=== PATIENT | male | born 1955 | race Caucasian/White ===

== ENCOUNTER → 2020-07-05 11:58 | Outpatient (BNVA) | payer MEDICARE, MEDICAID, SELFPAY | PROVIDERS: PCP Family Medicine; Visit Provider Internal Medicine | DX: I25.10 Atherosclerotic heart disease of native coronary artery without angina pectoris (principal); I10 Essential (primary) hypertension; E11.9 Type 2 diabetes mellitus without complications; E78.5 Hyperlipidemia, unspecified; Z79.899 Other long term (current) drug therapy | CPT/HCPCS: 93005; 99212 ==

== ENCOUNTER → 2020-07-22 08:45 | Outpatient (BNVA) | payer MEDICAID, SELFPAY | PROVIDERS: PCP Family Medicine; Referring Provider Family Medicine; Visit Provider Physician Assistant | DX: Z76.89 Persons encountering health services in other specified circumstances (principal) ==

== ENCOUNTER 2021-03-17 13:31 | Outpatient (RCR) | payer MEDICARE, MEDICAID, SELFPAY ==
--- NOTE | ~2021-03-17 | XR_ITS ---
EXAMINATION: XR FOOT, LEFT CLINICAL INFORMATION: Nonhealing foot wound. Evaluate for osteomyelitis. COMPARISON: None TECHNIQUE: AP, lateral, and bilateral oblique views of the left foot. FINDINGS: No acute fracture or dislocation. Mild joint space narrowing or marginal osteophytes scattered throughout the interphalangeal joints. Partially visualized orthopedic hardware within the distal tibia and fibula related to remote fractures. No evidence of hardware complication. Soft tissue ulceration and overlying bandage lateral to the 5th metatarsophalangeal joint. No radiopaque foreign body or adjacent periosteal reaction/osseous erosion. XR/XR foot LT min 3V IMPRESSION: Soft tissue wound lateral to the 5th metatarsophalangeal joint without evidence of osteomyelitis. Osteomyelitis may be occult on plain radiographs and if there is persistent clinical concern, nuclear medicine bone scan or MRI without and with contrast could be considered to help further evaluate.
[2021-05-18 09:04] LABS: MANUAL DIFF FLAG NO
[2021-05-18 09:26] LABS: Basophils Absolute Auto 0.1 X10*3/uL (0.0-0.2); Basophils Percent Auto 0.7 % (0-2); Eosinophils Absolute Auto 0.2 X10*3/uL (0.0-0.4); Eosinophils Percent Auto 2.1 % (0-4); Hematocrit 34.2 % (42-52); Hemoglobin 11.1 g/dl (14.0-18.0); Imm Gran Abs Auto 0.02 X10*3/uL (0.00-0.03); Imm Gran Pct Auto 0.3 % (0.0-0.4); Lymphocytes Absolute Auto 1.4 X10*3/uL (1.2-4.9); Lymphocytes Percent Auto 19.1 % (20-40); Mean Corpuscular HGB Conc 32.5 g/dl (31.0-36.0); Mean Corpuscular Hemoglobin 28.8 pg (27.0-33.0); Mean Corpuscular Volume 88.6 fL (80-98); Mean Platelet Volume 10.3 fL (9.4-12.4); Monocytes Absolute Auto 0.6 X10*3/uL (0.1-1.2); Monocytes Percent Auto 8.5 % (2-11); Neutrophils Absolute Auto 4.9 X10*3/uL (2.0-8.3); Neutrophils Percent Auto 69.3 % (45-73); Platelet Count 326 X10*3/uL (160-400); Red Blood Count 3.86 X10*6/uL (4.60-5.80); Red Cell Distribution Width 12.7 % (11.0-16.0); White Blood Count 7.1 X10*3/uL (4.8-10.8)
[2021-05-18 09:42] LABS: Estimated Average Glucose 117 mg/dL; Hemoglobin A1c % 5.7 %
[2021-05-18 09:55] LABS: Anion Gap 12 (12-20); Blood Urea Nitrogen 17 mg/dL (9-16); C Reactive Protein 0.46 mg/dL (< or = 0.50); Calcium 9.7 mg/dL (8.4-10.2); Carbon Dioxide 30 mmol/L (22-29); Chloride 102 mmol/L (96-108); Estimated Glomerular Filt Rate 60; Glucose Random 97 mg/dL (60-115); Potassium 4.9 mmol/L (3.3-5.1); Sodium 139 mmol/L (135-145)
[2021-05-18 10:08] LABS: Erythrocyte Sedimentation Rate 33 MM/HR (0-15)
== END 2021-10-13 09:10 | disposition home or self-care (01) ==
LOC: HO.WCC 13:31
PROVIDERS: Absent Provider Physician Assistant; PCP Family Medicine; Visit Provider Surgery
DX: E11.621 Type 2 diabetes mellitus with foot ulcer (principal); L97.522 Non-pressure chronic ulcer of other part of left foot with fat layer exposed; E11.51 Type 2 diabetes mellitus with diabetic peripheral angiopathy without gangrene; F11.90 Opioid use, unspecified, uncomplicated; Z79.84 Long term (current) use of oral hypoglycemic drugs; Z79.82 Long term (current) use of aspirin; Z79.2 Long term (current) use of antibiotics; Z79.899 Other long term (current) drug therapy
CPT/HCPCS: 11042; 15271; 15275; 36415; 73630; 80048; 83036; 84134; 85025; 85652; 86140; 93923; 93926; 99212; 99213; Q4187

== ENCOUNTER 2021-05-30 14:29 | Outpatient (REF) | payer MEDICARE, MEDICAID, SELFPAY ==
--- NOTE | ~2021-05-30 | MR_ITS ---
EXAMINATION: MRI FOOT WITHOUT AND WITH CONTRAST, LEFT CLINICAL INFORMATION: Nonhealing diabetic foot ulcer. Evaluate for osteoarthritis. COMPARISON: Left foot radiographs dated 04/29/2020. TECHNIQUE: Multisequence MR imaging of the left foot was obtained without contrast on a high-field strength scanner. Patient declined intravenous contrast. FINDINGS: Evaluation limited secondary to patient motion. Soft tissue ulceration at the lateral aspect of the 5th metatarsal head with subcutaneous soft tissue edema, consistent with cellulitis. No organized fluid collection/abscess formation. Small 5th metatarsophalangeal joint effusion with mild marrow edema in the 5th metatarsal head and 5th proximal phalanx. No associated decreased T1 marrow signal. First metatarsophalangeal and hallux sesamoid articular cartilage thinning with mild subchondral cystic change and small marginal osteophytes. No additional abnormal marrow signal. No stress reaction or fracture. Edema within the intrinsic musculature of the foot, which can be seen in diabetic patients. The visualized flexor and extensor tendons are intact. The Lisfranc ligament is intact. MR/MR foot LT wo/w con IMPRESSION: 1. Soft tissue ulceration at the lateral aspect of the 5th metatarsal head with associated cellulitis. Small 5th metatarsophalangeal joint effusion and adjacent marrow edema, which could represent early septic arthritis. No osseous erosion. 2. Edema within the intrinsic musculature of the foot, which can be seen in diabetic patients. 3. 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
== END 2021-05-30 14:30 | disposition home or self-care (01) ==
LOC: HO.MRI 14:29
PROVIDERS: Visit Provider Physician Assistant
DX: E11.621 Type 2 diabetes mellitus with foot ulcer (principal); L97.422 Non-pressure chronic ulcer of left heel and midfoot with fat layer exposed
CPT/HCPCS: 73720

== ENCOUNTER → 2021-06-17 10:28 | Outpatient (BNVA) | payer MEDICARE, MEDICAID, SELFPAY | PROVIDERS: PCP Family Medicine; Visit Provider Internal Medicine | DX: S99.921A Unspecified injury of right foot, initial encounter (principal) | CPT/HCPCS: 99202 ==

== ENCOUNTER 2021-09-20 13:20 | Outpatient (REF) | payer MEDICARE, MEDICAID, SELFPAY ==
--- NOTE | ~2021-09-20 | US_ITS ---
EXAMINATION: US NONINVASIVE ASSESSMENT OF THE ARTERIES OF BOTH LOWER EXTREMITIES WITH ANKLE PRESSURE MEASUREMENTS, ANKLE BRACHIAL INDICES, PVR MEASUREMENTS AND LEFT LOWER EXTREMITY DUPLEX CLINICAL INFORMATION: Peripheral vascular disease. TECHNIQUE: Ankle pressure measurements, ankle brachial indices and PVR tracings were obtained of the lower extremity arterial system bilaterally. In addition, duplex Doppler techniques with wave form analysis and measurement of velocities in the common femoral, profunda femoral, superficial femoral, popliteal and tibial arteries was performed on the left. The study was performed only at rest. COMPARISON: None. FINDINGS: NONINVASIVE ASSESSMENT OF THE ARTERIES OF BOTH LOWER EXTREMITIES WITH ABIs: RIGHT LEG: Right ankle-brachial index: Not calculated as distal Doppler was inaudible. PVR (ankle): Dampened. LEFT LEG: Ankle-brachial index: 1.61, though likely artificially elevated due to vessel noncompressibility. Ankle PT pressure exceeds 200 mmHg. PVR (ankle): Dampened. BILATERAL LOWER EXTREMITY DUPLEX ULTRASOUND: LEFT LEG: Common femoral artery: 92 cm/s, Diastolic flow reversal: Yes Profunda femoris artery: 64 cm/s, Diastolic flow reversal: Yes Superficial femoral artery (proximal): 86 cm/s, Diastolic flow reversal: Yes Superficial femoral artery (mid): 95 cm/s, Diastolic flow reversal: Yes Superficial femoral artery (distal): 61 cm/s, Diastolic flow reversal: Yes Popliteal artery: 57 cm/s, Diastolic flow reversal: Yes Posterior tibial artery: 87 cm/s, Diastolic flow reversal: Yes US/US arterial duplex LE IMPRESSION: RIGHT LEG: MOSES unable to be calculated. Right ankle PVR dampened. LEFT LEG: MOSES 1.61, though likely artificially elevated given high right ankle pressures. No hemodynamically significant lesions identified on left lower extremity duplex. MOSES Reference: - >0.97-1.25 = normal - no significant arterial disease - 0.75-0.96 = mild peripheral arterial disease - 0.5-0.74 = moderate peripheral arterial disease - <0.50 = severe peripheral arterial disease
--- NOTE | ~2021-09-20 | US_ITS ---
EXAMINATION: US NONINVASIVE ASSESSMENT OF THE ARTERIES OF BOTH LOWER EXTREMITIES WITH ANKLE PRESSURE MEASUREMENTS, ANKLE BRACHIAL INDICES, PVR MEASUREMENTS AND LEFT LOWER EXTREMITY DUPLEX CLINICAL INFORMATION: Peripheral vascular disease. TECHNIQUE: Ankle pressure measurements, ankle brachial indices and PVR tracings were obtained of the lower extremity arterial system bilaterally. In addition, duplex Doppler techniques with wave form analysis and measurement of velocities in the common femoral, profunda femoral, superficial femoral, popliteal and tibial arteries was performed on the left. The study was performed only at rest. COMPARISON: None. FINDINGS: NONINVASIVE ASSESSMENT OF THE ARTERIES OF BOTH LOWER EXTREMITIES WITH ABIs: RIGHT LEG: Right ankle-brachial index: Not calculated as distal Doppler was inaudible. PVR (ankle): Dampened. LEFT LEG: Ankle-brachial index: 1.61, though likely artificially elevated due to vessel noncompressibility. Ankle PT pressure exceeds 200 mmHg. PVR (ankle): Dampened. BILATERAL LOWER EXTREMITY DUPLEX ULTRASOUND: LEFT LEG: Common femoral artery: 92 cm/s, Diastolic flow reversal: Yes Profunda femoris artery: 64 cm/s, Diastolic flow reversal: Yes Superficial femoral artery (proximal): 86 cm/s, Diastolic flow reversal: Yes Superficial femoral artery (mid): 95 cm/s, Diastolic flow reversal: Yes Superficial femoral artery (distal): 61 cm/s, Diastolic flow reversal: Yes Popliteal artery: 57 cm/s, Diastolic flow reversal: Yes Posterior tibial artery: 87 cm/s, Diastolic flow reversal: Yes US/US MOSES complete IMPRESSION: RIGHT LEG: MOSES unable to be calculated. Right ankle PVR dampened. LEFT LEG: MOSES 1.61, though likely artificially elevated given high right ankle pressures. No hemodynamically significant lesions identified on left lower extremity duplex. MOSES Reference: - >0.97-1.25 = normal - no significant arterial disease - 0.75-0.96 = mild peripheral arterial disease - 0.5-0.74 = moderate peripheral arterial disease - <0.50 = severe peripheral arterial disease
== END 2021-09-20 13:21 | disposition home or self-care (01) ==
LOC: HO.US 13:20
PROVIDERS: PCP Family Medicine; Visit Provider Surgery
DX: Z13.89 Encounter for screening for other disorder (principal)
CPT/HCPCS: 15275; 93923; 93926; Q4187

== ENCOUNTER → 2021-10-24 14:20 | Outpatient (BNVA) | payer MEDICARE, MEDICAID, SELFPAY | PROVIDERS: PCP Family Medicine; Referring Provider Family Medicine; Visit Provider Internal Medicine | DX: I25.10 Atherosclerotic heart disease of native coronary artery without angina pectoris (principal); I10 Essential (primary) hypertension; E11.9 Type 2 diabetes mellitus without complications; E78.5 Hyperlipidemia, unspecified; Z79.899 Other long term (current) drug therapy | CPT/HCPCS: 93005; 99212 ==

== ENCOUNTER 2022-02-17 08:12 | Emergency (ER) | payer MEDICARE, MEDICAID, SELFPAY ==
--- NOTE | ~2022-02-17 | XR_ITS ---
EXAMINATION: XR KNEE, RIGHT CLINICAL INFORMATION: Right knee pain status post fall. COMPARISON: 06/19/2012 right leg radiographs. TECHNIQUE: Four views of the right knee. FINDINGS: The patient is status post right femoral ORIF showing good anatomic alignment without hardware abnormality. Moderate to severe tricompartmental degenerative joint changes are seen. There is no joint effusion. The proximal tibia and fibula are intact without acute fracture. There is mild soft tissue swelling. XR/XR knee RT 4V IMPRESSION: Right knee degenerative joint changes without acute fracture or hardware abnormality. The overall appearance is similar to the previous study.
--- NOTE | ~2022-02-17 | XR_ITS ---
EXAMINATION: CR X-RAY FOOT AND ANKLE RIGHT CLINICAL INFORMATION: Right foot and ankle pain status post fall. COMPARISON: Right tibia and fibular radiographs dated 06/19/2012. TECHNIQUE: 3 views each of the right foot and ankle were obtained. FINDINGS: Old healed fractures of the diaphyses of the tibia and fibula are partially visualized. The ankle joint and mortise are intact. The tarsal bones are normally aligned. The metatarsals and phalanges are unremarkable. Mild interphalangeal degenerative joint changes are seen. The tarsal bone hardware is intact with good anatomic alignment. Moderate soft tissue swelling is seen most pronounced dorsally in the mid to distal foot. Moderate to severe atherosclerosis. XR/XR ankle RT 2V IMPRESSION: Old fractures, degenerative changes and soft tissue swelling is detailed above without overt acute fracture or hardware abnormality.
--- NOTE | ~2022-02-17 | XR_ITS ---
EXAMINATION: CR X-RAY FOOT AND ANKLE RIGHT CLINICAL INFORMATION: Right foot and ankle pain status post fall. COMPARISON: Right tibia and fibular radiographs dated 06/19/2012. TECHNIQUE: 3 views each of the right foot and ankle were obtained. FINDINGS: Old healed fractures of the diaphyses of the tibia and fibula are partially visualized. The ankle joint and mortise are intact. The tarsal bones are normally aligned. The metatarsals and phalanges are unremarkable. Mild interphalangeal degenerative joint changes are seen. The tarsal bone hardware is intact with good anatomic alignment. Moderate soft tissue swelling is seen most pronounced dorsally in the mid to distal foot. Moderate to severe atherosclerosis. XR/XR foot RT min 3V IMPRESSION: Old fractures, degenerative changes and soft tissue swelling is detailed above without overt acute fracture or hardware abnormality.
[2022-02-17 08:28] VITALS: BP 136/72; PULSE 115; RESP 18; TEMP 37.1; O2SAT 94; BMI 31.7
--- NOTE | 2022-02-17 08:43 | ED.GENADULT ---
HPI - General Adult General Chief complaint: Extremity Injury, Lower Stated complaint: Fall T-3/Swollen R ankle Time Seen by Provider: 02/17/22 08:43 Source: patient Mode of arrival: ambulatory Limitations: no limitations History of Present Illness HPI narrative: Patient is a 66 year old male presenting to the emergency department today with right foot pain and right knee pain after a fall. Patient states that he fell out of his wheelchair onto his right foot and knee which he has chronic problems with anyway. Patient states that he did not hit his head or have any loss of consciousness. Patient denies any dizziness, lightheadedness, abdominal pain, nausea, vomiting, fever, chills, blurry vision, double vision, loss of vision, chest pain, difficulty breathing, shortness of breath, back pain, night sweats, pain with urination, increased urinary frequency, increased urinary urgency, blood in his urine or stool, syncope or a near syncopal episode, bowel incontinence, bladder incontinence, bowel retention, bladder retention, or any other complaints at this time. Onset (ago): day(s) (3) Location: right and lower extremity Radiation: non-radiation Severity: mild Severity scale (1-10): 3 Quality: dull Pain Consistency: constant Relieving factors: none Exacerbating factors: none Associated symptoms: denies other symptoms Treatments prior to arrival: none Related Data Home Medications Medication Instructions Recorded Confirmed metformin 500 mg tablet 500 mg PO DAILY 07/05/20 12/30/21 methadone 10 mg tablet See Rx Instructions PO DAILY 07/05/20 12/30/21 quetiapine 400 mg tablet 400 mg PO BEDTIME 07/05/20 12/30/21 tamsulosin 0.4 mg capsule 0.4 mg PO DAILY 07/05/20 12/30/21 calcium carbonate 600 mg-vitamin 1 tab PO BEDTIME 10/24/21 12/30/21 D3 5 mcg (200 unit) tablet Previous Rx's Medication Instructions Recorded aspirin 81 mg tablet,delayed 81 mg PO DAILY #90 tabs 10/24/21 release (Enteric Coated Aspirin) atorvastatin 20 mg tablet 20 mg PO BEDTIME #90 tabs 10/24/21 lisinopril 20 mg tablet 20 mg PO QAM #90 tabs 10/24/21 metoprolol succinate 25 mg 25 mg PO DAILY 90 days #90 tabs 10/24/21 tablet,extended release 24 hr Allergies Allergy/AdvReac Type Severity Reaction Status Date / Time aspirin [ASPIRIN] AdvReac Mild BLEEDING Verified 12/30/21 08:25 Review of Systems Constitutional: Constitutional: Reports no additional constitutional complaints, Denies chills, Denies fever(s) and Denies night sweats Eyes: Eyes: Reports no additional eye complaints, Denies blurry vision, Denies change in vision, Denies diplopia, Denies eye discharge, Denies loss of vision and Denies eye pain ENT: Denies dizziness Cardiovascular: Cardiovascular: Reports no additional cardiovascular complaints, Denies chest pain, Denies lightheadedness, Denies Loss of Consciousness and Denies dyspnea Respiratory: Respiratory: Reports no additional respiratory complaints and Denies dyspnea Gastrointestinal: Gastrointestinal: Reports no additional gastrointestinal complaints, Denies abdominal pain, Denies melena, Denies hematochezia, Denies change in bowel habits and Denies change in stool character Genitourinary: Genitourinary: Reports no additional male genitourinary complaints, Denies hematuria, Denies oliguria, Denies difficulty urinating, Denies dysuria, Denies urinary frequency, Denies urinary hesitancy, Denies urinary incontinence and Denies urinary urgency Musculoskeletal: Musculoskeletal: Reports no additional musculoskeletal complaints, Denies numbness and Denies tingling Comments: right knee pain, right ankle pain, right foot pain Neurologic: Denies dizziness, Denies loss of vision, Denies numbness and Denies tingling Psychiatric: Psychiatric: Reports no additional psychiatric complaints Endocrine: Endocrine: Reports no additional endocrine complaints Hematologic/Lymphatic: Hematologic/Lymphatic: Reports no additional hematologic/lymphatic complaints Allergic/Immunologic: Allergic/Immunologic: Reports no additional allergic/immunologic complaints [facility] Past Medical History Attestation statement: The following information was validated with the patient. Source: old records reviewed Medical History Atherosclerotic cardiovascular disease Chronic constipation Essential hypertension Foot injury Other and unspecified hyperlipidemia Type 2 diabetes mellitus with unspecified complications Surgical History History of colonoscopy History of surgery on lower extremity No pertinent past surgical history Family History Family History Father No problems noted. Mother No problems noted. 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) Alcohol intake: former Patient Tobacco Use Status: Never used Tobacco Advance Directives: Yes Advance Directives Information Provided: Yes Advance Directives on File: No Current occupational status: disabled Physical Exam ED Vital Signs: Vital Signs - 24 hr 02/17/22 08:28 Temperature 98.7 F Pulse Rate 115 H Respiratory Rate 18 Blood Pressure 136/72 Pulse Oximetry 94 Oxygen Delivery Method Room Air BMI result Body Mass Index 31.7 Const General: cooperative, no acute distress, alert and awake Nutritional Appearance: well nourished Orientation/consciousness: patient oriented x3 Limitations: no limitations HENMT Head: Yes normal to inspection and Yes atraumatic Ears: hearing grossly normal bilaterally and external ears normal General nose exam: Normal external nose present, no nasal discharge noted and no epistaxis Face and sinus: Yes normal facial exam, No abrasion and No laceration Mouth: Normal oral and palatal mucosa present, no drooling and no muffled voice Eyes General: appearance normal, both eyes and all related structures Periorbital: periorbital findings normal Eyelids: Yes eyelids normal Conjunctivae: conjunctivae normal Pupils: Equal, round and reactive pupils present EOM: EOMs intact bilaterally Neck Neck: Yes normal visual inspection, Yes full ROM and Yes no lymphadenopathy Chest Chest palpation & inspection: normal inspection of the chest Resp Effort & Inspection: normal respiratory effort and able to speak in complete sentences Auscultation: clear to auscultation bilaterally Cardio Rate: regular rate Rhythm: regular rhythm GI Inspection: Yes normal to inspection Neuro General: patient oriented x3 and moves all extremities Cranial nerves: Yes Equal, round and reactive pupils present Cognition (Neuro): normal cognition Motor exam (neuro): 5/5 motor strength present throughout Sensory Exam: Normal double simultaneous stimulation for sensation Coordination: [id number] test normal Extrem Other: right foot swelling, right foot pain, right knee pain General: Yes full ROM and Yes capillary refill normal Psych Appearance: grossly normal Mental Status: mental status grossly normal Affect: normal affect Attitude: cooperative Thought process: Normal thought process present Thought content: Normal thought content present Insight: Good insight present (Psych) Medical Decision Making MDM Narrative Medical decision making narrative: Patient is a 66 year old male presenting to the emergency department today with right foot and right knee pain. Patient's physical exam showed minimal right foot swelling and right knee pain. However, this is chronic for the patient. I did not appreciate any bruising on the patient's examination. Patient's right foot, right knee, and right ankle x-rays showed no acute process. I explained my physical exam findings as well as all test results to the patient. I answered all questions asked by the patient. I stressed the importance of the patient taking his medication as prescribed. I stressed the importance of the patient following up with his primary care provider and an orthopedist. I stressed the importance of the patient returning to the emergency department immediately if his symptoms were to worsen or if he were to develop any dizziness, shortness of breath, difficulty breathing, chest pain, blurry vision, loss of vision, nausea, vomiting, abdominal pain, fever, chills, back pain, or any other complaints. Patient verbalized agreement and understanding with this treatment plan and discharge. Differential Diagnosis Differential Diagnosis: Right foot pain, right knee pain Medical Records Medical records reviewed: Yes I reviewed the patient's medical records. Imaging Data Right knee x-ray: Attestation: I personally reviewed and interpreted this imaging study as follows: My impression: No acute process. Radiologist's impression: EXAMINATION: XR KNEE, RIGHT? CLINICAL INFORMATION: Right knee pain status post fall.? COMPARISON: 06/19/2012 right leg radiographs.? TECHNIQUE: Four views of the right knee. FINDINGS: The patient is status post right femoral ORIF showing good anatomic alignment without hardware abnormality. Moderate to severe tricompartmental degenerative joint changes are seen. There is no joint effusion. The proximal tibia and fibula are intact without acute fracture. There is mild soft tissue swelling. XR/XR knee RT 4V IMPRESSION: Right knee degenerative joint changes without acute fracture or hardware abnormality. The overall appearance is similar to the previous study. ? Dictated By: Darius Elias MD Signed By: Electronically signed by Darius Elias MD 02/17/22 1048 Right foot and right ankle x-ray: Attestation: I personally reviewed and interpreted this imaging study as follows: My impression: No acute fracture. Radiologist's impression: EXAMINATION: CR X-RAY FOOT AND ANKLE RIGHT CLINICAL INFORMATION: Right foot and ankle pain status post fall. COMPARISON: Right tibia and fibular radiographs dated 06/19/2012.? ? TECHNIQUE: 3 views each of the right foot and ankle were obtained.? FINDINGS: Old healed fractures of the diaphyses of the tibia and fibula are partially visualized. The ankle joint and mortise are intact. The tarsal bones are normally aligned. The metatarsals and phalanges are unremarkable. Mild interphalangeal degenerative joint changes are seen. The tarsal bone hardware is intact with good anatomic alignment. Moderate soft tissue swelling is seen most pronounced dorsally in the mid to distal foot. Moderate to severe atherosclerosis. XR/XR foot RT min 3V IMPRESSION: Old fractures, degenerative changes and soft tissue swelling is detailed above without overt acute fracture or hardware abnormality. Dictated By: Darius Elias MD Signed By: Electronically signed by Darius Elias MD 02/17/22 1047 Discharge Plan Discharge Clinical Impression: Acute knee pain, Acute ankle pain Patient Disposition: Home, Self-Care Instructions: Knee Pain (ED) Additional Instructions: Follow up with your primary care provider and an orthopedic provider. Return to the emergency department immediately if your symptoms worsen or if you develop any dizziness, shortness of breath, difficulty breathing, chest pain, blurry vision, loss of vision, nausea, vomiting, abdominal pain, fever, chills, back pain, or any other complaints. Prescriptions: No Action metformin 500 mg tablet 500 mg PO DAILY quetiapine 400 mg tablet 400 mg PO BEDTIME tamsulosin 0.4 mg capsule 0.4 mg PO DAILY methadone 10 mg tablet See Rx Instructions PO DAILY Rx Instructions: 150MG daily PO daily; calcium carbonate-vitamin D3 600 mg-5 mcg (200 unit) tablet 1 tab PO BEDTIME metoprolol succinate 25 mg tablet extended release 24 hr 25 mg PO DAILY 90 Days Qty: 90 3RF aspirin [Enteric Coated Aspirin] 81 mg tablet,delayed release (DR/EC) 81 mg PO DAILY Qty: 90 3RF atorvastatin 20 mg tablet 20 mg PO BEDTIME Qty: 90 3RF lisinopril 20 mg tablet 20 mg PO QAM Qty: 90 3RF Referrals: [facility] [Provider Group] Katarzyna Sahu MD [Primary Care Provider] - Interventions: ED Discharge Assessment Last Done: 02/17/22 11:00 Discharge Date/Time: 02/17/22 10:45 Print Language: Cypriot
== END 2022-02-17 10:45 | disposition home or self-care (01) ==
PROVIDERS: Emergency Provider Emergency Medicine; PCP Family Medicine
DX: M25.561 Pain in right knee (principal); M25.571 Pain in right ankle and joints of right foot; E11.9 Type 2 diabetes mellitus without complications; I10 Essential (primary) hypertension
CPT/HCPCS: 73564; 73600; 73630; 99283

== ENCOUNTER 2022-02-23 09:00 | Emergency (ER) | payer MEDICARE, MEDICAID, SELFPAY ==
--- NOTE | ~2022-02-23 | CT_ITS ---
EXAMINATION: CT HEAD WITHOUT CONTRAST CLINICAL INFORMATION: Altered mental status. COMPARISON: None TECHNIQUE: Contiguous axial imaging was performed from the skull base to vertex without intravenous administration of contrast. This CT examination was performed using dose optimization techniques as appropriate, variously including the following: *Automated exposure control *Adjustment of mA and/or kV according to patient size (this includes techniques or standardized protocols for targeted exams where dose is matched to indication/reason for exam; i.e. extremities or head) *Use of iterative reconstruction technique DLP: 739 mGy-cm FINDINGS: Limited by obliquity within the scanner. There is no evidence of acute intracranial hemorrhage or territorial infarction. Attenuation of brain parenchyma appears unremarkable. No abnormal mass effect or midline shift is seen. Bowser to white matter differentiation is well preserved. Ventricles appear unremarkable in size. No extra-axial fluid collections are identified. Mild hyperostosis frontalis interna. 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 Mild mucosal thickening involving the right frontal sinus infundibulum and left anterior ethmoid air cells. The mastoid air cells and visualized portions of the paranasal sinuses are well aerated. CT/CT head/brain wo con IMPRESSION: No acute intracranial finding.
--- NOTE | ~2022-02-23 | XR_ITS ---
EXAMINATION: XR CHEST CLINICAL INFORMATION: Altered mental status. COMPARISON: April 03, 2016. TECHNIQUE: Portable AP view of the chest was obtained. XR/XR chest 1V FINDINGS/IMPRESSION: The study is somewhat limited by portable technique, low lung volumes, and scoliosis. Linear densities at the left base probably represent fibrotic streaks and/atelectasis. No acute infiltrate, effusion, pneumothorax is seen. The cardiac silhouette is poorly evaluated. There are degenerative changes of the spine, with thoracic dextroscoliosis.
[2022-02-23 09:14] VITALS: BP 140/80; BP 147/92; PULSE 102; PULSE 92; RESP 18; TEMP 37; O2SAT 95; O2SAT 98; BMI 43.0
--- NOTE | 2022-02-23 09:16 | ECG_ITS ---
Test Reason : ams Blood Pressure : / mmHG Vent. Rate : 089 BPM Atrial Rate : 089 BPM P-R Int : 168 ms QRS Dur : 084 ms QT Int : 364 ms P-R-T Axes : 061 -23 017 degrees QTc Int : 442 ms Normal sinus rhythm Normal ECG When compared with ECG of 03-APR-2016 19:23, No significant change was found Referred By: Citlali Díaz Electronically Signed By:JOSH ESTEVEZ MD
--- NOTE | 2022-02-23 09:18 | ED_ITS ---
HPI - Altered Mental Status General Chief Complaint: Extremity Problem Stated Complaint: DISORIENTED PER EMS Time Seen by Provider: 02/23/22 09:09 Source: patient and old records reviewed Mode of arrival: EMS Limitations: altered mental status History of Present Illness HPI narrative: 66 yo male with hx of anemia, HLD, DM, HTN, CAD, chronic foot wounds, on home dose methadone thinks he took it yesterday - though I do not see one today. 911 called by neighbor for patient with diff breathing when EMS arrived patient did not appear labored but patient with disorientation and states that he does not feel well. Very vague. Overall no localizing complaints and he cannot tell us much. No signs of trauma. EMS found him sitting in his WC. MD complaint: altered mental status Onset (ago): unknown Timing confirmed by: other (neighbor called 911) Severity: moderate Consistency of symptoms: unknown Context: drug abuse and diabetes Associated symptoms: other ( I don't feel well. ) Related Data Home Medications Medication Instructions Recorded Confirmed methadone 10 mg tablet 150 mg PO DAILY 07/05/20 02/23/22 quetiapine 400 mg tablet 400 mg PO BEDTIME 07/05/20 02/23/22 tamsulosin 0.4 mg capsule 0.4 mg PO DAILY 07/05/20 02/23/22 calcium carbonate 600 mg-vitamin 1 tab PO BEDTIME 10/24/21 02/23/22 D3 5 mcg (200 unit) tablet metformin 500 mg tablet,extended 1 tab PO QPM 02/23/22 02/23/22 release 24 hr Previous Rx's Medication Instructions Recorded aspirin 81 mg tablet,delayed 81 mg PO DAILY #90 tabs 10/24/21 release (Enteric Coated Aspirin) atorvastatin 20 mg tablet 20 mg PO BEDTIME #90 tabs 10/24/21 lisinopril 20 mg tablet 20 mg PO QAM #90 tabs 10/24/21 metoprolol succinate 25 mg 25 mg PO DAILY 90 days #90 tabs 10/24/21 tablet,extended release 24 hr Allergies Allergy/AdvReac Type Severity Reaction Status Date / Time aspirin [ASPIRIN] AdvReac Mild BLEEDING Verified 12/30/21 08:25 Review of Systems Review of Systems: ROS unable to be obtained due to altered mental status PMFSH Past Medical History Medical History Atherosclerotic cardiovascular disease Chronic constipation Essential hypertension Foot injury Other and unspecified hyperlipidemia Type 2 diabetes mellitus with unspecified complications Surgical History History of colonoscopy History of surgery on lower extremity No pertinent past surgical history Family History Family History Father No problems noted. Mother No problems noted. 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) Alcohol intake: former Patient Tobacco Use Status: Never used Tobacco Advance Directives: No Advance Directives Information Provided: Yes Current occupational status: disabled Physical Exam ED Vital Signs: Vital Signs - 24 hr 02/23/22 09:14 02/23/22 10:45 02/23/22 14:05 Temperature 98.6 F 98.5 F Pulse Rate 102 H 92 70 Respiratory Rate 18 16 16 Blood Pressure 147/92 H 158/94 H 160/97 H Pulse Oximetry 98 97 97 Oxygen Delivery Method Room Air Room Air Room Air 02/23/22 16:01 Temperature Pulse Rate 91 Respiratory Rate 16 Blood Pressure 150/91 H Pulse Oximetry 97 Oxygen Delivery Method Room Air BMI result Body Mass Index 43.0 Appearance: Alert. Oriented X2 (does not know time). Mild acute distress. Eyes: Pupils equal, round and reactive to light. ENT: Pharynx normal. Atraumatic Neck: Normal inspection. Neck supple. CVS: Normal heart rate and rhythm. Pulses normal. Respiratory: No respiratory distress. Breath sounds normal. Abdomen: Soft and nontender. Skin: Skin warm and diaphoretic. Pale skin color. Normal skin turgor. Extremities: 1+ pitting lower extremity edema. R foot prior amputation no obvious foot wounds at this time Neuro: Oriented X 2. No motor deficit. No sensory deficit. Course Course Course Narrative: next of kin not answering phone and voicemail box full [place] cath ordered afebrile no WBC count lactic acidosis likely due to metformin use and not infection or severe sepsis, ESR lower than baseline, procalcitonin negative, CRP at baseline. 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 not notified that patient did not have a line so delay in meds and repeat lactic acid still no source of infection at this time, now oriented. negative UTI patietn has no abdominal pain now states that he takes ambien at night and it helps him but he gets confused ?reaction to ambien as he has improved throughout the day and cleared repeat lactic acid pending after fluids - has no abdominal pain on exam, no complaints, suspect due to metformin, will keep until repeat done put in obs for safe DC, patient aware, remains alert and oriented at this time, suspect due to ambien abuse. Patient placed in physician observation at 417pm.. The indication for observation is that the patient needs more time to see if their lactic acid improves or they will need to be admitted. At this time the patient is well developed well nourished, lungs clear, CV RRR, abd nontender, neuro is intact. improving while here. MDM - Altered Mental Status MDM Narrative Medical decision making narrative: 66 yo male with hx of anemia, HLD, DM, HTN, CAD, chronic foot wounds, on home dose methadone here with AMS - uknown last well and overall just states he doesn't feel well at this time will obtain tox, metabolic and infectious workup. CT head for ICH, CXR, UA ordered. Calling his methadone clinic as well to see if he is in withdrawal. Lab Data Result diagrams: 02/23/22 10:25 02/23/22 10:23 Labs: Lab Results 02/23/22 02/23/22 02/23/22 Range/Units 10:10 10:10 10:10 WBC (4.8-10.8) X10*3/uL RBC (4.60-5.80) X10*6/uL Hgb (14.0-18.0) g/dl Hct (42.0-52.0) % MCV (80.0-98.0) fL MCH (27.0-33.0) pg MCHC (31.0-36.0) g/dl RDW (11.0-16.0) % Plt Count (160-400) X10*3/uL MPV (9.4-12.4) fL Immature Gran % (Auto) (0.0-0.4) % Neut % (Auto) (45-73) % Lymph % (Auto) (20-40) % [place] % (Auto) (2-11) % Eos % (Auto) (0-4) % Baso % (Auto) (0-2) % Lymph # (Auto) (1.2-4.9) X10*3/uL [place] # (Auto) (0.1-1.2) X10*3/uL Eos # (Auto) (0.0-0.4) X10*3/uL Baso # (Auto) (0.0-0.2) X10*3/uL Abs Immat Gran (auto) (0.00-0.03) X10*3/uL Absolute Neuts (auto) (2.0-8.3) x10*3/uL Absolute Nucleated RBC (0.0-0.012) X10*3/uL Nucleated RBC % (auto) (0.0-0.2) /100WBC ESR 28 H (0-15) MM/HR PT 12.4 (10.0-13.1) SEC INR 1.1 (0.9-1.1) VBG pH (7.32-7.43) VBG pCO2 mmHg VBG pO2 mmHg VBG HCO3 (22-26) mmol/L VBG O2 Saturation % VBG Base Excess mmol/L Sodium (135-145) mmol/L Potassium (3.3-5.1) mmol/L Chloride (96-108) mmol/L Carbon Dioxide (22-29) mmol/L Anion Gap (12-20) BUN (9-16) mg/dL Creatinine (0.5-1.4) mg/dL Estim Creat Clear Calc Estimated GFR Random Glucose (60-115) mg/dL Lactic Acid (0.5-2.0) mmol/L Calcium (8.4-10.2) mg/dL Magnesium (1.6-2.6) mg/dL Total Bilirubin (0.0-1.0) mg/dL Direct Bilirubin (0.0-0.5) mg/dL AST (5-37) U/L ALT (0-40) U/L Alkaline Phosphatase (39-117) U/L Ammonia (13-55) umol/L Total Creatine Kinase (38-174) U/L Troponin I High Sens (<3.5-35.0) ng/L C-Reactive Protein (< or = 0.50) mg/dL B-Natriuretic Peptide (<100) pg/mL Total Protein (6.5-8.0) g/dL Albumin (3.5-5.0) g/dL Lipase (8-78) U/L Procalcitonin ng/mL TSH 1.52 (0.32-4.0) uIU/mL Urine Color Urine Appearance Urine pH (5.0-8.0) Ur Specific [place] (1.005-1.025) Urine Protein (NEG-TRACE) MG/DL Urine Glucose (UA) (NEG) MG/DL Urine Ketones (NEG) MG/DL Urine Blood (NEG) Urine Nitrite (NEG) Ur Leukocyte Esterase (NEG) Urine RBC (0) /HPF Urine WBC (0-4) /HPF Ur Squamous Epith Cells /LPF Urine Bacteria /LPF Granular Casts /LPF Ur Oval Fat Bodies (NONE) Salicylates (15-30) mg/dL Urine Opiates Screen (Not Detect) Urine Fentanyl Screen (Not Detect) Acetaminophen (<30) mcg/mL Ur Barbiturates Screen (Not Detect) Ur Phencyclidine Scrn (Not Detect) Ur Amphetamines Screen (Not Detect) U Benzodiazepines Scrn (Not Detect) Urine Cocaine Screen (Not Detect) U Marijuana (THC) Screen (Not Detect) Ethyl Alcohol mg/dL Acetone, Qual Negative (Negative) COVID-19 (JEIMY) (Negative) COVID-19 Clin Com 02/23/22 02/23/22 02/23/22 Range/Units 10:10 10:11 10:23 WBC (4.8-10.8) X10*3/uL RBC (4.60-5.80) X10*6/uL Hgb (14.0-18.0) g/dl Hct (42.0-52.0) % MCV (80.0-98.0) fL MCH (27.0-33.0) pg MCHC (31.0-36.0) g/dl RDW (11.0-16.0) % Plt Count (160-400) X10*3/uL MPV (9.4-12.4) fL Immature Gran % (Auto) (0.0-0.4) % Neut % (Auto) (45-73) % Lymph % (Auto) (20-40) % [place] % (Auto) (2-11) % Eos % (Auto) (0-4) % Baso % (Auto) (0-2) % Lymph # (Auto) (1.2-4.9) X10*3/uL [place] # (Auto) (0.1-1.2) X10*3/uL Eos # (Auto) (0.0-0.4) X10*3/uL Baso # (Auto) (0.0-0.2) X10*3/uL Abs Immat Gran (auto) (0.00-0.03) X10*3/uL Absolute Neuts (auto) (2.0-8.3) x10*3/uL Absolute Nucleated RBC (0.0-0.012) X10*3/uL Nucleated RBC % (auto) (0.0-0.2) /100WBC ESR (0-15) MM/HR PT (10.0-13.1) SEC INR (0.9-1.1) VBG pH (7.32-7.43) VBG pCO2 mmHg VBG pO2 mmHg VBG HCO3 (22-26) mmol/L VBG O2 Saturation % VBG Base Excess mmol/L Sodium 140 (135-145) mmol/L Potassium 4.2 (3.3-5.1) mmol/L Chloride 102 (96-108) mmol/L Carbon Dioxide 27 (22-29) mmol/L Anion Gap 15 (12-20) BUN 12 (9-16) mg/dL Creatinine 1.22 (0.5-1.4) mg/dL Estim Creat Clear Calc 75.4 Estimated GFR 59 Random Glucose 163 H D (60-115) mg/dL Lactic Acid (0.5-2.0) mmol/L Calcium 10.4 H D (8.4-10.2) mg/dL Magnesium 1.6 (1.6-2.6) mg/dL Total Bilirubin 0.6 (0.0-1.0) mg/dL Direct Bilirubin 0.4 (0.0-0.5) mg/dL AST 18 (5-37) U/L ALT 13 (0-40) U/L Alkaline Phosphatase 145 H D (39-117) U/L Ammonia (13-55) umol/L Total Creatine Kinase 122 (38-174) U/L Troponin I High Sens (<3.5-35.0) ng/L C-Reactive Protein 1.04 H (< or = 0.50) mg/dL B-Natriuretic Peptide (<100) pg/mL Total Protein 8.1 H (6.5-8.0) g/dL Albumin 4.5 (3.5-5.0) g/dL Lipase < 4 L (8-78) U/L Procalcitonin < 0.02 ng/mL TSH (0.32-4.0) uIU/mL Urine Color Urine Appearance Urine pH (5.0-8.0) Ur Specific [place] (1.005-1.025) Urine Protein (NEG-TRACE) MG/DL Urine Glucose (UA) (NEG) MG/DL Urine Ketones (NEG) MG/DL Urine Blood (NEG) Urine Nitrite (NEG) Ur Leukocyte Esterase (NEG) Urine RBC (0) /HPF Urine WBC (0-4) /HPF Ur Squamous Epith Cells /LPF Urine Bacteria /LPF Granular Casts /LPF Ur Oval Fat Bodies (NONE) Salicylates < 5.0 L (15-30) mg/dL Urine Opiates Screen (Not Detect) Urine Fentanyl Screen (Not Detect) Acetaminophen < 1 (<30) mcg/mL Ur Barbiturates Screen (Not Detect) Ur Phencyclidine Scrn (Not Detect) Ur Amphetamines Screen (Not Detect) U Benzodiazepines Scrn (Not Detect) Urine Cocaine Screen (Not Detect) U Marijuana (THC) Screen (Not Detect) Ethyl Alcohol < 10 mg/dL Acetone, Qual (Negative) COVID-19 (JEIMY) Negative (Negative) COVID-19 Clin Com See Note 02/23/22 02/23/22 02/23/22 Range/Units 10:23 10:24 10:25 WBC 8.8 (4.8-10.8) X10*3/uL RBC 4.44 L (4.60-5.80) X10*6/uL Hgb 12.7 L (14.0-18.0) g/dl Hct 38.3 L (42.0-52.0) % MCV 86.3 (80.0-98.0) fL MCH 28.6 (27.0-33.0) pg MCHC 33.2 (31.0-36.0) g/dl RDW 12.5 (11.0-16.0) % Plt Count 383 D (160-400) X10*3/uL MPV 10.5 (9.4-12.4) fL Immature Gran % (Auto) 0.5 H (0.0-0.4) % Neut % (Auto) 86.0 H (45-73) % Lymph % (Auto) 8.8 L (20-40) % [place] % (Auto) 4.3 (2-11) % Eos % (Auto) 0.1 (0-4) % Baso % (Auto) 0.3 (0-2) % Lymph # (Auto) 0.8 L (1.2-4.9) X10*3/uL [place] # (Auto) 0.4 (0.1-1.2) X10*3/uL Eos # (Auto) 0.0 (0.0-0.4) X10*3/uL Baso # (Auto) 0.0 (0.0-0.2) X10*3/uL Abs Immat Gran (auto) 0.04 H (0.00-0.03) X10*3/uL Absolute Neuts (auto) 7.6 (2.0-8.3) x10*3/uL Absolute Nucleated RBC 0.000 (0.0-0.012) X10*3/uL Nucleated RBC % (auto) 0.0 (0.0-0.2) /100WBC ESR (0-15) MM/HR PT (10.0-13.1) SEC INR (0.9-1.1) VBG pH (7.32-7.43) VBG pCO2 mmHg VBG pO2 mmHg VBG HCO3 (22-26) mmol/L VBG O2 Saturation % VBG Base Excess mmol/L Sodium (135-145) mmol/L Potassium (3.3-5.1) mmol/L Chloride (96-108) mmol/L Carbon Dioxide (22-29) mmol/L Anion Gap (12-20) BUN (9-16) mg/dL Creatinine (0.5-1.4) mg/dL Estim Creat Clear Calc Estimated GFR Random Glucose (60-115) mg/dL Lactic Acid (0.5-2.0) mmol/L Calcium (8.4-10.2) mg/dL Magnesium (1.6-2.6) mg/dL Total Bilirubin (0.0-1.0) mg/dL Direct Bilirubin (0.0-0.5) mg/dL AST (5-37) U/L ALT (0-40) U/L Alkaline Phosphatase (39-117) U/L Ammonia 22 (13-55) umol/L Total Creatine Kinase (38-174) U/L Troponin I High Sens (<3.5-35.0) ng/L C-Reactive Protein (< or = 0.50) mg/dL B-Natriuretic Peptide 66 (<100) pg/mL Total Protein (6.5-8.0) g/dL Albumin (3.5-5.0) g/dL Lipase (8-78) U/L Procalcitonin ng/mL TSH (0.32-4.0) uIU/mL Urine Color Urine Appearance Urine pH (5.0-8.0) Ur Specific [place] (1.005-1.025) Urine Protein (NEG-TRACE) MG/DL Urine Glucose (UA) (NEG) MG/DL Urine Ketones (NEG) MG/DL Urine Blood (NEG) Urine Nitrite (NEG) Ur Leukocyte Esterase (NEG) Urine RBC (0) /HPF Urine WBC (0-4) /HPF Ur Squamous Epith Cells /LPF Urine Bacteria /LPF Granular Casts /LPF Ur Oval Fat Bodies (NONE) Salicylates (15-30) mg/dL Urine Opiates Screen (Not Detect) Urine Fentanyl Screen (Not Detect) Acetaminophen (<30) mcg/mL Ur Barbiturates Screen (Not Detect) Ur Phencyclidine Scrn (Not Detect) Ur Amphetamines Screen (Not Detect) U Benzodiazepines Scrn (Not Detect) Urine Cocaine Screen (Not Detect) U Marijuana (THC) Screen (Not Detect) Ethyl Alcohol mg/dL Acetone, Qual (Negative) COVID-19 (JEIMY) (Negative) COVID-19 Clin Com 02/23/22 02/23/22 02/23/22 Range/Units 10:25 10:25 10:25 WBC (4.8-10.8) X10*3/uL RBC (4.60-5.80) X10*6/uL Hgb (14.0-18.0) g/dl Hct (42.0-52.0) % MCV (80.0-98.0) fL MCH (27.0-33.0) pg MCHC (31.0-36.0) g/dl RDW (11.0-16.0) % Plt Count (160-400) X10*3/uL MPV (9.4-12.4) fL Immature Gran % (Auto) (0.0-0.4) % Neut % (Auto) (45-73) % Lymph % (Auto) (20-40) % [place] % (Auto) (2-11) % Eos % (Auto) (0-4) % Baso % (Auto) (0-2) % Lymph # (Auto) (1.2-4.9) X10*3/uL [place] # (Auto) (0.1-1.2) X10*3/uL Eos # (Auto) (0.0-0.4) X10*3/uL Baso # (Auto) (0.0-0.2) X10*3/uL Abs Immat Gran (auto) (0.00-0.03) X10*3/uL Absolute Neuts (auto) (2.0-8.3) x10*3/uL Absolute Nucleated RBC (0.0-0.012) X10*3/uL Nucleated RBC % (auto) (0.0-0.2) /100WBC ESR (0-15) MM/HR PT (10.0-13.1) SEC INR (0.9-1.1) VBG pH 7.42 (7.32-7.43) VBG pCO2 41 mmHg VBG pO2 34 mmHg VBG HCO3 27 H (22-26) mmol/L VBG O2 Saturation 52.0 % VBG Base Excess 3.1 mmol/L Sodium (135-145) mmol/L Potassium (3.3-5.1) mmol/L Chloride (96-108) mmol/L Carbon Dioxide (22-29) mmol/L Anion Gap (12-20) BUN (9-16) mg/dL Creatinine (0.5-1.4) mg/dL Estim Creat Clear Calc Estimated GFR Random Glucose (60-115) mg/dL Lactic Acid 3.0 H* (0.5-2.0) mmol/L Calcium (8.4-10.2) mg/dL Magnesium (1.6-2.6) mg/dL Total Bilirubin (0.0-1.0) mg/dL Direct Bilirubin (0.0-0.5) mg/dL AST (5-37) U/L ALT (0-40) U/L Alkaline Phosphatase (39-117) U/L Ammonia (13-55) umol/L Total Creatine Kinase (38-174) U/L Troponin I High Sens 13.5 (<3.5-35.0) ng/L C-Reactive Protein (< or = 0.50) mg/dL B-Natriuretic Peptide (<100) pg/mL Total Protein (6.5-8.0) g/dL Albumin (3.5-5.0) g/dL Lipase (8-78) U/L Procalcitonin ng/mL TSH (0.32-4.0) uIU/mL Urine Color Urine Appearance Urine pH (5.0-8.0) Ur Specific [place] (1.005-1.025) Urine Protein (NEG-TRACE) MG/DL Urine Glucose (UA) (NEG) MG/DL Urine Ketones (NEG) MG/DL Urine Blood (NEG) Urine Nitrite (NEG) Ur Leukocyte Esterase (NEG) Urine RBC (0) /HPF Urine WBC (0-4) /HPF Ur Squamous Epith Cells /LPF Urine Bacteria /LPF Granular Casts /LPF Ur Oval Fat Bodies (NONE) Salicylates (15-30) mg/dL Urine Opiates Screen (Not Detect) Urine Fentanyl Screen (Not Detect) Acetaminophen (<30) mcg/mL Ur Barbiturates Screen (Not Detect) Ur Phencyclidine Scrn (Not Detect) Ur Amphetamines Screen (Not Detect) U Benzodiazepines Scrn (Not Detect) Urine Cocaine Screen (Not Detect) U Marijuana (THC) Screen (Not Detect) Ethyl Alcohol mg/dL Acetone, Qual (Negative) COVID-19 (JEIMY) (Negative) COVID-19 Clin Com 02/23/22 02/23/22 Range/Units 11:43 11:43 WBC (4.8-10.8) X10*3/uL RBC (4.60-5.80) X10*6/uL Hgb (14.0-18.0) g/dl Hct (42.0-52.0) % MCV (80.0-98.0) fL MCH (27.0-33.0) pg MCHC (31.0-36.0) g/dl RDW (11.0-16.0) % Plt Count (160-400) X10*3/uL MPV (9.4-12.4) fL Immature Gran % (Auto) (0.0-0.4) % Neut % (Auto) (45-73) % Lymph % (Auto) (20-40) % [place] % (Auto) (2-11) % Eos % (Auto) (0-4) % Baso % (Auto) (0-2) % Lymph # (Auto) (1.2-4.9) X10*3/uL [place] # (Auto) (0.1-1.2) X10*3/uL Eos # (Auto) (0.0-0.4) X10*3/uL Baso # (Auto) (0.0-0.2) X10*3/uL Abs Immat Gran (auto) (0.00-0.03) X10*3/uL Absolute Neuts (auto) (2.0-8.3) x10*3/uL Absolute Nucleated RBC (0.0-0.012) X10*3/uL Nucleated RBC % (auto) (0.0-0.2) /100WBC ESR (0-15) MM/HR PT (10.0-13.1) SEC INR (0.9-1.1) VBG pH (7.32-7.43) VBG pCO2 mmHg VBG pO2 mmHg VBG HCO3 (22-26) mmol/L VBG O2 Saturation % VBG Base Excess mmol/L Sodium (135-145) mmol/L Potassium (3.3-5.1) mmol/L Chloride (96-108) mmol/L Carbon Dioxide (22-29) mmol/L Anion Gap (12-20) BUN (9-16) mg/dL Creatinine (0.5-1.4) mg/dL Estim Creat Clear Calc Estimated GFR Random Glucose (60-115) mg/dL Lactic Acid (0.5-2.0) mmol/L Calcium (8.4-10.2) mg/dL Magnesium (1.6-2.6) mg/dL Total Bilirubin (0.0-1.0) mg/dL Direct Bilirubin (0.0-0.5) mg/dL AST (5-37) U/L ALT (0-40) U/L Alkaline Phosphatase (39-117) U/L Ammonia (13-55) umol/L Total Creatine Kinase (38-174) U/L Troponin I High Sens (<3.5-35.0) ng/L C-Reactive Protein (< or = 0.50) mg/dL B-Natriuretic Peptide (<100) pg/mL Total Protein (6.5-8.0) g/dL Albumin (3.5-5.0) g/dL Lipase (8-78) U/L Procalcitonin ng/mL TSH (0.32-4.0) uIU/mL Urine Color YELLOW Urine Appearance CLEAR Urine pH 6.5 (5.0-8.0) Ur Specific [place] 1.025 (1.005-1.025) Urine Protein TRACE (NEG-TRACE) MG/DL Urine Glucose (UA) NEG (NEG) MG/DL Urine Ketones 5 (NEG) MG/DL Urine Blood 2+ H (NEG) Urine Nitrite NEG (NEG) Ur Leukocyte Esterase NEG (NEG) Urine RBC 30-49 H (0) /HPF Urine WBC 0 (0-4) /HPF Ur Squamous Epith Cells 1+ /LPF Urine Bacteria NONE /LPF Granular Casts 0-2 /LPF Ur Oval Fat Bodies NOTED (NONE) Salicylates (15-30) mg/dL Urine Opiates Screen Not Detected (Not Detect) Urine Fentanyl Screen Not Detected (Not Detect) Acetaminophen (<30) mcg/mL Ur Barbiturates Screen Not Detected (Not Detect) Ur Phencyclidine Scrn Not Detected (Not Detect) Ur Amphetamines Screen Not Detected (Not Detect) U Benzodiazepines Scrn Not Detected (Not Detect) Urine Cocaine Screen Not Detected (Not Detect) U Marijuana (THC) Screen Not Detected (Not Detect) Ethyl Alcohol mg/dL Acetone, Qual (Negative) COVID-19 (JEIMY) (Negative) COVID-19 Clin Com ECG Data ECG #1: Attestation: I personally reviewed and interpreted this ECG as follows: ECG interpretation date: 02/23/22 ECG interpretation time: 09:56 Interpretation: Rate: 89 Rhythm: NSR [place]: left Normal P waves. Normal BARTOLO. Normal QRS complex. ST T wave : normal no JOHN qTC: normal prior studies: no acute ischemia The study has been interpreted contemporaneously by me. . Discharge Plan Discharge Clinical Impression: Acute confusion, Acidosis, lactic, Ambien accidental overdose Patient Disposition: Still a Patient Prescriptions: No Action metformin 500 mg tablet extended release 24 hr 1 tab PO QPM quetiapine 400 mg tablet 400 mg PO BEDTIME tamsulosin 0.4 mg capsule 0.4 mg PO DAILY methadone 10 mg tablet 150 mg PO DAILY calcium carbonate-vitamin D3 600 mg-5 mcg (200 unit) tablet 1 tab PO BEDTIME metoprolol succinate 25 mg tablet extended release 24 hr 25 mg PO DAILY 90 Days Qty: 90 3RF aspirin [Enteric Coated Aspirin] 81 mg tablet,delayed release (DR/EC) 81 mg PO DAILY Qty: 90 3RF atorvastatin 20 mg tablet 20 mg PO BEDTIME Qty: 90 3RF lisinopril 20 mg tablet 20 mg PO QAM Qty: 90 3RF
[2022-02-23 10:26] LABS: INTERNATIONAL NORM RATIO 1.1 (0.9-1.1); Prothrombin Time 12.4 SEC (10.0-13.1)
[2022-02-23 10:32] LABS: MANUAL DIFF FLAG NO
[2022-02-23 10:36] LABS: Basophils Percent Auto 0.3 % (0-2); Eosinophils Percent Auto 0.1 % (0-4); Hematocrit 38.3 % (42.0-52.0); Hemoglobin 12.7 g/dl (14.0-18.0); Imm Gran Abs Auto 0.04 X10*3/uL (0.00-0.03); Imm Gran Pct Auto 0.5 % (0.0-0.4); Lymphocytes Absolute Auto 0.8 X10*3/uL (1.2-4.9); Lymphocytes Percent Auto 8.8 % (20-40); Mean Corpuscular HGB Conc 33.2 g/dl (31.0-36.0); Mean Corpuscular Hemoglobin 28.6 pg (27.0-33.0); Mean Corpuscular Volume 86.3 fL (80.0-98.0); Mean Platelet Volume 10.5 fL (9.4-12.4); Monocytes Absolute Auto 0.4 X10*3/uL (0.1-1.2); Monocytes Percent Auto 4.3 % (2-11); Neutrophils Absolute Auto 7.6 x10*3/uL (2.0-8.3); Platelet Count 383 X10*3/uL (160-400); Red Blood Count 4.44 X10*6/uL (4.60-5.80); Red Cell Distribution Width 12.5 % (11.0-16.0); White Blood Count 8.8 X10*3/uL (4.8-10.8)
[2022-02-23 10:37] LABS: Acetone, serum QL Negative (Negative)
[2022-02-23 10:40] LABS: Ammonia 22 umol/L (13-55)
[2022-02-23 10:40] LABS: COVID-19 Test Negative (Negative); IDNOW Serial# 55D5AD1C
[2022-02-23 10:45] VITALS: BP 158/94; PULSE 92; RESP 16; O2SAT 97
[2022-02-23 10:50] LABS: VBG pCO2 41 mmHg; VBG pH 7.42 (7.32-7.43)
[2022-02-23 10:51] LABS: VBG Base Excess 3.1 mmol/L; VBG HCO3 27 mmol/L (22-26); VBG pO2 34 mmHg
[2022-02-23 10:53] LABS: B Type Natriuretic Peptide 66 pg/mL (<100)
[2022-02-23 10:53] LABS: Troponin-I High Sensitivity 13.5 ng/L (<3.5-35.0)
[2022-02-23 10:58] LABS: Alanine Aminotransferase 13 U/L (0-40); Albumin Level 4.5 g/dL (3.5-5.0); Alkaline Phosphatase 145 U/L (39-117); Anion Gap 15 (12-20); Aspartate Amino Transferase 18 U/L (5-37); Bilirubin Direct 0.4 mg/dL (0.0-0.5); Bilirubin Total 0.6 mg/dL (0.0-1.0); Blood Urea Nitrogen 12 mg/dL (9-16); C Reactive Protein 1.04 mg/dL (< or = 0.50); Calcium 10.4 mg/dL (8.4-10.2); Carbon Dioxide 27 mmol/L (22-29); Chloride 102 mmol/L (96-108); Creatinine Clr Calc Pharmacy 75.4; Estimated Glomerular Filt Rate 59; Ethanol < 10 mg/dL; Glucose Random 163 mg/dL (60-115); Lipase < 4 U/L (8-78); Magnesium 1.6 mg/dL (1.6-2.6); Potassium 4.2 mmol/L (3.3-5.1); Sodium 140 mmol/L (135-145); Total Protein 8.1 g/dL (6.5-8.0)
[2022-02-23 11:01] LABS: TSH reflex Free T4 1.52 uIU/mL (0.32-4.0)
[2022-02-23 11:10] LABS: Acetaminophen LAB < 1 mcg/mL (<30); Salicylate < 5.0 mg/dL (15-30)
[2022-02-23 11:12] LABS: Procalcitonin < 0.02 ng/mL
[2022-02-23 11:24] LABS: Erythrocyte Sedimentation Rate 28 MM/HR (0-15)
[2022-02-23 11:33] LABS: Venous Blood Gas Refer to POC result
--- NOTE | 2022-02-23 11:55 | HE.PHANOTE ---
Methadone Verification form received 02/23/22; Maryse Belcher sent 13 take home bottles on 02/13 for 150mg daily dose
[2022-02-23 12:30] LABS: Reflex Lactate? Lactic Acid Added
--- NOTE | 2022-02-23 12:52 | PHA.MEDREC ---
Pharmacy Consult ? Medication Reconciliation Pharmacy has completed the medication reconciliation. Based med rec off of claim history/ hand written list. Patient unaware of NEUROLOGY TECH name/phone number. Unsure if still taking metoprolol, not on hand written list will let provider know.
[2022-02-23] MEDS: 0.9 % Sodium Chloride 500 ML IV ×2 (13:39→17:22)
[2022-02-23] MEDS: Lidocaine HCl 2 % Urojet 10 ML JEL.PF.APP TOPICAL (13:40)
[2022-02-23 13:50] LABS: Appearance Urine CLEAR; Color Urine YELLOW; Glucose Urine UA NEG (NEG); Leukocyte Esterase Urine NEG (NEG); Nitrite Urine NEG (NEG); PH 6.5 (5.0-8.0); Specific Gravity - Urine 1.025 (1.005-1.025); UACC Culture Trigger NO; Urine Blood 2+ (NEG); Urine Ketones 5 MG/DL (NEG); Urine Protein TRACE MG/DL (NEG-TRACE)
[2022-02-23 13:58] LABS: Squamous Epithelial Cell Urine 1+ /LPF
[2022-02-23 13:59] LABS: RBC Urine 30-49 /HPF (0)
[2022-02-23 14:00] LABS: Granular Casts Urine 0-2 /LPF
[2022-02-23 14:01] LABS: Oval Fat Bodies Urine NOTED; WBC Urine 0 /HPF (0-4)
[2022-02-23 14:05] VITALS: BP 160/97; PULSE 70; RESP 16; TEMP 36.9; O2SAT 97
[2022-02-23 14:06] LABS: Amphetamine Screen Urine Not Detected (Not Detect); Barbiturates, Urine Not Detected (Not Detect); Benzodiazepines Screen Urine Not Detected (Not Detect); Cannabinoid Screen Urine Not Detected (Not Detect); Cocaine Screen Urine Not Detected (Not Detect); Fentanyl, urine Not Detected (Not Detect); Opiate Screen Urine Not Detected (Not Detect); Phencyclidine Screen Urine Not Detected (Not Detect)
[2022-02-23] MEDS: methADONE HCl 20 MG/2 ML ORAL.CONC 150 MG PO (14:07)
[2022-02-23] MEDS: ondansetron HCL 4 MG/2 ML VIAL IVPUSH ×2 (15:19→18:48)
[2022-02-23 16:01] VITALS: BP 150/91; PULSE 91; RESP 16; O2SAT 97
[2022-02-23 16:52] LABS: Lactic Acid 2.1 mmol/L (0.5-2.0)
[2022-02-23 18:25] LABS: Reflex Lactate? Lactic Acid Added
[2022-02-23 18:35] VITALS: BP 159/96; PULSE 88; RESP 16; O2SAT 95
[2022-02-23 20:43] LABS: ~Lactic Acid-LAB USE ONLY 1.4 mmol/L (0.5-2.0)
[2022-02-23 21:18] VITALS: BP 155/87; PULSE 80; RESP 16; TEMP 37.3; O2SAT 93
[2022-02-24] MEDS: Zolpidem Tartrate 5 MG TABLET 10 MG PO (02:39)
[2022-02-24 07:11] VITALS: BP 163/96; PULSE 84; RESP 12; O2SAT 97
--- NOTE | 2022-02-24 07:26 | PC.NURSE ---
Assumed care of this pt. at 0700 - report from Chon Gage RN
[2022-02-24 08:13] LABS: VBG Base Excess 3.1 mmol/L; VBG HCO3 27 mmol/L (22-26); VBG pCO2 41 mmHg; VBG pH 7.42 (7.32-7.43); VBG pO2 34 mmHg
--- NOTE | 2022-02-24 08:16 | MHC.CM.ED ---
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 Matty can be reached via telephone at [phone]. Patient lives alone and is active with [facility] for [facility]one. Patient receives take home Methadone doses. Patient is completely alert and oriented at this time. Patient and Matty feel patient can safely return home. Patient will be given Methadone today. Last dose letter will be provided. Patient aware he will need to bring 2 of the unopened take home doses back to [facility] when he returns on 02/27. Patient, Matty, Charlene OLEA and Maureen FOSS aware. Continue to monitor for d/c needs.
[2022-02-24 10:27] VITALS: PULSE 93; O2SAT 96
[2022-02-24] MEDS: Aspirin Enteric Coated 81 MG TABLET.DR PO (10:28)
[2022-02-24] MEDS: lisinopriL 20 MG TABLET PO (10:28)
[2022-02-24] MEDS: Tamsulosin HCL 0.4 MG CAPSULE PO (10:28)
[2022-02-24] MEDS: methADONE HCl 20 MG/2 ML ORAL.CONC 150 MG PO (10:29)
--- NOTE | 2022-02-24 10:37 | PC.NURSE ---
removed barksdale catheter for d/c
== END 2022-02-24 10:56 | disposition home or self-care (01) ==
PROVIDERS: Emergency Provider Emergency Medicine; PCP Family Medicine
DX: R41.82 Altered mental status, unspecified (principal); E11.9 Type 2 diabetes mellitus without complications; I10 Essential (primary) hypertension; R06.02 Shortness of breath; T42.6X1A Poisoning by other antiepileptic and sedative-hypnotic drugs, accidental (unintentional), initial encounter; Y92.9 Unspecified place or not applicable; E87.2 Acidosis; Z20.822 Contact with and (suspected) exposure to COVID-19; Z79.899 Other long term (current) drug therapy
CPT/HCPCS: 36415; 70450; 71045; 80048; 80076; 80143; 80179; 80307; 81001; 82009; 82077; 82140; 82550; 82803; 83605; 83690; 83735; 83880; 84145; 84443; 84484; 85025; 85610; 85652; 86140; 87040; 87635; 93005; 96361; 96374; 96376; 99285; J2405

== ENCOUNTER → 2022-04-03 13:15 | Outpatient (BNVA) | payer MEDICARE, MEDICAID, SELFPAY | PROVIDERS: PCP Family Medicine; Visit Provider Physician Assistant | DX: S90.01XD Contusion of right ankle, subsequent encounter (principal); W19.XXXD Unspecified fall, subsequent encounter; Z99.3 Dependence on wheelchair | CPT/HCPCS: 99212 ==

== ENCOUNTER 2022-06-27 09:41 | Emergency (ER) | payer OTHER, SELFPAY ==
--- NOTE | ~2022-06-27 | XR_ITS ---
EXAMINATION: BILATERAL HIPS AND AP PELVIS BILATERAL ANKLE, RIGHT FOOT AND LEFT SHOULDER. LEFT HAND AND WRIST AND CHEST X-RAY.. CLINICAL INFORMATION: Status post fall with pain. Unable to ambulate. COMPARISON: None TECHNIQUE: AP pelvis and bilateral hips 5 views. Left shoulder 3 views. Right foot one view. Bilateral ankle 3 views each left hand and wrist 4 views and chest one view FINDINGS: AP pelvis and bilateral hips.: There is a no visible fracture or dislocation seen involving the pelvis. This SI joints are symmetrical. There are 2 pins traversing the right femur with no visible fracture involving the hip joint or the proximal femur. The soft tissues are normal. Left shoulder: No visible acute fracture, dislocation or subluxation. The glenohumeral joint space and AC joint space is normal. The soft tissues are normal. Right foot: There is a diffuse osteopenia with moderate dorsal right foot soft tissue swelling. Right ankle: There is diffuse osteopenia involving the entire right distal tibia and fibula, right ankle and right foot. There are phil seen along the tarsal bones for fusion. There is no visible fracture seen except for moderate ankle and dorsal foot soft tissue swelling. Left ankle: There is a lateral fibular plate and screws. An oblique healing mild aligned distal fibular fracture. There is intramedullary tibial lewis with 2 stabilizing screws and a single medial malleolar screw for an old healed distal tibial fracture. The ankle mortise and subtalar joints are normal. XR/XR shoulder LT min 2V IMPRESSION: 1. No acute fracture or dislocation left shoulder, AP pelvis and bilateral hips. There are 2 pins traversing the right femur with no visible fracture. 2. There is diffuse osteopenia involving the entire right distal tibia and fibula, right ankle and right foot. There is moderate dorsal right foot soft tissue swelling. 3. There is a healing oblique fracture distal left fibula with a lateral plate and screws and a single medial malleolar screw for an old healed distal tibial fracture. The ankle mortise and subtalar joints are normal.
--- NOTE | ~2022-06-27 | CT_ITS ---
EXAMINATION: CT BRAIN, CT CERVICAL SPINE AND CT FACIAL BONES WITHOUT CONTRAST. CLINICAL INFORMATION: Status post fall. Head, facial and neck injury. COMPARISON: None TECHNIQUE: 5 mm thin axial and reformatted 2 mm thin sagittal and coronal images of brain were obtained. Subsequently axial 3 mm thin and reformatted 2 mm thin sagittal and coronal images of cervical spine were performed. Lastly axial 3 mm thin and reformatted 1.5 mm thin sagittal and coronal images of facial bones were obtained. DLP [id number]. FINDINGS: Brain: There is no acute intra-axial, extra-axial bleed, masses or midline shift. There is no acute infarction evolution. There is no edema. The lateral ventricles are symmetrical in size and mildly enlarged in size. Bone windows reveal no calvarial abnormality. There is no scalp soft tissue abnormality. Bilateral paranasal sinuses and mastoid air cells are well-aerated. Cervical spine: There is maintained cervical lordosis. The vertebral and heights and alignment is normal. Mild loss of C4-C5 C5-C6 and C6-C7 disc heights is noted. The craniovertebral junction and the C1-C2 alignment is normal. There is moderate left and mild right facet joint arthropathy C2-C3, C3-C4, C4-C5 and C5-C6 disc levels. No aggressive lytic or sclerotic process seen. No acute fracture or dislocation seen. The lung apices are clear. The central trachea and bronchi are widely patent. Facial bones: The paranasal sinuses are well-aerated. The bony sinus laird are intact without any visible fracture or dislocation. Bilateral TM joints, mandible and the maxillary bones are intact. The soft tissues are normal. There is left upper incisor periapical cyst on axial image 17/9. CT/CT cervical spine wo IV con IMPRESSION: No acute intracranial process seen. There is no visible acute fracture, dislocation subluxation cervical spine. Mild degenerative disc changes and spondylosis. Facet joint arthropathy as described above. There is no acute fracture or dislocation maxillofacial bones. There is a left upper lateral incisor periapical cyst
--- NOTE | ~2022-06-27 | XR_ITS ---
EXAMINATION: XR CHEST AND LEFT HAND AND WRIST CLINICAL INFORMATION: Fall with chest and hand pain COMPARISON: Chest radiograph earlier today and left hand and wrist radiographs earlier today. Left hand and wrist 04/09/2019 TECHNIQUE: Frontal view of the chest was obtained. 4 views left wrist and hand FINDINGS: No significant abnormality is noted involving the heart, lungs, mediastinum, bony thorax or soft tissues. Biconvex thoracolumbar scoliosis is present. There has been no interval change when compared to the radiograph performed this afternoon. Again seen are mild osteoarthritic changes at the first ASSISTED joint. Tiny bony density seen on dorsum of wrist has been present since 2019 and does not represent an acute fracture. No significant soft tissue swelling, fractures or dislocations are present involving the left wrist and hand. XR/XR hand wrist LT IMPRESSION: 1. No acute intrathoracic disease. 2. No evidence of traumatic injury to the left hand or wrist.
--- NOTE | ~2022-06-27 | XR_ITS ---
EXAMINATION: BILATERAL HIPS AND AP PELVIS BILATERAL ANKLE, RIGHT FOOT AND LEFT SHOULDER. LEFT HAND AND WRIST AND CHEST X-RAY.. CLINICAL INFORMATION: Status post fall with pain. Unable to ambulate. COMPARISON: None TECHNIQUE: AP pelvis and bilateral hips 5 views. Left shoulder 3 views. Right foot one view. Bilateral ankle 3 views each left hand and wrist 4 views and chest one view FINDINGS: AP pelvis and bilateral hips.: There is a no visible fracture or dislocation seen involving the pelvis. This SI joints are symmetrical. There are 2 pins traversing the right femur with no visible fracture involving the hip joint or the proximal femur. The soft tissues are normal. Left shoulder: No visible acute fracture, dislocation or subluxation. The glenohumeral joint space and AC joint space is normal. The soft tissues are normal. Right foot: There is a diffuse osteopenia with moderate dorsal right foot soft tissue swelling. Right ankle: There is diffuse osteopenia involving the entire right distal tibia and fibula, right ankle and right foot. There are phil seen along the tarsal bones for fusion. There is no visible fracture seen except for moderate ankle and dorsal foot soft tissue swelling. Left ankle: There is a lateral fibular plate and screws. An oblique healing mild aligned distal fibular fracture. There is intramedullary tibial lewis with 2 stabilizing screws and a single medial malleolar screw for an old healed distal tibial fracture. The ankle mortise and subtalar joints are normal. XR/XR ankle LT min 3V IMPRESSION: 1. No acute fracture or dislocation left shoulder, AP pelvis and bilateral hips. There are 2 pins traversing the right femur with no visible fracture. 2. There is diffuse osteopenia involving the entire right distal tibia and fibula, right ankle and right foot. There is moderate dorsal right foot soft tissue swelling. 3. There is a healing oblique fracture distal left fibula with a lateral plate and screws and a single medial malleolar screw for an old healed distal tibial fracture. The ankle mortise and subtalar joints are normal.
--- NOTE | ~2022-06-27 | XR_ITS ---
EXAMINATION: BILATERAL HIPS AND AP PELVIS BILATERAL ANKLE, RIGHT FOOT AND LEFT SHOULDER. LEFT HAND AND WRIST AND CHEST X-RAY.. CLINICAL INFORMATION: Status post fall with pain. Unable to ambulate. COMPARISON: None TECHNIQUE: AP pelvis and bilateral hips 5 views. Left shoulder 3 views. Right foot one view. Bilateral ankle 3 views each left hand and wrist 4 views and chest one view FINDINGS: AP pelvis and bilateral hips.: There is a no visible fracture or dislocation seen involving the pelvis. This SI joints are symmetrical. There are 2 pins traversing the right femur with no visible fracture involving the hip joint or the proximal femur. The soft tissues are normal. Left shoulder: No visible acute fracture, dislocation or subluxation. The glenohumeral joint space and AC joint space is normal. The soft tissues are normal. Right foot: There is a diffuse osteopenia with moderate dorsal right foot soft tissue swelling. Right ankle: There is diffuse osteopenia involving the entire right distal tibia and fibula, right ankle and right foot. There are phil seen along the tarsal bones for fusion. There is no visible fracture seen except for moderate ankle and dorsal foot soft tissue swelling. Left ankle: There is a lateral fibular plate and screws. An oblique healing mild aligned distal fibular fracture. There is intramedullary tibial lewis with 2 stabilizing screws and a single medial malleolar screw for an old healed distal tibial fracture. The ankle mortise and subtalar joints are normal. XR/XR hip BI w PEL1V IMPRESSION: 1. No acute fracture or dislocation left shoulder, AP pelvis and bilateral hips. There are 2 pins traversing the right femur with no visible fracture. 2. There is diffuse osteopenia involving the entire right distal tibia and fibula, right ankle and right foot. There is moderate dorsal right foot soft tissue swelling. 3. There is a healing oblique fracture distal left fibula with a lateral plate and screws and a single medial malleolar screw for an old healed distal tibial fracture. The ankle mortise and subtalar joints are normal.
--- NOTE | ~2022-06-27 | XR_ITS ---
EXAMINATION: XR knee LT 2V, XR knee RT 2V CLINICAL INFORMATION: Reason for Exam s/p fall c b/l knee pain COMPARISON: Right knee radiographs 02/27/2022 TECHNIQUE: 2 views bilateral knees FINDINGS: Right knee: Generalized osteopenia. Trace joint effusion. No acute fracture or dislocation. Moderate to severe medial compartment joint space narrowing. Subchondral sclerosis and small tricompartmental osteophytes consistent with osteoarthritis. Intramedullary rods within the visualized distal femur. Healed mid shaft fibular fracture deformity. Chronic appearing cortical thickening of the tibial shaft. Left knee: No acute fracture, dislocation, or knee joint effusion. Moderate to severe lateral compartment joint space narrowing. Subchondral sclerosis and small tricompartmental marginal osteophytes consistent with osteoarthritis. Medial compartment joint space appears fairly well-maintained. Interlocking tibial intramedullary nail noted. Scant vascular calcification. XR/XR knee LT 2V IMPRESSION: 1. No acute fracture or dislocation identified at either knee. 2. Tricompartmental knee joint osteoarthritis bilaterally most advanced at the medial compartment of the right knee and at the lateral compartment of the left knee. 3. Trace right knee joint effusion.
--- NOTE | ~2022-06-27 | XR_ITS ---
EXAMINATION: XR CHEST AND LEFT HAND AND WRIST CLINICAL INFORMATION: Fall with chest and hand pain COMPARISON: Chest radiograph earlier today and left hand and wrist radiographs earlier today. Left hand and wrist 04/09/2019 TECHNIQUE: Frontal view of the chest was obtained. 4 views left wrist and hand FINDINGS: No significant abnormality is noted involving the heart, lungs, mediastinum, bony thorax or soft tissues. Biconvex thoracolumbar scoliosis is present. There has been no interval change when compared to the radiograph performed this afternoon. Again seen are mild osteoarthritic changes at the first [facility] joint. Tiny bony density seen on dorsum of wrist has been present since 2019 and does not represent an acute fracture. No significant soft tissue swelling, fractures or dislocations are present involving the left wrist and hand. XR/XR chest 1V IMPRESSION: 1. No acute intrathoracic disease. 2. No evidence of traumatic injury to the left hand or wrist.
--- NOTE | ~2022-06-27 | XR_ITS ---
EXAMINATION: XR knee LT 2V, XR knee RT 2V CLINICAL INFORMATION: Reason for Exam s/p fall c b/l knee pain COMPARISON: Right knee radiographs 02/27/2022 TECHNIQUE: 2 views bilateral knees FINDINGS: Right knee: Generalized osteopenia. Trace joint effusion. No acute fracture or dislocation. Moderate to severe medial compartment joint space narrowing. Subchondral sclerosis and small tricompartmental osteophytes consistent with osteoarthritis. Intramedullary rods within the visualized distal femur. Healed mid shaft fibular fracture deformity. Chronic appearing cortical thickening of the tibial shaft. Left knee: No acute fracture, dislocation, or knee joint effusion. Moderate to severe lateral compartment joint space narrowing. Subchondral sclerosis and small tricompartmental marginal osteophytes consistent with osteoarthritis. Medial compartment joint space appears fairly well-maintained. Interlocking tibial intramedullary nail noted. Scant vascular calcification. XR/XR knee RT 2V IMPRESSION: 1. No acute fracture or dislocation identified at either knee. 2. Tricompartmental knee joint osteoarthritis bilaterally most advanced at the medial compartment of the right knee and at the lateral compartment of the left knee. 3. Trace right knee joint effusion.
[2022-06-27 09:50] VITALS: BP 162/90; BP 172/96; PULSE 84; PULSE 94; RESP 16; TEMP 37.4; O2SAT 96; O2SAT 98; BMI 27.3
--- NOTE | 2022-06-27 10:14 | ECG_ITS ---
Test Reason : FALL Blood Pressure : / mmHG Vent. Rate : 086 BPM Atrial Rate : 086 BPM P-R Int : 152 ms QRS Dur : 080 ms QT Int : 372 ms P-R-T Axes : 054 -14 008 degrees QTc Int : 445 ms Normal sinus rhythm Normal ECG When compared with ECG of 23-FEB-2022 09:50, No significant change was found Referred By: Calli Abreu Electronically Signed By:EDWARD WAN MD
--- NOTE | 2022-06-27 11:00 | HE.PHANOTE ---
Methadone Verification Patient gets methadone with [facility], confirmed by Merly Sloan 06/27/22 @1028 for dose 150 mg, spoke to Diana at [facility].
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
[2022-06-27] MEDS: methADONE HCl 20 MG/2 ML ORAL.CONC 150 MG PO (11:10)
[2022-06-27] MEDS: Ondansetron ODT 4 MG TAB.RAPDIS TRANSLINGU (11:47)
[2022-06-27] MEDS: Zolpidem Tartrate 5 MG TABLET 10 MG PO ×2 (11:48→18:24)
--- NOTE | 2022-06-27 12:03 | PC.NURSE ---
claribel administered pt then vomited, bia reyes updated,
[2022-06-27] MEDS: Metoclopramide HCl 10 MG/2 ML VIAL IVPUSH (12:24)
[2022-06-27] MEDS: diphenhydrAMINE HCL 50 MG/ML VIAL IVPUSH (12:24)
[2022-06-27 12:25] LABS: MANUAL DIFF FLAG NO
[2022-06-27 12:28] LABS: Basophils Percent Auto 0.2 % (0-2); Hemoglobin 12.5 g/dl (14.0-18.0); Imm Gran Abs Auto 0.03 X10*3/uL (0.00-0.03); Imm Gran Pct Auto 0.2 % (0.0-0.4); Lymphocytes Absolute Auto 0.9 X10*3/uL (1.2-4.9); Lymphocytes Percent Auto 7.2 % (20-40); Mean Corpuscular HGB Conc 32.9 g/dl (31.0-36.0); Mean Corpuscular Hemoglobin 28.5 pg (27.0-33.0); Mean Corpuscular Volume 86.8 fL (80.0-98.0); Mean Platelet Volume 10.5 fL (9.4-12.4); Monocytes Absolute Auto 0.7 X10*3/uL (0.1-1.2); Monocytes Percent Auto 5.2 % (2-11); Neutrophils Percent Auto 87.2 % (45-73); Platelet Count 303 X10*3/uL (160-400); Red Blood Count 4.38 X10*6/uL (4.60-5.80); White Blood Count 12.6 X10*3/uL (4.8-10.8)
[2022-06-27 12:33] LABS: Prothrombin Time 11.5 SEC (10.0-13.1)
[2022-06-27 12:45] LABS: Alanine Aminotransferase 13 U/L (0-40); Albumin Level 4.6 g/dL (3.5-5.0); Alkaline Phosphatase 123 U/L (39-117); Anion Gap 15 (12-20); Aspartate Amino Transferase 30 U/L (5-37); Bilirubin Total 0.5 mg/dL (0.0-1.0); Blood Urea Nitrogen 16 mg/dL (9-16); Carbon Dioxide 29 mmol/L (22-29); Chloride 101 mmol/L (96-108); Creatinine Clr Calc Pharmacy 60.8; Estimated Glomerular Filt Rate > 60; Glucose Random 108 mg/dL (60-115); Magnesium 1.6 mg/dL (1.6-2.6); Sodium 141 mmol/L (135-145); Total Protein 7.9 g/dL (6.5-8.0)
[2022-06-27 12:53] LABS: Troponin-I High Sensitivity 81.6 ng/L (<3.5-35.0)
[2022-06-27] MEDS: 0.9 % Sodium Chloride 1,000 ML 999 ML IVCONT (14:45)
[2022-06-27 16:07] VITALS: BP 173/96; PULSE 71; RESP 18; O2SAT 95
[2022-06-27 18:56] LABS: Troponin-I High Sensitivity 50.5 ng/L (<3.5-35.0)
--- NOTE | 2022-06-27 22:23 | PC.NURSE ---
Pt resting comfortably during shift, encouraged pt to increase PO fluids, offered pt food to which he declined. repeated CPK and troponin which has improved. Pt MANAGER SECONDARY aware we are awaiting final radiology documentation, and we will be in touch when pt is ready for D/C: MANAGER SECONDARY Matty can be reached via phone [phone]. pt alert,oriented, observed conversing on the phone, NAD, call olea within reach.
[2022-06-27 22:46] VITALS: BP 170/90; PULSE 67; RESP 18; O2SAT 97
--- NOTE | 2022-06-27 23:40 | PC.NURSE ---
Pt repositoned in bed and dressed into hospital gown. Pt given warm blankets and call olea placed in reach
--- NOTE | 2022-06-27 23:41 | PC.NURSE ---
Addendum entered by Alina Klein 06/27/22 23:42: Pt made aware that a urine sample is needed . Pt given urinal and instructed to ring the call olea is assistance is needed Original Note: Pt made aware that a urine sample is needed . Pt given urinal and instructed to ring the call olea is assistane is needed
[2022-06-28 00:31] LABS: Appearance Urine Clear; Color Urine Yellow; Glucose Urine UA Negative (Negative); Leukocyte Esterase Urine Trace (Negative); Nitrite Urine Negative (Negative); PH 5.5 (5.0-9.0); UMIC TRIGGER UACC YES; Urine Blood Negative (Negative); Urine Ketones 15 mg/dL (Negative); Urine Protein Negative (Neg-Trace)
[2022-06-28 00:35] LABS: Bacteria Urine None Seen (None Seen); Hyaline Casts Urine 0-2 /LPF (0-2); UACC Culture Trigger YES
[2022-06-28 02:14] VITALS: BP 170/80; PULSE 71; RESP 17; TEMP 37.1; O2SAT 97
[2022-06-28] MEDS: QUEtiapine Fumarate 400 MG TABLET PO (02:21)
[2022-06-28 04:01] VITALS: BP 152/82; PULSE 97; RESP 14; TEMP 36.9; O2SAT 95
[2022-06-28 05:59] VITALS: BP 165/83; PULSE 83; RESP 16; TEMP 36.6; O2SAT 92
== END 2022-06-28 08:06 | disposition home or self-care (01) ==
PROVIDERS: Physician Assistant Medical; Emergency Provider Emergency Medicine Emergency Medical Services
DX: S43.402A Unspecified sprain of left shoulder joint, initial encounter (principal); S83.91XA Sprain of unspecified site of right knee, initial encounter; S63.502A Unspecified sprain of left wrist, initial encounter; S83.92XA Sprain of unspecified site of left knee, initial encounter; S93.601A Unspecified sprain of right foot, initial encounter; T79.6XXA Traumatic ischemia of muscle, initial encounter; I25.10 Atherosclerotic heart disease of native coronary artery without angina pectoris; R51.9 Headache, unspecified; M54.2 Cervicalgia; M25.552 Pain in left hip; M25.551 Pain in right hip; W05.0XXA Fall from non-moving wheelchair, initial encounter; Y93.9 Activity, unspecified; Y92.003 Bedroom of unspecified non-institutional (private) residence as the place of occurrence of the external cause; Y99.9 Unspecified external cause status; Z79.899 Other long term (current) drug therapy
CPT/HCPCS: 29125; 36415; 70450; 70486; 71045; 72125; 73030; 73110; 73130; 73521; 73560; 73610; 73630; 80053; 81001; 82550; 83735; 84484; 85025; 85610; 87040; 87086; 93005; 96361; 96374; 96375; 99285; J1200; J2765

== ENCOUNTER → 2022-11-29 14:06 | Outpatient (BNVA) | payer OTHER, SELFPAY | PROVIDERS: PCP Family Medicine; Visit Provider Internal Medicine | DX: I25.10 Atherosclerotic heart disease of native coronary artery without angina pectoris (principal); I10 Essential (primary) hypertension; E78.5 Hyperlipidemia, unspecified; E11.9 Type 2 diabetes mellitus without complications | CPT/HCPCS: 99212 ==

== ENCOUNTER 2023-09-28 08:56 | Outpatient (REF) | payer OTHER, SELFPAY ==
[2023-09-28 11:11] LABS: MANUAL DIFF FLAG NO
[2023-09-28 12:01] LABS: Folate 8.9 ng/mL (> or = 4.0); Vitamin B12 234 pg/mL (200-900)
[2023-09-28 12:07] LABS: Basophils Absolute Auto 0.1 X10*3/uL (0.0-0.2); Basophils Percent Auto 0.9 % (0-2); Eosinophils Absolute Auto 0.1 X10*3/uL (0.0-0.4); Eosinophils Percent Auto 1.4 % (0-4); Hematocrit 37.3 % (42.0-52.0); Hemoglobin 12.1 g/dl (14.0-18.0); Imm Gran Abs Auto 0.04 X10*3/uL (0.00-0.03); Imm Gran Pct Auto 0.5 % (0.0-0.4); Lymphocytes Absolute Auto 1.8 X10*3/uL (1.2-4.9); Lymphocytes Percent Auto 23.2 % (20-40); Mean Corpuscular HGB Conc 32.4 g/dl (31.0-36.0); Mean Corpuscular Hemoglobin 29.1 pg (27.0-33.0); Mean Corpuscular Volume 89.7 fL (80.0-98.0); Mean Platelet Volume 11.4 fL (9.4-12.4); Monocytes Absolute Auto 0.6 X10*3/uL (0.1-1.2); Monocytes Percent Auto 7.3 % (2-11); Neutrophils Absolute Auto 5.1 x10*3/uL (2.0-8.3); Neutrophils Percent Auto 66.7 % (45-73); Platelet Count 331 X10*3/uL (160-400); Red Blood Count 4.16 X10*6/uL (4.60-5.80); Red Cell Distribution Width 13.4 % (11.0-16.0); White Blood Count 7.6 X10*3/uL (4.8-10.8)
[2023-09-28 12:12] LABS: Alanine Aminotransferase 13 U/L (0-40); Alkaline Phosphatase 114 U/L (39-117); Anion Gap 16 (12-20); Aspartate Amino Transferase 20 U/L (5-37); Bilirubin Total 0.5 mg/dL (0.0-1.0); Blood Urea Nitrogen 15 mg/dL (9-16); Calcium 9.7 mg/dL (8.4-10.2); Carbon Dioxide 27 mmol/L (22-29); Chloride 101 mmol/L (96-108); Cholesterol 155 mg/dL (<200); Estimated Glomerular Filt Rate 57; Ferritin 50 ng/mL (20-250); Glucose Random 128 mg/dL (60-115); HDL Cholesterol 49 mg/dL (>40); Iron 78 mcg/dL (45-160); LDL Cholesterol Calculated 88 mg/dL (<100); Percent Iron Saturation 26 % (15-50); Potassium 4.2 mmol/L (3.3-5.1); Sodium 140 mmol/L (135-145); Total Iron Binding Capacity 300 mcg/dL (228-428); Total Protein 7.7 g/dL (6.5-8.0); Triglycerides 93 mg/dL (<150); Unsaturated Iron Binding 222 ug/dL
[2023-09-28 12:29] LABS: Microalbumin Urine < 5.0 mg/L
[2023-09-28 13:01] LABS: Reflex LDLD? No
== END 2023-09-28 08:57 | disposition home or self-care (01) ==
LOC: HO.HHCL 08:56
PROVIDERS: Visit Provider Family Medicine
DX: I10 Essential (primary) hypertension (principal); E11.9 Type 2 diabetes mellitus without complications; D63.8 Anemia in other chronic diseases classified elsewhere; E78.5 Hyperlipidemia, unspecified; G82.20 Paraplegia, unspecified
CPT/HCPCS: 36415; 80053; 80061; 82043; 82306; 82570; 82607; 82728; 82746; 83540; 85025

== ENCOUNTER 2023-11-27 14:17 | Outpatient (AMB) | payer OTHER, SELFPAY ==
[2023-11-27 14:29] VITALS: BP 120/70; PULSE 68
--- NOTE | 2023-11-27 14:29 | MHC.OFFVIS ---
Intake Vital Signs 11/27/23 14:29 Height 5 ft 7 in BMI Reason not done Patient refused/unable BP 120/70 Blood Pressure Location Lt brachial Position Sitting Pulse 68 Intake Visit Reasons: 1 year follow up Receiving Worker Required: No Accompanied by: Self / Same As Patient Allergies aspirin [ASPIRIN] Adverse Reaction (Mild, Verified 11/29/22 14:27) BLEEDING Medication List - Last Reconciled 11/27/[address] MD aspirin 81 mg PO QAM atorvastatin 20 mg PO BEDTIME calcium carbonate-vitamin D3 600 mg-5 mcg (200 unit) 1 tab PO BEDTIME ibuprofen 800 mg PO Q8H PRN 30 days ketoconazole 2% appl topical QAM lisinopril 20 mg PO QAM metformin ER 1 tab PO QPM methadone 150 mg PO DAILY metoprolol succinate ER 25 mg PO QAM quetiapine 400 mg PO BEDTIME tamsulosin 0.4 mg PO DAILY zolpidem 10 mg PO BEDTIME PRN HPI HPI Comments History of Present Illness Details Ramana returns for follow-up regarding coronary disease. Suspected coronary disease based on a stress test many years ago. He is maintained only on medical therapy. He seems to be doing fine. He does not not have any chest pain or in fact anything cardiac sounding. Comes in a wheelchair. [facility] Medical History Atherosclerotic cardiovascular disease Chronic constipation Essential hypertension Foot injury Other and unspecified hyperlipidemia Type 2 diabetes mellitus with unspecified complications Surgical History History of colonoscopy History of surgery on lower extremity No pertinent past surgical history Family History Father No problems noted. Mother No problems noted. 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 Review of Systems Const Denies chills, Denies fatigue, Denies fever(s), Denies frequent falls, Denies weakness, Denies weight gain and Denies weight loss ENT Denies dizziness Card Denies chest pain, Denies leg edema, Denies lightheadedness, Denies palpitations, Denies dyspnea and Denies dyspnea on exertion Resp Denies cough, Denies dyspnea and Denies dyspnea on exertion GI Denies hematochezia Musc Denies abnormal gait, Denies muscle weakness, Denies numbness, Denies radiating pain into limb and Denies tingling Neuro Denies abnormal gait, Denies dizziness, Denies frequent falls, Denies numbness, Denies tingling and Denies weakness Endo Denies fatigue and Denies palpitations Physical Exam Vital Signs: Last Vital Signs Pulse 68 11/27/23 14:29 BP 120/70 11/27/23 14:29 BMI result Body Mass Index 29.0 Const General: comfortable and no acute distress Orientation/consciousness: patient oriented x3 HEENT Other: Unremarkable Head: Yes normal to inspection Neck Neck: Yes normal visual inspection Chest Chest palpation & inspection: normal inspection of the chest Resp Auscultation: clear to auscultation bilaterally Cardio Palpation: normal PMI Heart sounds: S1 normal heart sound present, S2 normal heart sound present, no gallops, no murmurs and no rubs GI Palpation (GI): Soft to palpation Back/Spine/Pelvis Other: unremarkable Skin General skin exam: no rashes or lesions noted Neuro General: patient oriented x3 Extrem General: Yes normal to inspection Psych Mental Status: mental status grossly normal Office Procedures EKG Details: EKG with sinus rhythm at 68/Min; leftward axis; can not exclude old anterior infarct but more likely from his body habitus; [place]. [id number], Complete Assessment & Plan Assessment & Plan (1) Atherosclerotic cardiovascular disease: Code(s): I25.10 - Atherosclerotic heart disease of [place] coronary artery without angina pectoris (2) Essential hypertension: Code(s): I10 - Essential (primary) hypertension (3) Type 2 diabetes mellitus with unspecified complications: Code(s): E11.8 - Type 2 diabetes mellitus with unspecified complications (4) Other and unspecified hyperlipidemia: Code(s): E78.5 - Hyperlipidemia, unspecified Plan Myocardial perfusion imaging study from 2016 shows a small area of moderate intensity ischemia in the apical lateral wall in a branch vessel distribution. Overall, he has various risk factors but no clinical symptoms of angina or any anginal equivalent. In the past, he had discussed about getting other stress test as it has been several years but patient not keen. Feels the same today. Overall, mainly risk factor modification. Appropriate treatment of diabetes, hypertension and dyslipidemia. If he indeed does get any angina, then we will need to pursue ischemia evaluation. Coding Level of Care Code Est Pt Level 4 (72939) Diagnoses Atherosclerotic cardiovascular disease I25.10 Essential hypertension I10 Type 2 diabetes mellitus with unspecified complications E11.8 Other and unspecified hyperlipidemia E78.5 CPT Codes EKG - CPT: [id number], Complete ([id number])
== END 2023-11-27 15:20 | disposition home or self-care (01) ==
PROVIDERS: Visit Provider Internal Medicine
DX: I25.10 Atherosclerotic heart disease of native coronary artery without angina pectoris (principal); I10 Essential (primary) hypertension; E11.8 Type 2 diabetes mellitus with unspecified complications; E78.5 Hyperlipidemia, unspecified
CPT/HCPCS: 93010; 99214

== ENCOUNTER → 2023-11-27 14:17 | Outpatient (BNVA) | payer OTHER, SELFPAY | PROVIDERS: Visit Provider Internal Medicine | DX: I25.10 Atherosclerotic heart disease of native coronary artery without angina pectoris (principal); I10 Essential (primary) hypertension; E11.8 Type 2 diabetes mellitus with unspecified complications; E78.5 Hyperlipidemia, unspecified | CPT/HCPCS: 93005; 99212 ==

== ENCOUNTER 2023-12-18 13:52 | Outpatient (REF) | payer OTHER, SELFPAY ==
[2023-12-18 16:39] LABS: Basophils Absolute Auto 0.1 X10*3/uL (0.0-0.2); Basophils Percent Auto 0.7 % (0-2); Eosinophils Absolute Auto 0.1 X10*3/uL (0.0-0.4); Eosinophils Percent Auto 0.9 % (0-4); Hematocrit 35.6 % (42.0-52.0); Hemoglobin 11.3 g/dl (14.0-18.0); Imm Gran Abs Auto 0.05 X10*3/uL (0.00-0.03); Imm Gran Pct Auto 0.6 % (0.0-0.4); Lymphocytes Absolute Auto 1.5 X10*3/uL (1.2-4.9); Lymphocytes Percent Auto 16.6 % (20-40); MANUAL DIFF FLAG SCAN; Mean Corpuscular HGB Conc 31.7 g/dl (31.0-36.0); Mean Corpuscular Hemoglobin 28.7 pg (27.0-33.0); Mean Corpuscular Volume 90.4 fL (80.0-98.0); Mean Platelet Volume 12.4 fL (9.4-12.4); Monocytes Absolute Auto 0.6 X10*3/uL (0.1-1.2); Monocytes Percent Auto 6.8 % (2-11); Neutrophils Absolute Auto 6.7 x10*3/uL (2.0-8.3); Neutrophils Percent Auto 74.4 % (45-73); PLT CLUMP 1; Platelet Count 248 X10*3/uL (160-400); Red Blood Count 3.94 X10*6/uL (4.60-5.80); Red Cell Distribution Width 12.8 % (11.0-16.0); SCAN SMEAR FLAG 1
[2023-12-18 16:57] LABS: SLIDE REVIEW VERIFIED
[2023-12-18 17:02] LABS: Iron 41 mcg/dL (45-160); Percent Iron Saturation 14 % (15-50); Total Iron Binding Capacity 298 mcg/dL (228-428); Unsaturated Iron Binding 257 ug/dL
[2023-12-18 17:18] LABS: Ferritin 28 ng/mL (20-250); Vitamin D 25-OH Total 32.4 ng/mL (>30)
[2023-12-18 17:30] LABS: Folate 8.9 ng/mL (> or = 4.0); Vitamin B12 302 pg/mL (200-900)
== END 2023-12-18 13:53 | disposition home or self-care (01) ==
LOC: HO.HHCL 13:52
PROVIDERS: Visit Provider Family Medicine
DX: E55.9 Vitamin D deficiency, unspecified (principal); D63.8 Anemia in other chronic diseases classified elsewhere
CPT/HCPCS: 36415; 82306; 82607; 82728; 82746; 83540; 85025

== ENCOUNTER 2024-04-01 10:39 | Outpatient (REF) | payer OTHER, SELFPAY ==
[2024-04-01 12:15] LABS: Hepatitis A Antibody IgG REACTIVE (Nonreactive)
[2024-04-01 12:17] LABS: Prostate Specific Antigen Scr 0.92 ng/mL (<0.05-4.0)
[2024-04-01 12:24] LABS: ~HepC Num1 12.32 S/CO (0.00-0.79); ~Hepatitis C Antibody Reactive (Nonreactive)
[2024-04-04 10:28] LABS: HCV Log PCR <1.18 NOT DETECTED Log IU/mL (NOT DETECTED); HepC Viral Load <15 NOT DETECTED IU/mL (NOT DETECTED)
== END 2024-04-01 10:40 | disposition home or self-care (01) ==
LOC: HO.HHCL 10:39
PROVIDERS: Visit Provider Family Medicine
DX: Z01.84 Encounter for antibody response examination (principal); Z12.5 Encounter for screening for malignant neoplasm of prostate; R76.8 Other specified abnormal immunological findings in serum; R39.11 Hesitancy of micturition
CPT/HCPCS: 36415; 84153; 86708; 86803; 87522

== ENCOUNTER 2024-05-23 13:08 | Outpatient (REF) | payer OTHER, SELFPAY ==
[2024-05-23 14:49] LABS: Hematocrit 35.7 % (42.0-52.0); Hemoglobin 11.6 g/dl (14.0-18.0); Mean Corpuscular HGB Conc 32.5 g/dl (31.0-36.0); Mean Corpuscular Hemoglobin 28.9 pg (27.0-33.0); Mean Corpuscular Volume 88.8 fL (80.0-98.0); Mean Platelet Volume 11.1 fL (9.4-12.4); Platelet Count 299 X10*3/uL (160-400); Red Blood Count 4.02 X10*6/uL (4.60-5.80); Red Cell Distribution Width 13.8 % (11.0-16.0); White Blood Count 7.1 X10*3/uL (4.8-10.8)
== END 2024-05-23 13:09 | disposition home or self-care (01) ==
LOC: HO.LAB 13:08
PROVIDERS: PCP Family Medicine; Visit Provider Nurse Practitioner Family
DX: D64.9 Anemia, unspecified (principal); K59.09 Other constipation; K21.9 Gastro-esophageal reflux disease without esophagitis
CPT/HCPCS: 36415; 85027; 99202

== ENCOUNTER 2024-05-23 13:08 | Outpatient (AMB) | payer OTHER, SELFPAY ==
[2024-05-23 13:20] VITALS: BP 132/70; PULSE 70; O2SAT 97
--- NOTE | 2024-05-23 13:20 | A.OFFVIS_ITS ---
Vital Signs 05/23/24 13:20 Height 5 ft 7 in BP 132/70 Blood Pressure Location Lt brachial Position Sitting Pulse 70 Pulse Source Pulse Oximeter Pulse Oximetry (%) 97 Oxygen Delivery Method Room Air Comment Pt using wheelchair. No known weight currently. Intake Visit Reasons: Anemia Intake Note: Ramana presents in office today for an initial assessment and colo consult. CC: Pt last seen for colo [place] [address] Islas. Pt is currently being monitored for anemia per his PCP and [facility] cardiology. Pt is also on methadone per his PCP and will require adequate consideration for this condition. Pt does report having frequent constipation. Pt typically has a BM q2-3 days. Living Coach Required: No Accompanied by: Other Relationship Allergies aspirin [ASPIRIN] Adverse Reaction (Mild, Verified 05/23/24 13:21) BLEEDING HPI HPI Anemia: Details: LAST VISIT WITH SEBASTIÁN MOODY 07/22/2020 Pleasant 65-year-old male with history of chronic constipation, now seems to be resolved. He will maintain a high-fiber diet. Again We reviewed his colonoscopy back from October of this year and which prep was in adequate. Will repeat asymptomatic colonoscopy 2022. Encouraged to call with questions or concerns. He may follow up p.r.n.. TODAY'S VISIT 69 year old? male with past medical history of anemia, food injury, chronic constipation, diabetes, hyperlipidemia, hypertension, arteriosclerotic cardiovascular disease is here today for initial consultation. Patient was sent to us for colonoscopy as he has been anemic for quite some time. As mentioned above patient had suboptimal prep on last colonoscopy and was supposed to repeat colonoscopy last year. Patient denies any melena, hematochezia. Patient denies any unintentional weight loss or ribbon like stools.? ? Patient denies any gastrointestinal symptoms in the past or at present.? Denies any personal or family history of gastrointestinal disease or CRC.? However patient does admit that he has been constipated. Patient is living sedentary lifestyle and spent lot of time in the wheelchair as he has significant right foot wound and is unable to bear weight. Patient is here today with his SENIOR ELECTRICAL DESIGN ENGINEER. Patient denies dyspepsia, dysphagia or odynophagia. Patient is on low-dose aspirin and on lisinopril. Patient denies any cardiac or respiratory symptoms at this time. [facility] Medical History Foot injury Chronic constipation Other and unspecified hyperlipidemia Type 2 diabetes mellitus with unspecified complications Essential hypertension Atherosclerotic cardiovascular disease Surgical History History of colonoscopy History of surgery on lower extremity No pertinent past surgical history Family History Father No problems noted. Mother No problems noted. 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 Review of Systems Const Denies weight gain and Denies weight loss ENT Reports no additional complaints, Denies dysphagia and Denies odynophagia Card Reports no additional complaints Resp Reports no additional complaints GI Denies abdominal pain, Denies belching, Denies melena, Denies bloating, Reports constipation, Denies dysphagia, Denies excessive flatus, Denies dyspepsia, Denies heartburn, Denies diarrhea, Denies loose stools, Denies nausea, Denies odynophagia and Denies vomiting Reports no additional complaints Musc Reports no additional complaints Neuro Reports no additional complaints Psych Reports no additional complaints Endo Reports no additional complaints Physical Exam Vital Signs: Last Vital Signs Pulse 70 05/23/24 13:20 BP 132/70 05/23/24 13:20 Pulse Ox 97 05/23/24 13:20 Oxygen Delivery Method Room Air 05/23/24 13:20 Const Other: Patient is sitting in the wheelchair General: healthy appearing and no acute distress Nutritional Appearance: well nourished Orientation/consciousness: patient oriented x3 Resp Effort & Inspection: normal respiratory effort, able to speak in complete sentences, no tracheal deviation and symmetric chest movement Auscultation: clear to auscultation bilaterally Cardio Rate: regular rate GI Inspection: Yes normal to inspection, No distended and Yes obesity Palpation (GI): Soft to palpation, not firm, nontender and No hepatosplenomegaly present Auscultation: normal bowel sounds General: Yes no CVA tenderness Back/Spine/Pelvis Back: no CVA tenderness Skin General skin exam: elasticity normal, turgor normal and dry skin Neuro General: patient oriented x3 Psych Appearance: grossly normal Mental Status: mental status grossly normal Assessment & Plan Assessment & Plan (1) Normochromic normocytic anemia: Code(s): D64.9 - Anemia, unspecified Category: Medical (2) Chronic constipation: Code(s): K59.09 - Other constipation Category: Medical Plan Will repeat CBC. Patient will start taking Dulcolax daily. He will return to the office in 2-3 months to re-evaluate make sure he has better prep. Increase fluid intake. Please call Cardiology to have patient cleared for the procedure. Patient currently is on low-dose aspirin. Message sent to surgical schedulers to book procedure for patient. Both patient and his SENIOR ELECTRICAL DESIGN ENGINEER are agreeable to this plan and verbalizes understanding of instructions. They were given the opportunity to ask questions and all questions answered. Thank you for allowing me to participate in his care Orders: Orders Complete Blood Count no Diff Today K21.9 - Gastro-esophageal reflux disease without esophagitis Medications: New bisacodyl (Dulcolax (bisacodyl)) 10 mg (2 x 5 mg) PO BEDTIME 180 tabs 4RF polyethylene glycol 3350 (Miralax) As directed by gastroenterology department at [facility] 238 grams PO ONCE 238 grams 0RF Z12.11 - Encounter for screening for malignant neoplasm of colon Coding Level of Care Code New Pt Level 3 (67612) Diagnoses Normochromic normocytic anemia D64.9 Chronic constipation K59.09 Time Spent (min) 40 Comment 30 minutes spent with patient and additional 10 minutes spent reviewing his records
== END 2024-05-23 14:06 | disposition home or self-care (01) ==
PROVIDERS: PCP Family Medicine; Visit Provider Nurse Practitioner Family
DX: D64.9 Anemia, unspecified (principal); K59.09 Other constipation
CPT/HCPCS: 99203

== ENCOUNTER 2024-10-14 09:42 | Day surgery (SDC) | payer OTHER, SELFPAY ==
--- OUTSIDE RECORDS SUMMARY | 2024-10-10 12:13 | XMS_ITS | Encounter Summary ---
Author Organization [employer] Address [address] [facility] [address] [place] [address] Care Team Providers Care Wood Boring Machine Operator Name Role Phone Katarzyna Sahu MD Primary Care Provider [phone] Encounter Details Date Type Department Care Team (Latest Contact Info) Description 09/16/2024 Travel Social History Tobacco Use Types Packs/Day Years Used Date Smoking Tobacco: Former Cigarettes Q uit: 10/10/1977 Passive Smoke Exposure: Never Smokeless Tobacco: Never Alcohol Use Standard Drinks/Week Comments Never 0 (1 standard drink = 0.6 oz pur e alcohol) Depression Answer Date Recorded Patient Health Questionnaire-9 Score 0 09/16/2024 Patient Health Questionnaire-9 Score 0 09/16/2024 Last PHQ-9: Questionnaire Data Not on file 0 09/16/2024 Housing Stability Answer Date Recorded What is your housing situation today? I have дмитрий harris 12/18/[address] you li ve. Do you have problems with any of the following? None of the above 12/18/2023 Food Insecurity Answer Date Recorded Within the past 12 months, y ou worried that your food would run out before you got money to buy more: Never True 12/18/2023 Within the past 12 months,th e food you bought just didn't last and you didn't have enough money to get more: Never True 02/2024 Transportation Answer Date Recorded In the past 12 months, has l ack of transportation kept you from medical appts, meetings, work or from getting things needed for daily living? No 12/18/2023 Utilities Answer Date Recorded In the past 12 months, has t he electric, gas, oil or water company threatened to shut off services in your home? No 12/18/2023 Depression Answer Date Recorded Patient Health Questionnaire-2 Score 0 09/16/2024 Sex and Gender Information Value Date Recorded Sex Assigned at Male 06/12/2022 10:14 AM EDT Legal Sex Male 10:14 AM EDT Gender Identity Male 06/12/2022 10:14 AM EDT Sexual Orientation Straight 06/12/2022 10 :14 AM EDT documented as of this encounter Plan of Treatment Upcoming Encounters Date Type Department Care Team (Late st Contact Info) Description 12/16/2024 1:15 PM EDT Office Visit [facility] [address] [place] [address] Katarzyna Sahu MD [address] [place] [id number] documented as of this encounter Visit Diagnoses Not on filedocumented in this encounter Additional Health Concerns Assessment Noted Time PHQ-9 Depression Total Score: 0 09/16/19 25 11:19 AM EST documented as of this encounter Care Teams Wood Boring Machine Operator Relationship Specialty Start Date End Date Katarzyna Sahu MD [address] [place] [id number] PCP - General Family Medicine 06/12/12 [facility] 07/28/22 documented as of this encounter
--- OUTSIDE RECORDS SUMMARY | 2024-10-10 12:13 | XMS_ITS | Encounter Summary ---
Author Organization [employer] Address [address] [facility] [address] [place] [address] Care Team Providers Care Campaign Advisor Name Role Phone Katarzyna Sahu MD Primary Care Provider [phone] Reason for Visit * Reason Onset Date Comments chart prep 09/11/2024 Encounter Details Date Type Department Care Team ([facility] st Contact Info) Description 09/11/2024 Telephone [facility] [address] [place], [place] [phone] Emeli Spencer MA chart prep Social History Tobacco Use Types Packs/Day Years Used Date Smoking Tobacco: Former Cigarettes Q uit: 10/10/1977 Passive Smoke Exposure: Never Smokeless Tobacco: Never Alcohol Use Standard Drinks/Week Comments Not Asked 0 (1 standard drink = 0.6 oz pur e alcohol) Depression Answer Date Recorded Patient Health Questionnaire-9 Score 0 12/18/2023 Patient Health Questionnaire-9 Score 0 12/18/2023 Last PHQ-9: Questionnaire Data Not on file 0 12/18/2023 Housing Stability Answer Date Recorded What is [...] Date Recorded Patient Health Questionnaire-2 Score 0 12/18/2023 Sex and Gender Information Value Date Recorded Sex Assigned at Male 06/12/2022 10:14 AM EDT Legal Sex Male 10:14 AM EDT Gender Identity Male 06/12/2022 10:14 AM EDT Sexual Orientation Straight 06/12/2022 10 :14 AM EDT documented as of this encounter Miscellaneous Notes * Telephone Encounter - Emeli Spencer MA - 09/11/2024 3:57 PM EST .Chart Prep Labs: not applicable Images: not applicable Vaccines due: Covid Due, Tdap Due, Flu Due, RSV in Pharmacy Due, and Shingles in pharmacy Due Referrals: Not Applicable Screenings: Colonoscopy Overdue care gaps: A1C, Glucose, Sbirt, and Oral Health documented in this encounter Plan of Treatment Upcoming Encounters Date Type Department Care Team (Late st Contact Info) Description 12/16/2024 1:15 PM EDT Office Visit [facility] [address] [place] [phone] Katarzyna Sahu MD [address] [place] [phone] documented as of this encounter Visit Diagnoses Not on filedocumented in this encounter Additional Health Concerns Assessment Noted Time PHQ-9 Depression Total Score: 0 12/18/19 24 1:27 PM EDT documented as of this encounter Care Teams Campaign Advisor Relationship Specialty Start Date End Date Katarzyna Sahu MD [address] [place] [phone] PCP - General Family Medicine 06/12/12 [facility] 07/28/22 documented as of this encounter
--- OUTSIDE RECORDS SUMMARY | 2024-10-10 12:13 | XMS_ITS | Encounter Summary ---
Author Organization [employer] Address [address] [facility] [address] [place] [address] Care Team Providers Care Automatic Blocker Name Role Phone Katarzyna Sahu MD Primary Care Provider [phone] Reason for Visit * Reason Comments Med Refill Encounter Details Date Type Department Care Team ([facility] st Contact Info) Description 09/27/2024 Refill [facility] [address] [place], [place] [phone] Katarzyna Sahu MD [address] [place], [place] [phone] Social History Tobacco Use Types Packs/Day Years [...] Description 12/16/2024 1:15 PM EDT Office Visit [facility] [address] [place] [phone] Katarzyna Sahu MD [address] [place] [phone] documented as of this encounter Visit Diagnoses Not on filedocumented in this encounter Additional Health Concerns Assessment Noted Time PHQ-9 Depression Total Score: 0 09/16/19 25 11:19 AM EST documented as of this encounter Care Teams Automatic Blocker Relationship Specialty Start Date End Date Katarzyna Sahu MD [address] [place] [id number] PCP - General Family Medicine 06/12/12 [facility] 07/28/22 documented as of this encounter
--- OUTSIDE RECORDS SUMMARY | 2024-10-10 12:13 | XMS_ITS | Clinical Summary ---
Author Organization [facility] Address [address] [facility] [address] [place] [address] Care Team Providers Care Vessel Operator Name Role Phone Katarzyna Sahu MD Primary Care Provider [phone] Allergies No known active allergies Medications Aspirin Low Dose 81 MG EC tablet Take 81 mg by mouth in the morning. 06/21/20 Active atorvastatin (Lipitor) 20 MG tablet Take 20 mg by mouth at bedtime. 06/21/20 22 Active lisinopril 20 MG tablet Take 20 mg by mouth in the morning. 06/21/20 22 Active methadone (Dolophine) 10 MG/ML solution 135 mg by mouth daily administered at [facility] Active metoprolol succinate XL (Toprol-XL) 25 MG 24 hr tablet Take 25 mg by mouth in the morning. 06/21/20 22 Active terbinafine (LamISIL) 250 MG tablet Take 1 tablet by mouth at bed time. 12/22/19 22 Active terbinafine (LamISIL) 1 % creamIndicatio ns:Controlled type 2 diabetes mellitus without complication, without long-term current use of insulin ([facility]) Apply to affected area every day. Dry the area before applying. 30 g 2 07/25/20 22 Active ciclopirox (Penlac) 8 % solutionIndica tions:Onychomy cosis Apply to affected area once daily 30 mL 3 10/12/19 23 Active ketoconazole (NIZOral) 2 % creamIndicatio ns:Onychomycos is APPLY TO THE AFFECTED AREA(S) EVERY MORNING 60 g 3 05/16/20 23 Active TRUEplus Lancets 33G miscIndication s:Type 2 diabetes mellitus without complication, without long-term current use of insulin ([facility]) TEST BLOOD SUGAR ONCE DAILY 100 each 11 09/19/19 24 Active Alcohol Swabs (Alcohol Prep) 70 % padsIndication s:Controlled type 2 diabetes mellitus without complication, without long-term current use of insulin ([facility]) TEST BLOOD SUGAR ONCE DAILY DIRECTED 100 each 3 09/19/19 24 Active Blood Glucose Monitoring Suppl (FreeStyle Lite) w/Device kitIndications :Controlled type 2 diabetes mellitus without complication, without long-term current use of insulin ([facility]) 1 each in the morning. Check your sugar once daily before breakfast 1 kit 1 09/19/19 24 Active FREESTYLE LITE test stripIndicatio ns:Type 2 diabetes mellitus without complication, without long-term current use of insulin ([facility]) 1 each by Other route in the morning. 100 strip 11 09/19/19 24 Active ferrous sulfate (Fe Tabs) 325 (65 Fe) MG EC tablet Take 1 tablet (325 mg) by mouth with breakfast. Do not crush, chew, or split. 90 tablet 3 12/19/19 24 Active cholecalcifero l (Vitamin D-3) 50 MCG (2000 UT) capsule Take 1 capsule (50 mcg) by mouth Once per day. 90 capsule 3 04/01/20 24 Active zolpidem (Ambien) 10 MG tabletIndicati ons:Psychophys iological insomnia TAKE 1 TABLET BY MOUTH AT BEDTIME NEEDED FOR SLEEP 30 tablet 3 06/09/20 24 Active QUEtiapine (SEROquel) 400 MG tabletIndicati ons:Mood disorder ([facility]) TAKE 1 TABLET BY MOUTH AT BEDTIME 30 tablet 5 08/01/20 24 Active tamsulosin (Flomax) 0.4 MG 24 hr capsuleIndicat ions:Benign prostatic hyperplasia, unspecified whether lower urinary tract symptoms present TAKE 1 CAPSULE BY MOUTH EVERY EVENING 30 capsule 5 08/01/20 24 Active Acetaminophen Extra Strength 500 MG tablet TAKE 2 TABLETS BY MOUTH EVERY 8 HOURS NEEDED FOR PAIN 90 tablet 1 09/16/19 25 Active metFORMIN XR (Glucophage-XR ) 500 MG 24 hr tablet TAKE 1 TABLET BY MOUTH EVERY EVENING WITH FOOD 30 tablet 09/30/19 25 Active metFORMIN XR (Glucophage-XR ) 500 MG 24 hr tablet TAKE 1 TABLET BY MOUTH EVERY EVENING WITH DINNER 30 tablet 10/08/19 24 2024 Discontinued Acetaminophen Extra Strength 500 MG tablet TAKE 2 TABLETS BY MOUTH EVERY 8 HOURS NEEDED FOR PAIN 60 tablet 1 10/26/19 24 2024 Discontinued(R eorder (will not trigger notification to Pharmacy)) Active Problems Problem Noted Date Diagnosed Date Hepatitis C antibody test positive 04/06/2024 Assessment & Plan (04/06/2024 3:56 PM EDT): - undetectable viral load Urinary hesitancy 04/01/2024 Assessment & Plan (04/06/2024 3:54 PM EDT): - He has been on tamsulosin since March 2016 when he was hospitalized and was evaluated by urologist. - discussed about PSA - will check PSA and UA Vitamin D deficiency 12/18/2023 Assessment & Plan (04/01/2024 10:40 AM EDT): - continue vitamin D supplements Assessment & Plan (12/18/2023 1:51 PM EDT): - continue vitamin D supplements Anemia in other chronic diseases classified else where 07/25/2022 Assessment & Plan (09/23/2024 10:28 AM EST): Followed by mastic sprayer, Dr. Guevara. Upcoming appointment for colonoscopy Assessment & Plan (12/18/2023 2:05 PM EDT): Followed by mastic sprayerDr. Guevara. 10/20/22 Hgb 11.7; hematocrit 35 Advised to schedule a follow visit Assessment & Plan (09/24/2023 11:36 AM EST): ?? Followed by mastic sprayerDr. Guevara. ?? 10/20/22 Hgb 11.7; hematocrit 35 ?? Advised to schedule a follow visit Assessment & Plan (10/11/2022 11:06 AM EST): ?? Followed by mastic sprayerDr. Guevara. ?? Advised to schedule a follow visit Assessment & Plan (07/25/2022 11:45 AM EST): ?? Followed by mastic sprayer, Dr. Guevara. ?? Advised to schedule a follow visit History of open reduction an d internal fixation (ORIF) procedure 07/15/2022 Chronic back pain 08/09/2016 Assessment & Plan (09/23/2024 10:30 AM EST): - back exercise - judicious use of APAP prn Ischemic heart disease 04/24/2016 Assessment & Plan (09/23/2024 10:25 AM EST): Followed by [facility] last seen by Dr. Way in November 2023 Abnormal stress test and elevated tropnin in Mar 2016, small area of ischemia in apical and lateral branch vessel distribution. Declined stress test in November 2022 Continue BB, ACEI, and ASA. Continue working on lifestyle modifications, consider GLP-1 RA. Relative contraindication to SGLT-2i due to urinary symptoms Assessment & Plan (04/06/2024 3:55 PM EDT): Followed by [facility] last seen in November 2022 Abnormal stress test and elevated tropnin in Mar 2016, small area of ischemia in apical and lateral branch vessel distribution. Declined stress test in November 2022 Continue BB, ACEI, and ASA. Continue working on lifestyle modifications, consider GLP-1 RA. Relative contraindication to SGLT-2i due to urinary symptoms Assessment & Plan (12/18/2023 2:04 PM EDT): Followed [place] [facility] last seen in November 2022 Abnormal stress test and elevated tropnin in Mar 2016, small area of ischemia in apical and lateral branch vessel distribution. Declined stress test in November 2022 Continue BB, ACEI, and ASA. Assessment & Plan (09/24/2023 11:27 AM EST): ?? Followed by [facility] last seen in November 2022 ?? Abnormal stress test and elevated tropnin in Mar 2016, small area of ischemia in apical and lateral branch vessel distribution. ?? Declined stress test in November 2022 ?? Continue BB, ACEI, and ASA. Assessment & Plan (10/11/2022 11:05 AM EST): ?? Followed by [facility] last seen in October 2021 ?? Abnormal stress test and elevated tropnin in Mar 2016, small area of ischemia in apical and lateral branch vessel distribution. Given reassurance by plumber maintenance since it is stable. ?? Continue BB, ACEI, and ASA. Assessment & Plan (07/25/2022 11:51 AM EST): ?? Followed by [facility] last seen in October 2021 ?? Abnormal stress test and elevated tropnin in Mar 2016, small area of ischemia in apical and lateral branch vessel distribution. Given reassurance by plumber maintenance since it is stable. ?? Continue BB, ACEI, and ASA. 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 Urinary retention 04/18/2016 Assessment & Plan (09/16/2024 7:12 PM EST): - Evaluated by urologist in March 2016 when he was hospitalized for chest pain, elevated troponin, and abnormal stress test - He has been taking tamsulosin since March 2016 - He was recommended to have intermittent catheterization, but patient declined - Patient has not followed up with urologist - will consider referring him to urologist Assessment & Plan (04/06/2024 3:53 PM EDT): - Evaluated by urologist in March 2016 when he was hospitalized for chest pain, elevated troponin, and abnormal stress test - He has been taking tamsulosin since March 2016 - He was recommended to have intermittent catheterization, but patient declined - Patient has not followed up with urologist - will consider referring him to urologist Essential hypertension 06/30/2015 Assessment & Plan (09/23/2024 10:26 AM EST): Goal BP < 140/90 per JNC-8, < 130/80 per ACC/AHA guidelines BP well-controlled today Continue working on lifestyle modifications Continue lisinopril 20 mg daily Continue metoprolol succinate 25 mg daily Update EKG periodically due to concern for QTc prolongation Follow-up with plumber maintenance as scheduled Assessment & Plan (04/01/2024 10:23 AM EDT): Goal BP < 140/90 per JNC-8, < 130/80 per ACC/AHA guidelines BP borderline Continue working on lifestyle modifications Continue lisinopril 20 mg daily Continue metoprolol succinate 25 mg daily Update EKG periodically due to concern for QTc prolongation Follow-up with plumber maintenance as scheduled Follow up with us in 3-6 mo, or sooner if any problem arises. Assessment & Plan (12/18/2023 1:53 PM EDT): Goal BP < 140/90 per JNC-8, < 130/80 per ACC/AHA guidelines BP borderline Continue working on lifestyle modifications Continue lisinopril 20 mg daily Continue metoprolol succinate 25 mg daily Update EKG periodically due to concern for QTc prolongation Follow-up with plumber maintenance as scheduled Follow up with us in 3-6 mo, or sooner if any problem arises. Assessment & Plan (09/24/2023 11:27 AM EST): ?? Goal BP < 140/90 per JNC-8, < 130/80 per ACC/AHA guidelines ?? BP borderline ?? Continue working on lifestyle modifications ?? Continue lisinopril 20 mg daily ?? Continue metoprolol succinate 25 mg daily ?? Update EKG periodically due to concern for QTc prolongation ?? Follow-up with plumber maintenance as scheduled ?? Follow up with us in 3-6 mo, or sooner if any problem arises. Assessment & Plan (10/11/2022 11:04 AM EST): ?? Goal BP < 140/90 per JNC-8, < 130/80 per ACC/AHA guidelines ?? BP within acceptable range ?? Continue working on lifestyle modifications ?? Continue lisinopril 20 mg daily ?? Continue metoprolol succinate 25 mg daily ?? Update EKG periodically due to concern for QTc prolongation ?? Follow-up with plumber maintenance as scheduled ?? Follow up with us in 3-6 mo, or sooner if any problem arises. Assessment & Plan (07/25/2022 11:49 AM EST): ?? Goal BP < 140/90 per JNC-8, < 130/80 per ACC/AHA guidelines ?? BP within acceptable range ?? Continue working on lifestyle modifications ?? Continue lisinopril 20 mg daily ?? Continue metoprolol succinate 25 mg daily ?? Update EKG periodically due to concern for QTc prolongation ?? Follow-up with plumber maintenance as scheduled ?? Follow up with us in 3-6 mo, or sooner if any problem arises. Diabetes mellitus type 2, controlled 12/11/2012 Assessment & Plan (09/16/2024 1:01 PM EST): Dx Hgb A1C 6.3% on 09/16/24 Continue working on lifestyle modifications Continue checking BG Continue metformin ER 500 mg daily; consider increasing if A1C continues to increase Microalbumin test: 09/28/23, no Hx microalbuminuria Lipid profile: 09/28/23 Diabetic eye exam: Overdue, pt will schedule Foot exam: 04/01/24. High-risk. Refer to junior accountant. Terbinafine for tinea pedis. Assessment & Plan (04/01/2024 10:39 AM EDT): Dx Hgb A1C 6.5% on 04/01/24 Continue working on lifestyle modifications Continue checking BG Continue metformin ER 500 mg daily; consider increasing if A1C continues to increase Microalbumin test: 09/28/23, no Hx microalbuminuria Lipid profile: 09/28/23 Diabetic eye exam: Overdue, pt will schedule Foot exam: 04/01/24. High-risk. Refer to junior accountant. Terbinafine for tinea pedis. Assessment & Plan (12/18/2023 1:52 PM EDT): Dx Hgb A1C 6.1% on 12/18/23 Continue working on lifestyle modifications Continue checking BG Continue metformin ER 500 mg daily; consider increasing if A1C continues to increase Microalbumin test: Overdue, no Hx microalbuminuria Lipid profile: 10/20/22 Diabetic eye exam: Overdue, pt will schedule Foot exam: 07/24/22. High-risk. Refer to junior accountant. Terbinafine for tinea pedis. Assessment & Plan (09/24/2023 11:36 AM EST): ?? Dx ?? Hgb A1C 6.8% on 09/19/22, stable from 6.8% on 10/11/22 ?? Continue working on lifestyle modifications ?? Continue checking BG ?? Continue metformin ER 500 mg daily; consider increasing if A1C continues to increase ?? Microalbumin test: Overdue, no Hx microalbuminuria ?? Lipid profile: 10/20/22 ?? Diabetic eye exam: Overdue, pt will schedule ?? Foot exam: 07/24/22. High-risk. Refer to junior accountant. Terbinafine for tinea pedis. Assessment & Plan (10/11/2022 4:22 PM EST): ?? Dx ?? Hgb A1C 6.8% on 10/11/22, slightly increased from 6.4% On 07/24/22 ?? Continue working on lifestyle modifications ?? Continue checking BG ?? Requested new Glucometer since last one broke, will prescribe ?? Continue metformin ER 500 mg daily; consider increasing if A1C continues to increase ?? Microalbumin test: Overdue, no Hx microalbuminuria ?? Lipid profile: Overdue ?? Diabetic eye exam: Overdue, pt will schedule ?? Foot exam: 07/24/22. High-risk. Refer to junior accountant. Edelmirabinafine for tinea pedis. Assessment & Plan (07/25/2022 11:54 AM EST): ?? Dx ?? Hgb A1C 6.4% On 07/24/22 ?? Continue working on lifestyle modifications ?? Continue checking BG ?? Continue metformin ER 500 mg daily ?? Microalbumin test: Overdue, no Hx microalbuminuria ?? Lipid profile: Overdue ?? Diabetic eye exam: Overdue, pt will schedule ?? Foot exam: 07/24/22. High-risk. Refer to junior accountant. Edelmirabinafine for tinea pedis. Dyslipidemia 12/11/2012 Assessment & Plan (09/16/2024 7:13 PM EST): - current medication: atorvastatin 20 mg at bedtime, consider intensifying stating in near future - last lipid profile: 09/28/23 LDL 88, ideal goal is < 70 - continue lifestyle modifications Assessment & Plan (04/06/2024 3:36 PM EDT): - current medication: atorvastatin 20 mg at bedtime, consider intensifying stating in near future - last lipid profile: 09/28/23 LDL 88, ideal goal is < 70 - continue lifestyle modifications Mood disorder 12/11/2012 Assessment & Plan (09/16/2024 7:13 PM EST): Currently taking quetiapine 400 mg at bedtime Discontinue quetiapine 25 mg prn anxiety during the day, per patient's request Agreed to follow [employer] monitoring for zolpidem Continue zolpidem 10 mg qhs Discussed about its potential side effects. Pt understands and would like to take it. Assessment & Plan (04/01/2024 10:41 AM EDT): Currently taking quetiapine 400 mg at bedtime Discontinue quetiapine 25 mg prn anxiety during the day, per patient's request Agreed to follow [employer] monitoring for zolpidem Continue zolpidem 10 mg qhs Discussed about its potential side effects. Pt understands and would like to take it. Assessment & Plan (09/24/2023 11:30 AM EST): ?? Currently taking quetiapine 400 mg at bedtime ?? Add quetiapine 25 mg prn anxiety during the day ?? Agreed to follow [employer] monitoring for zolpidem ?? Continue zolpidem 10 mg qhs ?? Discussed about its potential side effects. Pt understands and would like to take it. Assessment & Plan (10/11/2022 4:32 PM EST): ?? Currently taking quetiapine 400 mg at bedtime ?? Agreed to follow [employer] monitoring for zolpidem ?? Agreed to increase zolpidem to 10 mg at bedtime; discussed about its judicious and responsible use ?? Discussed about its potential side effects. Pt understands and would like to take it. Assessment & Plan (07/25/2022 11:55 AM EST): ?? Currently taking quetiapine 400 mg at bedtime ?? Agreed to follow [employer] monitoring for zolpidem ?? Start zolpidem 5 mg at bedtime ?? Discussed about its potential side effects. Pt understands and would like to take it. 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 Resolved Problems Problem Noted Date Diagnosed Date Resolved Date History of fracture 07/15/2022 07/25/20 22 Overview (07/15/2022): S/p closed fx of right femur per previous EHR onset date 02/25/18 Encounters Date Type Department Care Team Description 09/27/2024 Refill [facility] [address] [place] [address] Katarzyna Sahu MD 09/16/2024 11:15 AM EST Office Visit [facility] [address] [place] [address] Katarzyna Sahu MD Essential hypertension (Primary Dx); Ischemic heart disease; Urinary retention; Controlled type 2 diabetes mellitus without complication, without long-term current use of insulin ([facility]); Anemia in other chronic diseases classified elsewhere; Paraplegia ([facility]); Late effects of poliomyelitis; Wheelchair dependence; Mood disorder ([facility]); Dyslipidemia; Encounter for immunization; Class 3 severe obesity due to excess calories with serious comorbidity and body mass index (BMI) of 40.0 to 44.9 in adult ([facility]); Chronic low back pain, unspecified back pain laterality, unspecified whether sciatica present; Dietary counseling; Exercise counseling 09/16/2024 Travel 09/11/2024 Telephone [facility] [address] [place] [address] Emeli Spencer MA chart prep 08/25/2024 Abstract [facility] [address] [place] [id number] Emeli Spencer MA 08/25/2024 Telephone [facility] [address] [place] [address] Emeli Spencer MA chart prep 08/01/2024 Refill [facility] [address] [place], [place] [id number] Katarzyna Sahu MD Mood disorder ([facility]); Benign prostatic hyperplasia, unspecified whether lower urinary tract symptoms present 07/28/2024 Telephone [facility] [address] [place] [address] Misty Frey, RN Paperwork/Forms from Last 3 Months Immunizations Name Administration Dates Next Due Hep B, adult 02/25/2018,06/30/2015,03/30/2015 Influenza injectable quadriv alent IIV4 with preservative 06/30/2015 Influenza injectable quadriv alent preservative free 09/19/2023,09/08/2019,08/09/2016 Influenza, High Dose Seasona l, Preservative Free 09/16/2024 Influenza, IIV3, injectable 05/12/2014 Moderna Covid-19 Vaccine 12+ 11/24/2020,10/28/19 21 Pfizer Covid-19 Vaccine 12+ 09/19/2023 Pneumococcal Conjugate PCV 20 09/19/2023 Pneumococcal Polysaccharide PPSV23 02/21/2014, TD (adult), 2 Lf tetanus tox oid, preservative free, adsorbed 05/13/2004,08/20/2000 Tdap 09/16/2024,05/12/2014 Zoster, live 05/01/2016 Social History Tobacco Use Types Packs/Day Years [...] Orientation Straight 06/12/2022 10 :14 AM EDT Last Filed Vital Signs Vital Sign Reading Time Taken Comments Blood Pressure 112/70 09/16/2024 11:16 AM EST Pulse 74 09/16/2024 11:16 AM EST Temperature 37.2 ??C (99 ??F) 09/16/2024 11: 16 AM EST Respiratory Rate 20 09/16/2024 11:1 6 AM EST Oxygen Saturation 98% 04/01/2024 10: 11 AM EDT Inhaled Oxygen Concentration - - Weight 125 kg (276 lb 6 oz) 09/16/2024 11:16 AM EST patient in wheelchair Height 170.2 cm (5' 7 ) 04/01/2024 10:1 1 AM EDT Body Mass Index 43.29 04/01/2024 10:11 AM EDT Plan of Treatment Upcoming Encounters Date Type Department Care Team (Late st Contact Info) Description 12/16/2024 1:15 PM EDT Office Visit [facility] [address] [facility] [address] Katarzyna [facility]ahu MD [address] [facility] [place] [address] Health Maintenance Due Date Last Done Comments CT Colonography 1955 FIT DNA/Cologuard 1955 FIT 1955 FOBT 1955 Sigmoidoscopy 1955 RSV Patients and Patients Aged 60 years or older (1 - Risk 60-74 years 1-dose series) 2015 Zoster Vaccines (2 of 3) 06/26/2016 05/01/2016 Colonoscopy 10/27/2022 10/28/2019 Colorectal Cancer Screening 10/27/2022 COVID-19 Vaccine ( season) 2024 09/19/2023, 11/24/2020, 10/27/2020 Diabetes: Urine Protein Screening 09/28/2024 09/28/2023, 12/23/2021 Lipid Panel 09/28/2024 09/28/2023, 10/11, 12/22/2021 SDOH Screening 12/17/2024 12/18/2023 Diabetes: Hemoglobin A1C 03/16/2025 025, 04/01/2024, 12/18/2023, Additional history exists Diabetes: Foot Exam 04/01/2025 04/01/2024, 04/01/2024, 04/01/2024, Additional history exists Alcohol/Substance Use Screening 09/16/2025 09/16/2024 Depression Screening 09/16/2025 09/16/2024, 09/16/19 Tobacco Screening 09/16/2025 09/16/2024 Eye Exam 07/28/2026 07/28/2024 DTaP/Tdap/Td Vaccines (3 - Td or Tdap) 09/16/2034 09/16/2024, 05/12/2014, 05/13/2004, Additional history exists Hepatitis B Vaccines Completed 02/25/2018, 06/30/2015, 03/30/2015 Pneumococcal Vaccine: 50+ Years Completed 09/19/2023, 02/21/2014, 06/24/2009 Hepatitis C Screening Completed 04/01/2024, 024 Influenza Vaccine Completed 09/16/2024, , 09/08/2019, Additional history exists HIB Vaccines Aged Out No longer eligi ble based on patient's age to complete this topic HPV Vaccines Aged Out No longer eligi ble based on patient's age to complete this topic Hepatitis A Vaccines Discontinued IPV Vaccines Aged Out No longer eligi ble based on patient's age to complete this topic Meningococcal Vaccine Aged Out No kimberli rosalba eligible based on patient's age to complete this topic RSV under 20 months Aged Out No longe r eligible based on patient's age to complete this topic Rotavirus Vaccines Aged Out No longer eligible based on patient's age to complete this topic Procedures Procedure Name Priority Date/Time Associated Diagnosis Comments POCT GLUCOSE Routine 09/16/2024 11:23 AM EST Controlled type 2 diabetes mellitus without complication, without long-term current use of insulin (CMS/HCC) POCT GLYCATED HEMOGLOBIN, TOTAL Routine 09/16/2024 11:22 AM EST Controlled type 2 diabetes mellitus without complication, without long-term current use of insulin (CMS/HCC) DIABETES EYE EXAM Routine 07/28/2024 HEPATITIS C AB W/REFL TO HCV RNA, QN, PCR Routine 04/01/2024 10:41 AM EDT Hepatitis C antibody test positive LIPID PANEL WITH REFLEX TO DIRECT LDL Routine 09/28/2023 9:11 AM EST Controlled type 2 diabetes mellitus without complication, without long-term current use of insulin (CMS/HCC) Dyslipidemia ALBUMIN, RANDOM URINE W/CREATININE Routine 09/28/2023 7:30 AM EST Controlled type 2 diabetes mellitus without complication, without long-term current use of insulin (CMS/HCC) COLONOSCOPY Routine 10/28/2019 from Last 3 Months or Most Recently Relevant to Health Maintenance Results * POCT Glucose (09/16/2024 11:23 AM EST) Glucose Blood, POC 130 60 - 200 mg/dL Comment:random QC Media Lot # [id number] Lot# Expiration Date [id number] Blood Capillary blood specimen / Unknown 09/16/2024 11:23 AM EST Katarzyna Sahu MD POINT OF CARE TEST ENTER/EDIT OR DERABLES Final Result * (ABNORMAL) POCT HGB A1C (09/16/2024 11:22 AM EST) Hemoglobin A1C 6.3(A) 4.0 - 6.0 % Comment:random QC Media Lot # [id number] Lot# Expiration Date Blood 09/16/2024 11:2 2 AM EST Katarzyna Sahu MD POINT OF CARE TEST ENTER/EDIT OR DERABLES Final Result * Hm Diabetes Eye Exam (07/28/2024) Eye Exam Normal Normal 07/28/2024 Tabatha Macdonald MD HEALTH MAINTENANCE Final Result * (ABNORMAL) Hepatitis C Antibody with Reflex to HCV, RNA, Quantitative, Real- Time PCR (04/01/2024 10:41 AM EDT) Hepatitis C Antibody Reactive( A) Nonreactive [facility] Comment:Presumptive evidence of antibodies to HCV. Blood Venous blood specimen / Unknown 04/01/2024 10:41 AM EDT 04/01/2024 11:18 AM EDT Katarzyna Sahu MD LAB BLOOD ORDERABLES Final Resul t [facility] [address] [place] [address] [place] [phone] * Lipid Panel with Reflex to Direct LDL (09/28/2023 9:11 AM EST) Triglycerides 93 <150 mg/dL [facility] Comment:Desirable Triglyceri de: less than 150 mg/dLBorderline High Triglyceride 150-199 mg/dLHigh Triglyceride: 200-499 mg/dLVery High Triglyceride: greater than or equal to 5OO mg/dL Cholesterol 155 <200 mg/dL [facility] Comment:Desirable Cholestero l: less than 200 mg/dLBorderline High Cholesterol: 200-239 mg/dLHigh Cholesterol: greater than 239 mg/dL LDL Cholesterol Calculated 88 <100 mg/dL [facility] Comment:Desirable LDL: less than 100 mg/dLNear Optimal/Above Optimal LDL: 110- 129 mg/dLBorderline High LDL: 130-159 mg/dLHigh LDL: 160-189 mg/dLVery High LDL: greater than or equal to 190 mg/dL HDL Cholesterol 49 >40 mg/dL [facility] Comment:Desirable HDL: great er than 40 mg/dL Note: This HDL assay may give artificially low results in patients with liver disease. Blood 09/28/2023 9:11 AM EST 09/28/2023 11:00 AM EST us Katarzyna Sahu MD LAB BLOOD ORDERABLES Final Resul t [facility] [address] [place] [address] [phone] * Albumin, Random Urine W/Creatinine (09/28/2023 7:30 AM EST) Creatinine, Urine 235.90 mg/dL [facility] Microalbumin Urine <5.0 mg/L [facility] Microalbum Creatinine Ratio Ur TNP <30 ug/mg cr [facility] Comment:Unable to calculate albumin/creatinine ratio due to lowmicroalbumin or creatinine result. Urine 09/28/2023 7:30 AM EST 09/28/2023 11:10 AM EST Katarzyna Sahu MD LAB URINE ORDERABLES Final Resul t [facility] [address] [place] [address] [phone] * Colonoscopy (10/28/2019) Colonoscopy Normal Normal Historical Provider HEALTH MAINTENANCE Final Result from Last 3 Months or Most Recently Relevant to Health Maintenance Insurance [facility] Advance Directives Documents on File Type Date Recorded Patient Brim Raiser Expl anation HealthCare Proxy 12/07/2022 Proxy Care Teams Vessel Operator Relationship Specialty Start Date End Date Katarzyna Sahu MD [address] [place] [phone] PCP - General Family Medicine 06/12/12 [facility] 07/28/22
--- OUTSIDE RECORDS SUMMARY | 2024-10-10 12:13 | XMS_ITS | Encounter Summary ---
Author Organization [employer] Address [address] [facility] [address] [place] [address] Care Team Providers Care Non Licensed Nuclear Equipment Operator Name Role Phone Katarzyna Sahu MD Primary Care Provider [phone] Encounter Details Date Type Department Care Team ([facility] st Contact Info) Description 09/16/2024 11:15 AM EST Office Visit [facility] [address], [place] [phone] Katarzyna Sahu MD [address], [place] [phone] Essential hypertension (Primary Dx); Ischemic heart disease; Urinary retention; Controlled type 2 diabetes mellitus without complication, without long-term current use of insulin (CMS/[facility]); Anemia in other chronic diseases classified elsewhere; Paraplegia (CMS/HCC); Late effects of poliomyelitis; Wheelchair dependence; Mood disorder (CMS/HCC); Dyslipidemia; Encounter for immunization; Class 3 severe obesity due to excess calories with serious comorbidity and body mass index (BMI) of 40.0 to 44.9 in adult (CMS/HCC); Chronic low back pain, unspecified back pain laterality, unspecified whether sciatica present; Dietary counseling; Exercise counseling Social History Tobacco Use Types Packs/Day Years [...] AM EDT documented as of this encounter Last Filed Vital Signs Vital Sign Reading Time Taken Comments Blood Pressure 112/70 09/16/2024 11:16 AM EST Pulse 74 09/16/2024 11:16 AM EST Temperature 37.2 ??C (99 ??F) 09/16/2024 11: 16 AM EST Respiratory Rate 20 09/16/2024 11:1 6 AM EST Oxygen Saturation - - Inhaled Oxygen Concentration - - Weight 125 kg (276 lb 6 oz) 09/16/2024 11:16 AM EST patient in wheelchair Height - - Body Mass Index 43.29 04/01/2024 10:11 AM EDT documented in this encounter Progress Notes * Katarzyna Sahu MD - 09/16/2024 11:15 AM EST Subjective Ramana Pan is a 69 y.o. male who has CAD, diabetes mellitus type 2, LUTS, and anemia, and patient presents for follow up of chronic conditions. Background: Our last encounter was 04/01/2024. He came with his caregiver, Belinda. A1C 6.5%, increasing lately. We discussed about urinary hesitancy / retention. UA normal. Well-controlled diabetes mellitus. Already on tamsulosin. PSA was normal. Interval history: He was seen by JACIEL Quinonez, at [facility] on 05/23/24 because he is due for colonoscopy. Rx dulcolax and miralax for constipation. Advised to have a cardiac clearance before colonoscopy. He had eye exam on 07/28/24, which showed no diabetic retinopathy. Today: Pt notes he has lost weight. Pt reports he will have his colonoscopy done in October and will see cardiology in November. Pt also notes he is taking his cholesterol medication consistently. Pt declines Covid, but agrees to Flu and Tetanus shots. Pt takes his methadone , currently 140 mg daily. He gets take-home. He reports having back pain dueto arthritis and requested acetaminophen for the pain. Patient came alone in his wheelchair today because his EDI COORDINATOR could not find a parking. Review of Systems Constitutional: Negative for activity change, appetite change and fever. Respiratory: Negative for shortness of breath. Cardiovascular: Negative for chest pain. Objective Vitals: 09/16/24 1116 BP: 112/70 BP Location: Left arm Patient Position: Sitting BP Cuff Size: Large adult Pulse: 74 Resp: 20 Temp: 99 ??F (37.2 ??C) TempSrc: Oral Weight: 276 lb 6 oz (125 kg) Physical Exam Constitutional: General: He is not in acute distress. Appearance: Normal appearance. He is not ill-appearing. HENT: Head: Normocephalic and atraumatic. Mouth/Throat: Mouth: Mucous membranes are moist. Eyes: Extraocular Movements: Extraocular movements intact. Pupils: Pupils are equal, round, and reactive to light. Cardiovascular: Rate and Rhythm: Normal rate and regular rhythm. Heart sounds: No murmur heard. Pulmonary: Effort: Pulmonary effort is normal. No respiratory distress. Breath sounds: Normal breath sounds. No wheezing or rhonchi. Skin: General: Skin is warm. Neurological: Mental Status: He is alert. Mental status is at baseline. Psychiatric: Mood and Affect: Mood normal. Results: Lab Results Component Value Date NA 140 09/28/2023 K 4.2 09/28/2023 CL 101 09/28/2023 CO2 27 09/28/2023 BUN 15 09/28/2023 CREATININE 1.25 09/28/2023 EGFR 57 09/28/2023 GLUCOSE 128 (H) 09/28/2023 TOTALBILIRUB 0.5 09/28/2023 AST 20 09/28/2023 ALT 13 09/28/2023 TOTPROTEIN 7.7 09/28/2023 ALB 4.0 09/28/2023 ALP 114 09/28/2023 Lab Results Component Value Date TRIG 93 09/28/2023 CHOL 155 09/28/2023 LDLCHOLCAL 88 09/28/2023 HDL 49 09/28/2023 Lab Results Component Value Date HGBA1C 6.3 (A) 09/16/2024 MICROALBUR <5.0 09/28/2023 CREATUR 235.90 09/28/2023 MICROALBCREU TNP 09/28/2023 Lab Results Component Value Date WBC 7.1 05/23/2024 HGB 11.6 (L) 05/23/2024 HCT 35.7 (L) 05/23/2024 PLT 299 05/23/2024 MCV 88.8 05/23/2024 The 10-year ASCVD risk score (Judah GALVAN, et al., 2019) is: 25% Values used to calculate the score: Age: 69 years Sex: Male Is Non- : No Diabetic: Yes Tobacco smoker: No Systolic Blood Pressure: 112 mmHg Is BP treated: Yes HDL Cholesterol: 49 mg/dL Total Cholesterol: 155 mg/dL Screening and Health Care Maintenance: PHQ-2/9 Score: Patient Health Questionnaire-9 Score: 0 (09/16/2024 11:19 AM) Patient Health Questionnaire-2 Score: 0 (09/16/2024 11:19 AM) Thoughts that you would be better off or hurting yourself in some way: Not at all (09/16/2024 11:19 AM) TOYA-7 Score: No data recorded Health Maintenance Due Topic Date Due RSV Patients and Patients Aged 60 years or older (1 - Risk 60-74 years 1-dose series) Never done Zoster Vaccines (2 of 3) 06/26/2016 Colorectal Cancer Screening 10/27/2022 COVID-19 Vaccine ( season) 2024 Lipid Panel 09/28/2024 Diabetes: Urine Protein Screening 09/28/2024 SDOH Screening 12/17/2024 Assessment/Plan Problem List Items Addressed This Visit Chronic back pain - back exercise - judicious use of APAP prn Diabetes mellitus type 2, controlled (CMS/HCC) Dx Hgb A1C 6.3% on 09/16/24 Continue working on lifestyle modifications Continue checking BG Continue metformin ER 500 mg daily; consider increasing if A1C continues to increase Microalbumin test: 09/28/23, no Hx microalbuminuria Lipid profile: 09/28/23 Diabetic eye exam: Overdue, pt will schedule Foot exam: 04/01/24. High-risk. Refer to electromechanical assembler. Terbinafine for tinea pedis. Relevant Orders POCT Glucose (Completed) POCT HGB A1C (Completed) Dyslipidemia - current medication: atorvastatin 20 mg at bedtime, consider intensifying stating in near future - last lipid profile: 09/28/23 LDL 88, ideal goal is < 70 - continue lifestyle modifications Essential hypertension - Primary Goal BP < 140/90 per JNC-8, < 130/80 per ACC/AHA guidelines BP well-controlled today Continue working on lifestyle modifications Continue lisinopril 20 mg daily Continue metoprolol succinate 25 mg daily Update EKG periodically due to concern for QTc prolongation Follow-up with tobacco baler as scheduled Ischemic heart disease Followed by [facility] last seen by Dr. Way in November 2023 Abnormal stress test and elevated tropnin in Mar 2016, small area of ischemia in apical and lateralbranch vessel distribution. Declined stress test in November 2022 Continue BB, ACEI, and ASA. Continue working on lifestyle modifications, consider GLP-1 RA. Relative contraindication to SGLT-2i due to urinary symptoms Late effects of poliomyelitis Mood disorder (CMS/HCC) Currently taking quetiapine 400 mg at bedtime Discontinue quetiapine 25 mg prn anxiety during the day, per patient's request Agreed to follow MEAL GRINDER TENDER monitoring for zolpidem Continue zolpidem 10 mg qhs Discussed about its potential side effects. Pt understands and would like to take it. Obesity Paraplegia (CMS/HCC) Urinary retention - Evaluated by urologist in March 2016 when he was hospitalized for chest pain, elevated troponin,and abnormal stress test - He has been taking tamsulosin since March 2016 - He was recommended to have intermittent catheterization, but patient declined - Patient has not followed up with urologist - will consider referring him to urologist Wheelchair dependence Anemia in other chronic diseases classified elsewhere Followed by worm sorter, Dr. Guevara. Upcoming appointment for colonoscopy Other Visit Diagnoses Encounter for immunization Relevant Orders FLU VACCINE TRIVALENT HIGH DOSE 65 yrs + (Completed) Tdap vaccine greater than or equal to 7 years old IM (Completed) Dietary counseling Exercise counseling No Known Allergies Current Outpatient Medications Medication Instructions Acetaminophen Extra Strength 500 MG tablet TAKE 2 TABLETS BY MOUTH EVERY 8 HOURS NEEDED FOR PAIN Alcohol Swabs (Alcohol Prep) 70 % pads TEST BLOOD SUGAR ONCE DAILY DIRECTED Aspirin Low Dose 81 mg, Every morning atorvastatin (LIPITOR) 20 mg, Nightly Blood Glucose Monitoring Suppl (Medichanical EngineeringStyle Lite) w/Device kit 1 each, Does not apply, Daily, Check your sugar once daily before breakfast cholecalciferol (VITAMIN D-3) 50 mcg, Oral, Daily ciclopirox (Penlac) 8 % solution Apply to affected area once daily ferrous sulfate (FE TABS) 325 mg, Oral, Daily with breakfast, Do not crush, chew, or split. FREESTYLE LITE test strip 1 each, Other, Daily ketoconazole (NIZOral) 2 % cream APPLY TO THE AFFECTED AREA(S) EVERY MORNING lisinopril 20 mg, Every morning metFORMIN XR (Glucophage-XR) 500 MG 24 hr tablet TAKE 1 TABLET BY MOUTH EVERY EVENING WITH DINNER methadone (Dolophine) 10 MG/ML solution 135 mg by mouth daily administered at Methadone clinic metoprolol succinate XL (TOPROL-XL) 25 mg, Every morning QUEtiapine (SEROquel) 400 MG tablet TAKE 1 TABLET BY MOUTH AT BEDTIME tamsulosin (Flomax) 0.4 MG 24 hr capsule TAKE 1 CAPSULE BY MOUTH EVERY EVENING terbinafine (LamISIL) 1 % cream Apply to affected area every day. Dry the area before applying. terbinafine (LamISIL) 250 MG tablet 1 tablet, Nightly TRUEplus Lancets 33G misc TEST BLOOD SUGAR ONCE DAILY zolpidem (Ambien) 10 MG tablet TAKE 1 TABLET BY MOUTH AT BEDTIME NEEDED FOR SLEEP Follow-up: In December or sooner if any problem arises. Scribe Attestation: Mera Hicksez, am serving as a scribe to document services personally performed by Katarzyna Sahu MD, based on the patient's response to questions by provider and provides statements to me. documented in this encounter Miscellaneous Notes * Assessment & Plan Note - Katarzyna Sahu MD - 09/23/2024 10:30 AM ESTAssociated Problem(s): Chronic back pain - back exercise - judicious use of APAP prn * Assessment & Plan Note - Mera Ross MA - 09/16/2024 7:13 PM ESTAssociated Problem(s): Mood disorder (CMS/HCC) Currently taking quetiapine 400 mg at bedtime Discontinue quetiapine 25 mg prn anxiety during the day, per patient's request Agreed to follow MEAL GRINDER TENDER monitoring for zolpidem Continue zolpidem 10 mg qhs Discussed about its potential side effects. Pt understands and would like to take it. * Assessment & Plan Note - Mera Ross MA - 09/16/2024 7:13 PM ESTAssociated Problem(s): Dyslipidemia - current medication: atorvastatin 20 mg at bedtime, consider intensifying stating in near future - last lipid profile: 09/28/23 LDL 88, ideal goal is < 70 - continue lifestyle modifications * Assessment & Plan Note - Mera Ross MA - 09/16/2024 7:13 PM ESTAssociated Problem(s): Anemia in other chronic diseases classified elsewhere Followed by worm sorter, Dr. Guevara. Upcoming appointment for colonoscopy * Assessment & Plan Note - Mera Ross MA - 09/16/2024 7:12 PM ESTAssociated Problem(s): Urinary retention - Evaluated by urologist in March 2016 when he was hospitalized for chest pain, elevated troponin,and abnormal stress test - He has been taking tamsulosin since March 2016 - He was recommended to have intermittent catheterization, but patient declined - Patient has not followed up with urologist - will consider referring him to urologist * Assessment & Plan Note - Mera Ross MA - 09/16/2024 7:12 PM ESTAssociated Problem(s): Ischemic heart disease Followed by [facility] last seen by Dr. Way in November 2023 Abnormal stress test and elevated tropnin in Mar 2016, small area of ischemia in apical and lateralbranch vessel distribution. Declined stress test in November 2022 Continue BB, ACEI, and ASA. Continue working on lifestyle modifications, consider GLP-1 RA. Relative contraindication to SGLT-2i due to urinary symptoms * Assessment & Plan Note - Mera Ross MA - 09/16/2024 7:12 PM ESTAssociated Problem(s): Essential hypertension Goal BP < 140/90 per JNC-8, < 130/80 per ACC/AHA guidelines BP well-controlled today Continue working on lifestyle modifications Continue lisinopril 20 mg daily Continue metoprolol succinate 25 mg daily Update EKG periodically due to concern for QTc prolongation Follow-up with tobacco baler as scheduled * Assessment & Plan Note - Mera Ross MA - 09/16/2024 12:59 PM EST Associated Problem(s): Diabetes mellitus type 2, controlled ([facility]) Dx Hgb A1C 6.3% on 09/16/24 Continue working on lifestyle modifications Continue checking BG Continue metformin ER 500 mg daily; consider increasing if A1C continues to increase Microalbumin test: 09/28/23, no Hx microalbuminuria Lipid profile: 09/28/23 Diabetic eye exam: Overdue, pt will schedule Foot exam: 04/01/24. High-risk. Refer to electromechanical assembler. Terbinafine for tinea pedis. documented in this encounter Plan of Treatment Upcoming Encounters Date Type Department Care Team (Late st Contact Info) Description 12/16/2024 1:15 PM EDT Office Visit [facility] [address] [place] [address] Katarzyna Sahu MD [address] [place] [address] Scheduled Orders Name Type Priority Associated Diagnoses Orde r Schedule Vitamin B12 (Cobalamin) and Folate Panel, Serum Lab Routine Anemia in other chronic diseases classified elsewhere Expected: 09/23/2024 (Approximate), Expires: 09/23/2025 Lipid Panel with Reflex to Direct LDL Lab Routine Dyslipidemia Expected: 09/23/2024 (Approximate), Expires: 09/23/2025 Albumin, Random Urine W/Creatinine Lab Routine Essential hypertension Controlled type 2 diabetes mellitus without complication, without long-term current use of insulin ([facility]) Expected: 09/23/2024 (Approximate), Expires: 09/23/2025 Comprehensive Metabolic Panel Lab Routine Essential hypertension Controlled type 2 diabetes mellitus without complication, without long-term current use of insulin (CMS/HCC) Expected: 09/23/2024 (Approximate), Expires: 09/23/2025 CBC auto differential Lab Routine Anemia in other chronic diseases classified elsewhere Expected: 09/23/2024 (Approximate), Expires: 09/23/2025 Ferritin Lab Routine Anemia in other chronic diseases classified elsewhere Expected: 09/23/2024 (Approximate), Expires: 09/23/2025 Iron And Total Iron Binding Capacity Lab Routine Anemia in other chronic diseases classified elsewhere Expected: 09/23/2024, Expires: 09/23/2025 Reticulocyte Count Lab Routine Anemia in other chronic diseases classified elsewhere Expected: 09/23/2024, Expires: 09/23/2025 documented as of this encounter Procedures Procedure Name Priority Date/Time Associated Diagnosis Comments POCT GLUCOSE Routine 09/16/2024 11:23 AM EST Controlled type 2 diabetes mellitus without complication, without long-term current use of insulin ([facility]) POCT GLYCATED HEMOGLOBIN, TOTAL Routine 09/16/2024 11:22 AM EST Controlled type 2 diabetes mellitus without complication, without long-term current use of insulin ([facility]) documented in this encounter Results * POCT Glucose (09/16/2024 11:23 AM EST) Glucose Blood, POC 130 60 - 200 mg/dL Comment:random QC Media Lot # [id number] Lot# Expiration Date [id number] Blood Capillary blood specimen / Unknown 09/16/2024 11:23 AM EST us Katarzyna Sahu MD POINT OF CARE TEST ENTER/EDIT OR DERABLES Final Result * (ABNORMAL) POCT HGB A1C (09/16/2024 11:22 AM EST) Hemoglobin A1C 6.3(A) 4.0 - 6.0 % Comment:random QC Media Lot # [id number] Lot# Expiration Date ,[id number] Blood 09/16/2024 11:2 2 AM EST us Katarzyna Sahu MD POINT OF CARE TEST ENTER/EDIT OR DERABLES Final Result documented in this encounter Visit Diagnoses Diagnosis Essential hypertension- Primary Unspecified essential hypertension Ischemic heart disease Other specified forms of chronic ischemic heart disease Urinary retention Unspecified retention of urine Controlled type 2 diabetes mellitus without complication, without long-term current use of insulin ([facility]) Anemia in other chronic diseases classified elsewhere Paraplegia ([facility]) Paraplegia 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 Mood disorder ([facility]) Unspecified episodic mood disorder Dyslipidemia Other and unspecified hyperlipidemia Encounter for immunization Class 3 severe obesity due to excess calories with serious comorbidity and body mass index (BMI) of 40.0 to 44.9 in adult ([facility]) Chronic low back pain, unspecified back pain laterality, unspecified whether sciatica present Dietary counseling Dietary surveillance and counseling Exercise counseling documented in this encounter Additional Health Concerns Assessment Noted Time PHQ-9 Depression Total Score: 0 09/16/19 25 11:19 AM EST documented as of this encounter Care Teams Non Licensed Nuclear Equipment Operator Relationship Specialty Start Date End Date Katarzyna Sahu MD [address] [place] [phone] PCP - General Family Medicine 06/12/12 [facility] 07/28/22 documented as of this encounter
--- OUTSIDE RECORDS SUMMARY | 2024-10-10 12:14 | XMS_ITS | Encounter Summary ---
Author Organization [employer] [facility] Address [address] [facility] 7[address] [place] [address] Care Team Providers Care Paver Layer Name Role Phone Katarzyna Sahu MD Primary Care Provider [phone] Encounter Details Date Type Department Care Team (Late st Contact Info) Description 01/03/2023 Abstract [facility] [address] [place], [place] [phone] Katarzyna Sahu MD [address] [place] [address] [phone] Social History Tobacco Use Types Packs/Day Years Used Date Smoking Tobacco: Former Cigarettes Q uit: 10/10/1977 Passive Smoke Exposure: Never Smokeless Tobacco: Never Depression Answer Date Recorded Patient Health Questionnaire-9 Score 0 10/11/2022 Depression Answer Date Recorded Patient Health Questionnaire-2 Score 0 10/11/2022 Sex and Gender Information Value Date Recorded Sex Assigned at Male 06/12/2022 10:14 AM EDT Legal Sex Male 10:14 AM EDT Gender Identity Male 06/12/2022 10:14 AM EDT Sexual Orientation Straight 06/12/2022 10 :14 AM EDT documented as of this encounter Plan of Treatment Upcoming Encounters Date Type Department Care Team (Late st Contact Info) Description 12/16/2024 1:15 PM EDT Office Visit [facility] [address], [place] [phone] Katarzyna Sahu MD [address] [place] [address] [phone] documented as of this encounter Visit Diagnoses Not on filedocumented in this encounter Additional Health Concerns Assessment Noted Time PHQ-9 Depression Total Score: 0 10/12/19 23 10:40 AM EST documented as of this encounter Care Teams Paver Layer Relationship Specialty Start Date End Date Katarzyna Sahu MD [address] [place] [phone] PCP - General Family Medicine 06/12/12 [facility] 07/28/22 documented as of this encounter
--- OUTSIDE RECORDS SUMMARY | 2024-10-10 12:14 | XMS_ITS | Encounter Summary ---
Author Organization [employer] Address [address] [facility] 7t [place] [address] Care Team Providers Care Manager Metal Name Role Phone Katarzyna Sahu MD Primary Care Provider [phone] Reason for Visit * Reason Comments Med Refill Encounter Details Date Type Department Care Team (Late st Contact Info) Description 06/15/2023 Refill [facility] [address] [place], [place] [phone] Katarzyna Sahu MD [address] [place], [place] [phone] Psychophysiological insomnia Social History Tobacco Use Types Packs/Day Years Used Date Smoking Tobacco: Former Cigarettes Q uit: 10/10/1977 Passive Smoke Exposure: Never Smokeless Tobacco: Never Depression Answer Date Recorded Patient Health Questionnaire-9 Score 0 10/11/2022 Housing Stability Answer Date Recorded What is your housing situation today? I have дмитрий harris 06/07/[address] you li ve. Do you have problems with any of the following? None of the above 06/07/2023 Food Insecurity Answer Date Recorded Within the past 12 months, y ou worried that your food would run out before you got money to buy more: Never True 06/07/2023 Within the past 12 months,th e food you bought just didn't last and you didn't have enough money to get more: Never True Transportation Answer Date Recorded In the past 12 months, has l ack of transportation kept you from medical appts, meetings, work or from getting things needed for daily living? No 06/07/2023 Utilities Answer Date Recorded In the past 12 months, has t he electric, gas, oil or water company threatened to shut off services in your home? No 06/07/2023 Depression Answer Date Recorded Patient Health Questionnaire-2 [...] Description 12/16/2024 1:15 PM EDT Office Visit [facility] [address] [place] [address] Katarzyna Sahu MD [address] [place] [address] documented as of this encounter Visit Diagnoses Diagnosis Psychophysiological insomnia Persistent disorder of initiating or maintaining sleep documented in this encounter Additional Health Concerns Assessment Noted Time PHQ-9 Depression Total Score: 0 10/12/19 23 10:40 AM EST documented as of this encounter Care Teams Manager Metal Relationship Specialty Start Date End Date Katarzyna Sahu MD [address] [place] [id number] PCP - General Family Medicine 06/12/12 [facility] 07/28/22 documented as of this encounter
--- OUTSIDE RECORDS SUMMARY | 2024-10-10 12:14 | XMS_ITS | Encounter Summary ---
Author Organization [employer] [facility] Address [address] [facility] 7t [place] [address] Care Team Providers Care Drapery Rod Assembler Name Role Phone Katarzyna Sahu MD Primary Care Provider [phone] Reason for Visit * Reason Onset Date Comments FYI 08/22/2022 Encounter Details Date Type Department Care Team ([facility] st Contact Info) Description 08/22/2022 Telephone [facility] [address] [place], [place] [phone] Katarzyna Sahu MD [address] [place], [place] [phone] FY Social History Tobacco Use Types Packs/Day Years Used Date Smoking Tobacco: Never Passive Smoke Exposure: Never Smokeless Tobacco: Never Sex and Gender Information Value Date Recorded Sex Assigned at Male 06/12/2022 10:14 AM EDT Legal Sex Male 10:14 AM EDT Gender Identity Male 06/12/2022 10:14 AM EDT Sexual Orientation Straight 06/12/2022 10 :14 AM EDT COVID-19 Exposure Response Date Recorded In the last 10 days, have yo u been in contact with someone who was confirmed or suspected to have Coronavirus/COVID-19? No / Unsure 07/24/2022 9:56 AM EST documented as of this encounter Miscellaneous Notes * Telephone Encounter - Katarzyna Sahu MD - 08/22/2022 6:54 PM EST Noted. * Telephone Encounter - Dinora Castillo - 08/22/2022 10:16 AM EST Tc from pt calling to inform already has a car body inspector at [facility] . Which is the reason he didn't go to the pediatrist in [place]. Any questions please call pt to clarify . documented in this encounter Plan of Treatment Upcoming Encounters Date Type Department Care Team (Late st Contact Info) Description 12/16/2024 1:15 PM EDT Office Visit [facility] [address] [place] [address] Katarzyna Sahu MD [address] [place] [address] documented as of this encounter Visit Diagnoses Not on filedocumented in this encounter Additional Health Concerns Assessment Noted Time PHQ-9 Depression Total Score: 9 07/24/20 10:23 AM EST documented as of this encounter Care Teams Drapery Rod Assembler Relationship Specialty Start Date End Date Katarzyna Sahu MD [address] [place] [phone] PCP - General Family Medicine 06/12/12 [facility] 07/28/22 documented as of this encounter
--- OUTSIDE RECORDS SUMMARY | 2024-10-10 12:14 | XMS_ITS | Encounter Summary ---
Author Organization [employer] Address [address] [facility] 7t [place] [address] Care Team Providers Care Continuous Drier Operator Name Role Phone Katarzyna Sahu MD Primary Care Provider [phone] Reason for Visit * Reason Comments Med Refill Encounter Details Date Type Department Care Team ([facility] st Contact Info) Description 06/07/2023 Refill [facility] [address] [place], [place] [phone] Katarzyna Sahu MD [address] [place], [place] [phone] Social History Tobacco Use Types Packs/Day Years [...] the past 12 months, has t he [employer], gas, oil or water company threatened to [...] Description 12/16/2024 1:15 PM EDT Office Visit [facility] [address] [place] [address] Katarzyna Sahu MD [address] [place] [address] documented as of this encounter Visit Diagnoses Not on filedocumented in this encounter Additional Health Concerns Assessment Noted Time PHQ-9 Depression Total Score: 0 10/12/19 23 10:40 AM EST documented as of this encounter Care Teams Continuous Drier Operator Relationship Specialty Start Date End Date Katarzyna Sahu MD [address] [place] [address] PCP - General Family Medicine 06/12/12 [facility] 07/28/22 documented as of this encounter
--- OUTSIDE RECORDS SUMMARY | 2024-10-10 12:14 | XMS_ITS | Encounter Summary ---
Author Organization [employer] [facility] Address [address] [facility] 7t [place] [address] Care Team Providers Care Phytopathologist Name Role Phone Katarzyna Sahu MD Primary Care Provider [phone] Reason for Visit * Reason Onset Date Comments status 11/02/2022 Encounter Details Date Type Department Care Team ([facility] st Contact Info) Description 11/02/2022 Telephone [facility] [address] [place], [place] [phone] Katarzyna Sahu MD [address] [place], [place] [phone] status Social History Tobacco Use Types Packs/Day Years [...] suspected to have Coronavirus/COVID-19? No / Unsure 10/20/2022 9:19 AM EST documented as of this encounter Miscellaneous Notes * Telephone Encounter - Chon Wilson - 11/02/2022 9:34 AM EDT Tc from [place] with [facility] requesting status for script sign by PCP and fax over to [phone] regarding methadone Please contact bre at [phone] documented in this encounter Plan of Treatment Upcoming Encounters Date Type Department Care Team ([facility] st Contact Info) Description 12/16/2024 1:15 PM EDT Office Visit [facility] [address] [place] [address] Katarzyna Sahu MD [address] [place] [address] documented as of this encounter Visit Diagnoses Not on filedocumented in this encounter Additional Health Concerns Assessment Noted Time PHQ-9 Depression Total Score: 0 10/12/19 10:40 AM EST documented as of this encounter Care Teams Phytopathologist Relationship Specialty Start Date End Date Katarzyna Sahu MD [address] [place] [phone] PCP - General Family Medicine 06/12/12 [facility] 07/28/22 documented as of this encounter
--- OUTSIDE RECORDS SUMMARY | 2024-10-10 12:14 | XMS_ITS | Encounter Summary ---
Author Organization [employer] Address [address] [facility] 7t [place] [address] Care Team Providers Care Heavy Duty Press Operator Name Role Phone Katarzyna Sahu MD Primary Care Provider [phone] Reason for Visit * Reason Comments Med Refill Encounter Details Date Type Department Care Team (Late st Contact Info) Description 11/16/2023 Refill [facility] [address] [place], [place] [phone] Katarzyna Sahu MD [address] [place], [place] [phone] Social History Tobacco Use Types Packs/Day Years [...] the past 12 months, has t he [employer], gas, oil or water company threatened to [...] Description 12/16/2024 1:15 PM EDT Office Visit [facility] [address] [place] [address] Katarzyna Sahu MD [address] [place] [address] documented as of this encounter Visit Diagnoses Not on filedocumented in this encounter Additional Health Concerns Assessment Noted Time PHQ-9 Depression Total Score: 0 10/12/19 23 10:40 AM EST documented as of this encounter Care Teams Heavy Duty Press Operator Relationship Specialty Start Date End Date Katarzyna Sahu MD [address] [place] [phone] PCP - General Family Medicine 06/12/12 [facility] 07/28/22 documented as of this encounter
--- OUTSIDE RECORDS SUMMARY | 2024-10-10 12:14 | XMS_ITS | Encounter Summary ---
Author Organization [employer] Address [address] [facility] 7t [place] [address] Care Team Providers Care Government Operations Consultant Name Role Phone Katarzyna Sahu MD Primary Care Provider [phone] Encounter Details Date Type Department Care Team ([facility] st Contact Info) Description 09/28/2023 Orders Only [facility] [address] [place], [place] [phone] Katarzyna Sahu MD [address] [place], [place] [phone] Social History Tobacco Use Types Packs/Day Years [...] Description 12/16/2024 1:15 PM EDT Office Visit [facility] [address] [place] [address] Katarzyna Sahu MD [address] [place] [address] documented as of this encounter Procedures Procedure Name Priority Date/Time Associated Diagnosis Comments SLIDE REVIEW Routine 12/18/2023 1:54 PM EDT documented in this encounter Results * Slide Review (12/18/2023 1:54 PM EDT) Slide Review VERIFIED [facility] 12/18/2023 1:54 PM EDT 12/18/2023 4:11 PM EDT us Katarzyna Sahu MD LAB BLOOD ORDERABLES Final Resul t [facility] [address] [place] [address] [phone] documented in this encounter Visit Diagnoses Not on filedocumented in this encounter Additional Health Concerns Assessment Noted Time PHQ-9 Depression Total Score: 0 10/12/19 23 10:40 AM EST documented as of this encounter Care Teams Government Operations Consultant Relationship Specialty Start Date End Date Katarzyna Sahu MD [address] [place] [address] PCP - General Family Medicine 06/12/12 [facility] 07/28/22 documented as of this encounter
--- NOTE | 2024-10-13 14:15 | HO.ANESPROP2 ---
HPI - Anesthesia Eval Consult details Narrative: 69yo M for Colonoscopy Follow[facility] for ASCD. Last annual visit 11/2023. Optimized for procedure per workload PMFSH Active Problems Active Problems: All Active Problems Contusion of right ankle (Acute) Normochromic normocytic anemia (Acute) Foot injury (Acute) Chronic constipation (Acute) Other and unspecified hyperlipidemia (Acute) Type 2 diabetes mellitus with unspecified complications (Acute) Essential hypertension (Acute) Atherosclerotic cardiovascular disease (Acute) Past Medical History Medical History Foot injury Chronic constipation Other and unspecified hyperlipidemia Type 2 diabetes mellitus with unspecified complications Essential hypertension Atherosclerotic cardiovascular disease Family History Family History Father No problems noted. Mother No problems noted. 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 Meds Allergies Allergy/AdvReac Type Severity Reaction Status Date / Time aspirin [ASPIRIN] AdvReac Mild BLEEDING Verified 05/23/24 13:21 Home Medications ?Medication ?Instructions ?Recorded ?Confirmed ?Last Taken ?Type methadone 10 mg tablet 150 mg PO DAILY 07/05/20 11/27/23 Unknown History quetiapine 400 mg tablet 400 mg PO BEDTIME 07/05/20 11/27/23 Unknown History tamsulosin 0.4 mg capsule 0.4 mg PO DAILY 07/05/20 11/27/23 Unknown History metformin 500 mg tablet,extended 1 tab PO QPM 02/23/22 11/27/23 Unknown History release 24 hr ketoconazole 2 % topical cream appl topical QAM 11/29/22 11/27/23 Unknown History zolpidem 10 mg tablet 10 mg PO BEDTIME PRN 11/29/22 11/27/23 Unknown History alcohol swabs (Alcohol Prep Pads) pad topical DAILY 05/23/24 Unknown History blood sugar diagnostic (FreeStyle #10 ea 05/23/24 Unknown History Lite Strips) blood-glucose meter (FreeStyle #1 ea 05/23/24 Unknown History [place] Lite kit) cholecalciferol (vitamin D3) 50 50 mcg PO DAILY 05/23/24 Unknown History mcg (2,000 unit) capsule (Vitamin D3) ferrous sulfate 325 mg (65 mg 325 mg PO DAILY 05/23/24 Unknown History iron) tablet,delayed release lancets 33 gauge (TRUEplus Lancets) #100 ea 05/23/24 Unknown History quetiapine 25 mg tablet 25 mg PO BEDTIME 05/23/24 Unknown History Exam Narrative Narrative: EKG 11/2023 Details: EKG with sinus rhythm at 68/Min; leftward axis; can not exclude old anterior infarct but more likely from his body habitus; normal NH and corrected QT. Assessment and Plan Assessment Anesthesia Assessment: Chart Reviewed
[2024-10-14 11:06] VITALS: BP 138/68; PULSE 68; RESP 16; TEMP 36.6; O2SAT 99; BMI 30.5
--- NOTE | 2024-10-14 11:17 | MHC.SHP ---
Pre-Procedural Eval Section A - 24 Hr Update-Section A only Date of Service: 10/14/24 Section B - Complete if H&P > 30 days Chief Complaint: Anemia, unspecified Relevant Family History (Specify if Yes): No Relevant Social History: None Present Medications: see Short Stay Collaborative assessment Medical History: Significant History (Foot injury Chronic constipation Other and unspecified hyperlipidemia Type 2 diabetes mellitus with unspecified complications Essential hypertension Atherosclerotic cardiovascular disease) History of Previous Operations: Relevant previous surgery/procedure and date(s) ( History of colonoscopy History of surgery on lower extremity) Allergies: Allergies Allergy/AdvReac Type Severity Reaction Status Date / Time aspirin [ASPIRIN] AdvReac Mild BLEEDING Verified 10/14/24 11:03 Review of Systems Sugical H&P ROS: Negative: Constitution, Cardiovascular, Respiratory, Neurological, Psychiatric, Hem-Onc, Allergic/Immunologic, Gastrointestinal, Genitourinary, Musculoskeletal, Integumentary, Endocrine and Eyes/Ears/Nose/Throat Exam Surgical H&P Exam: Normal: HEENT, Normal: Heart, Normal: Lungs, Normal: Extremities, Normal: Abdomen, Normal: Skin and Normal: Neurological Plan Diagnosis/Plan: Unchanged I have reviewed the history and physical and performed a pertinent physical examination on my patient. No changes have occurred unless specified. Time Spent With Patient Time: Total time managing care of this patient today ____ minutes.
[2024-10-14 11:18] LABS: Glucose, Whole Blood 92 mg/dL (60-115)
--- NOTE | 2024-10-14 11:21 | P.CONAN_ITS ---
[facility] Active Problems Active Problems: All Active Problems Contusion of right ankle (Acute) Normochromic normocytic anemia (Acute) Foot injury (Acute) Chronic constipation (Acute) Other and unspecified hyperlipidemia (Acute) Type 2 diabetes mellitus with unspecified complications (Acute) Essential hypertension (Acute) Atherosclerotic cardiovascular disease (Acute) Past Medical History Medical History Foot injury Chronic constipation Other and unspecified hyperlipidemia Type 2 diabetes mellitus with unspecified complications Essential hypertension Atherosclerotic cardiovascular disease Functional capacity: independent ambulation Family History Family History Father No problems noted. Mother No problems noted. Sister Breast cancer Family history of problems with anesthesia: No Surgical History Surgical History History of colonoscopy History of surgery on lower extremity No pertinent past surgical history History of Problems with Anesthesia: No Social History Social History Household Members: None Household Members Other:: lives alone Housing: Apartment Are you a primary personal care assistant to a significant other at home: No Do you presently have visiting nurse or other home services: No Alcohol intake: former Patient Tobacco Use Status: Former Tobacco user Use of substances other than those prescribed or required for medical reasons: No Have you been hit, kicked, punched, or otherwise hurt by someone within the past year? 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 Allergies Allergy/AdvReac Type Severity Reaction Status Date / Time aspirin [ASPIRIN] AdvReac Mild BLEEDING Verified 10/14/24 11:03 Active Medications: Current Medications Lactated Ringer's (Lr) 1,000 mls @ 100 mls/hr IVCONT .Q10H DI Home Medications ?Medication ?Instructions ?Recorded ?Confirmed ?Last Taken ?Type methadone 10 mg tablet 150 mg PO DAILY 07/05/20 10/14/24 10/14/24 History quetiapine 400 mg tablet 400 mg PO BEDTIME 07/05/20 11/27/23 Unknown History tamsulosin 0.4 mg capsule 0.4 mg PO DAILY 07/05/20 11/27/23 Unknown History metformin 500 mg tablet,extended 1 tab PO QPM 02/23/22 11/27/23 Unknown History release 24 hr ketoconazole 2 % topical cream appl topical QAM 11/29/22 11/27/23 Unknown History zolpidem 10 mg tablet 10 mg PO BEDTIME PRN 11/29/22 11/27/23 Unknown History alcohol swabs (Alcohol Prep Pads) pad topical DAILY 05/23/24 Unknown History blood sugar diagnostic (FreeStyle #10 ea 05/23/24 Unknown History Lite Strips) blood-glucose meter (FreeStyle #1 ea 05/23/24 Unknown History [place] Lite kit) cholecalciferol (vitamin D3) 50 50 mcg PO DAILY 05/23/24 Unknown History mcg (2,000 unit) capsule (Vitamin D3) ferrous sulfate 325 mg (65 mg 325 mg PO DAILY 05/23/24 Unknown History iron) tablet,delayed release lancets 33 gauge (TRUEplus Lancets) #100 ea 05/23/24 Unknown History quetiapine 25 mg tablet 25 mg PO BEDTIME 05/23/24 Unknown History Exam Height,Weight and Vital Signs: Height 5 ft 7 in Weight 88.451 kg Last Vital Signs Temp 97.8 F 10/14/24 11:06 Pulse 68 10/14/24 11:06 Resp 16 10/14/24 11:06 BP 138/68 10/14/24 11:06 Pulse Ox 99 10/14/24 11:06 O2 Del Method Room Air 10/14/24 11:06 Pertinent Lab Results Pertinent Lab Results: Laboratory Tests 10/14/24 11:08 POC Glucose 92 Airway Mallampati Class: III TM Dist: >3cm Neck ROM: Full Denture: Upper and Lower Heart: RRR Lungs: CTA Assessment and Plan Assessment Anesthesia Assessment: Anesthesia Plan Discussed and Chart Reviewed Final Anesthetic Review Family History of Problems with Anesthesia: No History of Problems with Anesthesia: No NPO: Yes ASA Class: III Final Preanesthetic Review: Meds/Allgs Chart Reviewed, Consent Obtained/Reviewed and Anes Risks/Benef Reviewed Patient Risk: Intermediate Procedure Risk: Low Anesthetic Plan Anesthetic Plan: MAC: Disposition: Standard PACU
[2024-10-14] MEDS: Lactated Ringers 1,000 ML 100 ML IVCONT (11:26)
--- NOTE | 2024-10-14 12:09 | HO.OPN-COLON ---
Colonoscopy Operative Note Operative Note Date of Service: 10/14/24 Narrative: Operative Information Procedure Description: Colonoscopy Indication: screening Anesthesia: MAC COLONOSCOPY Instrument: Olympus variable stiffness ADULT scope 190L Colonoscopy Monitoring: Vital signs and clinical assessment, continuous EKG monitoring, Pulse oximetry, Carbon Dioxide monitoring and blood pressure monitoring were done throughout the procedure. Colon withdrawal time was 13 minutes. Procedure: The patient was placed in the left lateral decubitis position and pre-procedure medications were administered. After a digital rectal examination of the ano-rectum, the video colonoscope was inserted into the rectum and advanced through the colon to the cecum/TI. The colonoscope was slowly withdrawn in a retrograde panoramic fashion and the colon mucosa was carefully examined including a retroflexed view of the rectum. Findings and interventions are described below. Procedure Difficulty: moderate Findings: Terminal Ileum-not intubated Cecum:normal Ascending Colon: normal Transverse Colon -normal Descending Colon:normal Sigmoid Colon: normal Rectum: Retroflexion with small internal hemorrhoids seen, grade I with a skin tag which had an abnormal irregular appearance, bx was taken Anorectum - normal Intervention: cold forceps Colon preparation: [place] Bowel Preparation Scale Right colon; 1 Transverse colon: 1-2 Left colon; 1-2 (0 = Unprepared colon segment with mucosa not seen due to solid stool that cannot be cleared. 1 = Portion of mucosa of the colon segment seen, but other areas of the colon segment not well seen due to staining, residual stool and/or opaque liquid. 2 = Minor amount of residual staining, small fragments of stool and/or opaque liquid, but mucosa of colon segment seen well. 3 = Entire mucosa of colon segment seen well with no residual staining, small fragments of stool or opaque liquid) Impression and Post Procedure Diagnosis: internal hemorrhoids with skin tag Plan: High fiber diet leaflet Avoid straining at stool, epsom salts and sitz bath, anusol supps or cream Repeat Colonoscopy in 6-12 months or earlier if clinically indicated Above findings were reviewed with the patient and relevant handouts were provided if indicated.
[2024-10-14 12:23] VITALS: BP 125/70; PULSE 64; RESP 16; TEMP 36.6; O2SAT 95
[2024-10-14 12:38] VITALS: BP 135/56; PULSE 59; RESP 16; TEMP 36.6; O2SAT 99
--- NOTE | 2024-10-14 13:25 | HO.POSTANES ---
Post Anesthesia Evaluation Post Anesthesia Evaluation Date of Service: 10/14/24 Vital Signs: Vital Signs Temp Pulse Resp BP Pulse Ox O2 Del Method 10/14/24 12:38 97.8 F 59 16 135/56 L 99 Room Air 10/14/24 12:23 97.8 F 64 16 125/70 95 Room Air 10/14/24 11:06 97.8 F 68 16 138/68 99 Room Air Anesthesia: Monitored Mental Status: Awake Pain Control: Satisfactory Nausea/Vomiting: None Hydration: Adequate Anesthesia-Related Issues: No Anes. Related Issues
== END 2024-10-14 13:07 | disposition home or self-care (01) ==
PROVIDERS: PCP Family Medicine; Visit Provider Internal Medicine Gastroenterology
PROC: 0DJD8ZZ Inspection of Lower Intestinal Tract, Via Natural or Artificial Opening Endoscopic (ICD-10-PCS; CPT 45378; principal; 2024-10-14 11:50)
DX: D64.9 Anemia, unspecified (principal); K59.09 Other constipation; K64.0 First degree hemorrhoids; K64.4 Residual hemorrhoidal skin tags; K21.9 Gastro-esophageal reflux disease without esophagitis; E78.5 Hyperlipidemia, unspecified; E11.9 Type 2 diabetes mellitus without complications; I25.10 Atherosclerotic heart disease of native coronary artery without angina pectoris; I10 Essential (primary) hypertension; S99.929A Unspecified injury of unspecified foot, initial encounter; X58.XXXA Exposure to other specified factors, initial encounter; Y93.9 Activity, unspecified; Y92.9 Unspecified place or not applicable; Y99.9 Unspecified external cause status; Z79.82 Long term (current) use of aspirin; Z79.84 Long term (current) use of oral hypoglycemic drugs; Z79.899 Other long term (current) drug therapy; F11.90 Opioid use, unspecified, uncomplicated; Z88.6 Allergy status to analgesic agent
CPT/HCPCS: 45380; 82947; 88304; J2003; J2704

== ENCOUNTER → 2024-10-14 09:42 | Outpatient (BNV) | payer OTHER, SELFPAY | PROVIDERS: PCP Family Medicine; Visit Provider Internal Medicine Gastroenterology | DX: Z12.11 Encounter for screening for malignant neoplasm of colon (principal); K64.8 Other hemorrhoids; K64.4 Residual hemorrhoidal skin tags | CPT/HCPCS: 45380 ==

== ENCOUNTER 2024-10-31 08:20 | Outpatient (AMB) | payer OTHER, SELFPAY ==
--- NOTE | 2024-10-31 08:34 | MHC.OFFVIS ---
Vital Signs 10/31/24 08:35 Height 5 ft 7 in BP 118/66 Blood Pressure Location Rt brachial Position Sitting Pulse 78 Pulse Source Pulse Oximeter Pulse Oximetry (%) 98 Oxygen Delivery Method Room Air Intake Visit Reasons: GERD, worsening sx. Intake Note: ESTABLISHED PATIENT for requested visit - mgmt of worsening GERD Chief Complaint; C/O worsening reflux, B/L LQ abd pain, nausea w/o vomiting, constipation with active bleeding / concern for hemorrhoid. Per pt, BRB per rectum, moderate amounts. No additional concerns at this time. Telehealth Director Required: No Allergies aspirin [ASPIRIN] Adverse Reaction (Mild, Verified 10/31/24 08:49) BLEEDING HPI HPI GERD, worsening sx.: Details: LAST VISIT: Normochromic normocytic anemia Chronic constipation Plan Will repeat CBC. Patient will start taking Dulcolax daily. He will return to the office in 2-3 months to re-evaluate make sure he has better prep. Increase fluid intake. Please call Cardiology to have patient cleared for the procedure. Patient currently is on low-dose aspirin. Message sent to surgical schedulers to book procedure for patient. Both patient and his [employer] are agreeable to this plan and verbalizes understanding of instructions. They were given the opportunity to ask questions and all questions answered. ? Thank you for allowing me to participate in his care Orders Orders Complete Blood Count no Diff Today K21.9 Medications New bisacodyl (Dulcolax (bisacodyl)) 10 mg (2 x 5 mg) PO BEDTIME 180 tabs 4RF polyethylene glycol 3350 (Miralax) As directed by gastroenterology department at [facility] 238 grams PO ONCE 238 grams 0RF Z12.11 COLONOSCOPY: Findings: Terminal Ileum-not intubated Cecum:normal Ascending Colon: normal Transverse Colon -normal Descending Colon:normal Sigmoid Colon: normal Rectum: Retroflexion with small internal hemorrhoids seen, grade I with a skin tag which had an abnormal irregular appearance, bx was taken Anorectum - normal Intervention: cold forceps Colon preparation: [place] Bowel Preparation Scale Right colon; 1 Transverse colon: 1-2 Left colon; 1-2 (0 = Unprepared colon segment with mucosa not seen due to solid stool that cannot be cleared. 1 = Portion of mucosa of the colon segment seen, but other areas of the colon segment not well seen due to staining, residual stool and/or opaque liquid. 2 = Minor amount of residual staining, small fragments of stool and/or opaque liquid, but mucosa of colon segment seen well. 3 = Entire mucosa of colon segment seen well with no residual staining, small fragments of stool or opaque liquid) Impression and Post Procedure Diagnosis: internal hemorrhoids with skin tag Plan: High fiber diet leaflet Avoid straining at stool, epsom salts and sitz bath, anusol supps or cream Repeat Colonoscopy in 6-12 months or earlier if clinically indicated TODAY'S VISIT Patient is here today for follow-up and to discuss colonoscopy results. Patient denies any ill effects from the prep, anesthesia or procedure itself. Patient suboptimal prep and has to repeat colonoscopy in 6-12 months. Patient reports hemorrhoids occasional blood in his stool. Patient admits to being constipated. He is on methadone and also is sedentary spends most of his time in the wheelchair. Patient reports nausea, denies vomiting. Patient reports occasional dyspepsia without dysphagia or odynophagia. Patient denies any other GI concerning symptoms COUNT INCLUDES THE [facility] Medical History Foot injury Chronic constipation Other and unspecified hyperlipidemia Type 2 diabetes mellitus with unspecified complications Essential hypertension Atherosclerotic cardiovascular disease Surgical History History of colonoscopy History of surgery on lower extremity No pertinent past surgical history Family History Father No problems noted. Mother No problems noted. 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 Review of Systems Const Denies weight gain and Denies weight loss ENT Reports no additional complaints, Denies dysphagia and Denies odynophagia Card Reports no additional complaints Resp Reports no additional complaints GI Denies abdominal pain, Denies belching, Denies melena, Denies bloating, Reports constipation, Denies dysphagia, Denies excessive flatus, Denies dyspepsia, Denies heartburn, Denies diarrhea, Reports loose stools, Reports nausea, Denies odynophagia and Denies vomiting Reports no additional complaints Musc Reports no additional complaints Neuro Reports no additional complaints Psych Reports no additional complaints Endo Reports no additional complaints Physical Exam Vital Signs: Last Vital Signs Pulse 78 10/31/24 08:35 BP 118/66 10/31/24 08:35 Pulse Ox 98 10/31/24 08:35 Oxygen Delivery Method Room Air 10/31/24 08:35 Const Other: Patient is sitting in the wheelchair General: healthy appearing and no acute distress Nutritional Appearance: well nourished Orientation/consciousness: patient oriented x3 Resp Effort & Inspection: normal respiratory effort, able to speak in complete sentences, no tracheal deviation and symmetric chest movement Auscultation: clear to auscultation bilaterally Cardio Rate: regular rate GI Inspection: Yes normal to inspection, No distended and Yes obesity Palpation (GI): Soft to palpation, not firm, nontender and No hepatosplenomegaly present Auscultation: normal bowel sounds General: Yes no CVA tenderness Back/Spine/Pelvis Back: no CVA tenderness Skin General skin exam: elasticity normal, turgor normal and dry skin Neuro General: patient oriented x3 Psych Appearance: grossly normal Mental Status: mental status grossly normal Assessment & Plan Assessment & Plan (1) Chronic constipation: Code(s): K59.09 - Other constipation Category: Medical (2) Normochromic normocytic anemia: Code(s): D64.9 - Anemia, unspecified Category: Medical (3) Hemorrhoids without complication: Code(s): K64.9 - Unspecified hemorrhoids Plan Patient will start taking Dulcolax with stool softeners. Increase fluid intake. Patient will return in 3 months so we can discuss going for colonoscopy. He will call our office if he will have any GI concerning symptoms. Patient is agreeable to this plan and verbalizes understanding of instructions. He was given the opportunity to ask questions and all questions answered. Thank you for allowing me to participate in his care Medications: New docusate sodium 200 mg (2 x 100 mg) PO BEDTIME 180 caps 3RF K59.00 - Constipation, unspecified bisacodyl 10 mg (2 x 5 mg) PO BEDTIME 60 tabs 3RF Coding Level of Care Code Est Pt Level 3 (58226) Diagnoses Chronic constipation K59.09 Normochromic normocytic anemia D64.9 Hemorrhoids without complication K64.9 Time Spent (min) 30 Comment 20 minutes spent with patient and additional 10 minutes spent reviewing his records
[2024-10-31 08:35] VITALS: BP 118/66; PULSE 78; O2SAT 98
--- OUTSIDE RECORDS SUMMARY | 2024-10-31 08:35 | XMS_ITS | Clinical Summary ---
Author Organization [employer] Address [address] [facility] [address] [place] [address] Care Team Providers Care Glass Fitter Name Role Phone Katarzyna Sahu MD Primary Care Provider [phone] Allergies No known active allergies Medications Aspirin [...] complication, without long-term current use of insulin ([facility]) Apply to affected area every [...] complication, without long-term current use of insulin ([facility]) TEST BLOOD SUGAR ONCE DAILY 100 each 11 09/19/19 24 Active Alcohol Swabs (Alcohol Prep) 70 % padsIndication s:Controlled type 2 diabetes mellitus without complication, without long-term current use of insulin ([facility]) TEST BLOOD SUGAR ONCE DAILY DIRECTED 100 each 3 09/19/19 24 Active Blood Glucose Monitoring Suppl (FreeStyle Lite) w/Device kitIndications :Controlled type 2 diabetes mellitus without complication, without long-term current use of insulin ([facility]) 1 each in the morning. Check your sugar once daily before breakfast 1 kit 1 09/19/19 24 Active FREESTYLE LITE test stripIndicatio ns:Type 2 diabetes mellitus without complication, without long-term current use of insulin ([facility]) 1 each by Other route [...] day. 90 capsule 3 04/01/20 24 Active QUEtiapine (SEROquel) 400 MG tabletIndicati ons:Mood disorder ([facility]CC) TAKE 1 TABLET BY MOUTH AT BEDTIME [...] MOUTH EVERY EVENING WITH FOOD 30 tablet 11 09/30/19 25 Active zolpidem (Ambien) 10 MG tabletIndicati ons:Psychophys iological insomnia TAKE 1 TABLET BY MOUTH AT BEDTIME NEEDED FOR SLEEP 30 tablet 3 10/30/19 25 Active zolpidem (Ambien) 10 MG tabletIndicati ons:Psychophys iological insomnia TAKE 1 TABLET BY MOUTH AT BEDTIME NEEDED FOR SLEEP 30 tablet 3 06/09/20 24 025 Discontinued Active Problems Problem Noted Date Diagnosed Date [...] Plan (09/23/2024 10:28 AM EST): Followed by car spotterDr. Guevara. Upcoming appointment for colonoscopy Assessment & Plan (12/18/2023 2:05 PM EDT): Followed by car spotterDr. Guevara. 10/20/22 Hgb 11.7; hematocrit 35 Advised to schedule a follow visit Assessment & Plan (09/24/2023 11:36 AM EST): ?? Followed by car spotterDr. Guevara. ?? 10/20/22 Hgb 11.7; hematocrit 35 ?? Advised to schedule a follow visit Assessment & Plan (10/11/2022 11:06 AM EST): ?? Followed by car spotterDr. Guevara. ?? Advised to schedule a follow visit Assessment & Plan (07/25/2022 11:45 AM EST): ?? Followed by car spotterDr. Guevara. ?? Advised to schedule a follow visit History of open reduction an d internal fixation (ORIF) procedure 07/15/2022 Chronic back pain 08/09/2016 Assessment & Plan (09/23/2024 10:30 AM EST): - back exercise - judicious use of APAP prn Ischemic heart disease 04/24/2016 Assessment & Plan (09/23/2024 10:25 AM EST): Followed by [facility] last seen by Dr. Way in [...] Plan (04/06/2024 3:55 PM EDT): Followed by [facility] last seen in November 2022 Abnormal stress test and elevated tropnin in Mar 2016, small area of ischemia in apical and lateral branch vessel distribution. Declined stress test in November 2022 Continue BB, ACEI, and ASA. Continue working on lifestyle modifications, consider GLP-1 RA. Relative contraindication to SGLT-2i due to urinary symptoms Assessment & Plan (12/18/2023 2:04 PM EDT): Followed by [facility] last seen in November 2022 Abnormal stress test and elevated tropnin in Mar 2016, small area of ischemia in apical and lateral branch vessel distribution. Declined stress test in November 2022 Continue BB, ACEI, and ASA. Assessment & Plan (09/24/2023 11:27 AM EST): ?? Followed by [facility] last seen in November 2022 ?? Abnormal stress test and elevated tropnin in Mar 2016, small area of ischemia in apical and lateral branch vessel distribution. ?? Declined stress test in November 2022 ?? Continue BB, ACEI, and ASA. Assessment & Plan (10/11/2022 11:05 AM EST): ?? Followed by [facility] last seen in October 2021 ?? Abnormal stress test and elevated tropnin in Mar 2016, small area of ischemia in apical and lateral branch vessel distribution. Given reassurance by workgroup leader since it is stable. ?? Continue BB, ACEI, and ASA. Assessment & Plan (07/25/2022 11:51 AM EST): ?? Followed by [facility] last seen in October 2021 ?? Abnormal stress test and elevated tropnin in Mar 2016, small area of ischemia in apical and lateral branch vessel distribution. Given reassurance by workgroup leader since it is stable. ?? Continue BB, [...] to concern for QTc prolongation Follow-up with workgroup leader as scheduled Assessment & Plan (04/01/2024 10:23 AM EDT): Goal BP < 140/90 per JNC-8, < 130/80 per ACC/AHA guidelines BP borderline Continue working on lifestyle modifications Continue lisinopril 20 mg daily Continue metoprolol succinate 25 mg daily Update EKG periodically due to concern for QTc prolongation Follow-up with workgroup leader as scheduled Follow up with us in 3-6 mo, or sooner if any problem arises. Assessment & Plan (12/18/2023 1:53 PM EDT): Goal BP < 140/90 per JNC-8, < 130/80 per ACC/AHA guidelines BP borderline Continue working on lifestyle modifications Continue lisinopril 20 mg daily Continue metoprolol succinate 25 mg daily Update EKG periodically due to concern for QTc prolongation Follow-up with workgroup leader as scheduled Follow up with us in [...] concern for QTc prolongation ?? Follow-up with workgroup leader as scheduled ?? Follow up with us [...] concern for QTc prolongation ?? Follow-up with workgroup leader as scheduled ?? Follow up with us [...] concern for QTc prolongation ?? Follow-up with workgroup leader as scheduled ?? Follow up with us [...] schedule Foot exam: 04/01/24. High-risk. Refer to perinatal specialist. Terbinafine for tinea pedis. Assessment & Plan (04/01/2024 10:39 AM EDT): Dx Hgb A1C 6.5% on 04/01/24 Continue working on lifestyle modifications Continue checking BG Continue metformin ER 500 mg daily; consider increasing if A1C continues to increase Microalbumin test: 09/28/23, no Hx microalbuminuria Lipid profile: 09/28/23 Diabetic eye exam: Overdue, pt will schedule Foot exam: 04/01/24. High-risk. Refer to perinatal specialist. Terbinafine for tinea pedis. Assessment & Plan (12/18/2023 1:52 PM EDT): Dx Hgb A1C 6.1% on 12/18/23 Continue working on lifestyle modifications Continue checking BG Continue metformin ER 500 mg daily; consider increasing if A1C continues to increase Microalbumin test: Overdue, no Hx microalbuminuria Lipid profile: 10/20/22 Diabetic eye exam: Overdue, pt will schedule Foot exam: 07/24/22. High-risk. Refer to perinatal specialist. Terbinafine for tinea pedis. Assessment & Plan [...] ?? Foot exam: 07/24/22. High-risk. Refer to perinatal specialist. Terbinafine for tinea pedis. Assessment & Plan [...] ?? Foot exam: 07/24/22. High-risk. Refer to perinatal specialist. Terbinafine for tinea pedis. Assessment & Plan (07/25/2022 11:54 AM EST): ?? Dx ?? Hgb A1C 6.4% On 07/24/22 ?? Continue working on lifestyle modifications ?? Continue checking BG ?? Continue metformin ER 500 mg daily ?? Microalbumin test: Overdue, no Hx microalbuminuria ?? Lipid profile: Overdue ?? Diabetic eye exam: Overdue, pt will schedule ?? Foot exam: 07/24/22. High-risk. Refer to perinatal specialist. Terbinafine for tinea pedis. Dyslipidemia 12/11/2012 Assessment & [...] day, per patient's request Agreed to follow [employer]ISTR[employer] monitoring for zolpidem Continue zolpidem 10 mg qhs Discussed about its potential side effects. Pt understands and would like to take it. Assessment & Plan (04/01/2024 10:41 AM EDT): Currently taking quetiapine 400 mg at bedtime Discontinue quetiapine 25 mg prn anxiety during the day, per patient's request Agreed to follow [employer]ISTRATOR monitoring for zolpidem Continue zolpidem 10 mg qhs Discussed about its potential side effects. Pt understands and would like to take it. Assessment & Plan (09/24/2023 11:30 AM EST): ?? Currently taking quetiapine 400 mg at bedtime ?? Add quetiapine 25 mg prn anxiety during the day ?? Agreed to follow [employer]IST[employer]ATOR monitoring for zolpidem ?? Continue zolpidem 10 mg qhs ?? Discussed about its potential side effects. Pt understands and would like to take it. Assessment & Plan (10/11/2022 4:32 PM EST): ?? Currently taking quetiapine 400 mg at bedtime ?? Agreed to follow [employer]ISTRATOR monitoring for zolpidem ?? Agreed to increase zolpidem to 10 mg at bedtime; discussed about its judicious and responsible use ?? Discussed about its potential side effects. Pt understands and would like to take it. Assessment & Plan (07/25/2022 11:55 AM EST): ?? Currently taking quetiapine 400 mg at bedtime ?? Agreed to follow [employer]ISTRATOR monitoring for zolpidem ?? Start zolpidem 5 mg at bedtime ?? Discussed about its potential side effects. Pt understands and would like to take it. 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 Resolved Problems Problem Noted Date Diagnosed Date Resolved Date History of fracture 07/15/2022 07/25/20 22 Overview (07/15/2022): S/p closed fx of right femur per previous EHR onset date 02/25/18 Encounters Date Type Department Care Team Description 10/29/2024 Refill [facility] [address] [place] [address] Katarzyna Sahu MD Psychophysiological insomnia 10/24/2024 Refill [facility] [address] [place] [address] Katarzyna Sahu MD Psychophysiological insomnia 10/16/2024 Orders Only [facility] PEDS [address] [place] [address] ProviderTabatha MD 10/14/2024 Orders Only GENERIC EXTERNAL DATA DEPARTMENT Provider, Generic External Data 09/27/2024 Refill [facility] [address] [place] [address] Katarzyna Sahu MD 09/16/2024 11:15 AM EST Office Visit [facility] [address] [place] [address] Katarzyna Sahu MD Essential hypertension (Primary Dx); Ischemic heart disease; Urinary retention; Controlled type 2 diabetes mellitus without complication, without long-term current use of insulin ([facility]); Anemia in other chronic diseases classified elsewhere; Paraplegia ([facility]); Late effects of poliomyelitis; Wheelchair dependence; Mood disorder ([facility]); Dyslipidemia; Encounter for immunization; Class 3 severe obesity due to excess calories with serious comorbidity and body mass index (BMI) of 40.0 to 44.9 in adult ([facility]); Chronic low back pain, unspecified back pain laterality, unspecified whether sciatica present; Dietary counseling; Exercise counseling 09/16/2024 Travel 09/11/[address] [address] Emeli Spencer [place] chart prep 08/25/[address] [address] Emeli Spencer [place] 08/25/[address] [address] Emeli Spencer [place] chart prep from Last 3 Months Immunizations Name Administration [...] Description 12/16/2024 1:15 PM EDT Office Visit [facility] [address] [place], [place] [phone] Katarzyna Sahu MD [address] [place] [address] Health Maintenance Due Date Last Done Comments CT Colonography 1955 FIT DNA/Cologuard 1955 FIT 1955 FOBT 1955 Sigmoidoscopy 1955 RSV Patients and Patients Aged 60 years or older (1 - Risk 60-74 years 1-dose series) 2015 Zoster Vaccines (2 of 3) 06/26/2016 05/01/2016 COVID-19 Vaccine ( season) 2024 09/19/2023, 11/24/2020, 10/27/2020 Diabetes: Urine Protein Screening 09/28/2024 09/28/2023, 12/23/2021 Lipid Panel 09/28/2024 09/28/2023, 03, 12/22/2021 SDOH Screening 12/17/2024 12/18/2023 Diabetes: Hemoglobin A1C 03/16/2025 025, 04/01/2024, 12/18/2023, Additional history exists Diabetes: Foot Exam 04/01/2025 04/01/2024, 04/01/2024, 04/01/2024, Additional history exists Alcohol/Substance Use Screening 09/16/2025 09/16/2024 Depression Screening 09/16/2025 09/16/2024, 09/16/19 Tobacco Screening 09/16/2025 09/16/2024 Colonoscopy 10/14/2025 10/14/2024, 10/28/2019 Colorectal Cancer Screening 10/14/2025 Eye Exam 07/28/2026 07/28/2024 DTaP/Tdap/Td Vaccines (3 [...] Procedure Name Priority Date/Time Associated Diagnosis Comments GROSS AND MICROSCOPIC LEVEL 3 Routine 10/14/2024 12:11 PM EST GLUCOSE, WHOLE BLOOD Routine 10/14/2024 11:08 AM EST COLONOSCOPY Routine 10/14/2024 8:58 AM EST POCT GLUCOSE Routine 09/16/2024 11:23 AM EST [...] complication, without long-term current use of insulin ([facility]) from Last 3 Months or Most Recently Relevant to Health Maintenance Results * Gross and Microscopic Level 3 (10/14/2024 12:11 PM EST) 10/14/2024 12:1 1 PM EST 10/14/2024 12:50 PM EST [facility] - 10/16/2024 2:43 PM EST ----- ------- Name: Ramana Pan ? Age/Sex: 69/M ? : 1955 Unit#: [id number] ?? Attend Dr: Luis Alfredo Madrigal MD ?Re10/14/24 ?Status: DEP [facility] ? Location: HO.SSS ?Disch: ? ----- ------- SPEC : [id number] ? RECD: 10/14/24-1250 ? STATUS: ??SOUT ? REQ NUM: [id number] ? CATHERINE: 10/14/24-1211 ? SUBM DR: Luis Alfredo Madrigal MD ? ENTERED: ??10/14/24-1302 ?SP TYPE: Surgical ? OTHR DR: Katarzyna Sahu MD ? ORDERED: ??Gross Micro L3 ? Diagnosis ?? Labeled abnormal appearing skin tag , shave biopsy: ??Minute fragments of benign ?? superficial squamous epithelium with acute inflammation (see comment). ? Comment: ??Only a small portion of the specimen survived processing. ??Re- biopsy if ?? clinically indicated. ?Clinical History Anemia, unspecified ?Microscopic Description Multiple microscopic sections reviewed. ? Material Received ?? Abnormal appearing skin tag ? Gross Description Received in formalin are 2 fragments of fraser-white soft tissue measuring 2 and 4 mm, totally submitted in A1. ??Location not given. ??(RJD) Copies To: ?? Luis Alfredo Madrigal MD ?? [facility] ?? [address] ?? [place] [address] ?? [phone] ?? Katarzyna Sahu MD ?? [facility] ?? [address] ?? [place] [address] ?? [phone] ----- ------- Signed (signature on file) Laila Albert 10/16/24 1443 ? ----- ------- ? END OF REPORT ? Generic External Data Provider LAB CYTOLOGY ORDE RABLES Final Result Performing Organization Address [facility] Co de Phone Number [facility] [address] [place] [address] [phone] * Glucose, Whole Blood (10/14/2024 11:08 AM EST) Pathologist [facility] Glucose, Whole Blood 92 60 - 115 mg/dL [facility] Comment:METER #: [id number] 10/14/2024 11:0 8 AM EST 10/14/2024 11:18 AM EST Generic External Data Provider LAB BLOOD ORDERAB LES Final Result Performing Organization Address [facility] Co de Phone Number [facility] [address] [place] [address] [phone] * Hm Colonoscopy (10/14/2024 8:58 AM EST) us Historical Provider HEALTH MAINTENANCE Final Result * POCT Glucose (09/16/2024 11:23 AM EST) Glucose Blood, POC 130 60 - 200 mg/dL Comment:random QC Media Lot # [id number] Lot# Expiration Date [id number] Blood Capillary blood specimen / Unknown 09/16/2024 11:23 AM EST Result [facility] Katarzyna Sahu MD POINT OF CARE TEST ENTER/EDIT OR DERABLES Final Result * (ABNORMAL) POCT HGB A1C (09/16/2024 11:22 AM EST) Pathologist [facility] Hemoglobin A1C 6.3(A) 4.0 - 6.0 % Comment:random QC Media Lot # [id number] Lot# Expiration Date Blood 09/16/2024 11:2 2 AM EST Result [facility] Katarzyna Sahu MD POINT OF CARE TEST ENTER/EDIT OR DERABLES Final Result * Hm Diabetes Eye Exam (07/28/2024) Eye Exam Normal Normal 07/28/2024 Result [facility] Historical Provider HEALTH MAINTENANCE Final Result * (ABNORMAL) Hepatitis C Antibody with Reflex to HCV, RNA, Quantitative, Real- Time PCR (04/01/2024 10:41 AM EDT) Hepatitis C Antibody Reactive( A) Nonreactive [facility] Comment:Presumptive evidence of antibodies to HCV. Blood Venous blood specimen / Unknown 04/01/2024 10:41 AM EDT 04/01/2024 11:18 AM EDT Result [facility] Katarzyna Sahu MD LAB BLOOD ORDERABLES Final Resul t [facility] [address] [place] [phone] * Lipid Panel with Reflex to Direct LDL (09/28/2023 9:11 AM EST) Triglycerides 93 <150 mg/dL [facility] Comment:Desirable Triglyceri de: less than 150 mg/dLBorderline High Triglyceride 150-199 mg/dLHigh Triglyceride: 200-499 mg/dLVery High Triglyceride: greater than or equal to 5OO mg/dL Cholesterol 155 <200 mg/dL [facility] Comment:Desirable Cholestero l: less than 200 mg/dLBorderline High Cholesterol: 200-239 mg/dLHigh Cholesterol: greater than 239 mg/dL LDL Cholesterol Calculated 88 <100 mg/dL [facility] Comment:Desirable LDL: less than 100 mg/dLNear Optimal/Above Optimal LDL: 110- 129 mg/dLBorderline High LDL: 130-159 mg/dLHigh LDL: 160-189 mg/dLVery High LDL: greater than or equal to 190 mg/dL HDL Cholesterol 49 >40 mg/dL [facility] Comment:Desirable HDL: great er than 40 mg/dL Note: This HDL assay may give artificially low results in patients with liver disease. Blood 09/28/2023 9:11 AM EST 09/28/2023 11:00 AM EST us Katarzyna Sahu MD LAB BLOOD ORDERABLES Final Resul t [facility] [address] [place] [address] [phone] * Albumin, Random Urine W/Creatinine (09/28/2023 7:30 AM EST) Creatinine, Urine 235.90 mg/dL [facility] Microalbumin Urine <5.0 mg/L [facility] Microalbum Creatinine Ratio Ur TNP <30 ug/mg cr [facility] Comment:Unable to calculate albumin/creatinine ratio due to lowmicroalbumin or creatinine result. Urine 09/28/2023 7:30 AM EST 09/28/2023 11:10 AM EST Katarzyna Sahu MD LAB URINE ORDERABLES Final Resul t [facility] [address] [place] [address] [phone] from Last 3 Months or Most Recently Relevant to Health Maintenance Insurance [facility] Advance Directives Documents on File Type Date Recorded Patient Orthopedic Assistant Expl anation HealthCare Proxy 12/07/2022 Proxy Care Teams Glass Fitter Relationship Specialty Start Date End Date Katarzyna Sahu MD [address] [place] [phone] PCP - General Family Medicine 06/12/12 [facility] 07/28/22
--- OUTSIDE RECORDS SUMMARY | 2024-10-31 08:35 | XMS_ITS | Encounter Summary ---
Author Organization [employer] Address [address] [facility] [address] [place] [address] Care Team Providers Care Head Golf Professional Name Role Phone Katarzyna Sahu MD Primary Care Provider [phone] Encounter Details Date Type Department Care Team ([facility] st Contact Info) Description 10/16/2024 Orders Only [facility] [address] [place], [place] [phone] ProviderTabatha MD Social History Tobacco Use Types Packs/Day Years [...] Description 12/16/2024 1:15 PM EDT Office Visit [facility] [address] [place] [address] Katarzyna Sahu MD [address] [place] [phone] documented as of this encounter Procedures Procedure Name Priority Date/Time Associated Diagnosis Comments HM COLONOSCOPY Routine 10/14/2024 8:58 AM EST documented in this encounter Results * Hm Colonoscopy (10/14/2024 8:58 AM EST) us Historical Provider HEALTH MAINTENANCE Final Result documented in this encounter Visit Diagnoses Not on filedocumented in this encounter Additional Health Concerns Assessment Noted Time PHQ-9 Depression Total Score: 0 09/16/19 25 11:19 AM EST documented as of this encounter Care Teams Head Golf Professional Relationship Specialty Start Date End Date Katarzyna Sahu MD [address] [place] [phone] PCP - General Family Medicine 06/12/12 [facility] 07/28/22 documented as of this encounter
--- OUTSIDE RECORDS SUMMARY | 2024-10-31 08:36 | XMS_ITS | Encounter Summary ---
Author Organization [employer] Address [address] [facility] [address] [place] [address] Care Team Providers Care Spiral Winding Machine Helper Name Role Phone Katarzyna Sahu MD Primary Care Provider [phone] Encounter Details Date Type Department Care Team (Late st Contact Info) Description 10/14/2024 Orders Only GENERIC EXTERNAL DATA DEPARTMENT Provider, Generic External Data Social History Tobacco Use Types Packs/Day Years [...] Description 12/16/2024 1:15 PM EDT Office Visit [facility] [address] [place] [address] Katarzyna Sahu MD [address] [place] [address] documented as of this encounter Procedures Procedure Name Priority Date/Time Associated Diagnosis Comments GROSS AND MICROSCOPIC LEVEL 3 Routine 10/14/2024 12:11 PM EST GLUCOSE, WHOLE BLOOD Routine 10/14/2024 11:08 AM EST documented in this encounter Results * Gross and Microscopic Level 3 (10/14/2024 12:11 PM EST) 10/14/2024 12:1 1 PM EST 10/14/2024 12:50 PM EST [facility] - 10/16/2024 2:43 PM EST ----- ------- Name: Ramana Pan ? Age/Sex: 69/M ? : 1955 Unit#: [id number] ?? Attend Dr: Luis Alfredo Madrigal MD ?Re10/14/24 ?Status: DEP [facility] ? Location: HO.SSS ?Disch: ? ----- ------- SPEC : [id number] ? RECD: 10/14/24-1250 ? STATUS: ??SOUT ? REQ NUM: [id number] ? CATHERINE: 10/14/24-1211 ? SUBM DR: Luis [...] totally submitted in A1. ??Location not given. ??(ANAHY) Copies To: ?? Luis Alfredo Madrigal MD ?? [facility] G[facility] Services ?? [address] ?? [place] [address] ?? [phone] ?? Katarzyna Sahu MD ?? [facility] ?? [address] [facility] ?? [place] [address] ?? [phone] ----- ------- Signed (signature on file) Laila Albert 10/16/24 1443 ? ----- ------- ? END OF REPORT ? us Generic External Data Provider LAB CYTOLOGY [place] HUMPHREYS Final Result [facility] [address] [place], [place] [phone] * Glucose, Whole Blood (10/14/2024 11:08 AM EST) Glucose, Whole Blood 92 60 - 115 mg/dL [facility] Comment:METER #: [id number] 10/14/2024 11:0 8 AM EST 10/14/2024 11:18 AM EST us Generic External Data Provider LAB BLOOD ORDERAB LES Final Result [facility] [address] [place] [address] [phone] documented in this encounter Visit Diagnoses Not on filedocumented in this encounter Additional Health Concerns Assessment Noted Time PHQ-9 Depression Total Score: 0 09/16/19 25 11:19 AM EST documented as of this encounter Care Teams Spiral Winding Machine Helper Relationship Specialty Start Date End Date Katarzyna Sahu MD [address] [place] [phone] PCP - General Family Medicine 06/12/12 [facility] 07/28/22 documented as of this encounter
--- OUTSIDE RECORDS SUMMARY | 2024-10-31 08:36 | XMS_ITS | Encounter Summary ---
Author Organization [employer] Address 75 [facility] 7t [place] [address] Care Team Providers Care Sales Account Executive Name Role Phone Katarzyna Sahu MD Primary Care Provider [phone] Reason for Visit * Reason Comments Med Refill Encounter Details Date Type Department Care Team ([facility] st Contact Info) Description 10/24/2024 Refill [facility] [address] [place], [place] [phone] Katarzyna Sahu MD [address] [place], [place] [phone] Psychophysiological insomnia Social History Tobacco Use Types [...] Description 12/16/2024 1:15 PM EDT Office Visit [facility] [address] [place] [address] Katarzyna Sahu MD [address] [place] [address] documented as of this encounter Visit Diagnoses Diagnosis Psychophysiological insomnia Persistent disorder of initiating or maintaining sleep documented in this encounter Additional Health Concerns Assessment Noted Time PHQ-9 Depression Total Score: 0 09/16/19 25 11:19 AM EST documented as of this encounter Care Teams Sales Account Executive Relationship Specialty Start Date End Date Katarzyna Sahu MD [address] [place] [address] PCP - General Family Medicine 06/12/12 [facility] 07/28/22 documented as of this encounter
--- OUTSIDE RECORDS SUMMARY | 2024-10-31 08:36 | XMS_ITS | Encounter Summary ---
Author Organization [employer] Address 75 [facility] 7t [place] [address] Care Team Providers Care Ball Maker Name Role Phone Katarzyna Sahu MD Primary Care Provider [phone] Reason for Visit * Reason Comments Med Refill Encounter Details Date Type Department Care Team ([facility] st Contact Info) Description 06/07/2023 Refill [facility] [address] [place], [place] [phone] Katarzyna Sahu MD 230 [place], [place] [phone] Social History Tobacco Use Types Packs/Day Years [...] the past 12 months, has t he [employer] gas, oil or water company threatened to [...] 1:15 PM EDT Office Visit [facility] [address] [place] [address] Katarzyna Sahu MD 230 [place] [address] documented as of this encounter Visit Diagnoses Not on filedocumented in this encounter Additional Health Concerns Assessment Noted Time PHQ-9 Depression Total Score: 0 10/12/19 23 10:40 AM EST documented as of this encounter Care Teams Ball Maker Relationship Specialty Start Date End Date Katarzyna Sahu MD [address] [place] [address] PCP - General Family Medicine 06/12/12 [facility] 07/28/22 documented as of this encounter
--- OUTSIDE RECORDS SUMMARY | 2024-10-31 08:36 | XMS_ITS | Encounter Summary ---
Author Organization [facility] Address [address] [facility] 7t [place] [address] Care Team Providers Care Carbon Dioxide Operator Name Role Phone Katarzyna Sahu MD Primary Care Provider [phone] Reason for Visit * Reason Onset Date Comments status 11/02/2022 Encounter Details Date Type Department Care Team ([facility] st Contact Info) Description 11/02/2022 Telephone [facility] 230 [place], [place] [phone] Katarzyna Sahu MD 230 [place], [place] [phone] status Social History Tobacco Use Types Packs/Day [...] - 11/02/2022 9:34 AM EDT [place] with [facility] requesting status for script sign by PCP and fax over to [phone] regarding methadone Please contact bre at [phone] documented in this encounter Plan of Treatment Upcoming Encounters Date Type Department Care Team ([facility] st Contact Info) Description 12/16/2024 1:15 PM EDT Office Visit [facility] [address] [place] [address] Katarzyna Sahu MD [address] [place] [address] documented as of this encounter Visit Diagnoses Not on filedocumented in this encounter Additional Health Concerns Assessment Noted Time PHQ-9 Depression Total Score: 0 10/12/19 10:40 AM EST documented as of this encounter Care Teams Carbon Dioxide Operator Relationship Specialty Start Date End Date Katarzyna Sahu MD [address] [place] [address] PCP - General Family Medicine 06/12/12 [facility] 07/28/22 documented as of this encounter
--- OUTSIDE RECORDS SUMMARY | 2024-10-31 08:36 | XMS_ITS | Encounter Summary ---
Author Organization [employer] [facility] Address 75 [facility] 7t [place] [address] Care Team Providers Care Mink Farmer Name Role Phone Katarzyna Sahu MD Primary Care Provider [phone] Reason for Visit * Reason Onset Date Comments FYI 08/22/2022 Encounter Details Date Type Department Care Team ([facility] st Contact Info) Description 08/22/2022 Telephone [facility] 230 [place], [place] [phone] Katarzyna Sahu MD 230 [place], [place] [phone] FY Social History Tobacco Use Types Packs/Day [...] pt calling to inform already has a manager chinese at [facility] . Which is the reason he didn't go to the pediatrist in [place]. Any questions please call pt to clarify . documented in this encounter Plan of Treatment Upcoming Encounters Date Type Department Care Team (Late st Contact Info) Description 12/16/2024 1:15 PM EDT Office Visit [facility] [address] [place] [address] Katarzyna Sahu MD 230 [place] [address] documented as of this encounter Visit Diagnoses Not on filedocumented in this encounter Additional Health Concerns Assessment Noted Time PHQ-9 Depression Total Score: 9 07/24/20 10:23 AM EST documented as of this encounter Care Teams Mink Farmer Relationship Specialty Start Date End Date Katarzyna Sahu MD [address] [place] [address] PCP - General Family Medicine 06/12/12 [facility] 07/28/22 documented as of this encounter
--- OUTSIDE RECORDS SUMMARY | 2024-10-31 08:36 | XMS_ITS | Encounter Summary ---
Author Organization [facility] Address 75 [facility] 7t [place] [address] Care Team Providers Care Computer Systems Security Analyst Name Role Phone Katarzyna Sahu MD Primary Care Provider [phone] Encounter Details Date Type Department Care Team (Late st Contact Info) Description 01/03/2023 Abstract [facility] [address] [place], [place] [phone] Katarzyna Sahu MD [address] [place] [address] [phone] Social History Tobacco Use Types Packs/Day Years [...] Description 12/16/2024 1:15 PM EDT Office Visit [facility] [address] [place], [place] [phone] Katarzyna Sahu MD [address] [place] [address] [phone] documented as of this encounter Visit Diagnoses Not on filedocumented in this encounter Additional Health Concerns Assessment Noted Time PHQ-9 Depression Total Score: 0 10/12/19 23 10:40 AM EST documented as of this encounter Care Teams Computer Systems Security Analyst Relationship Specialty Start Date End Date Katarzyna Sahu MD [address] [place] [phone] PCP - General Family Medicine 06/12/12 [facility] 07/28/22 documented as of this encounter
--- OUTSIDE RECORDS SUMMARY | 2024-10-31 08:36 | XMS_ITS | Encounter Summary ---
Author Organization [employer] Address 75 [facility] 7t [place] [address] Care Team Providers Care Mobile Equipment Operator Name Role Phone Katarzyna Sahu MD Primary Care Provider [phone] Reason for Visit * Reason Comments Med Refill Encounter Details Date Type Department Care Team ([facility] st Contact Info) Description 10/29/2024 Refill [facility] 230 [place], [place] [phone] Katarzyna Sahu MD 230 [place], [place] [phone] Psychophysiological insomnia Social History Tobacco Use Types [...] 12/16/2024 1:15 PM EDT Office Visit [facility] [address] [place] [address] Katarzyna Sahu MD [address] [place] [address] documented as of this encounter Visit Diagnoses Diagnosis Psychophysiological insomnia Persistent disorder of initiating or maintaining sleep documented in this encounter Additional Health Concerns Assessment Noted Time PHQ-9 Depression Total Score: 0 09/16/19 25 11:19 AM EST documented as of this encounter Care Teams Mobile Equipment Operator Relationship Specialty Start Date End Date Katarzyna Sahu MD [address] [place] [address] PCP - General Family Medicine 06/12/12 [facility] 07/28/22 documented as of this encounter
--- OUTSIDE RECORDS SUMMARY | 2024-10-31 08:37 | XMS_ITS | Encounter Summary ---
Author Organization [employer] Address 75 [facility] 7t [place] [address] Care Team Providers Care Air Defense Artillery Officer Name Role Phone Katarzyna Sahu MD Primary Care Provider [phone] Reason for Visit * Reason Comments Med Refill Encounter Details Date Type Department Care Team (Late st Contact Info) Description 06/15/2023 Refill [facility] 230 [place], [place] [phone] Katarzyna Sahu MD 230 [place], [place] [phone] Psychophysiological insomnia Social History Tobacco Use Types [...] Description 12/16/2024 1:15 PM EDT Office Visit [facility] 230 [place] [address] Katarzyna Sahu MD 230 [place] [address] documented as of this encounter Visit Diagnoses Diagnosis Psychophysiological insomnia Persistent disorder of initiating or maintaining sleep documented in this encounter Additional Health Concerns Assessment Noted Time PHQ-9 Depression Total Score: 0 10/12/19 23 10:40 AM EST documented as of this encounter Care Teams Air Defense Artillery Officer Relationship Specialty Start Date End Date Katarzyna Sahu MD [address] [place] [address] PCP - General Family Medicine 06/12/12 [facility] 07/28/22 documented as of this encounter
--- OUTSIDE RECORDS SUMMARY | 2024-10-31 08:37 | XMS_ITS | Encounter Summary ---
Author Organization [employer] Address 75 [facility] 7t [place] [address] Care Team Providers Care Hot Wound Spring Production Supervisor Name Role Phone Katarzyna Sahu MD Primary Care Provider [phone] Encounter Details Date Type Department Care Team ([facility] st Contact Info) Description 09/28/2023 Orders Only [facility] 230 [place], [place] [phone] Katarzyna Sahu MD [address] [place], [place] [phone] Social History Tobacco Use Types Packs/Day Years [...] Office Visit [facility] [address] [place] [address] Katarzyna Sahu MD [address] [place] [address] documented as of this encounter Procedures Procedure Name Priority Date/Time Associated Diagnosis Comments SLIDE REVIEW Routine 12/18/2023 1:54 PM EDT documented in this encounter Results * Slide Review (12/18/2023 1:54 PM EDT) Slide Review VERIFIED [facility] 12/18/2023 1:54 PM EDT 12/18/2023 4:11 PM EDT us Katarzyna Sahu MD LAB BLOOD ORDERABLES Final Resul t [facility] [address] [place] [address] [phone] documented in this encounter Visit Diagnoses Not on filedocumented in this encounter Additional Health Concerns Assessment Noted Time PHQ-9 Depression Total Score: 0 10/12/19 23 10:40 AM EST documented as of this encounter Care Teams Hot Wound Spring Production Supervisor Relationship Specialty Start Date End Date Katarzyna Sahu MD [address] [place] [address] PCP - General Family Medicine 06/12/12 [facility] 07/28/22 documented as of this encounter
--- OUTSIDE RECORDS SUMMARY | 2024-10-31 08:37 | XMS_ITS | Encounter Summary ---
Author Organization [email or web address] Address 75 [facility] 7t [place] [address] Care Team Providers Care Software Lead Name Role Phone Katarzyna Sahu MD Primary Care Provider [phone] Reason for Visit * Reason Comments Med Refill Encounter Details Date Type Department Care Team (Late st Contact Info) Description 11/16/2023 Refill [facility] [address] [place], [place] [phone] Katarzyna Sahu MD 230 [place], [place] [phone] Social History Tobacco Use Types Packs/Day Years [...] the past 12 months, has t he [employer], gas, oil or water company threatened to [...] EDT Office Visit [facility] [address] [place] [address] Katarzyna Sahu MD [address] [place] [address] documented as of this encounter Visit Diagnoses Not on filedocumented in this encounter Additional Health Concerns Assessment Noted Time PHQ-9 Depression Total Score: 0 10/12/19 23 10:40 AM EST documented as of this encounter Care Teams Software Lead Relationship Specialty Start Date End Date Katarzyna Sahu MD [address] [place] [address] PCP - General Family Medicine 06/12/12 [facility] 07/28/22 documented as of this encounter
== END 2024-10-31 09:16 | disposition home or self-care (01) ==
LOC: HO.HGI 08:21
PROVIDERS: PCP Family Medicine; Visit Provider Nurse Practitioner Family
DX: K59.09 Other constipation (principal); D64.9 Anemia, unspecified; K64.9 Unspecified hemorrhoids
CPT/HCPCS: 99213

== ENCOUNTER → 2024-10-31 08:20 | Outpatient (BNVA) | payer OTHER, SELFPAY | PROVIDERS: PCP Family Medicine; Visit Provider Nurse Practitioner Family | DX: K59.09 Other constipation (principal); K64.9 Unspecified hemorrhoids; D64.9 Anemia, unspecified | CPT/HCPCS: 99212 ==

== ENCOUNTER 2025-01-26 14:28 | Outpatient (AMB) | payer OTHER, SELFPAY ==
--- NOTE | 2025-01-26 14:32 | MHC.OFFVIS ---
Vital Signs 01/26/25 14:36 Height 5 ft 7 in BMI Reason not done Patient refused/unable BP 122/68 Blood Pressure Location Lt brachial Position Sitting Pulse 72 Pulse Source Monitor Intake Visit Reasons: 1 Yr FU Atherosclerotic cardiovascular disease Director Radio News Required: Yes Director Radio News Services: Director Radio News Offered & Declined Accompanied by: Family/Other Allergies aspirin [ASPIRIN] Adverse Reaction (Mild, Verified 10/31/24 08:49) BLEEDING Medication List - Last Reconciled 01/26/[address] MD aspirin (Enteric Coated Aspirin) 81 mg PO DAILY atorvastatin 20 mg PO BEDTIME bisacodyl 10 mg (2 x 5 mg) PO BEDTIME blood sugar diagnostic (FreeStyle Lite Strips) As directed blood-glucose meter (FreeStyle [place] Lite kit) As directed cholecalciferol (vitamin D3) (Vitamin D3) 50 mcg PO DAILY docusate sodium 200 mg (2 x 100 mg) PO BEDTIME ferrous sulfate 325 mg PO DAILY ibuprofen 800 mg PO Q8H PRN 30 days ketoconazole 2% appl topical QAM lancets (TRUEplus Lancets) As directed lisinopril 20 mg PO QAM metformin ER 500 mg PO QPM methadone 140 mg PO DAILY metoprolol succinate ER 25 mg PO QAM quetiapine 25 mg PO BEDTIME tamsulosin 0.4 mg PO DAILY zolpidem 10 mg PO BEDTIME PRN HPI Comments Details: Ramana returns for follow-up regarding coronary disease. Suspected coronary disease based on a stress test many years ago. He is maintained only on medical therapy. He comes in a wheelchair. Minimal ambulation at baseline. Overall, he states he feels good. No cardiac symptoms. [facility] Medical History Foot injury Chronic constipation Other and unspecified hyperlipidemia Type 2 diabetes mellitus with unspecified complications Essential hypertension Atherosclerotic cardiovascular disease Surgical History History of colonoscopy History of surgery on lower extremity No pertinent past surgical history Family History Father No problems noted. Mother No problems noted. 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 Review of Systems Const Denies weakness ENT Denies dizziness Card Denies chest pain, Denies chest pain with activity, Denies syncope, Denies rapid heart rate, Denies pedal edema, Denies edema, Denies leg edema, Denies lightheadedness, Denies palpitations, Denies dyspnea, Denies dyspnea on exertion and Denies orthopnea Resp Denies cough, Denies dyspnea and Denies dyspnea on exertion GI Denies hematochezia and Denies change in stool character Musc Denies abnormal gait, Denies muscle cramps, Denies muscle weakness, Denies numbness, Denies radiating pain into limb and Denies tingling Neuro Denies abnormal gait, Denies dizziness, Denies syncope, Denies numbness, Denies tingling and Denies weakness Endo Denies palpitations Physical Exam Vital Signs: Last Vital Signs Pulse 72 01/26/25 14:36 BP 122/68 01/26/25 14:36 Const General: comfortable and no acute distress Orientation/consciousness: patient oriented x3 HEENT Other: Unremarkable Head: Yes normal to inspection Neck Neck: Yes normal visual inspection Chest Chest palpation & inspection: normal inspection of the chest Resp Auscultation: clear to auscultation bilaterally Cardio Palpation: normal PMI Heart sounds: S1 normal heart sound present, S2 normal heart sound present, no gallops, no murmurs and no rubs GI Palpation (GI): Soft to palpation Back/Spine/Pelvis Other: unremarkable Skin General skin exam: no rashes or lesions noted Neuro General: patient oriented x3 Extrem General: Yes normal to inspection Psych Mental Status: mental status grossly normal Office Procedures EKG Details: EKG with underlying sinus rhythm at 72/Min; low-voltage complexes; nonspecific ST-T changes; [place] [id number], Complete Assessment & Plan Assessment & Plan (1) Atherosclerotic cardiovascular disease: Code(s): I25.10 - Atherosclerotic heart disease of morongo coronary artery without angina pectoris Category: Medical (2) Essential hypertension: Code(s): I10 - Essential (primary) hypertension Category: Medical (3) Type 2 diabetes mellitus with unspecified complications: Code(s): E11.8 - Type 2 diabetes mellitus with unspecified complications Category: Medical (4) Other and unspecified hyperlipidemia: Code(s): E78.5 - Hyperlipidemia, unspecified Category: Medical Plan Myocardial perfusion imaging study from 2016 shows a small area of moderate intensity ischemia in the apical lateral wall in a branch vessel distribution. Overall, he has various risk factors but no clinical symptoms of angina or any anginal equivalent. In the past, he had discussed about getting other stress test as it has been several years but patient not keen. Hence on optimal medical therapy for presumed stable CAD. Overall, mainly risk factor modification. Appropriate treatment of diabetes, hypertension and dyslipidemia. If any clear cardiac symptoms in the future, then we will need appropriate assessment. Also discussed with family who came for appointment. Discussion Notes I discussed with the patient the importance of regular health assessments at the health center and reviewed the current absence of chest pain or respiratory complaints. We agreed on a wellness approach given the lack of acute symptoms, and I advised monitoring mobility status closely due to wheelchair reliance. The plan includes continued visits to ensure assistance is given for mobility challenges. Patient was informed and verbally consented to the use of an ambient scribe for clinic note documentation during this visit. Patient Instructions: - Contact us if any new symptoms like chest pain or breathing issues develop. - Return for follow-up appointments as scheduled. Coding Level of Care Code Est Pt Level 3 (65735) Diagnoses Atherosclerotic cardiovascular disease I25.10 Essential hypertension I10 Type 2 diabetes mellitus with unspecified complications E11.8 Other and unspecified hyperlipidemia E78.5 CPT Codes EKG - CPT: 18855-[id number], Complete ([id number])
[2025-01-26 14:36] VITALS: BP 122/68; PULSE 72
--- OUTSIDE RECORDS SUMMARY | 2025-01-26 16:10 | XMS_ITS | Clinical Summary ---
Author Organization [employer] Address [address] [place] [address] Care Team Providers Care Certified Court Interpreter Name Role Phone Katarzyna Sahu MD Primary Care Provider [phone] Allergies No known active allergies Medications Aspirin Low Dose 81 MG EC tablet Take 81 mg by mouth in the morning. 06/21/20 22 Active atorvastatin (Lipitor) 20 MG tablet Take [...] complication, without long-term current use of insulin ([facility]) Apply to affected area every day. Dry the area before applying. 30 g 2 07/25/20 22 Active ciclopirox (Penlac) 8 % solutionIndica tions:Onychomy cosis Apply to affected area once daily 30 mL 3 10/12/19 23 Active ketoconazole (NIZOral) 2 % creamIndicatio ns:Onychomycos is APPLY TO THE AFFECTED AREA(S) EVERY MORNING 60 g 3 05/16/20 23 Active Alcohol Swabs (Alcohol Prep) 70 % padsIndication s:Controlled type 2 diabetes mellitus without complication, without long-term current use of insulin ([facility]) TEST BLOOD SUGAR ONCE DAILY DIRECTED 100 each 3 09/19/19 24 Active Blood Glucose Monitoring Suppl (FreeStyle Lite) w/Device kitIndications :Controlled type 2 diabetes mellitus without complication, without long-term current use of insulin ([facility]) 1 each in the morning. Check your sugar once daily before breakfast 1 kit 1 09/19/19 24 Active cholecalcifero l (Vitamin D-3) 50 MCG (1999 UT) capsule Take 1 capsule (50 mcg) by mouth Once per day. 90 capsule 04/01/20 24 Active Acetaminophen Extra Strength 500 MG tablet TAKE 2 TABLETS BY MOUTH EVERY 8 HOURS NEEDED FOR PAIN 90 tablet 09/16/19 25 Active metFORMIN XR (Glucophage-XR ) 500 MG 24 hr tablet TAKE 1 TABLET BY MOUTH EVERY EVENING WITH FOOD 30 tablet 09/30/19 25 Active zolpidem (Ambien) 10 MG tabletIndicati ons:Psychophys iological insomnia TAKE 1 TABLET BY MOUTH AT BEDTIME NEEDED FOR SLEEP 30 tablet 10/30/19 25 Active Lancets (Unilet Micro-Thin 33G) miscIndication s:Type 2 diabetes mellitus without complication, without long-term current use of insulin ([facility]) USE TO TEST BLOOD SUGAR ONCE DAILY 100 each 11/04/19 25 Active glucose blood (FREESTYLE LITE) test stripIndicatio ns:Type 2 diabetes mellitus without complication, without long-term current use of insulin ([facility]) USE TO TEST BLOOD SUGAR EVERY MORNING 100 strip 11/04/19 25 Active ferrous sulfate 325 (65 Fe) MG EC tablet TAKE 1 TABLET BY MOUTH EVERY MORNING WITH BREAKFAST. DO NOT BREAK, CRUSH, DISSOLVE OR CHEW. 90 tablet 11/27/19 25 Active QUEtiapine (SEROquel) 400 MG tabletIndicati ons:Mood disorder ([facility]/HCC) TAKE 1 TABLET BY MOUTH AT BEDTIME 30 tablet 5 01/20/20 25 Active tamsulosin (Flomax) 0.4 MG 24 hr capsuleIndicat ions:Benign prostatic hyperplasia, unspecified whether lower urinary tract symptoms present TAKE 1 CAPSULE BY MOUTH EVERY EVENING 30 capsule 5 01/20/20 25 Active QUEtiapine (SEROquel) 400 MG tabletIndicati ons:Mood disorder (CMS/HCC) TAKE 1 TABLET BY MOUTH AT BEDTIME 30 tablet 5 08/01/20 24 025 Discontinued tamsulosin (Flomax) 0.4 MG 24 hr capsuleIndicat ions:Benign prostatic hyperplasia, unspecified whether lower urinary tract symptoms present TAKE 1 CAPSULE BY MOUTH EVERY EVENING 30 capsule 5 08/01/20 24 025 Discontinued Active Problems Problem Noted [...] Plan (09/23/2024 10:28 AM EST): Followed by civil drafterDr. Guevara. Upcoming appointment for colonoscopy Assessment & Plan (12/18/2023 2:05 PM EDT): Followed by civil drafterDr. Guevara. 10/20/22 Hgb 11.7; hematocrit 35 Advised to schedule a follow visit Assessment & Plan (09/24/2023 11:36 AM EST): ?? Followed by civil drafterDr. Guevara. ?? 10/20/22 Hgb 11.7; hematocrit 35 ?? Advised to schedule a follow visit Assessment & Plan (10/11/2022 11:06 AM EST): ?? Followed by civil drafterDr. Guevara. ?? Advised to schedule a follow visit Assessment & Plan (07/25/2022 11:45 AM EST): ?? Followed by civil drafter, Dr. Guevara. ?? Advised to schedule a follow visit History of open reduction an d internal fixation (ORIF) procedure 07/15/2022 Chronic back pain 08/09/2016 Assessment & Plan (09/23/2024 10:30 AM EST): - back exercise - judicious use of APAP prn Ischemic heart disease 04/24/2016 Assessment & Plan (12/16/2024 1:47 PM EDT): Followed by [facility] Cardiology last seen by Dr. Way in November 2023 Abnormal stress test and elevated tropnin in Mar 2016, small area of ischemia in apical and lateral branch vessel distribution. Declined stress test in November 2022 Continue BB, ACEI, and ASA. Continue working on lifestyle modifications, consider GLP-1 RA. Relative contraindication to SGLT-2i due to urinary symptoms Assessment & Plan (09/23/2024 10:25 AM EST): Followed by [facility] Cardiology last seen by Dr. Way in [...] Plan (04/06/2024 3:55 PM EDT): Followed by [facility] Cardiology last seen in November 2022 Abnormal stress test and elevated tropnin in Mar 2016, small area of ischemia in apical and lateral branch vessel distribution. Declined stress test in November 2022 Continue BB, ACEI, and ASA. Continue working on lifestyle modifications, consider GLP-1 RA. Relative contraindication to SGLT-2i due to urinary symptoms Assessment & Plan (12/18/2023 2:04 PM EDT): Followed by [facility] Cardiology last seen in November 2022 Abnormal stress test and elevated tropnin in Mar 2016, small area of ischemia in apical and lateral branch vessel distribution. Declined stress test in November 2022 Continue BB, ACEI, and ASA. Assessment & Plan (09/24/2023 11:27 AM EST): ?? Followed by [facility] Cardiology last seen in November 2022 ?? Abnormal stress test and elevated tropnin in Mar 2016, small area of ischemia in apical and lateral branch vessel distribution. ?? Declined stress test in November 2022 ?? Continue BB, ACEI, and ASA. Assessment & Plan (10/11/2022 11:05 AM EST): ?? Followed by [facility] Cardiology last seen in October 2021 ?? Abnormal stress test and elevated tropnin in Mar 2016, small area of ischemia in apical and lateral branch vessel distribution. Given reassurance by core cleaner since it is stable. ?? Continue BB, ACEI, and ASA. Assessment & Plan (07/25/2022 11:51 AM EST): ?? Followed by [facility] Cardiology last seen in October 2021 ?? Abnormal stress test and elevated tropnin in Mar 2016, small area of ischemia in apical and lateral branch vessel distribution. Given reassurance by core cleaner since it is stable. ?? Continue BB, [...] urologist Essential hypertension 06/30/2015 Assessment & Plan (12/16/2024 1:47 PM EDT): Goal BP < 140/90 per JNC-8, < 130/80 per ACC/AHA guidelines BP well-controlled today Continue working on lifestyle modifications Continue lisinopril 20 mg daily Continue metoprolol succinate 25 mg daily Update EKG periodically due to concern for QTc prolongation Follow-up with core cleaner as scheduled Assessment & Plan (09/23/2024 10:26 AM EST): Goal BP < 140/90 per JNC-8, < 130/80 per ACC/AHA guidelines BP well-controlled today Continue working on lifestyle modifications Continue lisinopril 20 mg daily Continue metoprolol succinate 25 mg daily Update EKG periodically due to concern for QTc prolongation Follow-up with core cleaner as scheduled Assessment & Plan (04/01/2024 10:23 AM EDT): Goal BP < 140/90 per JNC-8, < 130/80 per ACC/AHA guidelines BP borderline Continue working on lifestyle modifications Continue lisinopril 20 mg daily Continue metoprolol succinate 25 mg daily Update EKG periodically due to concern for QTc prolongation Follow-up with core cleaner as scheduled Follow up with us in 3-6 mo, or sooner if any problem arises. Assessment & Plan (12/18/2023 1:53 PM EDT): Goal BP < 140/90 per JNC-8, < 130/80 per ACC/AHA guidelines BP borderline Continue working on lifestyle modifications Continue lisinopril 20 mg daily Continue metoprolol succinate 25 mg daily Update EKG periodically due to concern for QTc prolongation Follow-up with core cleaner as scheduled Follow up with us in [...] concern for QTc prolongation ?? Follow-up with core cleaner as scheduled ?? Follow up with us [...] concern for QTc prolongation ?? Follow-up with core cleaner as scheduled ?? Follow up with us [...] concern for QTc prolongation ?? Follow-up with core cleaner as scheduled ?? Follow up with us in 3-6 mo, or sooner if any problem arises. Diabetes mellitus type 2, controlled 12/11/2012 Assessment & Plan (12/16/2024 2:58 PM EDT): Dx Hgb A1C 5.9% on 12/16/24. Improvement from 6.3% on 09/16/24 Continue working on lifestyle modifications Continue checking BG Continue metformin ER 500 mg daily; consider increasing if A1C continues to increase Microalbumin test: 09/28/23, no Hx microalbuminuria Lipid profile: 09/28/23 Diabetic eye exam: Overdue, pt will schedule Foot exam: 04/01/24. High-risk. Refer to medical sales. Terbinafine for tinea pedis. Assessment & Plan (09/16/2024 1:01 PM EST): Dx Hgb A1C 6.3% on 09/16/24 Continue working on lifestyle modifications Continue checking BG Continue metformin ER 500 mg daily; consider increasing if A1C continues to increase Microalbumin test: 09/28/23, no Hx microalbuminuria Lipid profile: 09/28/23 Diabetic eye exam: Overdue, pt will schedule Foot exam: 04/01/24. High-risk. Refer to medical salesDeon Hoffmanafine for tinea pedis. Assessment & Plan (04/01/2024 10:39 AM EDT): Dx Hgb A1C 6.5% on 04/01/24 Continue working on lifestyle modifications Continue checking BG Continue metformin ER 500 mg daily; consider increasing if A1C continues to increase Microalbumin test: 09/28/23, no Hx microalbuminuria Lipid profile: 09/28/23 Diabetic eye exam: Overdue, pt will schedule Foot exam: 04/01/24. High-risk. Refer to medical sales. Daltonafine for tinea pedis. Assessment & Plan (12/18/2023 1:52 PM EDT): Dx Hgb A1C 6.1% on 12/18/23 Continue working on lifestyle modifications Continue checking BG Continue metformin ER 500 mg daily; consider increasing if A1C continues to increase Microalbumin test: Overdue, no Hx microalbuminuria Lipid profile: 10/20/22 Diabetic eye exam: Overdue, pt will schedule Foot exam: 07/24/22. High-risk. Refer to medical salesDeon Hoffmanafviktoria for tinea pedis. Assessment & Plan (09/24/2023 [...] ?? Foot exam: 07/24/22. High-risk. Refer to medical sales. Terbinafine for tinea pedis. Assessment & Plan [...] ?? Foot exam: 07/24/22. High-risk. Refer to medical sales. Terbinafine for tinea pedis. Assessment & Plan (07/25/2022 11:54 AM EST): ?? Dx ?? Hgb A1C 6.4% On 07/24/22 ?? Continue working on lifestyle modifications ?? Continue checking BG ?? Continue metformin ER 500 mg daily ?? Microalbumin test: Overdue, no Hx microalbuminuria ?? Lipid profile: Overdue ?? Diabetic eye exam: Overdue, pt will schedule ?? Foot exam: 07/24/22. High-risk. Refer to medical sales. Terbinafine for tinea pedis. Dyslipidemia 12/11/2012 Assessment [...] modifications Mood disorder 12/11/2012 Assessment & Plan (12/16/2024 1:48 PM EDT): Currently taking quetiapine 400 mg at bedtime Discontinue quetiapine 25 mg prn anxiety during the day, per patient's request Agreed to follow TECHNICAL SUPPORT ASSISTANT monitoring for zolpidem Continue zolpidem 10 mg qhs Discussed about its potential side effects. Pt understands and would like to take it. Assessment & Plan (09/16/2024 7:13 PM EST): Currently taking quetiapine 400 mg at bedtime Discontinue quetiapine 25 mg prn anxiety during the day, per patient's request Agreed to follow TECHNICAL SUPPORT ASSISTANT monitoring for zolpidem Continue zolpidem 10 mg qhs Discussed about its potential side effects. Pt understands and would like to take it. Assessment & Plan (04/01/2024 10:41 AM EDT): Currently taking quetiapine 400 mg at bedtime Discontinue quetiapine 25 mg prn anxiety during the day, per patient's request Agreed to follow TECHNICAL SUPPORT ASSISTANT monitoring for zolpidem Continue zolpidem 10 mg qhs Discussed about its potential side effects. Pt understands and would like to take it. Assessment & Plan (09/24/2023 11:30 AM EST): ?? Currently taking quetiapine 400 mg at bedtime ?? Add quetiapine 25 mg prn anxiety during the day ?? Agreed to follow TECHNICAL SUPPORT ASSISTANT monitoring for zolpidem ?? Continue zolpidem 10 mg qhs ?? Discussed about its potential side effects. Pt understands and would like to take it. Assessment & Plan (10/11/2022 4:32 PM EST): ?? Currently taking quetiapine 400 mg at bedtime ?? Agreed to follow TECHNICAL SUPPORT ASSISTANT monitoring for zolpidem ?? Agreed to increase zolpidem to 10 mg at bedtime; discussed about its judicious and responsible use ?? Discussed about its potential side effects. Pt understands and would like to take it. Assessment & Plan (07/25/2022 11:55 AM EST): ?? Currently taking quetiapine 400 mg at bedtime ?? Agreed to follow TECHNICAL SUPPORT ASSISTANT monitoring for zolpidem ?? Start zolpidem 5 mg at bedtime ?? Discussed about its potential side effects. Pt understands and would like to take it. 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 Resolved Problems Problem Noted Date Diagnosed Date Resolved Date History of fracture 07/15/2022 07/25/20 22 Overview (07/15/2022): S/p closed fx of right femur per previous EHR onset date 02/25/18 Encounters Date Type Department Care Team Description 01/18/2025 Refill [facility] MED & PEDS [address] [place], [place] [phone] Name, MD Cristino Mood disorder ([facility]/HCC); Benign prostatic hyperplasia, unspecified whether lower urinary tract symptoms present 12/16/2024 1:15 PM EDT Office Visit [facility] MEDICINE [address] [place] [address] Katarzyna Sahu MD Essential hypertension (Primary Dx); Ischemic heart disease; Controlled type 2 diabetes mellitus without complication, without long-term current use of insulin ([facility]); Class 3 severe obesity due to excess calories with serious comorbidity and body mass index (BMI) of 40.0 to 44.9 in adult; Mood disorder ([facility]); Wheelchair dependence 12/16/2024 Travel 12/12/2024 Telephone [facility] MEDICINE [address], [place] [phone] Katarzyna Sahu MD chartprep 11/26/2024 Refill [facility] MEDICINE [address] [place] [address] Katarzyna Sahu MD 11/02/2024 Refill [facility] [address] [facility] [place] [phone] Katarzyna Sahu MD Type 2 diabetes mellitus without complication, without long-term current use of insulin ([facility]) 10/29/2024 Refill [facility] [address] [facility] [place] [phone] Katarzyna Sahu MD Psychophysiological insomnia from Last 3 Months Immunizations Immunization Administration Dates Next Due Hep B, adult [...] the past 12 months, has t he [employer] gas, oil or water company threatened to [...] Sign Reading Time Taken Comments Blood Pressure 133/79 12/16/2024 1:11 PM EDT Pulse 74 12/16/2024 1:11 PM EDT Temperature 35.7 ??C (96.2 ??F) 12/16/2024 1 :11 PM EDT Respiratory Rate 16 12/16/2024 1:11 PM EDT Oxygen Saturation 98% 04/01/2024 10: 11 AM EDT Inhaled Oxygen Concentration - - Weight 125 kg (276 lb 6 oz) 09/16/2024 11:16 AM EST patient in wheelchair Height 170.2 cm (5' 7 ) 04/01/2024 10:1 1 AM EDT Body Mass Index 43.29 04/01/2024 10:11 AM EDT Plan of Treatment Health Maintenance Due Date Last Done Comments CT Colonography 1955 FIT DNA/Cologuard 1955 FIT 1955 FOBT 1955 Sigmoidoscopy 1955 RSV Patients and Patients Aged 60 years or older (1 - Risk 60-74 years 1-dose series) 2015 Zoster Vaccines (2 of 3) 06/26/2016 05/01/2016 COVID-19 Vaccine (4 - 2024-25 season) 2024 09/19/2023, 11/24/2020, 10/27/2020 Diabetes: Urine Protein Screening 09/28/2024 09/28/2023, 12/23/2021 Lipid Panel 09/28/2024 09/28/2023, 03, 12/22/2021 SDOH Screening 12/17/2024 12/18/2023 Diabetes: Foot Exam 04/01/2025 04/01/2024, 04/01/2024, 04/01/2024, Additional history exists Diabetes: Hemoglobin A1C 06/18/2025 025, 09/16/2024, 04/01/2024, Additional history exists Alcohol/Substance Use Screening 09/16/2025 09/16/2024 Depression Screening 09/16/2025 09/16/2024, 09/16/19 25 Colonoscopy 10/14/2025 10/14/2024, 10/28/2019 Colorectal Cancer Screening 10/14/2025 Tobacco Screening 12/16/2025 12/16/2024 Eye Exam 07/28/2026 07/28/2024 DTaP/Tdap/Td Vaccines (3 [...] patient's age to complete this topic Meningococcal B Vaccine Aged Out No l onger eligible based on patient's age to complete [...] Name Priority Date/Time Associated Diagnosis Comments POCT GLYCOSYLATED HEMOGLOBIN (HGB A1C) Routine 12/16/2024 1:15 PM EDT Controlled type 2 diabetes mellitus without complication, without long-term current use of insulin (CMS/HCC) POCT GLUCOSE Routine 12/16/2024 1:15 PM EDT Controlled type 2 diabetes mellitus without complication, without long-term current use of insulin (CMS/HCC) HM COLONOSCOPY Routine 10/14/2024 8:58 AM EST HM DIABETES EYE EXAM Routine 07/28/2024 HEPATITIS C [...] without long-term current use of insulin (CMS/HCC) from Last 3 Months or Most Recently Relevant to Health Maintenance Results * POCT glycosylated hemoglobin (Hgb A1c) (12/16/2024 1:15 PM EDT) Hemoglobin A1C 5.9 4.0 - 6.0 % QC Media Lot # [id number] Lot# Expiration Date Blood Capillary blood specimen / Unknown 12/16/2024 1:15 PM EDT Katarzyna Sahu MD POINT OF CARE TEST ENTER/EDIT OR DERABLES Final Result * POCT glucose manually resulted (12/16/2024 1:15 PM EDT) Glucose Blood, POC 153 60 - 200 mg/dL QC Media Lot # [id number] Lot# Expiration Date Blood Capillary blood specimen / Unknown 12/16/2024 1:15 PM EDT Katarzyna Sahu MD POINT OF CARE TEST ENTER/EDIT OR DERABLES Final Result * Colonoscopy (10/14/2024 8:58 AM EST) [facility] Provider HEALTH MAINTENANCE Final Result * Diabetes Eye Exam (07/28/2024) [facility] Eye Exam Normal Normal 07/28/2024 [facility] Provider HEALTH MAINTENANCE Final Result * (ABNORMAL) Hepatitis C Antibody with Reflex to HCV, RNA, Quantitative, Real- Time PCR (04/01/2024 10:41 AM EDT) Pathologist [facility] Hepatitis C Antibody Reactive( A) Nonreactive [facility] Comment:Presumptive evidence of antibodies to HCV. Blood Venous blood specimen / Unknown 04/01/2024 10:41 AM EDT 04/01/2024 11:18 AM EDT Katarzyna Sahu MD LAB BLOOD ORDERABLES Final Resul t [facility] [address] [place] [address] [phone] * Lipid Panel with Reflex to Direct LDL (09/28/2023 9:11 AM EST) Pathologist [facility] Triglycerides 93 <150 mg/dL [facility] Comment:Desirable Triglyceri de: less than 150 mg/dLBorderline High Triglyceride 150-199 mg/dLHigh Triglyceride: 200-499 mg/dLVery High Triglyceride: greater than or equal to 5OO mg/dL Cholesterol 155 <200 mg/dL [facility] Comment:Desirable Cholestero l: less than 200 mg/dLBorderline High Cholesterol: 200-239 mg/dLHigh Cholesterol: greater than 239 mg/dL LDL Cholesterol Calculated 88 <100 mg/dL [facility] Comment:Desirable LDL: less than 100 mg/dLNear Optimal/Above Optimal LDL: 110- 129 mg/dLBorderline High LDL: 130-159 mg/dLHigh LDL: 160-189 mg/dLVery High LDL: greater than or equal to 190 mg/dL HDL Cholesterol 49 >40 mg/dL [facility] Comment:Desirable HDL: great er than 40 mg/dL Note: This HDL assay may give artificially low results in patients with liver disease. Blood 09/28/2023 9:11 AM EST 09/28/2023 11:00 AM EST us Katarzyna Sahu MD LAB BLOOD ORDERABLES Final Resul t Performing Organization Address City/[facility] Co de Phone Number [facility] [address] [place] [phone] * Albumin, Random Urine W/Creatinine (09/28/2023 7:30 AM EST) Creatinine, Urine 235.90 mg/dL [facility] Microalbumin Urine <5.0 mg/L [facility] Microalbum Creatinine Ratio Ur TNP <30 ug/mg cr [facility] Comment:Unable to calculate albumin/creatinine ratio due to lowmicroalbumin or creatinine result. Urine 09/28/2023 7:30 AM EST 09/28/2023 11:10 AM EST us Katarzyna Sahu MD LAB URINE ORDERABLES Final Resul t Performing Organization Address City/[facility]/ZIP Co de Phone Number [facility] [address] [place] [phone] from Last 3 Months or Most Recently Relevant to Health Maintenance Insurance [facility] [employer] (HMO D-SNP) PRUDENCE ANNA [id number] Advance Directives Documents on File Type Date Recorded Patient Sales Development Consultant Expl anation HealthCare Proxy 12/07/[address] Interpreter Relationship Specialty Start Date End Date Katarzyna Sahu MD [address] [place] [phone] PCP - General Family Medicine 06/12/12 [facility] 07/28/22
== END 2025-01-26 14:48 | disposition home or self-care (01) ==
LOC: HO.HCS 14:29
PROVIDERS: PCP Family Medicine; Visit Provider Internal Medicine
DX: I25.10 Atherosclerotic heart disease of native coronary artery without angina pectoris (principal); I10 Essential (primary) hypertension; E11.8 Type 2 diabetes mellitus with unspecified complications; E78.5 Hyperlipidemia, unspecified
CPT/HCPCS: 93010; 99213

== ENCOUNTER → 2025-01-26 14:28 | Outpatient (BNVA) | payer OTHER, SELFPAY | PROVIDERS: PCP Family Medicine; Visit Provider Internal Medicine | DX: I10 Essential (primary) hypertension (principal); I25.10 Atherosclerotic heart disease of native coronary artery without angina pectoris; E11.8 Type 2 diabetes mellitus with unspecified complications; E78.5 Hyperlipidemia, unspecified | CPT/HCPCS: 93005; 99212 ==

== ENCOUNTER 2025-02-23 08:46 | Outpatient (AMB) | payer OTHER, SELFPAY ==
--- OUTSIDE RECORDS SUMMARY | 2025-02-23 08:55 | XMS_ITS | Encounter Summary ---
Author Organization [employer] Address [address] [place] [address] Care Team Providers Care Mat Puncher Name Role Phone Katarzyna Sahu MD Primary Care Provider [phone] Encounter Details Date Type Department Care Team ([facility] st Contact Info) Description 02/05/2025 Orders Only [facility] MEDICINE [address] [place], [place] [phone] Katarzyna Sahu MD [address] [place], [place] [phone] Social History Tobacco Use Types Packs/Day Years [...] as of this encounter Plan of Treatment Not on file documented as of this encounter Visit Diagnoses Not on filedocumented in this encounter Additional Health Concerns Assessment Noted Time PHQ-9 Depression Total Score: 0 09/16/19 25 11:19 AM EST documented as of this encounter Care Teams Mat Puncher Relationship Specialty Start Date End Date Katarzyna Sahu MD [address] [place] [phone] PCP - General Family Medicine 06/12/12 [facility] 07/28/22 documented as of this encounter
--- NOTE | 2025-02-23 08:58 | A.OFFVIS_ITS ---
Vital Signs 02/23/25 08:59 Height 5 ft 7 in Weight 190 lb BMI 29.8 BP 102/63 Blood Pressure Location Lt brachial Position Sitting Pulse 73 Pulse Oximetry (%) 96 Oxygen Delivery Method Room Air Intake Visit Reasons: Diarrhea, melena Intake Note: Patient follow up for melena Patient cc: abdominal pain/bloating, rectal bleeding with hx of hemorrhoids, and acid reflux with burning sensation. 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 Increase fluid intake. Patient will return in 3 months so we can discuss going for colonoscopy. He will call our office if he will have any GI concerning symptoms. Patient is agreeable to this plan and verbalizes understanding of instructions. He was given the opportunity to ask questions and all questions answered. ? Thank you for allowing me to participate in his care New docusate sodium 200 mg (2 x 100 mg) PO BEDTIME 180 caps 3RF K59.00 bisacodyl 10 mg (2 x 5 mg) PO BEDTIME 60 tabs 3RF TODAY'S VISIT: Patient is here today for follow-up and to discuss going for colonoscopy. Patient is currently taking stool softeners and Dulcolax and reports that he is moving his bowels better now. Occasional blood after having a bowel movement when wiping. Denies melena. Suboptimal prep last procedure. Hemorrhoids otherwise normal. Recommendation was made for 6-12 months follow-up. Patient reports reflux controlled for the most part. Denies abdominal pain or discomfort. However patient does admit to occasional abdominal bloating depending on what he eats. Denies dyspepsia, dysphagia or odynophagia [facility] Medical History Foot injury Chronic constipation Other and unspecified hyperlipidemia Type 2 diabetes mellitus with unspecified complications Essential hypertension Atherosclerotic cardiovascular disease Surgical History History of colonoscopy History of surgery on lower extremity No pertinent past surgical history Family History Father No problems noted. Mother No problems noted. 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 Review of Systems Const Denies weight gain and Denies weight loss ENT Reports no additional complaints, Denies dysphagia and Denies odynophagia Card Reports no additional complaints Resp Reports no additional complaints GI Denies abdominal pain, Denies belching, Denies melena, Denies bloating, Reports constipation, Denies dysphagia, Denies excessive flatus, Denies dyspepsia, Denies heartburn, Denies diarrhea, Reports loose stools, Reports nausea, Denies odynophagia and Denies vomiting Reports no additional complaints Musc Reports no additional complaints Neuro Reports no additional complaints Psych Reports no additional complaints Endo Reports no additional complaints Physical Exam Vital Signs: Last Vital Signs Pulse 73 02/23/25 08:59 BP 102/63 02/23/25 08:59 Pulse Ox 96 02/23/25 08:59 Oxygen Delivery Method Room Air 02/23/25 08:59 BMI result Body Mass Index 29.8 Const Other: Patient is sitting in the wheelchair General: healthy appearing and no acute distress Nutritional Appearance: well nourished Orientation/consciousness: patient oriented x3 Resp Effort & Inspection: normal respiratory effort, able to speak in complete sentences, no tracheal deviation and symmetric chest movement Auscultation: clear to auscultation bilaterally Cardio Rate: regular rate GI Inspection: Yes normal to inspection, No distended and Yes obesity Palpation (GI): Soft to palpation, not firm, nontender and No hepatosplenomegaly present Auscultation: normal bowel sounds General: Yes no CVA tenderness Back/Spine/Pelvis Back: no CVA tenderness Skin General skin exam: elasticity normal, turgor normal and dry skin Neuro General: patient oriented x3 Psych Appearance: grossly normal Mental Status: mental status grossly normal Assessment & Plan Assessment & Plan (1) Chronic constipation: Code(s): K59.09 - Other constipation Category: Medical (2) Screen for colon cancer: Code(s): Z12.11 - Encounter for screening for malignant neoplasm of colon Plan He will go for colonoscopy as he had suboptimal prep. Continue taking Dulcolax daily. Increase fluid intake and activity to promote better bowel motility. With expect before during and after procedure discussed with patient. Stressed the importance of good bowel prep in clear liquid diet day before procedure. Script for hemorrhoid cream sent to pharmacy. I will see patient after the procedure, sooner on as needed basis. He is agreeable to this plan and verbalizes understanding of instructions. He was given the opportunity to ask questions and all questions answered. Thank you for allowing me to participate in his care Medications: New hydrocortisone 2.5% (Proctosol HC) 1 appl [place] BID-QID PRN 30 grams 2RF hemorrhoids K64.9 - Unspecified hemorrhoids Coding Level of Care Code Est Pt Level 3 (48083) Diagnoses Chronic constipation K59.09 Screen for colon cancer Z12.11 Time Spent (min) 30 Comment 20 minutes spent with patient and additional 10 minutes spent reviewing his records
[2025-02-23 08:59] VITALS: BP 102/63; PULSE 73; O2SAT 96; BMI 29.8
== END 2025-02-23 09:45 | disposition home or self-care (01) ==
LOC: HO.HGI 08:47
PROVIDERS: PCP Family Medicine; Visit Provider Nurse Practitioner Family
DX: K59.09 Other constipation (principal); Z12.11 Encounter for screening for malignant neoplasm of colon
CPT/HCPCS: 99024

== ENCOUNTER → 2025-02-23 08:46 | Outpatient (BNVA) | payer OTHER, SELFPAY | PROVIDERS: PCP Family Medicine; Visit Provider Nurse Practitioner Family | DX: Z12.11 Encounter for screening for malignant neoplasm of colon (principal); K59.09 Other constipation | CPT/HCPCS: 99212 ==

== ENCOUNTER 2025-04-16 12:04 | Day surgery (SDC) | payer OTHER, SELFPAY ==
--- OUTSIDE RECORDS SUMMARY | 2025-04-14 15:47 | XMS_ITS | Encounter Summary ---
Author Organization [employer] Address [address] [facility] 7t [place] [address] Care Team Providers Care Weatherization And Housing Inspector Name Role Phone Katarzyna Sahu MD Primary Care Provider [phone] Reason for Visit * Reason Onset Date Comments Medication Question 02/04/2025 Encounter Details Date Type Department Care Team ([facility] st Contact Info) Description 02/04/2025 Telephone [facility] MEDICINE [address] [place], [place] [phone] Katarzyna Sahu MD [address] [place], [place] [phone] Medication Question Social History Tobacco Use Types Packs/Day Years [...] Telephone Encounter - Katarzyna Sahu MD - 02/05/2025 2:11 PM EDT noted * Telephone Encounter - Liset Gutierrez RN - 02/04/2025 1:40 PM EDT TC placed to Salena at [facility] who called in to inform PCP that will no longer be filling the pt Lisinopril 20 MG [address] would like PCP to fill and manage these medications going forward. Pt JOCE was on 12/16/2024 and pt BP was noted to be well controlled. Salena advised that this request will be forwarded to PCP for review and advisement regarding filling these medications. * Telephone Encounter - Eileen Andrea - 02/04/2025 1:13 PM EDT Tc from [place]ena with [facility] requesting lisinopril 20 MG tablet. States medication needed for today. Please contact to clarify if medication can be prescribe by pcp [phone] Ext [phone] documented in this encounter Plan of Treatment Upcoming Encounters Date Type Department Care Team (Late st Contact Info) Description 04/20/2025 1:45 PM EDT Office Visit [facility] MEDICINE [address] [place] [address] Katarzyna Sahu MD [address] [place] [address] documented as of this encounter Visit Diagnoses Not on filedocumented in this encounter Additional Health Concerns Assessment Noted Time PHQ-9 Depression Total Score: 0 09/16/19 25 11:19 AM EST documented as of this encounter Care Teams Weatherization And Housing Inspector Relationship Specialty Start Date End Date Katarzyna Sahu MD [address] [place] [address] PCP - General Family Medicine 06/12/12 [facility] 07/28/22 documented as of this encounter
--- OUTSIDE RECORDS SUMMARY | 2025-04-14 15:47 | XMS_ITS | Encounter Summary ---
Author Organization [employer] Address [address] [facility] 7t [place] [address] Care Team Providers Care Dry Kiln Loader Name Role Phone Katarzyna Sahu MD Primary Care Provider [phone] Reason for Visit * Reason Comments Med Refill Encounter Details Date Type Department Care Team (Late st Contact Info) Description 11/16/2023 Refill [facility] MEDICINE [address] [place], [place] [phone] Katarzyna Sahu MD [address] [place], [place] [phone] Social History Tobacco Use Types Packs/Day Years [...] Description 04/20/2025 1:45 PM EDT Office Visit [facility] MEDICINE [address] [place] [address] Katarzyna Sahu MD [address] [place] [address] documented as of this encounter Visit Diagnoses Not on filedocumented in this encounter Additional Health Concerns Assessment Noted Time PHQ-9 Depression Total Score: 0 10/12/19 23 10:40 AM EST documented as of this encounter Care Teams Dry Kiln Loader Relationship Specialty Start Date End Date Katarzyna Sahu MD [address] [place] [address] PCP - General Family Medicine 06/12/12 [facility] 07/28/22 documented as of this encounter
--- OUTSIDE RECORDS SUMMARY | 2025-04-14 15:47 | XMS_ITS | Encounter Summary ---
Author Organization [employer] Address [address] [facility] 7t [place] [address] Care Team Providers Care Specimen Preparation Assistant Name Role Phone Katarzyna Sahu MD Primary Care Provider [phone] Encounter Details Date Type Department Care Team ([facility] st Contact Info) Description 02/05/2025 Orders Only [facility] MEDICINE [address] [place], [place] [phone] Katarzyna Sahu MD [address] [place], [place] [phone] Social History Tobacco Use Types Packs/Day Years [...] Description 04/20/2025 1:45 PM EDT Office Visit [facility] MEDICINE [address] [place] [address] Katarzyna Sahu MD [address] [place] [address] documented as of this encounter Visit Diagnoses Not on filedocumented in this encounter Additional Health Concerns Assessment Noted Time PHQ-9 Depression Total Score: 0 09/16/19 25 11:19 AM EST documented as of this encounter Care Teams Specimen Preparation Assistant Relationship Specialty Start Date End Date Katarzyna Sahu MD [address] [place] [address] PCP - General Family Medicine 06/12/12 [facility] 07/28/22 documented as of this encounter
--- OUTSIDE RECORDS SUMMARY | 2025-04-14 15:47 | XMS_ITS | Encounter Summary ---
Author Organization [employer] Address [address] [facility] 7t [place] [address] Care Team Providers Care Aerial Crop Duster Name Role Phone Katarzyna Sahu MD Primary Care Provider [phone] Reason for Visit * Reason Comments Med Refill Encounter Details Date Type Department Care Team ([facility] st Contact Info) Description 10/24/2024 Refill [facility] MEDICINE [address] [place], [place] [phone] Katarzyna Sahu MD [address] [place], [place] [phone] Psychophysiological insomnia Social History Tobacco Use Types [...] Description 04/20/2025 1:45 PM EDT Office Visit [facility] MEDICINE [address] [place] [phone] Katarzyna Shau MD [address] [place] [phone] documented as of this encounter Visit Diagnoses Diagnosis Psychophysiological insomnia Persistent disorder of initiating or maintaining sleep documented in this encounter Additional Health Concerns Assessment Noted Time PHQ-9 Depression Total Score: 0 09/16/19 25 11:19 AM EST documented as of this encounter Care Teams Aerial Crop Duster Relationship Specialty Start Date End Date Katarzyna Sahu MD [address] [place] [address] PCP - General Family Medicine 06/12/12 [facility] 07/28/22 documented as of this encounter
--- OUTSIDE RECORDS SUMMARY | 2025-04-14 15:47 | XMS_ITS | Encounter Summary ---
Author Organization [employer] Address [address] [facility] 7t [place] [address] Care Team Providers Care Rehabilitation Consultant Name Role Phone Katarzyna Sahu MD Primary Care Provider [phone] Reason for Visit * Reason Onset Date Comments FYI 08/22/2022 Encounter Details Date Type Department Care Team ([facility] st Contact Info) Description 08/22/2022 Telephone [facility] MEDICINE [address] [place], [place] [phone] Katarzyna Sahu MD [address] [place], [place] [phone] FYI Social History Tobacco Use Types Packs/Day Years [...] pt calling to inform 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 Which is the reason he didn't go to the pediatrist in [place]. Any questions please call pt to clarify . documented in this encounter Plan of Treatment Upcoming Encounters Date Type Department Care Team (Late st Contact Info) Description 04/20/2025 1:45 PM EDT Office Visit [facility] MEDICINE [address] [place] [address] Katarzyna Sahu MD [address] [place] [address] documented as of this encounter Visit Diagnoses Not on filedocumented in this encounter Additional Health Concerns Assessment Noted Time PHQ-9 Depression Total Score: 9 07/24/20 22 10:23 AM EST documented as of this encounter Care Teams Rehabilitation Consultant Relationship Specialty Start Date End Date Katarzyna Sahu MD [address] [place] [address] PCP - General Family Medicine 06/12/12 [facility] 07/28/22 documented as of this encounter
--- OUTSIDE RECORDS SUMMARY | 2025-04-14 15:47 | XMS_ITS | Encounter Summary ---
Author Organization [employer] Address [address] [facility] 7t [place] [address] Care Team Providers Care Boot And Shoe Repairman Name Role Phone Katarzyna Sahu MD Primary Care Provider [phone] Encounter Details Date Type Department Care Team ([facility] st Contact Info) Description 09/28/2023 Orders Only [facility] MEDICINE [address] [place], [place] [phone] Katarzyna Sahu MD [address] [place], [place] [phone] Social History Tobacco Use Types Packs/Day Years [...] Description 04/20/2025 1:45 PM EDT Office Visit [facility] MEDICINE [address] [place] [address] Katarzyna Sahu MD [address] [place] [address] documented as of this encounter Procedures Procedure Name Priority Date/Time Associated Diagnosis Comments SLIDE REVIEW Routine 12/18/2023 1:54 PM EDT documented in this encounter Results * Slide Review (12/18/2023 1:54 PM EDT) Slide Review VERIFIED [facility] 12/18/2023 1:54 PM EDT 12/18/2023 4:11 PM EDT us Katarzyna Sahu MD LAB BLOOD ORDERABLES Final Resul t [facility] [address] [place] [address] [phone] documented in this encounter Visit Diagnoses Not on filedocumented in this encounter Additional Health Concerns Assessment Noted Time PHQ-9 Depression Total Score: 0 10/12/19 23 10:40 AM EST documented as of this encounter Care Teams Boot And Shoe Repairman Relationship Specialty Start Date End Date Katarzyna Sahu MD [address] [place] [address] PCP - General Family Medicine 06/12/12 [facility] 07/28/22 documented as of this encounter
--- OUTSIDE RECORDS SUMMARY | 2025-04-14 15:47 | XMS_ITS | Encounter Summary ---
Author Organization [employer] Address [address] [facility] 7t [place] [address] Care Team Providers Care Basic Sciences Dean Name Role Phone Katarzyna Sahu MD Primary Care Provider [phone] Reason for Visit * Reason Onset Date Comments Plan of Care paperworks 01/30/2025 Encounter Details Date Type Department Care Team ([facility] st Contact Info) Description 01/30/2025 Telephone [facility] MEDICINE [address] [place], [place] [phone] Katarzyna Sahu MD [address] [place], [place] [phone] Plan of Care paperworks Social History Tobacco Use Types Packs/Day Years [...] encounter Miscellaneous Notes * Telephone Encounter - Eileen Andrea - 02/02/2025 11:05 AM EDT Tc from [place] regarding prior message. States pt needs VNA Plan of Care leonor. F. [phone] P. [phone] * Telephone Encounter - Eileen Andrea - 01/30/2025 11:32 AM EDT Tc from [place] with [facility] requesting VNA order Plan of Care to be sent to: [phone] documented in this encounter Plan of Treatment Upcoming Encounters Date Type Department Care Team (Late st Contact Info) Description 04/20/2025 1:45 PM EDT Office Visit [facility] MEDICINE [address] [place] [address] Katarzyna Sahu MD [address] [place] [address] documented as of this encounter Visit Diagnoses Not on filedocumented in this encounter Additional Health Concerns Assessment Noted Time PHQ-9 Depression Total Score: 0 09/16/19 25 11:19 AM EST documented as of this encounter Care Teams Basic Sciences Dean Relationship Specialty Start Date End Date Katarzyna Sahu MD [address] [place] [address] PCP - General Family Medicine 06/12/12 [facility] 07/28/22 documented as of this encounter
--- OUTSIDE RECORDS SUMMARY | 2025-04-14 15:47 | XMS_ITS | Encounter Summary ---
Author Organization [employer] Address [address] [facility] 7t [place] [address] Care Team Providers Care Appraisal Analyst Name Role Phone Katarzyna Sahu MD Primary Care Provider [phone] Reason for Visit * Reason Onset Date Comments status 11/02/2022 Encounter Details Date Type Department Care Team ([facility] st Contact Info) Description 11/02/2022 Telephone [facility] MEDICINE [address] [place], [place] [phone] Katarzyna Sahu MD [address] [place], [place] [phone] status Social History Tobacco Use Types Packs/Day [...] - 11/02/2022 9:34 AM EDT Tc from [place] with [employer] [facility] requesting status for script sign by PCP and fax over to [phone] regarding methadone Please contact bre at [phone] documented in this encounter Plan of Treatment Upcoming Encounters Date Type Department Care Team ([facility] st Contact Info) Description 04/20/2025 1:45 PM EDT Office Visit [facility] MEDICINE [address] [place] [address] Katarzyna Sahu MD [address] [place] [address] documented as of this encounter Visit Diagnoses Not on filedocumented in this encounter Additional Health Concerns Assessment Noted Time PHQ-9 Depression Total Score: 0 10/12/19 10:40 AM EST documented as of this encounter Care Teams Appraisal Analyst Relationship Specialty Start Date End Date Katarzyna Sahu MD [address] [place] [address] PCP - General Family Medicine 06/12/12 [facility] 07/28/22 documented as of this encounter
--- OUTSIDE RECORDS SUMMARY | 2025-04-14 15:47 | XMS_ITS | Clinical Summary ---
Author Organization [employer] Address [address] [facility] 7t [place] [address] Care Team Providers Care Publishing Specialist Name Role Phone Katarzyna Sahu MD Primary Care Provider [phone] Allergies No known active allergies Medications atorvastatin (Lipitor) 20 MG tablet Take 20 mg by mouth at bedtime. 06/21/20 22 Active methadone (Dolophine) 10 MG/ML [...] without long-term current use of insulin (CMS/HCC) Apply to affected area every day. Dry [...] without long-term current use of insulin (CMS/HCC) TEST BLOOD SUGAR ONCE DAILY DIRECTED 100 each 3 09/19/19 24 Active Blood Glucose Monitoring Suppl (FreeStyle Lite) w/Device kitIndications :Controlled type 2 diabetes mellitus without complication, without long-term current use of insulin ([facility]) 1 each in the morning. Check your sugar once daily before breakfast 1 kit 1 09/19/19 24 Active metFORMIN XR (Glucophage-XR ) 500 MG 24 hr tablet TAKE 1 TABLET BY MOUTH EVERY EVENING WITH FOOD 30 tablet 09/30/19 25 Active Lancets (Unilet Micro-Thin 33G) miscIndication s:Type 2 diabetes mellitus without complication, without long-term current use of insulin ([facility]) USE TO TEST BLOOD SUGAR ONCE DAILY 100 each 11/04/19 25 Active glucose blood (FREESTYLE LITE) test stripIndicatio ns:Type 2 diabetes mellitus without complication, without long-term current use of insulin ([facility]) USE TO TEST BLOOD SUGAR EVERY MORNING 100 strip 11/04/19 25 Active QUEtiapine (SEROquel) 400 MG tabletIndicati ons:Mood disorder ([facility]) TAKE 1 TABLET BY MOUTH AT BEDTIME 30 tablet 5 01/20/20 25 Active tamsulosin (Flomax) 0.4 MG 24 hr capsuleIndicat ions:Benign prostatic hyperplasia, unspecified whether lower urinary tract symptoms present TAKE 1 CAPSULE BY MOUTH EVERY EVENING 30 capsule 01/20/20 25 Active lisinopril 20 MG tablet Take 1 tablet (20 mg) by mouth in the morning. 90 tablet 3 02/06/20 25 Active Aspirin Low Dose 81 MG EC tablet Take 1 tablet (81 mg) by mouth in the morning. 90 tablet 3 02/06/20 25 Active Acetaminophen Extra Strength 500 MG tablet TAKE 2 TABLETS BY MOUTH EVERY 8 HOURS NEEDED FOR PAIN 90 tablet 1 02/17/20 25 Active ferrous sulfate 325 (65 Fe) MG EC tablet TAKE 1 TABLET BY MOUTH EVERY MORNING WITH BREAKFAST DO NOT BREAK, CRUSH, DISSOLVE OR CHEW 90 tablet 02/19/20 25 Active zolpidem (Ambien) 10 MG tabletIndicati ons:Psychophys iological insomnia TAKE 1 TABLET BY MOUTH AT BEDTIME NEEDED FOR SLEEP 30 tablet 3 03/02/20 25 Active D3 Super Strength 50 MCG (1999 UT) capsule TAKE 1 CAPSULE BY MOUTH EVERY MORNING 90 capsule 3 03/19/20 25 Active cholecalcifero l (Vitamin D-3) 50 MCG (1999 UT) capsule Take 1 capsule (50 mcg) by mouth Once per day. 90 capsule 3 04/01/20 24 025 Discontinued Active Problems Problem Noted [...] Plan (09/23/2024 10:28 AM EST): Followed by wood setter, Dr. Guevara. Upcoming appointment for colonoscopy Assessment & Plan (12/18/2023 2:05 PM EDT): Followed by wood setterDr. Guevara. 10/20/22 Hgb 11.7; hematocrit 35 Advised to schedule a follow visit Assessment & Plan (09/24/2023 11:36 AM EST): Followed by wood setterDr. Ismael valente. 10/20/22 Hgb 11.7; hematocrit 35 Advised to schedule a follow visit Assessment & Plan (10/11/2022 11:06 AM EST): Followed by wood setterDr. Guevara. Advised to schedule a follow visit Assessment & Plan (07/25/2022 11:45 AM EST): Followed by wood setterDr. Guevara. Advised to schedule a follow visit History of open reduction an d internal fixation (ORIF) procedure 07/15/2022 Chronic back pain 08/09/2016 Assessment & Plan (09/23/2024 10:30 AM EST): - back exercise - judicious use of APAP prn Ischemic heart disease 04/24/2016 Assessment & Plan (12/16/2024 1:47 PM EDT): Followed by [facility] Card[facility] last seen by Dr. Way in [...] Plan (09/23/2024 10:25 AM EST): Followed by [facility] Cardiology last seen by Dr. Way in [...] Plan (04/06/2024 3:55 PM EDT): Followed by [facility] Card[facility] last seen in November 2022 Abnormal stress test and elevated tropnin in Mar 2016, small area of ischemia in apical and lateral branch vessel distribution. Declined stress test in November 2022 Continue BB, ACEI, and ASA. Continue working on lifestyle modifications, consider GLP-1 RA. Relative contraindication to SGLT-2i due to urinary symptoms Assessment & Plan (12/18/2023 2:04 PM EDT): Followed by [facility] Cardiology last seen in November 2022 Abnormal stress test and elevated tropnin in Mar 2016, small area of ischemia in apical and lateral branch vessel distribution. Declined stress test in November 2022 Continue BB, ACEI, and ASA. Assessment & Plan (09/24/2023 11:27 AM EST): Followed by [facility] Cardiology last seen in November 2022 Abnormal stress test and elevated tropnin in Mar 2016, small area of ischemia in apical and lateral branch vessel distribution. Declined stress test in November 2022 Continue BB, ACEI, and ASA. Assessment & Plan (10/11/2022 11:05 AM EST): Followed by [facility] Cardiology last seen in October 2021 Abnormal stress test and elevated tropnin in Mar 2016, small area of ischemia in apical and lateral branch vessel distribution. Given reassurance by dish washer since it is stable. Continue BB, ACEI, and ASA. Assessment & Plan (07/25/2022 11:51 AM EST): Followed by [facility] Cardiology last seen in October 2021 Abnormal stress test and elevated tropnin in Mar 2016, small area of ischemia in apical and lateral branch vessel distribution. Given reassurance by dish washer since it is stable. Continue BB, ACEI, and ASA. Paraplegia 04/24/2016 [...] to concern for QTc prolongation Follow-up with dish washer as scheduled Assessment & Plan (09/23/2024 10:26 AM EST): Goal BP < 140/90 per JNC-8, < 130/80 per ACC/AHA guidelines BP well-controlled today Continue working on lifestyle modifications Continue lisinopril 20 mg daily Continue metoprolol succinate 25 mg daily Update EKG periodically due to concern for QTc prolongation Follow-up with dish washer as scheduled Assessment & Plan (04/01/2024 10:23 AM EDT): Goal BP < 140/90 per JNC-8, < 130/80 per ACC/AHA guidelines BP borderline Continue working on lifestyle modifications Continue lisinopril 20 mg daily Continue metoprolol succinate 25 mg daily Update EKG periodically due to concern for QTc prolongation Follow-up with dish washer as scheduled Follow up with us in 3-6 mo, or sooner if any problem arises. Assessment & Plan (12/18/2023 1:53 PM EDT): Goal BP < 140/90 per JNC-8, < 130/80 per ACC/AHA guidelines BP borderline Continue working on lifestyle modifications Continue lisinopril 20 mg daily Continue metoprolol succinate 25 mg daily Update EKG periodically due to concern for QTc prolongation Follow-up with dish washer as scheduled Follow up with us in 3-6 mo, or sooner if any problem arises. Assessment & Plan (09/24/2023 11:27 AM EST): Goal BP < 140/90 per JNC-8, < 130/80 per ACC/AHA guidelines BP borderline Continue working on lifestyle modifications Continue lisinopril 20 mg daily Continue metoprolol succinate 25 mg daily Update EKG periodically due to concern for QTc prolongation Follow-up with dish washer as scheduled Follow up with us in 3-6 mo, or sooner if any problem arises. Assessment & Plan (10/11/2022 11:04 AM EST): Goal BP < 140/90 per JNC-8, < 130/80 per ACC/AHA guidelines BP within acceptable range Continue working on lifestyle modifications Continue lisinopril 20 mg daily Continue metoprolol succinate 25 mg daily Update EKG periodically due to concern for QTc prolongation Follow-up with dish washer as scheduled Follow up with us in 3-6 mo, or sooner if any problem arises. Assessment & Plan (07/25/2022 11:49 AM EST): Goal BP < 140/90 per JNC-8, < 130/80 per ACC/AHA guidelines BP within acceptable range Continue working on lifestyle modifications Continue lisinopril 20 mg daily Continue metoprolol succinate 25 mg daily Update EKG periodically due to concern for QTc prolongation Follow-up with dish washer as scheduled Follow up with us in [...] schedule Foot exam: 04/01/24. High-risk. Refer to gm. Terbinafine for tinea pedis. Assessment & Plan (09/16/2024 1:01 PM EST): Dx Hgb A1C 6.3% on 09/16/24 Continue working on lifestyle modifications Continue checking BG Continue metformin ER 500 mg daily; consider increasing if A1C continues to increase Microalbumin test: 09/28/23, no Hx microalbuminuria Lipid profile: 09/28/23 Diabetic eye exam: Overdue, pt will schedule Foot exam: 04/01/24. High-risk. Refer to gm. Terbinafine for tinea pedis. Assessment & Plan (04/01/2024 10:39 AM EDT): Dx Hgb A1C 6.5% on 04/01/24 Continue working on lifestyle modifications Continue checking BG Continue metformin ER 500 mg daily; consider increasing if A1C continues to increase Microalbumin test: 09/28/23, no Hx microalbuminuria Lipid profile: 09/28/23 Diabetic eye exam: Overdue, pt will schedule Foot exam: 04/01/24. High-risk. Refer to gm. Terbinafine for tinea pedis. Assessment & Plan (12/18/2023 1:52 PM EDT): Dx Hgb A1C 6.1% on 12/18/23 Continue working on lifestyle modifications Continue checking BG Continue metformin ER 500 mg daily; consider increasing if A1C continues to increase Microalbumin test: Overdue, no Hx microalbuminuria Lipid profile: 10/20/22 Diabetic eye exam: Overdue, pt will schedule Foot exam: 07/24/22. High-risk. Refer to gm. Terbinafine for tinea pedis. Assessment & Plan (09/24/2023 11:36 AM EST): Dx Hgb A1C 6.8% on 09/19/22, stable from 6.8% on 10/11/22 Continue working on lifestyle modifications Continue checking BG Continue metformin ER 500 mg daily; consider increasing if A1C continues to increase Microalbumin test: Overdue, no Hx microalbuminuria Lipid profile: 10/20/22 Diabetic eye exam: Overdue, pt will schedule Foot exam: 07/24/22. High-risk. Refer to gm. Terbinafine for tinea pedis. Assessment & Plan (10/11/2022 4:22 PM EST): Dx Hgb A1C 6.8% on 10/11/22, slightly increased from 6.4% On 07/24/22 Continue working on lifestyle modifications Continue checking BG Requested new Glucometer since last one broke, will prescribe Continue metformin ER 500 mg daily; consider increasing if A1C continues to increase Microalbumin test: Overdue, no Hx microalbuminuria Lipid profile: Overdue Diabetic eye exam: Overdue, pt will schedule Foot exam: 07/24/22. High-risk. Refer to gm. Terbinafine for tinea pedis. Assessment & Plan (07/25/2022 11:54 AM EST): Dx Hgb A1C 6.4% On 07/24/22 Continue working on lifestyle modifications Continue checking BG Continue metformin ER 500 mg daily Microalbumin test: Overdue, no Hx microalbuminuria Lipid profile: Overdue Diabetic eye exam: Overdue, pt will schedule Foot exam: 07/24/22. High-risk. Refer to gm. Terbinafine for tinea pedis. Dyslipidemia 12/11/2012 Assessment [...] day, per patient's request Agreed to follow CAR DUMPER monitoring for zolpidem Continue zolpidem 10 mg qhs Discussed about its potential side effects. Pt understands and would like to take it. Assessment & Plan (09/16/2024 7:13 PM EST): Currently taking quetiapine 400 mg at bedtime Discontinue quetiapine 25 mg prn anxiety during the day, per patient's request Agreed to follow CAR DUMPER monitoring for zolpidem Continue zolpidem 10 mg qhs Discussed about its potential side effects. Pt understands and would like to take it. Assessment & Plan (04/01/2024 10:41 AM EDT): Currently taking quetiapine 400 mg at bedtime Discontinue quetiapine 25 mg prn anxiety during the day, per patient's request Agreed to follow CAR DU[employer]ER monitoring for zolpidem Continue zolpidem 10 mg qhs Discussed about its potential side effects. Pt understands and would like to take it. Assessment & Plan (09/24/2023 11:30 AM EST): Currently taking quetiapine 400 mg at bedtime Add quetiapine 25 mg prn anxiety during the day Agreed to follow CAR [employer]ER monitoring for zolpidem Continue zolpidem 10 mg qhs Discussed about its potential side effects. Pt understands and would like to take it. Assessment & Plan (10/11/2022 4:32 PM EST): Currently taking quetiapine 400 mg at bedtime Agreed to follow CAR DU[employer] monitoring for zolpidem Agreed to increase zolpidem to 10 mg at bedtime; discussed about its judicious and responsible use Discussed about its potential side effects. Pt understands and would like to take it. Assessment & Plan (07/25/2022 11:55 AM EST): Currently taking quetiapine 400 mg at bedtime Agreed to follow CAR DUMPER monitoring for zolpidem Start zolpidem 5 mg at bedtime Discussed about its potential side effects. Pt understands and would like to take it. 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 Resolved Problems Problem Noted Date Diagnosed Date Resolved Date History of fracture 07/15/2022 07/25/20 22 Overview (07/15/2022): S/p closed fx of right femur per previous EHR onset date 02/25/18 Encounters Date Type Department Care Team Description 03/19/2025 Refill C MEDICINE [address] [place] [address] Katarzyna Sahu MD 02/28/2025 Refill [facility] [address] [facility] [place] [address] Katarzyna Sahu MD Psychophysiological insomnia 02/26/2025 Telephone [facility] [address] [facility] [place] [address] Emeli Spencer MA april02/18/2025 Telephone [facility] [address] [facility] [place] [address] Katarzyna Sahu MD plan of care 02/18/2025 Refill [facility] [address] [facility] [place] [address] Elise Mitchell MD 02/13/2025 Refill [facility] [address] [facility] [place] [address] Katarzyna Sahu MD 02/05/2025 Orders Only [facility] [address] [facility] [place] [address] Katarzyna Sahu MD 02/04/2025 Telephone [facility] [address] [facility] [place] [address] Katarzyna Sahu MD Medication Question 02/03/2025 Refill [facility] [address] [place] [address] Katarzyna Sahu MD 02/03/2025 Refill C [facility] [address] [place] [address] Katarzyna Sahu MD 01/30/2025 Telephone [facility] [address] [facility] [place] [address] Katarzyna Sahu MD Plan of Care paperworks 01/18/2025 Refill C [facility] [address] [facility] [place] [phone] Cristino Hinson MD Mood disorder ([facility]); Benign prostatic hyperplasia, unspecified whether lower urinary tract symptoms present from Last 3 Months Immunizations Immunization Administration [...] 74 12/16/2024 1:11 PM EDT Temperature 35.7 C (96.2 F) 12/16/2024 1:11 PM EDT Respiratory Rate 16 12/16/2024 1:11 [...] Description 04/20/2025 1:45 PM EDT Office Visit [facility] MED[facility]INE [address] [place] [phone] Katarzyna Sahu MD [address] [place] [address] Health Maintenance Due Date Last Done Comments [...] 04/01/2025 04/01/2024, 04/01/2024, 04/01/2024, Additional history exists Influenza Vaccine (#1) 2025 , 09/19/2023, 09/08/2019, Additional history exists Diabetes: Hemoglobin A1C 06/18/2025 [...] 06/24/2009 Hepatitis C Screening Completed 04/01/2024, 024 HIB Vaccines Aged Out No longer eligi [...] current use of insulin (CMS/HCC) COLONOSCOPY Routine 10/14/2024 8:58 AM EST DIABETES EYE EXAM Routine 07/28/2024 HEPATITIS C [...] specimen / Unknown 12/16/2024 1:15 PM EDT us Katarzyna Sahu MD POINT OF CARE TEST ENTER/EDIT OR DERABLES Final Result * Colonoscopy (10/14/2024 8:58 AM EST) Tabatha Provider HEALTH MAINTENANCE Final Result * Diabetes Eye Exam (07/28/2024) Eye Exam Normal Normal 07/28/2024 Tabatha Provider HEALTH MAINTENANCE Final Result * (ABNORMAL) Hepatitis C Antibody with Reflex to HCV, RNA, Quantitative, Real- Time PCR (04/01/2024 10:41 AM EDT) Hepatitis C Antibody Reactive( A) Nonreactive [facility] Comment:Presumptive evidence of antibodies to HCV. Blood Venous blood specimen / Unknown 04/01/2024 10:41 AM EDT 04/01/2024 11:18 AM EDT Katarzyna Sahu MD LAB BLOOD ORDERABLES Final Resul t [facility] [address] [place] [phone] * Lipid Panel with Reflex to Direct LDL (09/28/2023 9:11 AM EST) Triglycerides 93 <150 mg/dL [facility] Comment:Desirable Triglyceri de: less than 150 mg/dLBorderline High Triglyceride 150-199 mg/dLHigh Triglyceride: 200-499 mg/dLVery High Triglyceride: greater than or equal to 5OO mg/dL Cholesterol 155 <200 mg/dL [facility] Comment:Desirable Cholestero l: less than 200 mg/dLBorderline High Cholesterol: 200-239 mg/dLHigh Cholesterol: greater than 239 mg/dL LDL Cholesterol Calculated 88 <100 mg/dL [facility] Comment:Desirable LDL: less than 100 mg/dLNear Optimal/Above Optimal LDL: 110- 129 mg/dLBorderline High LDL: 130-159 mg/dLHigh LDL: 160-189 mg/dLVery High LDL: greater than or equal to 190 mg/dL HDL Cholesterol 49 >40 mg/dL [facility] Comment:Desirable HDL: great er than 40 mg/dL Note: This HDL assay may give artificially low results in patients with liver disease. Blood 09/28/2023 9:11 AM EST 09/28/2023 11:00 AM EST us Katarzyna Sahu MD LAB BLOOD ORDERABLES Final Resul t Performing Organization Address City/[facility] Co de Phone Number [facility] [address] [place] [address] [phone] * Albumin, Random Urine W/Creatinine (09/28/2023 7:30 AM EST) Creatinine, Urine 235.90 mg/dL [facility] Microalbumin Urine <5.0 mg/L [facility] Microalbum Creatinine Ratio Ur TNP <30 ug/mg cr [facility] Comment:Unable to calculate albumin/creatinine ratio due to lowmicroalbumin or creatinine result. Urine 09/28/2023 7:30 AM EST 09/28/2023 11:10 AM EST us Katarzyna Sahu MD LAB URINE ORDERABLES Final Resul t Performing Organization Address City/[facility] Co de Phone Number [facility] [address] [place] [address] [phone] from Last 3 Months or Most Recently Relevant to Health Maintenance Insurance [facility] FDC OPTIONS (O D-SNP) PRUDENCE ANNA [id number] Advance Directives Documents on File Type Date Recorded Patient Developer Advocate Expl anation HealthCare Proxy 12/07/2022 Proxy Care Teams Publishing Specialist Relationship Specialty Start Date End Date Katarzyna Sahu MD [address] [place] [phone] PCP - General Family Medicine 06/12/12 [facility] 07/28/22
--- OUTSIDE RECORDS SUMMARY | 2025-04-14 15:47 | XMS_ITS | Encounter Summary ---
Author Organization [employer] Address [address] [facility] 7t [place] [address] Care Team Providers Care Fnps Name Role Phone Katarzyna Sahu MD Primary Care Provider [phone] Encounter Details Date Type Department Care Team (Late st Contact Info) Description 01/03/2023 Abstract [facility] MEDICINE [address] [place], [place] [phone] Katarzyna Sahu MD [address] [place] [address] [phone] Social History Tobacco Use Types Packs/Day Years [...] Description 04/20/2025 1:45 PM EDT Office Visit [facility] MEDICINE [address] [place] [address] [phone] Katarzyna Sahu MD [address] [place] [address] [phone] documented as of this encounter Visit Diagnoses Not on filedocumented in this encounter Additional Health Concerns Assessment Noted Time PHQ-9 Depression Total Score: 0 10/12/19 23 10:40 AM EST documented as of this encounter Care Teams Fnps Relationship Specialty Start Date End Date Katarzyna Sahu MD [address] [place] [address] PCP - General Family Medicine 06/12/12 [facility] 07/28/22 documented as of this encounter
--- OUTSIDE RECORDS SUMMARY | 2025-04-14 15:47 | XMS_ITS | Encounter Summary ---
Author Organization [employer] Address [address] [facility] 7t [place] [address] Care Team Providers Care Kitchen Runner Name Role Phone Katarzyna Sahu MD Primary Care Provider [phone] Reason for Visit * Reason Comments Med Refill Encounter Details Date Type Department Care Team ([facility] st Contact Info) Description 06/07/[address] [facility] MEDICINE [address] [place], [place] [phone] Katarzyna Sahu MD [address] [place], [place] [phone] Social History Tobacco Use Types Packs/Day Years [...] Description 04/20/2025 1:45 PM EDT Office [address] [facility] [address] [place] [address] Katarzyna Sahu MD [address] [place] [phone] documented as of this encounter Visit Diagnoses Not on filedocumented in this encounter Additional Health Concerns Assessment Noted Time PHQ-9 Depression Total Score: 0 10/12/19 23 10:40 AM EST documented as of this encounter Care Teams Kitchen Runner Relationship Specialty Start Date End Date Katarzyna Sahu MD [address] [place] [phone] PCP - General Family Medicine 06/12/12 [facility] 07/28/22 documented as of this encounter
--- OUTSIDE RECORDS SUMMARY | 2025-04-14 15:47 | XMS_ITS | Encounter Summary ---
Author Organization [employer] Address [address] [facility] 7t [place] [address] Care Team Providers Care Rotary Cutter Feeder Name Role Phone Katarzyna Sahu MD Primary Care Provider [phone] Encounter Details Date Type Department Care Team ([facility] st Contact Info) Description 10/16/2024 Orders Only [facility] [address] [place], [place] [phone] ProviderTabatha MD Social History Tobacco Use Types [...] is your housing situation today? I have дмитрийquan harris 12/18/[address] you [...] Description 04/20/2025 1:45 PM EDT Office Visit [facility] MEDICINE [address] [place] [address] Katarzyna Sahu MD [address] [place] [phone] documented as of this encounter Procedures Procedure [...] documented as of this encounter Care Teams Rotary Cutter Feeder Relationship Specialty Start Date End Date Katarzyna Sahu MD [address] [place] [phone] PCP - General Family Medicine 06/12/12 [facility] 07/28/22 documented as of this encounter
--- OUTSIDE RECORDS SUMMARY | 2025-04-14 15:47 | XMS_ITS | Encounter Summary ---
Author Organization [employer] Address [address] [facility] [address] [place] [address] Care Team Providers Care Project Control Analyst Name Role Phone Katarzyna Sahu MD Primary Care Provider [phone] Reason for Visit * Reason Comments Med Refill Encounter Details Date Type Department Care Team (Late st Contact Info) Description 06/15/2023 Refill [facility] [address] [place], [place] [phone] Katarzyna Sahu MD [address] [place], [place] [phone] Psychophysiological insomnia Social History Tobacco Use Types [...] the past 12 months, has t he [employer], gas, oil or water company threatened to [...] 04/20/2025 1:45 PM EDT Office Visit [facility] [address] [place] [address] Katarzyna Sahu MD [address] [place] [address] documented as of this encounter Visit Diagnoses Diagnosis Psychophysiological insomnia Persistent disorder of initiating or maintaining sleep documented in this encounter Additional Health Concerns Assessment Noted Time PHQ-9 Depression Total Score: 0 10/12/19 23 10:40 AM EST documented as of this encounter Care Teams Project Control Analyst Relationship Specialty Start Date End Date Katarzyna Sahu MD [address] [place] [address] PCP - General Family Medicine 06/12/12 [facility] 07/28/22 documented as of this encounter
[2025-04-15 15:23] VITALS: BMI 30.5
--- NOTE | 2025-04-16 10:16 | PC.NURSE ---
called left message pt no show
[2025-04-16 13:05] VITALS: BP 109/88; PULSE 92; RESP 18; TEMP 36.4; O2SAT 95; BMI 29.8
[2025-04-16 13:16] LABS: Glucose, Whole Blood 80 mg/dL (60-115)
[2025-04-16] MEDS: Lactated Ringers 1,000 ML 100 ML IVCONT (13:32)
--- NOTE | 2025-04-16 13:44 | MHC.SHP ---
Pre-Procedural Eval Section A - 24 Hr Update-Section A only Date of Service: 04/16/25 Section B - Complete if H&P > 30 days Chief Complaint: screening Relevant Family History (Specify if Yes): No Relevant Social History: None Present Medications: see Short Stay Collaborative assessment Medical History: Significant History (Foot injury Chronic constipation Other and unspecified hyperlipidemia Type 2 diabetes mellitus with unspecified complications Essential hypertension Atherosclerotic cardiovascular disease) History of Previous Operations: Relevant previous surgery/procedure and date(s) ( History of colonoscopy History of surgery on lower extremity) Allergies: Allergies Allergy/AdvReac Type Severity Reaction Status Date / Time aspirin (ASPIRIN) AdvReac Mild BLEEDING Verified 04/16/25 13:33 Review of Systems Sugical H&P ROS: Negative: Constitution, Cardiovascular, Respiratory, Neurological, Psychiatric, Hem-Onc, Allergic/Immunologic, Gastrointestinal, Genitourinary, Musculoskeletal, Integumentary, Endocrine and Eyes/Ears/Nose/Throat Exam Surgical H&P Exam: Normal: HEENT, Normal: Heart, Normal: Lungs, Normal: Extremities, Normal: Abdomen, Normal: Skin and Normal: Neurological Plan Diagnosis/Plan: Unchanged I have reviewed the history and physical and performed a pertinent physical examination on my patient. No changes have occurred unless specified. Time Spent With Patient Time: Total time managing care of this patient today ____ minutes.
--- NOTE | 2025-04-16 14:06 | PC.NURSE ---
pt total asst can stand for few mins to pivot with 2 asst
--- NOTE | 2025-04-16 15:50 | HO.ANESPROP2 ---
Documented by User: Cary Davidson NP 04/15/25 12:18 HPI - Anesthesia Eval Consult details Narrative: 70yo M for Colonoscopy Methadone daily Follows [facility] cardiology for ASCD. Last annual visit 01/2025, presumed stable CAD. No change to tx plan, no testing ordered [facility] Active Problems Active Problems: All Active Problems Contusion of right ankle (Acute) Normochromic normocytic anemia (Acute) Foot injury (Acute) Chronic constipation (Acute) Other and unspecified hyperlipidemia (Acute) Type 2 diabetes mellitus with unspecified complications (Acute) Essential hypertension (Acute) Atherosclerotic cardiovascular disease (Acute) Past Medical History Medical History Foot injury Chronic constipation Other and unspecified hyperlipidemia Type 2 diabetes mellitus with unspecified complications Essential hypertension Atherosclerotic cardiovascular disease Family History Family History Father No problems noted. Mother No problems noted. Sister Breast cancer Family history of problems with anesthesia: No Surgical History Surgical History History of colonoscopy History of surgery on lower extremity No pertinent past surgical history History of Problems with Anesthesia: No Social History Social History Household Members: None Household Members Other:: lives alone Housing: Apartment Are you a primary cattle care worker to a significant other at home: No Do you presently have visiting nurse or other home services: No Alcohol intake: former Patient Tobacco Use Status: Former Tobacco user Have you been hit, kicked, punched, or otherwise hurt by someone within the past year? 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 Meds Allergies Allergy/AdvReac Type Severity Reaction Status Date / Time aspirin (ASPIRIN) AdvReac Mild BLEEDING Verified 04/16/25 13:33 Home Medications ?Medication ?Instructions ?Recorded ?Confirmed ?Last Taken ?Type tamsulosin 0.4 mg capsule 0.4 mg PO DAILY 07/05/20 04/16/25 Unknown History zolpidem 10 mg tablet 10 mg PO BEDTIME PRN Insomnia 11/29/22 04/16/25 Unknown History cholecalciferol (vitamin D3) 50 50 mcg PO DAILY 05/23/24 04/16/25 Unknown History mcg (2,000 unit) capsule (Vitamin D3) ferrous sulfate 325 mg (65 mg 325 mg PO DAILY 05/23/24 04/16/25 04/09/25 History iron) tablet,delayed release quetiapine 25 mg tablet 25 mg PO BEDTIME 05/23/24 04/16/25 Unknown History metformin 500 mg tablet,extended 500 mg PO QPM 01/26/25 04/16/25 Unknown History release 24 hr methadone 10 mg tablet 140 mg PO DAILY 01/26/25 04/16/25 04/16/25 History Exam Narrative Narrative: EKG 01/2025 EKG Details: EKG with underlying sinus rhythm at 72/Min; low-voltage complexes; nonspecific ST-T changes; normal GA and corrected QT. Assessment and Plan Assessment Anesthesia Assessment: Chart Reviewed Final Anesthetic Review Family History of Problems with Anesthesia: No History of Problems with Anesthesia: No Documented by User: Shira Curiel DO 04/16/25 16:13 [facility] Past Medical History Medical History Foot injury Chronic constipation Other and unspecified hyperlipidemia Type 2 diabetes mellitus with unspecified complications Essential hypertension Atherosclerotic cardiovascular disease Family History Family History Father No problems noted. Mother No problems noted. Sister Breast cancer Family history of problems with anesthesia: No Surgical History Surgical History History of colonoscopy History of surgery on lower extremity No pertinent past surgical history History of Problems with Anesthesia: No Social History Social History Household Members: None Household Members Other:: lives alone Housing: Apartment Are you a primary cattle care worker to a significant other at home: No Do you presently have visiting nurse or other home services: No Alcohol intake: former Patient Tobacco Use Status: Former Tobacco user Have you been hit, kicked, punched, or otherwise hurt by someone within the past year? 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 Meds Allergies Allergy/AdvReac Type Severity Reaction Status Date / Time aspirin (ASPIRIN) AdvReac Mild BLEEDING Verified 04/16/25 13:33 Home Medications ?Medication ?Instructions ?Recorded ?Confirmed ?Last Taken ?Type tamsulosin 0.4 mg capsule 0.4 mg PO DAILY 07/05/20 04/16/25 Unknown History zolpidem 10 mg tablet 10 mg PO BEDTIME PRN Insomnia 11/29/22 04/16/25 Unknown History cholecalciferol (vitamin D3) 50 50 mcg PO DAILY 05/23/24 04/16/25 Unknown History mcg (2,000 unit) capsule (Vitamin D3) ferrous sulfate 325 mg (65 mg 325 mg PO DAILY 05/23/24 04/16/25 04/09/25 History iron) tablet,delayed release quetiapine 25 mg tablet 25 mg PO BEDTIME 05/23/24 04/16/25 Unknown History metformin 500 mg tablet,extended 500 mg PO QPM 01/26/25 04/16/25 Unknown History release 24 hr methadone 10 mg tablet 140 mg PO DAILY 01/26/25 04/16/25 04/16/25 History Exam Exam Date and Time: 04/16/25 1555 Height,Weight and Vital Signs: Height 5 ft 7 in Weight 86.183 kg Vital Signs Temperature 97.5 F 04/16/25 13:05 Pulse Rate 92 04/16/25 13:05 Respiratory Rate 18 04/16/25 13:05 Blood Pressure 109/88 04/16/25 13:05 Pulse Oximetry 95 04/16/25 13:05 Oxygen Delivery Method Room Air 04/16/25 13:05 Temperature 97.5 F 04/16/25 13:05 Pulse Rate 92 04/16/25 13:05 Respiratory Rate 18 04/16/25 13:05 Blood Pressure 109/88 04/16/25 13:05 Pulse Oximetry 95 04/16/25 13:05 Oxygen Delivery Method Room Air 04/16/25 13:05 Airway Mallampati Class: II TM Dist: >3cm Neck ROM: Limited Loose/Missing/Broken Teeth: Yes (multiple missing teeth) Heart: S1S2 Lungs: CTAB Assessment and Plan Assessment Anesthesia Assessment: Anesthesia Plan Discussed and Chart Reviewed Final Anesthetic Review Family History of Problems with Anesthesia: No History of Problems with Anesthesia: No NPO: Yes ASA Class: III Final Preanesthetic Review: No Changes in Pt Med Stat, Meds/Allgs Chart Reviewed, Consent Obtained/Reviewed and Anes Risks/Benef Reviewed Patient Risk: Intermediate Procedure Risk: Low Anesthetic Plan Anesthetic Plan: MAC: and Agree w/ Assess. and Plan Disposition: Standard PACU
--- NOTE | 2025-04-16 16:24 | P.OPN-COLO_ITS ---
Colonoscopy Operative Note Operative Note Date of Service: 04/16/25 Narrative: Operative Information Procedure Description: Colonoscopy Indication: screening Anesthesia: MAC COLONOSCOPY Instrument: Olympus variable stiffness pediatric scope 190L Colonoscopy Monitoring: Vital signs and clinical assessment, continuous EKG monitoring, Pulse oximetry, Carbon Dioxide monitoring and blood pressure monitoring were done throughout the procedure. Colon withdrawal time was 10 minutes. Procedure: The patient was placed in the left lateral decubitis position and pre-procedure medications were administered. After a digital rectal examination of the ano-rectum, the video colonoscope was inserted into the rectum and advanced through the colon to the cecum/TI. The colonoscope was slowly withdrawn in a retrograde panoramic fashion and the colon mucosa was carefully examined including a retroflexed view of the rectum. Findings and interventions are described below. Procedure Difficulty: moderate Findings: Terminal Ileum-not intubated Cecum:normal Ascending Colon: normal Transverse Colon -normal Descending Colon:normal Sigmoid Colon: normal Rectum: Retroflexion with small to medium internal hemorrhoids seen, grade I with skin tag Anorectum - normal Intervention: none Colon preparation: [place] Bowel Preparation Scale Right colon; 1 Transverse colon: 1 Left colon; 2 (0 = Unprepared colon segment with mucosa not seen due to solid stool that cannot be cleared. 1 = Portion of mucosa of the colon segment seen, but other areas of the colon segment not well seen due to staining, residual stool and/or opaque liquid. 2 = Minor amount of residual staining, small fragments of stool and/or opaque liquid, but mucosa of colon segment seen well. 3 = Entire mucosa of colon segment seen well with no residual staining, small fragments of stool or opaque liquid) Impression and Post Procedure Diagnosis: internal hemorrhoids Plan: High fiber diet leaflet Avoid straining at stool, epsom salts and sitz bath, anusol supps or cream Repeat Colonoscopy in 6-12 months or earlier if clinically indicated, review prep again with him in the office Above findings were reviewed with the patient and relevant handouts were provided if indicated.
[2025-04-16 16:28] VITALS: BP 112/62; PULSE 75; RESP 14; TEMP 36.3; O2SAT 98
[2025-04-16 16:43] VITALS: BP 167/64; PULSE 77; RESP 18; TEMP 36.4; O2SAT 97
== END 2025-04-16 17:02 | disposition home or self-care (01) ==
PROVIDERS: PCP Family Medicine; Visit Provider Internal Medicine Gastroenterology
PROC: 0DJD8ZZ Inspection of Lower Intestinal Tract, Via Natural or Artificial Opening Endoscopic (ICD-10-PCS; CPT 45378; principal; 2025-04-16 15:10)
DX: Z12.11 Encounter for screening for malignant neoplasm of colon (principal); K64.0 First degree hemorrhoids; K64.4 Residual hemorrhoidal skin tags; K59.09 Other constipation; E11.9 Type 2 diabetes mellitus without complications; I10 Essential (primary) hypertension; E78.5 Hyperlipidemia, unspecified; D64.9 Anemia, unspecified; Z87.891 Personal history of nicotine dependence; Z79.899 Other long term (current) drug therapy; Z79.02 Long term (current) use of antithrombotics/antiplatelets; Z79.82 Long term (current) use of aspirin; Z79.84 Long term (current) use of oral hypoglycemic drugs
CPT/HCPCS: G0121; 82947; J2003; J2704

== ENCOUNTER → 2025-04-16 12:04 | Outpatient (BNV) | payer OTHER, SELFPAY | PROVIDERS: PCP Family Medicine; Visit Provider Internal Medicine Gastroenterology | DX: Z12.11 Encounter for screening for malignant neoplasm of colon (principal); R93.3 Abnormal findings on diagnostic imaging of other parts of digestive tract; K64.0 First degree hemorrhoids; K64.4 Residual hemorrhoidal skin tags | CPT/HCPCS: G0121 ==

== ENCOUNTER 2025-06-11 10:20 | Outpatient (REF) | payer OTHER, SELFPAY ==
--- OUTSIDE RECORDS SUMMARY | 2025-06-11 10:00 | XMS_ITS | Encounter Summary ---
Author Organization [employer] Address [address] [facility] [address] [place] [address] Care Team Providers Care Mechanical Tech Name Role Phone Katarzyna Sahu MD Primary Care Provider [phone] Encounter Details Date Type Department Care Team ([facility] st Contact Info) Description 06/11/2025 10:00 AM EDT Office Visit [facility] [address] [place], [place] [phone] Katarzyna Sahu MD [address] [place], [place] [phone] Essential hypertension (Primary Dx); Diabetes mellitus type 2, controlled (HCC); Ischemic heart disease; Dyslipidemia; Mood disorder (CMS/HCC); Current moderate episode of major depressive disorder, unspecified whether recurrent (CMS/HCC) (HCC); Encounter for immunization; Anemia in other chronic diseases classified elsewhere Social History Tobacco Use Types Packs/Day Years [...] housing situation today? I have дмитрий harris 06/11/[address] you li ve. Do you have problems with any of the following? None of the above 06/11/2025 Food Insecurity Answer Date Recorded Within the past 12 months, y ou worried that your food would run out before you got money to buy more: Never True 06/11/2025 Within the past 12 months,th e food you bought just didn't last and you didn't have enough money to get more: Never True Transportation Answer Date Recorded In the past 12 months, has l ack of transportation kept you from medical appts, meetings, work or from getting things needed for daily living? No 06/11/2025 Utilities Answer Date Recorded In the past 12 months, has t he [employer], gas, oil or water company threatened to shut off services in your home? No 06/11/2025 Depression Answer Date Recorded Patient Health Questionnaire-2 Score 0 09/16/2024 Internet Access Answer Date Recorded Internet Access Q1 Yes 06/11/2025 Internet Access Q2 Not on file 06/11/2025 Sex and Gender Information Value Date Recorded Sex Assigned at Male 06/12/2022 10:14 AM EDT Legal Sex Male 10:14 AM EDT Gender Identity Male 06/12/2022 10:14 AM EDT Sexual Orientation Straight 06/12/2022 10 :14 AM EDT documented as of this encounter Last Filed Vital Signs Vital Sign Reading Time Taken Comments Blood Pressure 130/80 06/11/2025 9:52 AM EDT Pulse 93 06/11/2025 9:52 AM EDT Temperature 34.8 C (94.6 F) 06/11/2025 9:52 AM EDT Respiratory Rate 15 06/11/2025 9:52 AM EDT Oxygen Saturation 99% 06/11/2025 9:52 AM EDT Inhaled Oxygen Concentration - - Weight - - Height - - Body Mass Index - - documented in this encounter Miscellaneous Notes * Assessment & Plan Note - Katarzyna Sahu MD - 06/11/2025 9:43 AM EDTAssociated Problem(s): Depression - Currently taking quetiapine 400 mg at bedtime - Discontinue quetiapine 25 mg prn anxiety during the day, per patient's request - Agreed to follow ASSISTANT FINANCIAL ACCOUNTANT monitoring for zolpidem - Continue zolpidem 10 mg qhs - Discussed about its potential side effects. Pt understands and would like to take it. * Assessment & Plan Note - Katarzyna Sahu MD - 06/11/2025 9:42 AM EDTAssociated Problem(s): Mood disorder (CMS/HCC) Currently taking quetiapine 400 mg at bedtime Discontinue quetiapine 25 mg prn anxiety during the day, per patient's request Agreed to follow ASSISTANT FINANCIAL ACCOUNTANT monitoring for zolpidem Continue zolpidem 10 mg qhs Discussed about its potential side effects. Pt understands and would like to take it. * Assessment & Plan Note - Katarzyna Sahu MD - 06/11/2025 5:29 AM EDTAssociated Problem(s): Dyslipidemia - current medication: atorvastatin 20 mg at bedtime, consider intensifying stating in near future - last lipid profile: 09/28/23 LDL 88, ideal goal is < 70 - continue lifestyle modifications * Assessment & Plan Note - Katarzyna Sahu MD - 06/11/2025 5:28 AM EDTAssociated Problem(s): Ischemic heart disease Followed by [facility] last seen by Dr. Way in January 2025 Abnormal stress test and elevated tropnin in Mar 2016, small area of ischemia in apical and lateralbranch vessel distribution. Declined stress test in November 2022 Continue BB, ACEI, and ASA. Continue working on lifestyle modifications, consider GLP-1 RA. Relative contraindication to SGLT-2i due to urinary symptoms * Assessment & Plan Note - Katarzyna Sahu MD - 06/10/2025 4:36 PM EDTAssociated Problem(s): Diabetes mellitus type 2, controlled (HCC) - Hgb A1C 5.9% on 12/16/24. Improvement from 6.3% on 09/16/24 - Continue working on lifestyle modifications - Continue checking BG - Continue metformin ER 500 mg daily; consider increasing if A1C continues to increase - Microalbumin test: 09/28/23, no Hx microalbuminuria - Lipid profile: 09/28/23 - Diabetic eye exam: Overdue, pt will schedule - Foot exam: 04/01/24. High-risk. Refer to meat soaker. Terbinafine for tinea pedis. * Assessment & Plan Note - Katarzyna Sahu MD - 06/10/2025 4:35 PM EDTAssociated Problem(s): Essential hypertension Goal BP < 130/80 per ACC/AHA guidelines BP well-controlled today Continue working on lifestyle modifications Continue lisinopril 20 mg daily Continue metoprolol succinate 25 mg daily Update EKG periodically due to concern for QTc prolongation Follow-up with research consultant as scheduled documented in this encounter Plan of Treatment Pending Results Name Type Priority Associated Diagnoses Date /Time Lipid Panel with Reflex to Direct LDL Lab Routine Dyslipidemia 06/11/2025 10:27 AM EDT Comprehensive Metabolic Panel Lab Routine Essential hypertension 06/11/2025 10:27 AM EDT Ferritin Lab Routine Anemia in other chronic diseases classified elsewhere 06/11/2025 10:27 AM EDT Iron And Total Iron Binding Capacity Lab Routine Anemia in other chronic diseases classified elsewhere 06/11/2025 10:27 AM EDT Scheduled Orders Name Type Priority Associated Diagnoses Orde r Schedule Vitamin B12 (Cobalamin) and Folate Panel, Serum Lab Routine Anemia in other chronic diseases classified elsewhere Expected: 06/11/2025 (Approximate), Expires: 06/11/2026 Albumin, Random Urine W/Creatinine Lab Routine Diabetes mellitus type 2, controlled (HCC) Expected: 06/11/2025 (Approximate), Expires: 06/11/2026 documented as of this encounter Procedures Procedure Name Priority Date/Time Associated Diagnosis Comments LIPID PANEL WITH REFLEX TO DIRECT LDL Routine 06/11/2025 10:27 AM EDT Dyslipidemia CBC WITH AUTO DIFFERENTIAL Routine 06/11/2025 10:27 AM EDT Anemia in other chronic diseases classified elsewhere IRON AND TOTAL IRON BINDING CAPACITY Routine 06/11/2025 10:27 AM EDT Anemia in other chronic diseases classified elsewhere RETICULOCYTE COUNT Routine 06/11/2025 10 :27 AM EDT Anemia in other chronic diseases classified elsewhere FERRITIN Routine 06/11/2025 10:27 AM EDT Anemia in other chronic diseases classified elsewhere COMPREHENSIVE METABOLIC PANEL Routine 06/11/2025 10:27 AM EDT Essential hypertension POCT GLYCOSYLATED HEMOGLOBIN (HGB A1C) Routine 06/11/2025 9:55 AM EDT Diabetes mellitus type 2, controlled (HCC) POCT GLUCOSE Routine 06/11/2025 9:54 AM EDT Diabetes mellitus type 2, controlled (HCC) documented in this encounter Results * (ABNORMAL) CBC auto differential (06/11/2025 10:27 AM EDT) White Blood Count 8.2 4.8 - 10.8 X10*3/uL [facility] Red Blood Count 3.40(L) 4.60 - 5.80 X10*6/uL [facility] Hemoglobin 9.5(L) 14.0 - 18.0 g/dl [facility] Hematocrit 30.7(L) 42.0 - 52.0 % [facility] Mean Corpuscular Volume 90.3 80.0 - 98.0 fL [facility] Mean Corpuscular Hemoglobin 27.9 27.0 - 33.0 pg [facility] Mean Corpuscular HGB Conc 30.9(L) 31.0 - 36.0 g/dl [facility] Red Cell Distribution Width 13.4 11.0 - 16.0 % [facility] Platelet Count 323 160 - 400 X10*3/uL [facility] Mean Platelet Volume 11.3 9.4 - 12.4 fL [facility] Neutrophils Percent Auto 76.2(H) 45 - 73 % [facility] Imm Gran Pct Auto 0.4 0.0 - 0.4 % [facility] Lymphocytes Percent Auto 16.5(L) 20 - 40 % [facility] Monocytes Percent Auto 5.7 2 - 11 % [facility] Eosinophils Percent Auto 0.6 0 - 4 % [facility] Basophils Percent Auto 0.6 0 - 2 % [facility] NRBC Pct Auto 0.0 0.0 - 0.2 /100WBC [facility] Neutrophils Absolute Auto 6.3 2.0 - 8.3 x10*3/uL [facility] Imm Gran Abs Auto 0.03 0.00 - 0.03 X10*3/uL [facility] Lymphocytes Absolute Auto 1.4 1.2 - 4.9 X10*3/uL [facility] Monocytes Absolute Auto 0.5 0.1 - 1.2 X10*3/uL [facility] Eosinophils Absolute Auto 0.1 0.0 - 0.4 X10*3/uL [facility] Basophils Absolute Auto 0.1 0.0 - 0.2 X10*3/uL [facility] NRBC Abs Auto 0.000 0.0 - 0.012 X10*3/uL [facility] Blood Venous blood specimen / Unknown 06/11/2025 10:27 AM EDT 06/11/2025 11:24 AM EDT us Katarzyna Sahu MD LAB BLOOD ORDERABLES Final Resul t [facility] [address] [place] [phone] * (ABNORMAL) Reticulocyte Count (06/11/2025 10:27 AM EDT) Reticulocytes Absolute 0.063 0.026 - 0.095 X10*6/uL [facility] Immature Retic Fraction 12.7 2.3 - 13.4 % [facility] Retic HGB Equivalent 28.1(L) 30.0 - 35.0 pg [facility] Reticulocyte Percent 1.9(H) 0.5 - 1.8 % [facility] Blood Venous blood specimen / Unknown 06/11/2025 10:27 AM EDT 06/11/2025 11:24 AM EDT Katarzyna Sahu MD LAB BLOOD ORDERABLES Final Resul t [facility] [address] [place] [phone] * (ABNORMAL) POCT glycosylated hemoglobin (Hgb A1c) (06/11/2025 9:55 AM EDT) Hemoglobin A1C 6.3(A) 4.0 - 5.7 % [employer] Lot # [id number] Lot# Expiration Date ,027 Blood Capillary blood specimen / Unknown 06/11/2025 9:55 AM EDT Katarzyna Sahu MD POINT OF CARE TEST ENTER/EDIT OR DERABLES Final Result * POCT glucose manually resulted (06/11/2025 9:54 AM EDT) Glucose Blood, POC 149 60 - 200 mg/dL [employer] Lot # [id number] Lot# Expiration Date 3,026 Blood Capillary blood specimen / Unknown 06/11/2025 9:54 AM EDT Katarzyna Sahu MD POINT OF CARE TEST ENTER/EDIT OR DERABLES Final Result documented in this encounter Visit Diagnoses Diagnosis Essential hypertension- Primary Unspecified essential hypertension Diabetes mellitus type 2, controlled (HCC) Type II or unspecified type diabetes mellitus without mention of complication, not stated as uncontrolled Ischemic heart disease Other specified forms of chronic ischemic heart disease Dyslipidemia Other and unspecified hyperlipidemia Mood disorder (CMS/HCC) Unspecified episodic mood disorder Current moderate episode of major depressive disorder, unspecified whether recurrent (CMS/HCC) (HCC) Encounter for immunization Anemia in other chronic diseases classified elsewhere documented in this encounter Additional Health Concerns Assessment Noted Time PHQ-9 Depression Total Score: 0 09/16/19 25 11:19 AM EST documented as of this encounter Care Teams Mechanical Tech Relationship Specialty Start Date End Date Katarzyna Sahu MD [address] [place] [address] PCP - General Family Medicine 06/12/12 [facility] 07/28/22 documented as of this encounter
[2025-06-11 11:31] LABS: MANUAL DIFF FLAG NO
[2025-06-11 11:44] LABS: Hematocrit 30.7 % (42.0-52.0); Hemoglobin 9.5 g/dl (14.0-18.0); Imm Gran Abs Auto 0.03 X10*3/uL (0.00-0.03); Imm Gran Pct Auto 0.4 % (0.0-0.4); Lymphocytes Absolute Auto 1.4 X10*3/uL (1.2-4.9); Mean Corpuscular HGB Conc 30.9 g/dl (31.0-36.0); Mean Corpuscular Hemoglobin 27.9 pg (27.0-33.0); Mean Corpuscular Volume 90.3 fL (80.0-98.0); NRBC Abs Auto 0.000 X10*3/uL (0.0-0.012); NRBC Pct Auto 0.0 /100WBC (0.0-0.2); Platelet Count 323 X10*3/uL (160-400); Red Blood Count 3.40 X10*6/uL (4.60-5.80); Reticulocytes Absolute 0.063 X10*6/uL (0.026-0.095); White Blood Count 8.2 X10*3/uL (4.8-10.8)
[2025-06-11 12:05] LABS: Alanine Aminotransferase 12 U/L (0-40); Albumin Level 4.1 g/dL (3.5-5.0); Alkaline Phosphatase 118 U/L (39-117); Anion Gap 11 (12-20); Aspartate Amino Transferase 21 U/L (5-37); Blood Urea Nitrogen 18 mg/dL (9-16); Calcium 9.4 mg/dL (8.4-10.2); Carbon Dioxide 31 mmol/L (22-29); Chloride 104 mmol/L (96-108); Cholesterol 136 mg/dL (<200); Estimated Glomerular Filt Rate 59; HDL Cholesterol 44 mg/dL (>40); Iron 33 mcg/dL (45-160); Percent Iron Saturation 11 % (15-50); Potassium 4.6 mmol/L (3.3-5.1); Sodium 141 mmol/L (135-145); Total Iron Binding Capacity 291 mcg/dL (228-428); Total Protein 7.3 g/dL (6.5-8.0); Triglycerides 105 mg/dL (<150); Unsaturated Iron Binding 258 ug/dL
[2025-06-11 12:24] LABS: Ferritin 20 ng/mL (20-250)
[2025-06-11 12:29] LABS: Reflex LDLD? No
--- OUTSIDE RECORDS SUMMARY | 2025-06-11 12:30 | XMS_ITS | Encounter Summary ---
Author Organization [employer] Address [address] [facility] [address] [place] [address] Care Team Providers Care Legal Summer Intern Name Role Phone Katarzyna Sahu MD Primary Care Provider [phone] Reason for Visit * Reason Comments Med Refill Encounter Details Date Type Department Care Team (Late st Contact Info) Description 06/15/2023 Refill [facility] [address] [place], [place] [phone] Katarzyna Sahu MD [address] [place], [place] [phone] Psychophysiological insomnia Social History Tobacco Use Types [...] the past 12 months, has t he [employer], gas, oil or water company threatened to [...] documented as of this encounter Care Teams Legal Summer Intern Relationship Specialty Start Date End Date Katarzyna Sahu MD [address] [place] [address] PCP - General Family Medicine 06/12/12 [facility] 07/28/22 documented as of this encounter
--- OUTSIDE RECORDS SUMMARY | 2025-06-11 12:30 | XMS_ITS | Clinical Summary ---
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 Dry [...] complication, without long-term current use of insulin (HCC) TEST BLOOD SUGAR ONCE DAILY DIRECTED 100 each 3 09/19/19 24 Active Blood Glucose Monitoring Suppl (FreeStyle Lite) w/Device kitIndications :Controlled type 2 diabetes mellitus without complication, without long-term current use of insulin ([facility]) 1 each in the morning. Check your sugar once daily before breakfast 1 kit 09/19/19 24 Active metFORMIN XR (Glucophage-XR ) 500 MG 24 hr tablet TAKE 1 TABLET BY MOUTH EVERY EVENING WITH FOOD 30 tablet 09/30/19 25 Active Lancets (Unilet Micro-Thin 33G) miscIndication s:Type 2 diabetes mellitus without complication, without long-term current use of insulin ([facility]) USE TO TEST BLOOD SUGAR ONCE DAILY 100 each 11/04/19 25 Active glucose blood (FREESTYLE LITE) test stripIndicatio ns:Type 2 diabetes mellitus without complication, without long-term current use of insulin ([facility]) USE TO TEST BLOOD SUGAR [...] EVENING 30 capsule 5 01/20/20 25 Active lisinopril 20 MG tablet Take 1 tablet (20 mg) by mouth in the morning. 90 tablet 02/06/20 25 Active Aspirin Low Dose 81 MG EC tablet Take 1 tablet (81 mg) by mouth in the morning. 90 tablet 02/06/20 25 Active Acetaminophen Extra Strength 500 MG tablet TAKE 2 TABLETS BY MOUTH EVERY 8 HOURS NEEDED FOR PAIN 90 tablet 1 02/17/20 25 Active zolpidem (Ambien) 10 MG tabletIndicati ons:Psychophys iological insomnia TAKE 1 TABLET BY MOUTH AT BEDTIME NEEDED FOR SLEEP 30 tablet 3 03/02/20 25 Active D3 Super Strength 50 MCG (2000 UT) capsule TAKE 1 CAPSULE BY MOUTH EVERY MORNING 90 capsule 3 03/19/20 25 Active ferrous sulfate 325 (65 Fe) MG EC tablet TAKE 1 TABLET BY MOUTH EVERY MORNING WITH BREAKFAST DO NOT BREAK, CRUSH, DISSOLVE OR CHEW 90 tablet 05/25/20 25 Active ferrous sulfate 325 (65 Fe) MG EC tablet TAKE 1 TABLET BY MOUTH EVERY MORNING WITH BREAKFAST DO NOT BREAK, CRUSH, DISSOLVE OR CHEW 90 tablet 07/05/02 25 025 Discontinued Active Problems Problem Noted Date Diagnosed Date Depression 05/14/2025 Assessment & Plan (06/11/2025 9:43 AM EDT): - Currently taking quetiapine 400 mg at bedtime - Discontinue quetiapine 25 mg prn anxiety during the day, per patient's request - Agreed to follow [employer] monitoring for zolpidem - Continue zolpidem 10 mg qhs - Discussed about its potential side effects. Pt understands and would like to take it. Insomnia 05/14/2025 Hepatitis C antibody test positive 04/06/2024 Assessment [...] Plan (09/23/2024 10:28 AM EST): Followed by law firm partner, Dr. Guevara. Upcoming appointment for colonoscopy Assessment & Plan (12/18/2023 2:05 PM EDT): Followed by law firm partnerDr. Guevara. 10/20/22 Hgb 11.7; hematocrit 35 Advised to schedule a follow visit Assessment & Plan (09/24/2023 11:36 AM EST): Followed by law firm partnerDr. Guevara. 10/20/22 Hgb 11.7; hematocrit 35 Advised to schedule a follow visit Assessment & Plan (10/11/2022 11:06 AM EST): Followed by law firm partner, Dr. Guevara. Advised to schedule a follow visit Assessment & Plan (07/25/2022 11:45 AM EST): Followed by law firm partner, Dr. Guevara. Advised to schedule a follow visit History of open reduction an d internal fixation (ORIF) procedure 07/15/2022 Chronic back pain 08/09/2016 Assessment & Plan (09/23/2024 10:30 AM EST): - back exercise - judicious use of APAP prn Ischemic heart disease 04/24/2016 Assessment & Plan (06/11/2025 5:28 AM EDT): Followed by [facility] Cardiology last seen by Dr. Way in January 2025 Abnormal stress test and elevated tropnin in Mar 2016, small area of ischemia in apical and lateral branch vessel distribution. Declined stress test in November 2022 Continue BB, ACEI, and ASA. Continue working on lifestyle modifications, consider GLP-1 RA. Relative contraindication to SGLT-2i due to urinary symptoms Assessment & Plan (12/16/2024 1:47 PM EDT): Followed by [facility] Cardiology last seen by Dr. Way in [...] Plan (09/23/2024 10:25 AM EST): Followed by [facility] Cardiology last seen by Dr. Way in [...] Plan (04/06/2024 3:55 PM EDT): Followed by [facility] Cardiology last seen in November 2022 Abnormal stress test and elevated tropnin in Mar 2016, small area of ischemia in apical and lateral branch vessel distribution. Declined stress test in November 2022 Continue BB, ACEI, and ASA. Continue working on lifestyle modifications, consider GLP-1 RA. Relative contraindication to SGLT-2i due to urinary symptoms Assessment & Plan (12/18/2023 2:04 PM EDT): Followed by [facility] Cardiology last seen in November 2022 Abnormal stress test and elevated tropnin in Mar 2016, small area of ischemia in apical and lateral branch vessel distribution. Declined stress test in November 2022 Continue BB, ACEI, and ASA. Assessment & Plan (09/24/2023 11:27 AM EST): Followed by [facility] Cardiology last seen in November 2022 Abnormal stress test and elevated tropnin in Mar 2016, small area of ischemia in apical and lateral branch vessel distribution. Declined stress test in November 2022 Continue BB, ACEI, and ASA. Assessment & Plan (10/11/2022 11:05 AM EST): Followed by [facility] Cardiology last seen in October 2021 Abnormal stress test and elevated tropnin in Mar 2016, small area of ischemia in apical and lateral branch vessel distribution. Given reassurance by doctor of dental surgery since it is stable. Continue BB, ACEI, and ASA. Assessment & Plan (07/25/2022 11:51 AM EST): Followed by [facility] Cardiology last seen in October 2021 Abnormal stress test and elevated tropnin in Mar 2016, small area of ischemia in apical and lateral branch vessel distribution. Given reassurance by doctor of dental surgery since it is stable. Continue BB, ACEI, and ASA. 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) 0 04/18/2016 Urinary retention 04/18/2016 Assessment & Plan [...] urologist Essential hypertension 06/30/2015 Assessment & Plan (06/10/2025 4:35 PM EDT): Goal BP < 130/80 per ACC/AHA guidelines BP well-controlled today Continue working on lifestyle modifications Continue lisinopril 20 mg daily Continue metoprolol succinate 25 mg daily Update EKG periodically due to concern for QTc prolongation Follow-up with doctor of dental surgery as scheduled Assessment & Plan (12/16/2024 1:47 PM EDT): Goal BP < 140/90 per JNC-8, < 130/80 per ACC/AHA guidelines BP well-controlled today Continue working on lifestyle modifications Continue lisinopril 20 mg daily Continue metoprolol succinate 25 mg daily Update EKG periodically due to concern for QTc prolongation Follow-up with doctor of dental surgery as scheduled Assessment & Plan (09/23/2024 10:26 AM EST): Goal BP < 140/90 per JNC-8, < 130/80 per ACC/AHA guidelines BP well-controlled today Continue working on lifestyle modifications Continue lisinopril 20 mg daily Continue metoprolol succinate 25 mg daily Update EKG periodically due to concern for QTc prolongation Follow-up with doctor of dental surgery as scheduled Assessment & Plan (04/01/2024 10:23 AM EDT): Goal BP < 140/90 per JNC-8, < 130/80 per ACC/AHA guidelines BP borderline Continue working on lifestyle modifications Continue lisinopril 20 mg daily Continue metoprolol succinate 25 mg daily Update EKG periodically due to concern for QTc prolongation Follow-up with doctor of dental surgery as scheduled Follow up with us in 3-6 mo, or sooner if any problem arises. Assessment & Plan (12/18/2023 1:53 PM EDT): Goal BP < 140/90 per JNC-8, < 130/80 per ACC/AHA guidelines BP borderline Continue working on lifestyle modifications Continue lisinopril 20 mg daily Continue metoprolol succinate 25 mg daily Update EKG periodically due to concern for QTc prolongation Follow-up with doctor of dental surgery as scheduled Follow up with us in 3-6 mo, or sooner if any problem arises. Assessment & Plan (09/24/2023 11:27 AM EST): Goal BP < 140/90 per JNC-8, < 130/80 per ACC/AHA guidelines BP borderline Continue working on lifestyle modifications Continue lisinopril 20 mg daily Continue metoprolol succinate 25 mg daily Update EKG periodically due to concern for QTc prolongation Follow-up with doctor of dental surgery as scheduled Follow up with us in [...] to concern for QTc prolongation Follow-up with doctor of dental surgery as scheduled Follow up with us in [...] to concern for QTc prolongation Follow-up with doctor of dental surgery as scheduled Follow up with us in 3-6 mo, or sooner if any problem arises. Diabetes mellitus type 2, controlled 12/11/2012 Assessment & Plan (06/10/2025 4:51 PM EDT): - Hgb A1C 5.9% on 12/16/24. Improvement from 6.3% on 09/16/24 - Continue working on lifestyle modifications - Continue checking BG - Continue metformin ER 500 mg daily; consider increasing if A1C continues to increase - Microalbumin test: 09/28/23, no Hx microalbuminuria - Lipid profile: 09/28/23 - Diabetic eye exam: Overdue, pt will schedule - Foot exam: 04/01/24. High-risk. Refer to [employer] former supervisor. Terbinafine for tinea pedis. Assessment & Plan (12/16/2024 2:58 PM EDT): Dx Hgb A1C 5.9% on 12/16/24. Improvement from 6.3% on 09/16/24 Continue working on lifestyle modifications Continue checking BG Continue metformin ER 500 mg daily; consider increasing if A1C continues to increase Microalbumin test: 09/28/23, no Hx microalbuminuria Lipid profile: 09/28/23 Diabetic eye exam: Overdue, pt will schedule Foot exam: 04/01/24. High-risk. Refer to [employer] former supervisor. Edelmirabinafine for tinea pedis. Assessment & Plan (09/16/2024 1:01 PM EST): Dx Hgb A1C 6.3% on 09/16/24 Continue working on lifestyle modifications Continue checking BG Continue metformin ER 500 mg daily; consider increasing if A1C continues to increase Microalbumin test: 09/28/23, no Hx microalbuminuria Lipid profile: 09/28/23 Diabetic eye exam: Overdue, pt will schedule Foot exam: 04/01/24. High-risk. Refer to [employer] former supervisor. Edelmirabinafine for tinea pedis. Assessment & Plan (04/01/2024 10:39 AM EDT): Dx Hgb A1C 6.5% on 04/01/24 Continue working on lifestyle modifications Continue checking BG Continue metformin ER 500 mg daily; consider increasing if A1C continues to increase Microalbumin test: 09/28/23, no Hx microalbuminuria Lipid profile: 09/28/23 Diabetic eye exam: Overdue, pt will schedule Foot exam: 04/01/24. High-risk. Refer to [employer] former supervisor. Terbinafine for tinea pedis. Assessment & Plan (12/18/2023 1:52 PM EDT): Dx Hgb A1C 6.1% on 12/18/23 Continue working on lifestyle modifications Continue checking BG Continue metformin ER 500 mg daily; consider increasing if A1C continues to increase Microalbumin test: Overdue, no Hx microalbuminuria Lipid profile: 10/20/22 Diabetic eye exam: Overdue, pt will schedule Foot exam: 07/24/22. High-risk. Refer to [employer] former supervisor. Terbinafine for tinea pedis. Assessment & Plan [...] schedule Foot exam: 07/24/22. High-risk. Refer to [employer] former supervisor. Terbinafine for tinea pedis. Assessment & Plan [...] schedule Foot exam: 07/24/22. High-risk. Refer to [employer] former supervisor. Terbinafine for tinea pedis. Assessment & Plan (07/25/2022 11:54 AM EST): Dx Hgb A1C 6.4% On 07/24/22 Continue working on lifestyle modifications Continue checking BG Continue metformin ER 500 mg daily Microalbumin test: Overdue, no Hx microalbuminuria Lipid profile: Overdue Diabetic eye exam: Overdue, pt will schedule Foot exam: 07/24/22. High-risk. Refer to [employer] former supervisor. Terbinafine for tinea pedis. Dyslipidemia 12/11/2012 Assessment & Plan (06/11/2025 5:29 AM EDT): - current medication: atorvastatin 20 mg at bedtime, consider intensifying stating in near future - last lipid profile: 09/28/23 LDL 88, ideal goal is < 70 - continue lifestyle modifications Assessment & Plan (09/16/2024 7:13 PM EST): [...] modifications Mood disorder 12/11/2012 Assessment & Plan (06/11/2025 9:42 AM EDT): Currently taking quetiapine 400 mg at bedtime Discontinue quetiapine 25 mg prn anxiety during the day, per patient's request Agreed to follow [employer] monitoring for zolpidem Continue zolpidem 10 mg qhs Discussed about its potential side effects. Pt understands and would like to take it. Assessment & Plan (12/16/2024 1:48 PM EDT): Currently taking quetiapine 400 mg at bedtime Discontinue quetiapine 25 mg prn anxiety during the day, per patient's request Agreed to follow [employer] monitoring for zolpidem Continue zolpidem 10 mg qhs Discussed about its potential side effects. Pt understands and would like to take it. Assessment & Plan (09/16/2024 7:13 PM EST): Currently taking quetiapine 400 mg at bedtime Discontinue quetiapine 25 mg prn anxiety during the day, per patient's request Agreed to follow [employer] monitoring for zolpidem Continue zolpidem 10 mg qhs Discussed about its potential side effects. Pt understands and would like to take it. Assessment & Plan (04/01/2024 10:41 AM EDT): Currently taking quetiapine 400 mg at bedtime Discontinue quetiapine 25 mg prn anxiety during the day, per patient's request Agreed to follow [employer] monitoring for zolpidem Continue zolpidem 10 mg qhs Discussed about its potential side effects. Pt understands and would like to take it. Assessment & Plan (09/24/2023 11:30 AM EST): Currently taking quetiapine 400 mg at bedtime Add quetiapine 25 mg prn anxiety during the day Agreed to follow [employer] monitoring for zolpidem Continue zolpidem 10 mg qhs Discussed about its potential side effects. Pt understands and would like to take it. Assessment & Plan (10/11/2022 4:32 PM EST): Currently taking quetiapine 400 mg at bedtime Agreed to follow [employer] monitoring for zolpidem Agreed to increase zolpidem to 10 mg at bedtime; discussed about its judicious and responsible use Discussed about its potential side effects. Pt understands and would like to take it. Assessment & Plan (07/25/2022 11:55 AM EST): Currently taking quetiapine 400 mg at bedtime Agreed to follow [employer] monitoring for zolpidem Start zolpidem 5 mg at bedtime Discussed about its potential side effects. Pt understands and would like to take it. 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 Resolved Problems Problem Noted Date Diagnosed Date Resolved Date History of fracture 07/15/2022 07/25/20 22 Overview (07/15/2022): S/p closed fx of right femur per previous EHR onset date 02/25/18 Encounters Date Type Department Care Team Description 06/11/2025 10:00 AM EDT Office Visit [facility] [address] [place] [phone] Katarzyna Sahu MD Essential hypertension (Primary Dx); Diabetes mellitus type 2, controlled (HCC); Ischemic heart disease; Dyslipidemia; Mood disorder (CMS/HCC); Current moderate episode of major depressive disorder, unspecified whether recurrent (CMS/HCC) (HCC); Encounter for immunization; Anemia in other chronic diseases classified elsewhere 06/11/2025 Travel 06/10/2025 Telephone [facility] [address] [place] [phone] Katarzyna Sahu MD chart prep 05/24/2025 Refill [facility] [address] [place] [phone] Katarzyna Sahu MD 05/14/2025 Telephone [facility] [address] [place] [phone] Katarzyna Sahu MD 05/13/2025 Telephone [facility] [address] [place] [phone] Katarzyna Sahu MD PA question 05/11/2025 Telephone [facility] [address] [place] [address] Katarzyna Sahu MD Prior Authorization 05/01/2025 Telephone [facility] [address] [place] [phone] Katarzyna Sahu MD Prior Auth Prescription 04/17/2025 Telephone [facility] [address] [place] [address] Angelique Young [place] 04/16/2025 Orders Only GENERIC EXTERNAL DATA DEPARTMENT Provider, Generic External Data 03/19/2025 Refill [facility] [address] [place] [address] Katarzyna Sahu MD from Last 3 Months Immunizations Immunization Administration Dates Next Due Hep B, adult 02/25/2018,06/30/2015,03/30/2015 Influenza injectable quadriv alent IIV4 with preservative 06/30/2015 Influenza injectable quadriv alent preservative free 09/19/2023,09/08/2019,08/09/2016 Influenza, High Dose Seasona l, Preservative Free 06/11/2025,09/16/2024 Influenza, IIV3, injectable 05/12/2014 Moderna Covid-19 Vaccine 12+ 11/24/2020,10/28/19 21 Pfizer Covid-19 Vaccine 12+ 06/11/2025, 4 Pneumococcal Conjugate PCV 20 09/19/2023 Pneumococcal Polysaccharide [...] the past 12 months, has t he Posterous, gas, oil or water [employer] threatened to shut off services in your [...] 9:52 AM EDT Oxygen Saturation 99% 06/11/2025 9:5 2 AM EDT Inhaled Oxygen Concentration - - [...] Zoster Vaccines (2 of 3) 06/26/2016 05/01/2016 Diabetes: Urine Protein Screening 09/28/2024 09/28/2023, 12/23/2021 Lipid Panel 09/28/2024 06/11/2025, 09/13, 10/20/2022, Additional history exists Diabetes: Foot Exam 04/01/2025 04/01/2024, 04/01/2024, 04/01/2024, Additional history exists Alcohol/Substance Use Screening 09/16/2025 09/16/2024 Depression Screening 09/16/2025 09/16/2024, 09/16/19 25 Colonoscopy 10/14/2025 10/14/2024, 10/28/2019 Colorectal Cancer Screening 10/14/2025 COVID-19 Vaccine ( season) 2025 06/11/2025, 09/19/2023, 11/24/2020, Additional history exists Diabetes: Hemoglobin A1C 12/10/2025 025, 12/16/2024, 09/16/2024, Additional history exists SDOH Screening 06/11/2026 06/11/2025 Tobacco Screening 06/11/2026 06/11/2025 Eye Exam 07/28/2026 07/28/2024 DTaP/Tdap/Td Vaccines (3 - Td or Tdap) 09/16/2034 09/16/2024, 05/12/2014, 05/13/2004, Additional history exists Hepatitis B Vaccines Completed 02/25/2018, 06/30/2015, 03/30/2015 Pneumococcal Vaccine: 50+ Years Completed 09/19/2023, 02/21/2014, 06/24/2009 Hepatitis C Screening Completed 04/01/2024, 024 Influenza Vaccine Completed 06/11/2025, , 09/19/2023, Additional history exists HIB Vaccines Aged Out [...] Procedure Name Priority Date/Time Associated Diagnosis Comments CBC WITH AUTO DIFFERENTIAL Routine 06/11/2025 10:27 [...] Routine 06/11/2025 10:27 AM EDT Essential hypertension LIPID PANEL WITH REFLEX TO DIRECT LDL Routine 06/11/2025 10:27 AM EDT Dyslipidemia POCT GLYCOSYLATED HEMOGLOBIN (HGB A1C) Routine 06/11/2025 9:55 AM EDT Diabetes mellitus type 2, controlled (HCC) POCT GLUCOSE Routine 06/11/2025 9:54 AM EDT Diabetes mellitus type 2, controlled (HCC) GLUCOSE, WHOLE BLOOD Routine 04/16/2025 1:12 PM EDT COLONOSCOPY Routine 10/14/2024 8:58 AM EST DIABETES EYE EXAM Routine 07/28/2024 HEPATITIS C AB W/REFL TO HCV RNA, QN, PCR Routine 04/01/2024 10:41 AM EDT Hepatitis C antibody test positive ALBUMIN, RANDOM URINE W/CREATININE Routine 09/28/2023 7:30 AM EST Controlled type 2 diabetes mellitus without complication, without long-term current use of insulin (CMS/HCC) from Last 3 Months or Most Recently Relevant to Health Maintenance Results * (ABNORMAL) CBC auto differential (06/11/2025 10:27 AM EDT) White Blood Count 8.2 4.8 - 10.8 X10*3/uL [facility] Red Blood Count 3.40(L) 4.60 - 5.80 X10*6/uL [facility] Hemoglobin 9.5(L) 14.0 - 18.0 g/dl [facility] Hematocrit 30.7(L) 42.0 - 52.0 % [facility] Mean Corpuscular Volume 90.3 80.0 - 98.0 fL [facility] Mean Corpuscular Hemoglobin 27.9 27.0 - 33.0 pg [facility] Mean Corpuscular HGB Conc 30.9(L) 31.0 - 36.0 g/dl [facility] Red Cell Distribution Width 13.4 11.0 - 16.0 % [facility] Platelet Count 323 160 - 400 X10*3/uL [facility] Mean Platelet Volume 11.3 9.4 - 12.4 fL [facility] Neutrophils Percent Auto 76.2(H) 45 - 73 % [facility] Imm Gran Pct Auto 0.4 0.0 - 0.4 % [facility] Lymphocytes Percent Auto 16.5(L) 20 - 40 % [facility] Monocytes Percent Auto 5.7 2 - 11 % [facility] Eosinophils Percent Auto 0.6 0 - 4 % [facility] Basophils Percent Auto 0.6 0 - 2 % [facility] NRBC Pct Auto 0.0 0.0 - 0.2 /100WBC [facility] Neutrophils Absolute Auto 6.3 2.0 - 8.3 x10*3/uL [facility] Imm Gran Abs Auto 0.03 0.00 - 0.03 X10*3/uL [facility] Lymphocytes Absolute Auto 1.4 1.2 - 4.9 X10*3/uL [facility] Monocytes Absolute Auto 0.5 0.1 - 1.2 X10*3/uL [facility] Eosinophils Absolute Auto 0.1 0.0 - 0.4 X10*3/uL [facility] Basophils Absolute Auto 0.1 0.0 - 0.2 X10*3/uL [facility] NRBC Abs Auto 0.000 0.0 - 0.012 X10*3/uL [facility] Blood Venous blood specimen / Unknown 06/11/2025 10:27 AM EDT 06/11/2025 11:24 AM EDT Katarzyna Sahu MD LAB BLOOD ORDERABLES Final Resul t Performing Organization Address [facility] de Phone Number [facility] [address] [place] [address] [phone] * (ABNORMAL) Reticulocyte Count (06/11/2025 10:27 AM EDT) Reticulocytes Absolute 0.063 0.026 - 0.095 X10*6/uL [facility] Immature Retic Fraction 12.7 2.3 - 13.4 % [facility] Retic HGB Equivalent 28.1(L) 30.0 - 35.0 pg [facility] Reticulocyte Percent 1.9(H) 0.5 - 1.8 % [facility] Blood Venous blood specimen / Unknown 06/11/2025 10:27 AM EDT 06/11/2025 11:24 AM EDT Katarzyna aShu MD LAB BLOOD ORDERABLES Final Resul t Performing Organization Address [facility] de Phone Number [facility] [address] [place] [address] [phone] * (ABNORMAL) POCT glycosylated hemoglobin (Hgb A1c) (06/11/2025 9:55 AM EDT) Hemoglobin A1C 6.3(A) 4.0 - 5.7 % QC Media Lot # [id number] Lot# Expiration Date [id number] Blood Capillary blood specimen / Unknown 06/11/2025 9:55 AM EDT Katarzyna Sahu MD POINT OF CARE TEST ENTER/EDIT OR DERABLES Final Result * POCT glucose manually resulted (06/11/2025 9:54 AM EDT) Glucose Blood, POC 149 60 - 200 mg/dL [employer] Media Lot # [id number] Lot# Expiration Date Blood Capillary blood specimen / Unknown 06/11/2025 9:54 AM EDT Katarzyna Sahu MD POINT OF CARE TEST ENTER/EDIT OR DERABLES Final Result * Glucose, Whole Blood (04/16/2025 1:12 PM EDT) Glucose, Whole Blood 80 60 - 115 mg/dL [facility] Comment:METER #: [id number] 04/16/2025 1:12 PM EDT 04/16/2025 1:16 PM EDT Generic External Data Provider LAB BLOOD ORDERAB LES Final Result Performing Organization Address City/State/[facility] Co de Phone Number [facility] [address] [place] [address] [phone] * Colonoscopy (10/14/2024 8:58 AM EST) Historical Provider HEALTH MAINTENANCE Final Result * Diabetes Eye Exam (07/28/2024) Eye Exam Normal Normal 07/28/2024 Historical Provider HEALTH MAINTENANCE Final Result * (ABNORMAL) Hepatitis C Antibody with Reflex to HCV, RNA, Quantitative, Real- Time PCR (04/01/2024 10:41 AM EDT) Hepatitis C Antibody Reactive( A) Nonreactive [facility] Comment:Presumptive evidence of antibodies to HCV. Blood Venous blood specimen / Unknown 04/01/2024 10:41 AM EDT 04/01/2024 11:18 AM EDT us Katarzyna Sahu MD LAB BLOOD ORDERABLES Final Resul t Performing Organization Address [facility] Co de Phone Number [facility] [address] [place] [address] [phone] * Albumin, Random Urine W/Creatinine (09/28/2023 7:30 AM EST) Creatinine, Urine 235.90 mg/dL [facility] Microalbumin Urine <5.0 mg/L [facility] Microalbum Creatinine Ratio Ur TNP <30 ug/mg cr [facility] Comment:Unable to calculate albumin/creatinine ratio due to lowmicroalbumin or creatinine result. Urine 09/28/2023 7:30 AM EST 09/28/2023 11:10 AM EST us Katarzyna Sahu MD LAB URINE ORDERABLES Final Resul t Performing Organization Address [facility] Co de Phone Number [facility] [address] [place] [phone] from Last 3 Months or Most Recently Relevant to Health Maintenance Insurance [facility] CARE HOME OPTIONS (HMO D-SNP) PRUDENCE ANNA [id number] Advance Directives Documents on File Type Date Recorded Patient Database Reporting Consultant Expl anation HealthCare Proxy 12/07/2022 Proxy Care Teams Arch Cushion Press Operator Relationship Specialty Start Date End Date Katarzyna Sahu MD [address] [place] [address] PCP - General Family Medicine 06/12/12 [facility] 07/28/22
--- OUTSIDE RECORDS SUMMARY | 2025-06-11 12:30 | XMS_ITS | Encounter Summary ---
Author Organization [employer] Address 75 [facility] 7t [place] [address] Care Team Providers Care Nurse Clinical Name Role Phone Katarzyna Sahu MD Primary Care Provider [phone] Encounter Details Date Type Department Care Team ([facility] st Contact Info) Description 05/14/2025 Telephone [facility] [address] [place], [place] [phone] Katarzyna Sahu MD [address] [place], [place] [phone] Social History Tobacco Use Types Packs/Day Years [...] Telephone Encounter - Katarzyna Sahu MD - 05/14/2025 12:36 PM EDT Called Mel for PA appeal. Asked questions whether patient had tried doxepin. The selling underwriter statedI do not know, but there was only choice for Yes or No. From patient's medical record, he has been on this medication since 2011 or before, and I do not know since patient was already on this medication when I inherited this patient. Mel will determine and inform us of PA status within 72 hours. Please follow up on the status. Thank you documented in this encounter Plan of Treatment Not on file documented as of this encounter Visit Diagnoses Not on filedocumented in this encounter Additional Health Concerns Assessment Noted Time PHQ-9 Depression Total Score: 0 09/16/19 25 11:19 AM EST documented as of this encounter Care Teams Nurse Clinical Relationship Specialty Start Date End Date Katarzyna Sahu MD [address] [place] [address] PCP - General Family Medicine 06/12/12 [facility] 07/28/22 documented as of this encounter
--- OUTSIDE RECORDS SUMMARY | 2025-06-11 12:30 | XMS_ITS | Encounter Summary ---
Author Organization [employer] Address 75 [facility] 7t [place] [address] Care Team Providers Care Reagent Tender Name Role Phone Katarzyna Sahu MD Primary Care Provider [phone] Reason for Visit * Reason Onset Date Comments Medication Question 02/04/2025 Encounter Details Date Type Department Care Team ([facility] st Contact Info) Description 02/04/2025 Telephone [facility] 230 [place], [place] [phone] Katarzyna Sahu MD 230 [place], [place] [phone] Medication Question Social History Tobacco Use Types [...] PM EDT TC placed to [place] at [facility] who called in to inform PCP [...] 1:13 PM EDT Tc from [place] with [facility] requesting lisinopril 20 MG tablet. States medication needed for today. Please contact to clarify if medication can be prescribe by pcp [phone] Ext [phone] documented in this encounter Plan of Treatment Not on file documented as of this encounter Visit Diagnoses Not on filedocumented in this encounter Additional Health Concerns Assessment Noted Time PHQ-9 Depression Total Score: 0 09/16/19 25 11:19 AM EST documented as of this encounter Care Teams Reagent Tender Relationship Specialty Start Date End Date Katarzyna Sahu MD 230 [place] [address] PCP - General Family Medicine 06/12/12 [facility] 07/28/22 documented as of this encounter
--- OUTSIDE RECORDS SUMMARY | 2025-06-11 12:30 | XMS_ITS | Encounter Summary ---
Author Organization [employer] Address 75 [facility] 7t [place] [address] Care Team Providers Care Oil Well Cable Tool Driller Name Role Phone Katarzyna Sahu MD Primary Care Provider [phone] Encounter Details Date Type Department Care Team (Latest Contact Info) Description 06/11/2025 Travel Social History Tobacco Use Types Packs/Day [...] documented as of this encounter Care Teams Oil Well Cable Tool Driller Relationship Specialty Start Date End Date Katarzyna Sahu MD [address] [place] [address] PCP - General Family Medicine 06/12/12 [facility] 07/28/22 documented as of this encounter
--- OUTSIDE RECORDS SUMMARY | 2025-06-11 12:30 | XMS_ITS | Encounter Summary ---
Author Organization [employer] Address 75 [facility] 7t [place] [address] Care Team Providers Care Medical Technologist Prn Name Role Phone Katarzyna Sahu MD Primary Care Provider [phone] Encounter Details Date Type Department Care Team ([facility] st Contact Info) Description 09/28/2023 Orders Only [facility] MEDICINE [address] [place], [place] [phone] Katarzyna Sahu MD 230 [place], [place] [phone] Social History Tobacco Use Types Packs/Day Years [...] on file documented as of this encounter Procedures Procedure Name Priority Date/Time Associated Diagnosis Comments SLIDE REVIEW Routine 12/18/2023 1:54 PM EDT documented in this encounter Results * Slide Review (12/18/2023 1:54 PM EDT) Slide Review VERIFIED [facility] 12/18/2023 1:54 PM EDT 12/18/2023 4:11 PM EDT Katarzyna Sahu MD LAB BLOOD ORDERABLES Final Resul t [facility] [address] [place] [address] [phone] documented in this encounter Visit Diagnoses Not on filedocumented in this encounter Additional Health Concerns Assessment Noted Time PHQ-9 Depression Total Score: 0 10/12/19 23 10:40 AM EST documented as of this encounter Care Teams Medical Technologist Prn Relationship Specialty Start Date End Date Katarzyna Sahu MD [address] [place] [address] PCP - General Family Medicine 06/12/12 [facility] 07/28/22 documented as of this encounter
--- OUTSIDE RECORDS SUMMARY | 2025-06-11 12:30 | XMS_ITS | Encounter Summary ---
Author Organization [employer] Address 75 [facility] 7t [place] [address] Care Team Providers Care Family Consultant Name Role Phone Katarzyna Sahu MD Primary Care Provider [phone] Encounter Details Date Type Department Care Team ([facility] st Contact Info) Description 10/16/2024 Orders Only [facility] & PEDS [address] [place] [address] ProviderTabatha MD Social History Tobacco Use Types [...] documented as of this encounter Care Teams Family Consultant Relationship Specialty Start Date End Date Katarzyna Sahu MD [address] [place] [address] PCP - General Family Medicine 06/12/12 [facility] 07/28/22 documented as of this encounter
--- OUTSIDE RECORDS SUMMARY | 2025-06-11 12:30 | XMS_ITS | Encounter Summary ---
Author Organization [employer] Address 75 [facility] 7t [place] [address] Care Team Providers Care Outside Sales Executive Name Role Phone Katarzyna Sahu MD Primary Care Provider Encounter Details Date Type Department Care Team ([facility] st Contact Info) Description 02/05/2025 Orders Only [facility] MEDICINE 230 [place], [place] [phone] Katarzyna Sahu MD 230 [place], [place] [phone] Social History Tobacco Use Types Packs/Day Years [...] documented as of this encounter Care Teams Outside Sales Executive Relationship Specialty Start Date End Date Katarzyna Sahu MD [address] [place] [address] PCP - General Family Medicine 06/12/12 [facility] 07/28/22 documented as of this encounter
--- OUTSIDE RECORDS SUMMARY | 2025-06-11 12:30 | XMS_ITS | Encounter Summary ---
Author Organization [employer] Address 75 [facility] 7t [place] [address] Care Team Providers Care Customer Services Manager Name Role Phone Katarzyna Sahu MD Primary Care Provider [phone] Reason for Visit * Reason Comments Med Refill Encounter Details Date Type Department Care Team ([facility] st Contact Info) Description 06/07/2023 Refill [facility] MEDICINE 230 [place], [place] [phone] Katarzyna Sahu MD 230 [place], [place] [phone] Social History Tobacco Use Types Packs/Day Years [...] documented as of this encounter Care Teams Customer Services Manager Relationship Specialty Start Date End Date Katarzyna Sahu MD [address] [place] [address] PCP - General Family Medicine 06/12/12 [facility] 07/28/22 documented as of this encounter
--- OUTSIDE RECORDS SUMMARY | 2025-06-11 12:30 | XMS_ITS | Encounter Summary ---
Author Organization [employer] Address 75 [facility] 7t [place] [address] Care Team Providers Care Wardrobe Coordinator Name Role Phone Katarzyna Sahu MD Primary Care Provider [phone] Reason for Visit * Reason Onset Date Comments Plan of Care paperworks 01/30/2025 Encounter Details Date Type Department Care Team ([facility] st Contact Info) Description 01/30/2025 Telephone [facility] MEDICINE 230 [place], [place] [phone] Katarzyna Sahu MD 230 [place], [place] [phone] Plan of Care paperworks Social History Tobacco [...] needs VNA Plan of Care leonor. F. [phone] P. [phone] * Telephone Encounter - Eileen Andrea - 01/30/2025 11:32 AM EDT Tc from [place] with [facility] requesting VNA order Plan of Care to be sent to: [phone] documented in this encounter Plan of Treatment Not on file documented as of this encounter Visit Diagnoses Not on filedocumented in this encounter Additional Health Concerns Assessment Noted Time PHQ-9 Depression Total Score: 0 09/16/19 25 11:19 AM EST documented as of this encounter Care Teams Wardrobe Coordinator Relationship Specialty Start Date End Date Katarzyna Sahu MD [address] [place] [address] PCP - General Family Medicine 06/12/12 [facility] 07/28/22 documented as of this encounter
--- OUTSIDE RECORDS SUMMARY | 2025-06-11 12:30 | XMS_ITS | Encounter Summary ---
Author Organization [employer] Address 75 [facility] 7t [place] [address] Care Team Providers Care Sales Mgr Name Role Phone Katarzyna Sahu MD Primary Care Provider [phone] Reason for Visit * Reason Onset Date Comments chart prep 06/10/2025 Encounter Details Date Type Department Care Team ([facility] st Contact Info) Description 06/10/2025 Telephone [facility] MEDICINE 230 [place], [place] [phone] Katarzyna Sahu MD 230 [place], [place] [phone] chart prep Social History Tobacco Use Types [...] Telephone Encounter - Emeli Spencer [place] - 06/10/2025 11:41 AM EDT ..Chart Prep Labs: not done Images: not applicable Vaccines due: Covid Due and Flu Due Referrals: Gastroenterology Pending appointment on 07/21 and Cardiology Pending appointment on 01/26/26 Screenings: Foot Exam Overdue care gaps: A1C, Glucose, and SDOH documented in this encounter Plan of Treatment Not on file documented as of this encounter Visit Diagnoses Not on filedocumented in this encounter Additional Health Concerns Assessment Noted Time PHQ-9 Depression Total Score: 0 09/16/19 25 11:19 AM EST documented as of this encounter Care Teams Sales Mgr Relationship Specialty Start Date End Date Katarzyna Sahu MD 230 [place] [address] PCP - General Family Medicine 06/12/12 [facility] 07/28/22 documented as of this encounter
--- OUTSIDE RECORDS SUMMARY | 2025-06-11 12:30 | XMS_ITS | Encounter Summary ---
Author Organization [employer] Address 75 [facility] 7t [place] [address] Care Team Providers Care Mothercraft Nurse Name Role Phone Katarzyna Sahu MD Primary Care Provider [phone] Reason for Visit * Reason Comments Med Refill Encounter Details Date Type Department Care Team (Late st Contact Info) Description 11/16/2023 Refill [facility] MEDICINE 230 [place], [place] [phone] Katarzyna Sahu MD 230 [place], [place] [phone] Social History Tobacco Use Types Packs/Day Years [...] documented as of this encounter Care Teams Mothercraft Nurse Relationship Specialty Start Date End Date Katarzyna Sahu MD [address] [place] [address] PCP - General Family Medicine 06/12/12 [facility] 07/28/22 documented as of this encounter
--- OUTSIDE RECORDS SUMMARY | 2025-06-11 12:30 | XMS_ITS | Encounter Summary ---
Author Organization [employer] Address 75 [facility] 7t [place] [address] Care Team Providers Care Electric Meter Tester Helper Name Role Phone Katarzyna Sahu MD Primary Care Provider [phone] Reason for Visit * Reason Comments Med Refill Encounter Details Date Type Department Care Team ([facility] st Contact Info) Description 10/24/2024 Refill [facility] MEDICINE 230 [place], [place] [phone] Katarzyna Sahu MD 230 [place], [place] [phone] Psychophysiological insomnia Social History Tobacco Use Types [...] documented as of this encounter Care Teams Electric Meter Tester Helper Relationship Specialty Start Date End Date Katarzyna Sahu MD [address] [place] [address] PCP - General Family Medicine 06/12/12 [facility] 07/28/22 documented as of this encounter
--- OUTSIDE RECORDS SUMMARY | 2025-06-11 12:31 | XMS_ITS | Encounter Summary ---
Author Organization [employer] Address 75 [facility] 7t [place] [address] Care Team Providers Care Cattle Dealer Name Role Phone Katarzyna Sahu MD Primary Care Provider [phone] Reason for Visit * Reason Onset Date Comments status 11/02/2022 Encounter Details Date Type Department Care Team ([facility] st Contact Info) Description 11/02/2022 Telephone [facility] MEDICINE 230 [place], [place] [phone] Katarzyna Sahu MD 230 [place], [place] [phone] status Social History Tobacco Use Types Packs/Day [...] - 11/02/2022 9:34 AM EDT Tc from [place] with [facility] requesting status for script sign by PCP and fax over to [phone] regarding methadone Please contact bre at [phone] documented in this encounter Plan of Treatment Not on file documented as of this encounter Visit Diagnoses Not on filedocumented in this encounter Additional Health Concerns Assessment Noted Time PHQ-9 Depression Total Score: 0 10/12/19 10:40 AM EST documented as of this encounter Care Teams Cattle Dealer Relationship Specialty Start Date End Date Katarzyna Sahu MD 230 [place] [address] PCP - General Family Medicine 06/12/12 [facility] 07/28/22 documented as of this encounter
--- OUTSIDE RECORDS SUMMARY | 2025-06-11 12:31 | XMS_ITS | Encounter Summary ---
Author Organization [employer] Address 75 [facility] 7t [place] [address] Care Team Providers Care Service Consultant Name Role Phone Katarzyna Sahu MD Primary Care Provider [phone] Encounter Details Date Type Department Care Team (Late st Contact Info) Description 01/03/2023 Abstract [facility] MEDICINE [address] [place] [address] Katarzyna Sahu MD 230 [place], [place] [phone] Social History Tobacco Use Types Packs/Day Years [...] documented as of this encounter Care Teams Service Consultant Relationship Specialty Start Date End Date Katarzyna Sahu MD 230 [place], [place] [phone] PCP - General Family Medicine 06/12/12 [facility] 07/28/22 documented as of this encounter
--- OUTSIDE RECORDS SUMMARY | 2025-06-11 12:31 | XMS_ITS | Encounter Summary ---
Author Organization [employer] Address 75 [facility] 7t [place] [address] Care Team Providers Care Security Sme Name Role Phone Katarzyna Sahu MD Primary Care Provider [phone] Reason for Visit * Reason Onset Date Comments FYI 08/22/2022 Encounter Details Date Type Department Care Team ([facility] st Contact Info) Description 08/22/2022 Telephone [facility] MEDICINE 230 [place], [place] [phone] Katarzyna Sahu MD 230 [place], [place] [phone] FYI Social History Tobacco Use Types Packs/Day [...] pt calling to inform already has a household manager at [facility] . Which is the reason he didn't go to the pediatrist in [place]. Any questions please call pt to clarify . documented in this encounter Plan of Treatment Not on file documented as of this encounter Visit Diagnoses Not on filedocumented in this encounter Additional Health Concerns Assessment Noted Time PHQ-9 Depression Total Score: 9 07/24/20 22 10:23 AM EST documented as of this encounter Care Teams Security Sme Relationship Specialty Start Date End Date Katarzyna Sahu MD [address] [place] [address] PCP - General Family Medicine 06/12/12 [facility] 07/28/22 documented as of this encounter
[2025-06-11 12:40] LABS: Folate 11.3 ng/mL (> or = 4.0); Vitamin B12 299 pg/mL (200-900)
== END 2025-06-11 10:21 | disposition home or self-care (01) ==
LOC: HO.HHCL 10:20
PROVIDERS: PCP Family Medicine; Visit Provider Family Medicine
DX: I10 Essential (primary) hypertension (principal); E78.5 Hyperlipidemia, unspecified; D63.8 Anemia in other chronic diseases classified elsewhere
CPT/HCPCS: 36415; 80053; 80061; 82607; 82728; 82746; 83540; 85025; 85045

== ENCOUNTER 2025-06-12 08:20 | Outpatient (REF) | payer OTHER, SELFPAY ==
--- OUTSIDE RECORDS SUMMARY | 2025-06-11 10:00 | XMS_ITS | Encounter Summary ---
Author Organization [employer] Address [address] [facility] [address] [place] [address] Care Team Providers Care Maori Physiotherapist Name Role Phone Katarzyna Sahu MD Primary Care Provider [phone] Encounter Details Date Type Department Care Team ([facility] st Contact Info) Description 06/11/2025 10:00 AM EDT Office Visit [facility] [address] [place], [place] [phone] Katarzyna Sahu MD [address] [place], [place] [phone] Essential hypertension (Primary Dx); Diabetes mellitus type [...] per patient's request - Agreed to follow [employer] monitoring for zolpidem - Continue zolpidem 10 [...] day, per patient's request Agreed to follow [employer] monitoring for zolpidem Continue zolpidem 10 mg [...] EDTAssociated Problem(s): Ischemic heart disease Followed by [facility] last seen by Dr. Way in [...] - Foot exam: 04/01/24. High-risk. 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 Terbinafine for tinea pedis. * Assessment & Plan Note - Katarzyna Sahu MD - 06/10/2025 4:35 PM EDTAssociated Problem(s): Essential hypertension Goal BP < 130/80 per ACC/AHA guidelines BP well-controlled today Continue working on lifestyle modifications Continue lisinopril 20 mg daily Continue metoprolol succinate 25 mg daily Update EKG periodically due to concern for QTc prolongation Follow-up with cloth folder machine as scheduled documented in this encounter Plan of Treatment Scheduled Orders Name Type Priority Associated Diagnoses Orde r Schedule Albumin, Random Urine W/Creatinine Lab Routine Diabetes mellitus type 2, controlled (HCC) Expected: 06/11/2025 (Approximate), Expires: 06/11/2026 documented as of this encounter Procedures Procedure Name Priority Date/Time Associated Diagnosis Comments VITAMIN B12/FOLATE, SERUM PANEL Routine 06/11/2025 10:27 AM EDT Anemia in other chronic diseases classified elsewhere LIPID PANEL WITH REFLEX TO DIRECT LDL [...] Blood Count 8.2 4.8 - 10.8 X10*3/uL [facility] Red Blood Count 3.40(L) 4.60 - 5.80 X10*6/uL [facility] Hemoglobin 9.5(L) 14.0 - 18.0 g/dl [facility] Hematocrit 30.7(L) 42.0 - 52.0 % [facility] Mean Corpuscular Volume 90.3 80.0 - 98.0 fL [facility] Mean Corpuscular Hemoglobin 27.9 27.0 - 33.0 pg [facility] Mean Corpuscular HGB Conc 30.9(L) 31.0 - 36.0 g/dl [facility] Red Cell Distribution Width 13.4 11.0 - 16.0 % [facility] Platelet Count 323 160 - 400 X10*3/uL [facility] Mean Platelet Volume 11.3 9.4 - 12.4 fL [facility] Neutrophils Percent Auto 76.2(H) 45 - 73 % [facility] Imm Gran Pct Auto 0.4 0.0 - 0.4 % [facility] Lymphocytes Percent Auto 16.5(L) 20 - 40 % [facility] Monocytes Percent Auto 5.7 2 - 11 % [facility] Eosinophils Percent Auto 0.6 0 - 4 % [facility] Basophils Percent Auto 0.6 0 - 2 % [facility] NRBC Pct Auto 0.0 0.0 - 0.2 /100WBC [facility] Neutrophils Absolute Auto 6.3 2.0 - 8.3 x10*3/uL [facility] Imm Gran Abs Auto 0.03 0.00 - 0.03 X10*3/uL [facility] Lymphocytes Absolute Auto 1.4 1.2 - 4.9 X10*3/uL [facility] Monocytes Absolute Auto 0.5 0.1 - 1.2 X10*3/uL [facility] Eosinophils Absolute Auto 0.1 0.0 - 0.4 X10*3/uL [facility] Basophils Absolute Auto 0.1 0.0 - 0.2 X10*3/uL [facility] NRBC Abs Auto 0.000 0.0 - 0.012 X10*3/uL [facility] Blood Venous blood specimen / Unknown 06/11/2025 10:27 AM EDT 06/11/2025 11:24 AM EDT us Katarzyna Sahu MD LAB BLOOD ORDERABLES Final Resul t [facility] [address] [place] [phone] * (ABNORMAL) Reticulocyte Count (06/11/2025 10:27 AM EDT) Reticulocytes Absolute 0.063 0.026 - 0.095 X10*6/uL [facility] Immature Retic Fraction 12.7 2.3 - 13.4 % [facility] Retic HGB Equivalent 28.1(L) 30.0 - 35.0 pg [facility] Reticulocyte Percent 1.9(H) 0.5 - 1.8 % [facility] Blood Venous blood specimen / Unknown 06/11/2025 10:27 AM EDT 06/11/2025 11:24 AM EDT Katarzyna Sahu MD LAB BLOOD ORDERABLES Final Resul t Performing Organization Address [facility] de Phone Number [facility] [address] [place] [phone] * (ABNORMAL) Iron And Total Iron Binding Capacity (06/11/2025 10:27 AM EDT) Iron 33(L) 45 - 160 mcg/dL [facility] Total Iron Binding Capacity 291 228 - 428 mcg/dL [facility] Percent Iron Saturation 11(L) 15 - 50 % [facility] Unsaturated Iron Binding 258 ug/dL [facility] Blood Venous blood specimen / Unknown 06/11/2025 10:27 AM EDT 06/11/2025 11:24 AM EDT Katarzyna Sahu MD LAB BLOOD ORDERABLES Final Resul t Performing Organization Address [facility] Co de Phone Number [facility] [address] [place] [phone] * Ferritin (06/11/2025 10:27 AM EDT) Pathologist [facility] Ferritin 20 20 - 250 ng/mL [facility] Blood Venous blood specimen / Unknown 06/11/2025 10:27 AM EDT 06/11/2025 11:24 AM EDT Katarzyna Sahu MD LAB BLOOD ORDERABLES Final Resul t Performing Organization Address [facility] de Phone Number [facility] [address] [place] [phone] * (ABNORMAL) Comprehensive Metabolic Panel (06/11/2025 10:27 AM EDT) Sodium 141 135 - 145 mmol/L [facility] Potassium 4.6 3.3 - 5.1 mmol/L [facility] Chloride 104 96 - 108 mmol/L [facility] Carbon Dioxide 31(H) 22 - 29 mmol/L [facility] Anion Gap 11(L) 12 - 20 [facility] Urea Nitrogen (BUN) 18(H) 9 - 16 mg/dL [facility] Creatinine, Serum 1.21 0.5 - 1.4 mg/dL [facility] Estimated Glomerular Filt Rate 59 [facility] Comment:Chronic Kidney Disea se: Estimated GFR < 60 mL/min/[id number] Kidney Disease: Estimated GFR < 15 mL/min/1.73m2 Glucose 117(H) 60 - 115 mg/dL [facility] Calcium 9.4 8.4 - 10.2 mg/dL [facility] Bilirubin, Total 0.4 0.0 - 1.0 mg/dL [facility] Aspartate Amino Transferase 21 5 - 37 U/L [facility] Alanine Aminotransferase 12 0 - 40 U/L [facility] Total Protein 7.3 6.5 - 8.0 g/dL [facility] Albumin Level 4.1 3.5 - 5.0 g/dL [facility] Alkaline Phosphatase 118(H) 39 - 117 U/L [facility] Blood Venous blood specimen / Unknown 06/11/2025 10:27 AM EDT 06/11/2025 11:24 AM EDT us Katarzyna Sahu MD LAB BLOOD ORDERABLES Final Resul t [facility] [address] [place] [phone] * Lipid Panel with Reflex to Direct LDL (06/11/2025 10:27 AM EDT) Triglycerides 105 <150 mg/dL [facility] Comment:Desirable Triglyceri de: less than 150 mg/dLBorderline High Triglyceride 150-199 mg/dLHigh Triglyceride: 200-499 mg/dLVery High Triglyceride: greater than or equal to 5OO mg/dL Cholesterol 136 <200 mg/dL [facility] Comment:Desirable Cholestero l: less than 200 mg/dLBorderline High Cholesterol: 200-239 mg/dLHigh Cholesterol: greater than 239 mg/dL LDL Cholesterol Calculated 71 <100 mg/dL [facility] Comment:Desirable LDL: less than 100 mg/dLNear Optimal/Above Optimal LDL: 110- 129 mg/dLBorderline High LDL: 130-159 mg/dLHigh LDL: 160-189 mg/dLVery High LDL: greater than or equal to 190 mg/dL HDL Cholesterol 44 >40 mg/dL [facility] Comment:Desirable HDL: great er than 40 mg/dL Note: This HDL assay may give artificially low results in patients with liver disease. Blood 06/11/2025 10:2 7 AM EDT 06/11/2025 11:24 AM EDT us Katarzyna Sahu MD LAB BLOOD ORDERABLES Final Resul t Performing Organization Address [facility] de Phone Number [facility] [address] [place] [phone] * Vitamin B12 (Cobalamin) and Folate Panel, Serum (06/11/2025 10:27 AM EDT) Vitamin B12 299 200 - 900 pg/mL [facility] Comment:NORMAL 200-900 PG/ML INDETERMINATE 160-199 PG/ML DEFICIENT < 160 PG/ML Folate 11.3 > or = 4.0 ng/mL [facility] Comment:Reference Values:> o r = 4.0 ng/mL< 4.0 ng/mL suggests folate deficiency Methotrexate, aminopterin and folinic acid(leucovorin) are chemotherapeutic agents whose molecularstructures are similar to folate; therefore, the Architectfolate assay cannot be used for patients using these drugs. Blood 06/11/2025 10:2 7 AM EDT 06/11/2025 11:24 AM EDT Katarzyna Sahu MD LAB BLOOD ORDERABLES Final Resul t Performing Organization Address [facility] Co de Phone Number [facility] [address] [place] [phone] * (ABNORMAL) POCT glycosylated hemoglobin (Hgb A1c) (06/11/2025 9:55 AM EDT) Hemoglobin A1C 6.3(A) 4.0 - 5.7 % QC Media Lot # [id number] Lot# Expiration Date [id number] Blood Capillary blood specimen / Unknown 06/11/2025 9:55 AM EDT Katarzyna Sahu MD POINT OF CARE TEST ENTER/EDIT OR DERABLES Final Result * POCT glucose manually resulted (06/11/2025 9:54 AM EDT) Glucose Blood, POC 149 60 - 200 mg/dL [employer] Lot # [id number] Lot# Expiration Date [id number] Blood Capillary blood specimen / Unknown 06/11/2025 [...] documented as of this encounter Care Teams Maori Physiotherapist Relationship Specialty Start Date End Date Katarzyna Sahu MD [address] [place] [phone] PCP - General Family Medicine 06/12/12 [facility] 07/28/22 documented as of this encounter
--- OUTSIDE RECORDS SUMMARY | 2025-06-12 08:25 | XMS_ITS | Encounter Summary ---
Author Organization [employer] Address 75 [facility] 7t [place] [address] Care Team Providers Care Flat Knitter Helper Name Role Phone Katarzyna Sahu MD Primary Care Provider [phone] Reason for Visit * Reason Onset Date Comments status 11/02/2022 Encounter Details Date Type Department Care Team ([facility] st Contact Info) Description 11/02/[address] [facility] MEDICINE 230 [place], [place] [phone] Katarzyna Sahu MD 230 [place], [place] [phone] status Social History Tobacco Use Types Packs/Day [...] - 11/02/2022 9:34 AM EDT Tc from [place] with [facility] requesting status for script sign by PCP and fax over to [phone] regarding methadone Please contact bre at [phone] documented in this encounter Plan of Treatment Not on file documented as of this encounter Visit Diagnoses Not on filedocumented in this encounter Additional Health Concerns Assessment Noted Time PHQ-9 Depression Total Score: 0 10/12/19 10:40 AM EST documented as of this encounter Care Teams Flat Knitter Helper Relationship Specialty Start Date End Date Katarzyna Sahu MD 230 [place] [address] PCP - General Family Medicine 06/12/[address] [facility] 07/28/22 documented as of this encounter
--- OUTSIDE RECORDS SUMMARY | 2025-06-12 08:25 | XMS_ITS | Encounter Summary ---
Author Organization [employer] Address 75 [facility] 7t [place] [address] Care Team Providers Care Data Report Analyst Name Role Phone Katarzyna Sahu MD Primary Care Provider [phone] Encounter Details Date Type Department Care Team ([facility] st Contact Info) Description 01/03/2023 Abstract [facility] MEDICINE [address] [place] [address] Katarzyna Sahu MD 230 [place], [place] [phone] Social History Tobacco Use Types Packs/Day Years [...] documented as of this encounter Care Teams Data Report Analyst Relationship Specialty Start Date End Date Katarzyna Sahu MD [address] [place], [place] [phone] PCP - General Family Medicine 06/12/12 [facility] 07/28/22 documented as of this encounter
--- OUTSIDE RECORDS SUMMARY | 2025-06-12 08:25 | XMS_ITS | Encounter Summary ---
Author Organization [employer] Address 75 [facility] 7t [place] [address] Care Team Providers Care Social Media Campaign Manager Name Role Phone Katarzyna Sahu MD Primary Care Provider [phone] Reason for Visit * Reason Comments Med Refill Encounter Details Date Type Department Care Team ([facility] st Contact Info) Description 06/07/2023 Refill [facility] MEDICINE 230 [place], [place] [phone] Katarzyna Sahu MD 230 [place], [place] [phone] Social History Tobacco Use Types Packs/Day Years Used Date Smoking Tobacco: Former Cigarettes Q uit: 10/10/1977 Passive Smoke Exposure: Never Smokeless Tobacco: Never Depression Answer Date Recorded Patient Health Questionnaire-9 Score 0 10/11/2022 Housing Stability Answer Date Recorded What is your housing situation today? I have дмитрийquan harris 06/07/[address] you [...] documented as of this encounter Care Teams Social Media Campaign Manager Relationship Specialty Start Date End Date Katarzyna Sahu MD [address] [place] [address] PCP - General Family Medicine 06/12/12 [facility] 07/28/22 documented as of this encounter
--- OUTSIDE RECORDS SUMMARY | 2025-06-12 08:25 | XMS_ITS | Encounter Summary ---
Author Organization [employer] Address 75 [facility] 7t [place] [address] Care Team Providers Care Devops Developer Name Role Phone Katarzyna Sahu MD Primary Care Provider [phone] Reason for Visit * Reason Comments Med Refill Encounter Details Date Type Department Care Team ([facility] st Contact Info) Description 10/24/2024 Refill [facility] MEDICINE 230 [place], [place] [phone] Katarzyna Sahu MD 230 [place], [place] [phone] Psychophysiological insomnia Social History Tobacco Use Types [...] documented as of this encounter Care Teams Devops Developer Relationship Specialty Start Date End Date Katarzyna Sahu MD [address] [place] [address] PCP - General Family Medicine 06/12/12 [facility] 07/28/22 documented as of this encounter
--- OUTSIDE RECORDS SUMMARY | 2025-06-12 08:25 | XMS_ITS | Clinical Summary ---
Author Organization [employer] Address [address] [facility] [place] [address] Care Team Providers Care Electrical Timing Device Calibrator Name Role Phone Katarzyna Sahu MD Primary Care Provider [phone] Allergies No known active allergies Medications atorvastatin [...] complication, without long-term current use of insulin ([facility]) 1 each in the morning. Check your sugar once daily before breakfast 1 kit 09/19/19 24 Active metFORMIN XR (Glucophage-XR ) 500 MG 24 hr tablet TAKE 1 TABLET BY MOUTH EVERY EVENING WITH FOOD 30 tablet 09/30/19 25 Active Lancets (Unilet Micro-Thin 33G) miscIndication s:Type 2 diabetes mellitus without complication, without long-term current use of insulin ([facility]) USE TO TEST BLOOD SUGAR ONCE DAILY 100 each 11/04/19 25 Active glucose blood (FREESTYLE LITE) test stripIndicatio ns:Type 2 diabetes mellitus without complication, without long-term current use of insulin ([facility]) USE TO TEST BLOOD SUGAR [...] BREAK, CRUSH, DISSOLVE OR CHEW 90 tablet 07/09 025 Discontinued Active Problems Problem Noted Date Diagnosed Date Depression 05/14/2025 Assessment & Plan (06/11/2025 9:43 AM EDT): - Currently taking quetiapine 400 mg at bedtime - Discontinue quetiapine 25 mg prn anxiety during the day, per patient's request - Agreed to follow GUIDE monitoring for zolpidem - Continue zolpidem 10 [...] Plan (09/23/2024 10:28 AM EST): Followed by dispensary technician, Dr. Guevara. Upcoming appointment for colonoscopy Assessment & Plan (12/18/2023 2:05 PM EDT): Followed by dispensary technicianDr. Guevara. 10/20/22 Hgb 11.7; hematocrit 35 Advised to schedule a follow visit Assessment & Plan (09/24/2023 11:36 AM EST): Followed by dispensary technicianDr. Guevara. 10/20/22 Hgb 11.7; hematocrit 35 Advised to schedule a follow visit Assessment & Plan (10/11/2022 11:06 AM EST): Followed by dispensary technician, Dr. Guevara. Advised to schedule a follow visit Assessment & Plan (07/25/2022 11:45 AM EST): Followed by dispensary technician, Dr. Guevara. Advised to schedule a follow visit History of open reduction an d internal fixation (ORIF) procedure 07/15/2022 Chronic back pain 08/09/2016 Assessment & Plan (09/23/2024 10:30 AM EST): - back exercise - judicious use of APAP prn Ischemic heart disease 04/24/2016 Assessment & Plan (06/11/2025 5:28 AM EDT): Followed by [facility] Cardiology last seen by Dr. Way [...] Plan (12/16/2024 1:47 PM EDT): Followed by [facility] Cardiology last seen by Dr. Way [...] Plan (09/23/2024 10:25 AM EST): Followed by [facility] Cardiology last seen by Dr. Way [...] Plan (04/06/2024 3:55 PM EDT): Followed by [facility] Cardiology last seen in November 2022 Abnormal stress test and elevated tropnin in Mar 2016, small area of ischemia in apical and lateral branch vessel distribution. Declined stress test in November 2022 Continue BB, ACEI, and ASA. Continue working on lifestyle modifications, consider GLP-1 RA. Relative contraindication to SGLT-2i due to urinary symptoms Assessment & Plan (12/18/2023 2:04 PM EDT): Followed by [facility] Cardiology last seen in November 2022 Abnormal stress test and elevated tropnin in Mar 2016, small area of ischemia in apical and lateral branch vessel distribution. Declined stress test in November 2022 Continue BB, ACEI, and ASA. Assessment & Plan (09/24/2023 11:27 AM EST): Followed by [facility] Cardiology last seen in November 2022 Abnormal stress test and elevated tropnin in Mar 2016, small area of ischemia in apical and lateral branch vessel distribution. Declined stress test in November 2022 Continue BB, ACEI, and ASA. Assessment & Plan (10/11/2022 11:05 AM EST): Followed by [facility] Cardiology last seen in October 2021 Abnormal stress test and elevated tropnin in Mar 2016, small area of ischemia in apical and lateral branch vessel distribution. Given reassurance by floorwalker since it is stable. Continue BB, ACEI, and ASA. Assessment & Plan (07/25/2022 11:51 AM EST): Followed by [facility] Cardiology last seen in October 2021 Abnormal stress test and elevated tropnin in Mar 2016, small area of ischemia in apical and lateral branch vessel distribution. Given reassurance by floorwalker since it is stable. Continue BB, ACEI, [...] to concern for QTc prolongation Follow-up with floorwalker as scheduled Assessment & Plan (12/16/2024 1:47 PM EDT): Goal BP < 140/90 per JNC-8, < 130/80 per ACC/AHA guidelines BP well-controlled today Continue working on lifestyle modifications Continue lisinopril 20 mg daily Continue metoprolol succinate 25 mg daily Update EKG periodically due to concern for QTc prolongation Follow-up with floorwalker as scheduled Assessment & Plan (09/23/2024 10:26 AM EST): Goal BP < 140/90 per JNC-8, < 130/80 per ACC/AHA guidelines BP well-controlled today Continue working on lifestyle modifications Continue lisinopril 20 mg daily Continue metoprolol succinate 25 mg daily Update EKG periodically due to concern for QTc prolongation Follow-up with floorwalker as scheduled Assessment & Plan (04/01/2024 10:23 AM EDT): Goal BP < 140/90 per JNC-8, < 130/80 per ACC/AHA guidelines BP borderline Continue working on lifestyle modifications Continue lisinopril 20 mg daily Continue metoprolol succinate 25 mg daily Update EKG periodically due to concern for QTc prolongation Follow-up with floorwalker as scheduled Follow up with us in 3-6 mo, or sooner if any problem arises. Assessment & Plan (12/18/2023 1:53 PM EDT): Goal BP < 140/90 per JNC-8, < 130/80 per ACC/AHA guidelines BP borderline Continue working on lifestyle modifications Continue lisinopril 20 mg daily Continue metoprolol succinate 25 mg daily Update EKG periodically due to concern for QTc prolongation Follow-up with floorwalker as scheduled Follow up with us in 3-6 mo, or sooner if any problem arises. Assessment & Plan (09/24/2023 11:27 AM EST): Goal BP < 140/90 per JNC-8, < 130/80 per ACC/AHA guidelines BP borderline Continue working on lifestyle modifications Continue lisinopril 20 mg daily Continue metoprolol succinate 25 mg daily Update EKG periodically due to concern for QTc prolongation Follow-up with floorwalker as scheduled Follow up with us in [...] to concern for QTc prolongation Follow-up with floorwalker as scheduled Follow up with us in [...] to concern for QTc prolongation Follow-up with floorwalker as scheduled Follow up with us in [...] - Foot exam: 04/01/24. High-risk. Refer to attending anesthesiologist. Terbinafine for tinea pedis. Assessment & Plan [...] schedule Foot exam: 04/01/24. High-risk. Refer to attending anesthesiologist. Edelmirabinafine for tinea pedis. Assessment & Plan (09/16/2024 1:01 PM EST): Dx Hgb A1C 6.3% on 09/16/24 Continue working on lifestyle modifications Continue checking BG Continue metformin ER 500 mg daily; consider increasing if A1C continues to increase Microalbumin test: 09/28/23, no Hx microalbuminuria Lipid profile: 09/28/23 Diabetic eye exam: Overdue, pt will schedule Foot exam: 04/01/24. High-risk. Refer to attending anesthesiologist. Terbinafine for tinea pedis. Assessment & Plan (04/01/2024 10:39 AM EDT): Dx Hgb A1C 6.5% on 04/01/24 Continue working on lifestyle modifications Continue checking BG Continue metformin ER 500 mg daily; consider increasing if A1C continues to increase Microalbumin test: 09/28/23, no Hx microalbuminuria Lipid profile: 09/28/23 Diabetic eye exam: Overdue, pt will schedule Foot exam: 04/01/24. High-risk. Refer to attending anesthesiologist. Terbinafine for tinea pedis. Assessment & Plan (12/18/2023 1:52 PM EDT): Dx Hgb A1C 6.1% on 12/18/23 Continue working on lifestyle modifications Continue checking BG Continue metformin ER 500 mg daily; consider increasing if A1C continues to increase Microalbumin test: Overdue, no Hx microalbuminuria Lipid profile: 10/20/22 Diabetic eye exam: Overdue, pt will schedule Foot exam: 07/24/22. High-risk. Refer to attending anesthesiologist. Terbinafine for tinea pedis. Assessment & Plan [...] schedule Foot exam: 07/24/22. High-risk. Refer to attending anesthesiologist. Terbinafine for tinea pedis. Assessment & Plan [...] schedule Foot exam: 07/24/22. High-risk. Refer to attending anesthesiologist. Terbinafine for tinea pedis. Assessment & Plan (07/25/2022 11:54 AM EST): Dx Hgb A1C 6.4% On 07/24/22 Continue working on lifestyle modifications Continue checking BG Continue metformin ER 500 mg daily Microalbumin test: Overdue, no Hx microalbuminuria Lipid profile: Overdue Diabetic eye exam: Overdue, pt will schedule Foot exam: 07/24/22. High-risk. Refer to attending anesthesiologist. Terbinafine for tinea pedis. Dyslipidemia 12/11/2012 Assessment [...] day, per patient's request Agreed to follow GUIDE monitoring for zolpidem Continue zolpidem 10 mg qhs Discussed about its potential side effects. Pt understands and would like to take it. Assessment & Plan (12/16/2024 1:48 PM EDT): Currently taking quetiapine 400 mg at bedtime Discontinue quetiapine 25 mg prn anxiety during the day, per patient's request Agreed to follow GUIDE monitoring for zolpidem Continue zolpidem 10 mg qhs Discussed about its potential side effects. Pt understands and would like to take it. Assessment & Plan (09/16/2024 7:13 PM EST): Currently taking quetiapine 400 mg at bedtime Discontinue quetiapine 25 mg prn anxiety during the day, per patient's request Agreed to follow GUIDE monitoring for zolpidem Continue zolpidem 10 mg qhs Discussed about its potential side effects. Pt understands and would like to take it. Assessment & Plan (04/01/2024 10:41 AM EDT): Currently taking quetiapine 400 mg at bedtime Discontinue quetiapine 25 mg prn anxiety during the day, per patient's request Agreed to follow GUIDE monitoring for zolpidem Continue zolpidem 10 mg qhs Discussed about its potential side effects. Pt understands and would like to take it. Assessment & Plan (09/24/2023 11:30 AM EST): Currently taking quetiapine 400 mg at bedtime Add quetiapine 25 mg prn anxiety during the day Agreed to follow GUIDE monitoring for zolpidem Continue zolpidem 10 mg qhs Discussed about its potential side effects. Pt understands and would like to take it. Assessment & Plan (10/11/2022 4:32 PM EST): Currently taking quetiapine 400 mg at bedtime Agreed to follow GUIDE monitoring for zolpidem Agreed to increase zolpidem to 10 mg at bedtime; discussed about its judicious and responsible use Discussed about its potential side effects. Pt understands and would like to take it. Assessment & Plan (07/25/2022 11:55 AM EST): Currently taking quetiapine 400 mg at bedtime Agreed to follow GUIDE monitoring for zolpidem Start zolpidem 5 mg at bedtime Discussed about its potential side effects. Pt understands and would like to take it. 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 Resolved Problems Problem Noted Date Diagnosed Date Resolved Date History of fracture 07/15/2022 07/25/20 22 Overview (07/15/2022): S/p closed fx of right femur per previous EHR onset date 02/25/18 Encounters Date Type Department Care Team Description 06/12/2025 Results Follow-Up [facility] [place] [address] Katarzyna Sahu MD POCT glucose manually resulted, POCT glycosylated hemoglobin (Hgb A1c), Vitamin B12 (Cobalamin) and Folate Panel, Serum, Additional followed-up results: 6 06/11/2025 10:00 AM EDT Office Visit [facility] [place] [address] Katarzyna Sahu MD Essential hypertension (Primary Dx); Diabetes mellitus type 2, controlled (HCC); Ischemic heart disease; Dyslipidemia; Mood disorder (CMS/HCC); Current moderate episode of major depressive disorder, unspecified whether recurrent (CMS/HCC) (HCC); Encounter for immunization; Anemia in other chronic diseases classified elsewhere 06/11/2025 Travel 06/10/2025 Telephone [facility] [place] [address] Katarzyna Sahu MD chart prep 05/24/2025 Refill [facility] [place] [address] Katarzyna Sahu MD 05/14/2025 Telephone [facility] [place] [address] Katarzyna Sahu MD 05/13/2025 Telephone [facility] [address] [place], [place] [address] [address] Katarzyna Sahu MD PA question 05/11/2025 Telephone [facility] [address] [place] [address] Katarzyna Sahu MD Prior Authorization 05/01/2025 Telephone [facility] [address] [place] [address] Katarzyna Sahu MD Prior Auth Prescription 04/17/2025 Telephone [facility] [address], [place] [id number] Angelique Young [place] 04/16/2025 Orders Only GENERIC EXTERNAL DATA DEPARTMENT Provider, Generic External Data 03/19/2025 Refill [facility] [address] [place] [address] Katarzyna Sahu MD from Last 3 Months [...] Diabetes: Urine Protein Screening 09/28/2024 09/28/2023, 12/23/2021 Diabetes: Foot Exam 04/01/2025 04/01/2024, 04/01/2024, 04/01/2024, Additional history exists Alcohol/Substance Use Screening 09/16/2025 09/16/2024 Depression Screening 09/16/2025 09/16/2024, 09/16/19 25 Colonoscopy 10/14/2025 10/14/2024, 10/28/2019 Colorectal Cancer Screening 10/14/2025 COVID-19 Vaccine ( season) 2025 06/11/2025, 09/19/2023, 11/24/2020, Additional history exists Diabetes: Hemoglobin A1C 12/10/2025 025, 12/16/2024, 09/16/2024, Additional history exists Lipid Panel 06/11/2026 06/11/2025, 09/13, 10/20/2022, Additional history exists SDOH Screening 06/11/2026 06/11/2025 [...] LDL Routine 06/11/2025 10:27 AM EDT Dyslipidemia VITAMIN B12/FOLATE, SERUM PANEL Routine 06/11/2025 10:27 AM EDT Anemia in other chronic diseases classified elsewhere POCT GLYCOSYLATED HEMOGLOBIN (HGB A1C) Routine 06/11/2025 9:55 AM EDT Diabetes mellitus type 2, controlled (HCC) POCT GLUCOSE Routine 06/11/2025 9:54 AM EDT Diabetes mellitus type 2, controlled (HCC) GLUCOSE, WHOLE BLOOD Routine 04/16/2025 1:12 PM EDT HM COLONOSCOPY Routine 10/14/2024 8:58 AM EST DIABETES [...] Recently Relevant to Health Maintenance Results * Vitamin B12 (Cobalamin) and Folate Panel, Serum (06/11/2025 10:27 AM EDT) Vitamin B12 299 200 - 900 pg/mL [facility] Comment:NORMAL 200-900 PG/ML INDETERMINATE 160-199 PG/ML DEFICIENT < 160 PG/ML Folate 11.3 > or = 4.0 ng/mL [facility] Comment:Reference Values:> o r = 4.0 ng/mL< 4.0 ng/mL suggests folate deficiency Methotrexate, aminopterin and folinic acid(leucovorin) are chemotherapeutic agents whose molecularstructures are similar to folate; therefore, the Architectfolate assay cannot be used for patients using these drugs. Blood 06/11/2025 10:2 7 AM EDT 06/11/2025 11:24 AM EDT us Katarzyna Sahu MD LAB BLOOD ORDERABLES Final Resul t [facility] [address], [place] [phone] * Lipid Panel with Reflex to Direct LDL (06/11/2025 10:27 AM EDT) Triglycerides 105 <150 mg/dL [facility] Comment:Desirable Triglyceri de: less than 150 mg/dLBorderline High Triglyceride 150-199 mg/dLHigh Triglyceride: 200-499 mg/dLVery High Triglyceride: greater than or equal to 5OO mg/dL Cholesterol 136 <200 mg/dL [facility] Comment:Desirable Cholestero l: less than 200 mg/dLBorderline High Cholesterol: 200-239 mg/dLHigh Cholesterol: greater than 239 mg/dL LDL Cholesterol Calculated 71 <100 mg/dL [facility] Comment:Desirable LDL: less than 100 mg/dLNear Optimal/Above Optimal LDL: 110- 129 mg/dLBorderline High LDL: 130-159 mg/dLHigh LDL: 160-189 mg/dLVery High LDL: greater than or equal to 190 mg/dL HDL Cholesterol 44 >40 mg/dL [facility] Comment:Desirable HDL: great er than 40 mg/dL Note: This HDL assay may give artificially low results in patients with liver disease. Blood 06/11/2025 10:2 7 AM EDT 06/11/2025 11:24 AM EDT us Katarzyna Sahu MD LAB BLOOD ORDERABLES Final Resul t [facility] [address] [place] [phone] * (ABNORMAL) CBC auto differential (06/11/2025 10:27 AM EDT) White Blood Count 8.2 4.8 - 10.8 X10*3/uL [facility] Red Blood Count 3.40(L) 4.60 - 5.80 X10*6/uL [facility] Hemoglobin 9.5(L) 14.0 - 18.0 g/dl [facility] Hematocrit 30.7(L) 42.0 - 52.0 % [facility] Mean Corpuscular Volume 90.3 80.0 - 98.0 fL [facility] Mean Corpuscular Hemoglobin 27.9 27.0 - 33.0 pg [facility] Mean Corpuscular HGB Conc 30.9(L) 31.0 - 36.0 g/dl [facility] Red Cell Distribution Width 13.4 11.0 - 16.0 % [facility] Platelet Count 323 160 - 400 X10*3/uL [facility] Mean Platelet Volume 11.3 9.4 - 12.4 fL [facility] Neutrophils Percent Auto 76.2(H) 45 - 73 % [facility] Imm Gran Pct Auto 0.4 0.0 - 0.4 % [facility] Lymphocytes Percent Auto 16.5(L) 20 - 40 % [facility] Monocytes Percent Auto 5.7 2 - 11 % [facility] Eosinophils Percent Auto 0.6 0 - 4 % [facility] Basophils Percent Auto 0.6 0 - 2 % [facility] NRBC Pct Auto 0.0 0.0 - 0.2 /100WBC [facility] Neutrophils Absolute Auto 6.3 2.0 - 8.3 x10*3/uL [facility] Imm Gran Abs Auto 0.03 0.00 - 0.03 X10*3/uL [facility] Lymphocytes Absolute Auto 1.4 1.2 - 4.9 X10*3/uL [facility] Monocytes Absolute Auto 0.5 0.1 - 1.2 X10*3/uL [facility] Eosinophils Absolute Auto 0.1 0.0 - 0.4 X10*3/uL [facility] Basophils Absolute Auto 0.1 0.0 - 0.2 X10*3/uL [facility] NRBC Abs Auto 0.000 0.0 - 0.012 X10*3/uL [facility] Blood Venous blood specimen / Unknown 06/11/2025 10:27 AM EDT 06/11/2025 11:24 AM EDT us Katarzyna Sahu MD LAB BLOOD ORDERABLES Final Resul t [facility] [address] [place] [phone] * (ABNORMAL) Iron And Total Iron Binding Capacity (06/11/2025 10:27 AM EDT) Iron 33(L) 45 - 160 mcg/dL [facility] Total Iron Binding Capacity 291 228 - 428 mcg/dL [facility] Percent Iron Saturation 11(L) 15 - 50 % [facility] Unsaturated Iron Binding 258 ug/dL [facility] Blood Venous blood specimen / Unknown 06/11/2025 10:27 AM EDT 06/11/2025 11:24 AM EDT Katarzyna Sahu MD LAB BLOOD ORDERABLES Final Resul t Performing Organization Address [facility] de Phone Number [facility] [address] [place] [phone] * (ABNORMAL) Reticulocyte Count (06/11/2025 10:27 AM EDT) Reticulocytes Absolute 0.063 0.026 - 0.095 X10*6/uL [facility] Immature Retic Fraction 12.7 2.3 - 13.4 % [facility] Retic HGB Equivalent 28.1(L) 30.0 - 35.0 pg [facility] Reticulocyte Percent 1.9(H) 0.5 - 1.8 % [facility] Blood Venous blood specimen / Unknown 06/11/2025 10:27 AM EDT 06/11/2025 11:24 AM EDT us Katarzyna Sahu MD LAB BLOOD ORDERABLES Final Resul t Performing Organization Address [facility] Co de Phone Number [facility] [address] [place] [phone] * Ferritin (06/11/2025 10:27 AM EDT) Ferritin 20 20 - 250 ng/mL [facility] Blood Venous blood specimen / Unknown 06/11/2025 10:27 AM EDT 06/11/2025 11:24 AM EDT Katarzyna Sahu MD LAB BLOOD ORDERABLES Final Resul t Performing Organization Address City/[facility]/ZIP Co de Phone Number [facility] [address] [place] [phone] * (ABNORMAL) Comprehensive Metabolic Panel (06/11/2025 10:27 AM EDT) Sodium 141 135 - 145 mmol/L [facility] Potassium 4.6 3.3 - 5.1 mmol/L [facility] Chloride 104 96 - 108 mmol/L [facility] Carbon Dioxide 31(H) 22 - 29 mmol/L [facility] Anion Gap 11(L) 12 - 20 [facility] Urea Nitrogen (BUN) 18(H) 9 - 16 mg/dL [facility] Creatinine, Serum 1.21 0.5 - 1.4 mg/dL [facility] Estimated Glomerular Filt Rate 59 [facility] Comment:Chronic Kidney Disea se: Estimated GFR < 60 mL/min/[id number] Kidney Disease: Estimated GFR < 15 mL/min/1.73m2 Glucose 117(H) 60 - 115 mg/dL [facility] Calcium 9.4 8.4 - 10.2 mg/dL [facility] Bilirubin, Total 0.4 0.0 - 1.0 mg/dL [facility] Aspartate Amino Transferase 21 5 - 37 U/L [facility] Alanine Aminotransferase 12 0 - 40 U/L [facility] Total Protein 7.3 6.5 - 8.0 g/dL [facility] Albumin Level 4.1 3.5 - 5.0 g/dL [facility] Alkaline Phosphatase 118(H) 39 - 117 U/L [facility] Blood Venous blood specimen / Unknown 06/11/2025 10:27 AM EDT 06/11/2025 11:24 AM EDT us Katarzyna Sahu MD LAB BLOOD ORDERABLES Final Resul t Performing Organization Address [facility]/ZIP Co de Phone Number [facility] [address] [place] [phone] * (ABNORMAL) POCT glycosylated hemoglobin (Hgb A1c) (06/11/2025 9:55 AM EDT) Hemoglobin A1C 6.3(A) 4.0 - 5.7 % QC Media Lot # [id number] Lot# Expiration Date Blood Capillary blood specimen / Unknown 06/11/2025 9:55 AM EDT Katarzyna Sahu MD POINT OF CARE TEST ENTER/EDIT OR DERABLES Final Result * POCT glucose manually resulted (06/11/2025 9:54 AM EDT) Pathologist [facility] Glucose Blood, POC 149 60 - 200 mg/dL [employer] Lot # [id number] Lot# Expiration Date Blood Capillary blood specimen / Unknown 06/11/2025 9:54 AM EDT Katarzyna Sahu MD POINT OF CARE TEST ENTER/EDIT OR DERABLES Final Result * Glucose, Whole Blood (04/16/2025 1:12 PM EDT) Pathologist [facility] Glucose, Whole Blood 80 60 - 115 mg/dL [facility] Comment:METER #: [id number] 04/16/2025 1:12 PM EDT 04/16/2025 1:16 PM EDT Generic External Data Provider LAB BLOOD ORDERAB LES Final Result [facility] [address] [place] [address] [phone] * Colonoscopy (10/14/2024 8:58 AM EST) Historical Provider HEALTH MAINTENANCE Final Result * Diabetes Eye Exam (07/28/2024) Eye Exam Normal Normal 07/28/2024 Tabatha Macdonald MD HEALTH MAINTENANCE Final Result * (ABNORMAL) Hepatitis C Antibody with Reflex to HCV, RNA, Quantitative, Real- Time PCR (04/01/2024 10:41 AM EDT) Hepatitis C Antibody Reactive( A) Nonreactive [facility] Comment:Presumptive evidence of antibodies to HCV. Blood Venous blood specimen / Unknown 04/01/2024 10:41 AM EDT 04/01/2024 11:18 AM EDT Katarzyna Sahu MD LAB BLOOD ORDERABLES Final Resul t Performing Organization Address [facility]/ZIP Co de Phone Number [facility] [address] [place] [address] [phone] * Albumin, Random Urine W/Creatinine (09/28/2023 7:30 AM EST) Creatinine, Urine 235.90 mg/dL [facility] Microalbumin Urine <5.0 mg/L [facility] Microalbum Creatinine Ratio Ur TNP <30 ug/mg cr [facility] Comment:Unable to calculate albumin/creatinine ratio due to lowmicroalbumin or creatinine result. Urine 09/28/2023 7:30 AM EST 09/28/2023 11:10 AM EST Katarzyna Sahu MD LAB URINE ORDERABLES Final Resul t Performing Organization Address City/[facility]/ZIP Co de Phone Number [facility] [address] [place] [phone] from Last 3 Months or Most Recently Relevant to Health Maintenance Insurance [facility] [employer] (O D-SNP) PRUDENCE ANNA [id number] Advance Directives Documents on File Type Date Recorded Patient Bar Host Expl anation HealthCare Proxy 12/07/2022 Proxy Care Teams Electrical Timing Device Calibrator Relationship Specialty Start Date End Date Katarzyna Sahu MD [address] [place] [id number] PCP - General Family Medicine 06/12/12 [facility] 07/28/22
--- OUTSIDE RECORDS SUMMARY | 2025-06-12 08:25 | XMS_ITS | Encounter Summary ---
Author Organization [employer] Address [address] [facility] 7t [place] [address] Care Team Providers Care Sports Athletic Trainer Name Role Phone Katarzyna Sahu MD Primary Care Provider [phone] Reason for Visit * Reason Comments Med Refill Encounter Details Date Type Department Care Team (Late st Contact Info) Description 06/15/2023 Refill [facility] [address] [place], [place] [phone] Katarzyna Sahu MD [address] [place], [place] [phone] Psychophysiological insomnia Social History Tobacco Use Types [...] the past 12 months, has t he [facility] [employer] [facility] [employer], oil or water company threatened to shut [...] documented as of this encounter Care Teams Sports Athletic Trainer Relationship Specialty Start Date End Date Katarzyna Sahu MD [address] [place] [address] PCP - General Family Medicine 06/12/12 [facility] 07/28/22 documented as of this encounter
--- OUTSIDE RECORDS SUMMARY | 2025-06-12 08:25 | XMS_ITS | Encounter Summary ---
Author Organization [employer] Address 75 [facility] 7t [place] [address] Care Team Providers Care Rfid Engineer Name Role Phone Katarzyna Sahu MD Primary Care Provider [phone] Reason for Visit * Reason Onset Date Comments Medication Question 02/04/2025 Encounter Details Date Type Department Care Team ([facility] st Contact Info) Description 02/04/2025 Telephone [facility] [address] [place], [place] [phone] Katarzyna Sahu MD [address] [place], [place] [phone] Medication Question Social History Tobacco Use Types [...] PM EDT TC placed to [place] at [facility] Cardiovascular who called in to inform PCP [...] 1:13 PM EDT Tc from [place] with [facility] requesting lisinopril 20 MG tablet. States medication needed for today. Please contact to clarify if medication can be prescribe by pcp [phone] documented in this encounter Plan of Treatment Not on file documented as of this encounter Visit Diagnoses Not on filedocumented in this encounter Additional Health Concerns Assessment Noted Time PHQ-9 Depression Total Score: 0 09/16/19 25 11:19 AM EST documented as of this encounter Care Teams Rfid Engineer Relationship Specialty Start Date End Date Katarzyna Sahu MD [address] [place] [address] PCP - General Family Medicine 06/12/12 [facility] 07/28/22 documented as of this encounter
--- OUTSIDE RECORDS SUMMARY | 2025-06-12 08:25 | XMS_ITS | Encounter Summary ---
Author Organization [employer] Address 75 [facility] 7t [place] [address] Care Team Providers Care Special Effects Artist Name Role Phone Katarzyna Sahu MD Primary Care Provider [phone] Encounter Details Date Type Department Care Team ([facility] st Contact Info) Description 05/14/2025 Telephone [facility] [address] [place], [place] [phone] Katarzyna Sahu MD [address] [place], [place] [phone] Social History Tobacco Use Types Packs/Day Years [...] questions whether patient had tried doxepin. The keno writer / runner statedI do not know, but there was [...] documented as of this encounter Care Teams Special Effects Artist Relationship Specialty Start Date End Date Katarzyna Sahu MD [address] [place] [address] PCP - General Family Medicine 06/12/12 [facility] 07/28/22 documented as of this encounter
--- OUTSIDE RECORDS SUMMARY | 2025-06-12 08:25 | XMS_ITS | Encounter Summary ---
Author Organization [employer] Address 75 [facility] 7t [place] [address] Care Team Providers Care Podiatric Surgeon Name Role Phone Katarzyna Sahu MD Primary Care Provider [phone] Encounter Details Date Type Department Care Team ([facility] st Contact Info) Description 10/16/2024 Orders Only [facility] [address] [place] [address] ProviderTabatha MD Social History Tobacco Use Types [...] documented as of this encounter Care Teams Podiatric Surgeon Relationship Specialty Start Date End Date Katarzyna Sahu MD [address] [place] [address] PCP - General Family Medicine 06/12/12 [facility] 07/28/22 documented as of this encounter
--- OUTSIDE RECORDS SUMMARY | 2025-06-12 08:25 | XMS_ITS | Encounter Summary ---
Author Organization [employer] Address 75 [facility] 7t [place] [address] Care Team Providers Care Territory Representative Name Role Phone Katarzyna Sahu MD Primary Care Provider [phone] Encounter Details Date Type Department Care Team (Latest Contact Info) Description 06/12/2025 Results Follow-Up [facility] [address] [place] [address] Katarzyna Sahu MD [address] [place] [address] POCT glucose manually resulted, POCT glycosylated hemoglobin (Hgb A1c), Vitamin B12 (Cobalamin) and Folate Panel, Serum, Additional followed-up results: 6 Social History Tobacco Use Types Packs/Day Years [...] documented as of this encounter Care Teams Territory Representative Relationship Specialty Start Date End Date Katarzyna Sahu MD [address] [place] [address] PCP - General Family Medicine 06/12/12 [facility] 07/28/22 documented as of this encounter
--- OUTSIDE RECORDS SUMMARY | 2025-06-12 08:25 | XMS_ITS | Encounter Summary ---
Author Organization [employer] Address 75 [facility] 7t [place] [address] Care Team Providers Care Used Car Lot Porter Name Role Phone Katarzyna Sahu MD Primary Care Provider [phone] Reason for Visit * Reason Onset Date Comments chart prep 06/10/2025 Encounter Details Date Type Department Care Team ([facility] st Contact Info) Description 06/10/2025 Telephone [facility] [address] [place], [place] [phone] Katarzyna Sahu MD [address] [place], [place] [phone] chart prep Social History Tobacco Use Types [...] documented as of this encounter Care Teams Used Car Lot Porter Relationship Specialty Start Date End Date Katarzyna Sahu MD [address] [place] [address] PCP - General Family Medicine 06/12/12 [facility] 07/28/22 documented as of this encounter
--- OUTSIDE RECORDS SUMMARY | 2025-06-12 08:25 | XMS_ITS | Encounter Summary ---
Author Organization [employer] Address 75 [facility] 7t [place] [address] Care Team Providers Care Director Of Clinical Applications Name Role Phone Katarzyna Sahu MD Primary Care Provider [phone] Reason for Visit * Reason Onset Date Comments FYI 08/22/2022 Encounter Details Date Type Department Care Team ([facility] st Contact Info) Description 08/22/2022 Telephone [facility] MED[facility]INE [address] [place], [place] [phone] Katarzyna Sahu MD [address] [place], [place] [phone] FYI Social History Tobacco Use Types Packs/Day [...] pt calling to inform 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 Which is the reason he didn't go to the pediatrist in [place]. Any questions please call pt to clarify . documented in this encounter Plan of Treatment Not on file documented as of this encounter Visit Diagnoses Not on filedocumented in this encounter Additional Health Concerns Assessment Noted Time PHQ-9 Depression Total Score: 9 07/24/20 22 10:23 AM EST documented as of this encounter Care Teams Director Of Clinical Applications Relationship Specialty Start Date End Date Katarzyna Sahu MD [address] [place] [address] PCP - General Family Medicine 06/12/12 [facility] 07/28/22 documented as of this encounter
--- OUTSIDE RECORDS SUMMARY | 2025-06-12 08:25 | XMS_ITS | Encounter Summary ---
Author Organization [employer] Address 75 [facility] 7t [place] [address] Care Team Providers Care Vamp Seamer Name Role Phone Katarzyna Sahu MD Primary Care Provider [phone] Reason for Visit * Reason Onset Date Comments Plan of Care paperworks 01/30/2025 Encounter Details Date Type Department Care Team ([facility] st Contact Info) Description 01/30/2025 Telephone [facility] MED[facility]INE [address] [place], [place] [phone] Katarzyna Sahu MD [address] [place], [place] [phone] Plan of Care paperworks Social History Tobacco [...] needs VNA Plan of Care leonor. F. [phone] P. [phone] * Telephone Encounter - Eileen Andrea - 01/30/2025 11:32 AM EDT Tc from [place] with [facility] requesting VNA order Plan of Care to be sent to: [phone] documented in this encounter Plan of Treatment Not on file documented as of this encounter Visit Diagnoses Not on filedocumented in this encounter Additional Health Concerns Assessment Noted Time PHQ-9 Depression Total Score: 0 09/16/19 25 11:19 AM EST documented as of this encounter Care Teams Vamp Seamer Relationship Specialty Start Date End Date Katarzyna Sahu MD [address] [place] [address] PCP - General Family Medicine 06/12/12 [facility] 07/28/22 documented as of this encounter
--- OUTSIDE RECORDS SUMMARY | 2025-06-12 08:25 | XMS_ITS | Encounter Summary ---
Author Organization [employer] Address 75 [facility] 7t [place] [address] Care Team Providers Care Surveillance Monitor Name Role Phone Katarzyna Sahu MD Primary Care Provider [phone] Encounter Details Date Type Department Care Team [...] documented as of this encounter Care Teams Surveillance Monitor Relationship Specialty Start Date End Date Katarzyna Sahu MD [address] [place] [address] PCP - General Family Medicine 06/12/12 [facility] 07/28/22 documented as of this encounter
--- OUTSIDE RECORDS SUMMARY | 2025-06-12 08:25 | XMS_ITS | Encounter Summary ---
Author Organization [employer] Address 75 [facility] 7t [place] [address] Care Team Providers Care Golf Ball Molder Name Role Phone Katarzyna Sahu MD Primary Care Provider [phone] Reason for Visit * Reason Comments Med Refill Encounter Details Date Type Department Care Team (Late st Contact Info) Description 11/16/2023 Refill [facility] [address] [place], [place] [phone] Katarzyna Sahu MD [address] [place], [place] [phone] Social History Tobacco Use Types Packs/Day Years [...] documented as of this encounter Care Teams Golf Ball Molder Relationship Specialty Start Date End Date Katarzyna Sahu MD [address] [place] [address] PCP - General Family Medicine 06/12/12 [facility] 07/28/22 documented as of this encounter
--- OUTSIDE RECORDS SUMMARY | 2025-06-12 08:25 | XMS_ITS | Encounter Summary ---
Author Organization [employer] Address 75 [facility] 7t [place] [address] Care Team Providers Care Radiology Nurse Name Role Phone Katarzyna Sahu MD Primary Care Provider [phone] Encounter Details Date Type Department Care Team ([facility] st Contact Info) Description 09/28/2023 Orders Only [facility] MED[facility]INE [address] [place], [place] [phone] Katarzyna Sahu MD [address] [place], [place] [phone] Social History Tobacco Use Types Packs/Day Years [...] (12/18/2023 1:54 PM EDT) Slide Review VERIFIED [facility] 12/18/2023 1:54 PM EDT 12/18/2023 4:11 PM EDT Katarzyna Sahu MD LAB BLOOD ORDERABLES Final Resul t [facility] [address] [place] [phone] [phone] documented in this encounter Visit Diagnoses Not on filedocumented in this encounter Additional Health Concerns Assessment Noted Time PHQ-9 Depression Total Score: 0 10/12/19 23 10:40 AM EST documented as of this encounter Care Teams Radiology Nurse Relationship Specialty Start Date End Date Katarzyna Sahu MD [address] [place] [address] PCP - General Family Medicine 06/12/12 [facility] 07/28/22 documented as of this encounter
--- OUTSIDE RECORDS SUMMARY | 2025-06-12 08:25 | XMS_ITS | Encounter Summary ---
Author Organization [employer] Address 75 [facility] 7t [place] [address] Care Team Providers Care Service Observer Chief Name Role Phone Katarzyna Sahu MD Primary Care Provider [phone] Encounter Details Date Type Department Care Team ([facility] st Contact Info) Description 02/05/2025 Orders Only [facility] MEDICINE [address] [place], [place] [phone] Katarzyna Sahu MD [address] [place], [place] [phone] Social History Tobacco Use Types Packs/Day Years [...] as of this encounter Care Teams Service Observer Chief Relationship Specialty Start Date End Date Katarzyna Sahu MD [address] [place] [address] PCP - General Family Medicine 06/12/12 [facility] 07/28/22 documented as of this encounter
[2025-06-12 12:27] LABS: Microalbum/Creatinine Ratio Ur 4.6 ug/mg cr (<30)
== END 2025-06-12 08:21 | disposition home or self-care (01) ==
LOC: HO.HHCL 08:20
PROVIDERS: PCP Family Medicine; Visit Provider Family Medicine
DX: E11.9 Type 2 diabetes mellitus without complications (principal)
CPT/HCPCS: 82043; 82570